=== PATIENT | female | born 1940 | race Caucasian/White ===

== ENCOUNTER 2020-02-24 11:46 | Outpatient (CLI) | payer MEDICARE, SELFPAY ==
[2020-02-24 12:04] LABS: Basophils Absolute Auto 0.04 K/mm3 (0.00-0.10); Basophils Percent Auto 0.8 % (0.0-1.0); Eosinophils Absolute Auto 0.08 K/mm3 (0.02-0.50); Eosinophils Percent Auto 1.7 % (1.0-6.0); Hematocrit 35.5 % (35.0-42.0); Hemoglobin 12.2 g/dL (11.7-13.8); Immature Granulocyte Absolute 0.01 K/mm3 (0.00-0.00); Immature Granulocyte Percent A 0.2 % (0.0-0.0); Lymphocytes Absolute Auto 0.79 K/mm3 (1.10-4.50); Lymphocytes Percent Auto 16.4 % (18.0-42.0); Mean Corpuscular HGB Conc 34.4 g/dL (32.0-36.0); Mean Corpuscular Hemoglobin 31.5 pg (27.0-31.0); Mean Corpuscular Volume 91.7 fL (78.0-102.0); Mean Platelet Volume 9.9 fl (9.2-11.8); Monocytes Absolute Auto 0.41 K/mm3 (0.10-0.90); Monocytes Percent Auto 8.5 % (2.0-11.0); Neutrophils Absolute Auto 3.5 K/mm3 (1.7-7.2); Neutrophils Percent Auto 72.4 % (50.0-70.0); Platelet Count Result 208 K/mm3 (150-420); Red Blood Count 3.87 M/mm3 (4.20-5.40); Red Cell Distribution Width 12.1 % (11.6-14.4); White Blood Count 4.8 K/mm3 (4.8-10.8)
[2020-02-24 12:09] LABS: Add Urine Microscopic? NO; Appearance Urine Clear (Clear); Bilirubin Urine Negative (Negative); Blood Urine Negative (Negative); Color Urine Yellow (Yellow); Glucose Urine UA Negative (Negative); Ketones Urine Negative (Negative); Leukocyte Esterase Ur Negative (Negative); Nitrate Urine Negative (Negative); Protein Urine Negative (Negative); Urobilinogen Urine 0.2 mg/dL (0.2-1.0)
--- NOTE | 2020-02-24 12:10 | ECG_ITS ---
Measurements Intervals [place] Rate: 59 P: 77 [place]: 177 QRS: 84 QRSD: 90 T: 66 QT: 397 QTc: 396 Interpretive Statements SINUS BRADYCARDIA MINIMAL Q WAVES- ANTEROLAT/INF LEADS BORDERLINE ECG Electronically Signed On 02-24-2020 12:37:43 CDT by Dariel Rowley D.O.
[2020-02-24 13:30] LABS: Alanine Aminotransferase 22 U/L (14-59); Albumin Level 3.9 g/dL (3.4-5.0); Alkaline Phosphatase 57 U/L (46-116); Anion Gap 14.2 mmol/L (7-16); Aspartate Amino Transferase 23 U/L (15-37); Bilirubin,Total 0.4 mg/dL (0.00-1.00); Blood Urea Nitrogen 12 mg/dL (7-18); Calcium 8.9 mg/dL (8.5-10.1); Carbon Dioxide 30 mmol/L (21-32); Chloride 103 mmol/L (98-108); Estimated Glomerular Filt Rate > 60; Glucose 87 mg/dL (70-99); Osmolality Calculated 294 mOsm/kg (285-295); Potassium 4.2 mmol/L (3.5-5.1); Sodium 143 mmol/L (136-145); Total Protein 6.7 g/dL (6.4-8.2)
[2020-02-28 09:44] LABS: Vitamin D 25 Hydroxy 81 ng/mL (30-100)
== END 2020-02-24 11:47 | disposition home or self-care (01) ==
PROVIDERS: PCP Family Medicine; Visit Provider Family Medicine
DX: E03.9 Hypothyroidism, unspecified (principal); I10 Essential (primary) hypertension; E55.9 Vitamin D deficiency, unspecified
CPT/HCPCS: 36415; 80053; 81003; 82306; 84443; 85025; 87081; 93005

== ENCOUNTER 2020-04-26 14:52 | Outpatient (RCR) | payer MEDICARE, SELFPAY ==
--- NOTE | 2020-04-26 15:40 | PTOPEVAL ---
Thank you for referring Wanda Gordillo to [facility]. Please review, sign, date and return this plan of care SAUL. I agree with and certify that the following plan of care is medically necessary. Referring Physician Date Admitting Provider: Attending Provider: PHYSICIAN NOT ON STAFF Referring Provider: *PT Outpatient Evaluation Start: 04/26/20 15:01 Freq: Status: Active Protocol: Document 04/26/20 15:02 [facility] (Rec: 04/26/20 15:25 [facility] [id number]) Therapy Assessment Status Assessment Status Assessment Status Evaluation Outpatient Past Medical History Neurological History Hx Seizures Yes: UNKNOWN CAUSE. STILL ON PHENOBARB, NO SZ SINCE AGE 28 Cardiovascular History Hx Hypertension Yes: TAKES MED Respiratory History Hx Respiratory Disorders No Significant History Gastrointestinal History Hx Other Gastrointestinal Disorders Yes: CONSTIPATION Genitourinary History Hx Bladder Surgery Yes: SUSP. BLADDER STIM PLACED EARLY 2018, NOT WORKING Musculoskeletal History Hx Fractures Yes: RT HIP Hx Joint Replacement Yes: BILAT KNEES 2014 Hx Orthopedic Surgery Yes: BILAT SHOULDER MANIPULATION, RT HIP PINNING Hx Osteoporosis Yes Hematological History Hx Hematological Disorders No Significant History Endocrine History Hx Hypothyroidism Yes: TAKES MED Hx Thyroidectomy Yes: LT HEENT History Hx Cataracts Yes: BILAT SURG. Integumentary History Hx Skin Disorders No Significant History Reproductive History Hx Hysterectomy Yes Psychosocial History Hx Psychiatric Disorders No Significant History Pain History Has Past Pain Affected Your Daily Life Yes: RT HIP Anesthesia History Hx Anesthesia Reactions No Significant History Other History Hx Implanted Device Yes: INTERSTIM Evaluation Information Problem Diagnosis right ZACH Onset 03/01/20 Additional Evaluation Detail LEFS=37 Subjective Information Pt. reports she underwent ZACH Query Text:As Reported By Patient/ on 03/01/20. She reports she Family was in the hospital for 2 days and then discharged to a skilled swing bed. She reports that she was discharged 1 week after being on the swing bed. She states that she returned home and had HH for about 1 week. She reports that she is currently
--- NOTE | 2020-05-25 10:21 | PTOPEVAL ---
Thank you for referring Wanda Gordillo to [facility]. Please review, sign, date and return this plan of care SAUL. I agree with and certify that the following plan of care is medically necessary. Referring Physician Date Admitting Provider: Attending Provider: PHYSICIAN NOT ON STAFF Referring Provider: *PT Outpatient Evaluation Start: 04/26/20 15:01 Freq: Status: Active Protocol: Document 05/25/20 09:00 [facility] (Rec: 05/25/20 10:20 [facility] [id number]) Therapy Assessment Status Assessment Status Assessment Status Re-evaluation Outpatient Past Medical History Neurological History Hx Seizures Yes: UNKNOWN CAUSE. STILL ON PHENOBARB, NO SZ SINCE AGE 28 Cardiovascular History Hx Hypertension Yes: TAKES MED Respiratory History Hx Respiratory Disorders No Significant History Gastrointestinal History Hx Other Gastrointestinal Disorders Yes: CONSTIPATION Genitourinary History Hx Bladder Surgery Yes: SUSP. BLADDER STIM PLACED EARLY 2018, NOT WORKING Musculoskeletal History Hx Fractures Yes: RT HIP Hx Joint Replacement Yes: BILAT KNEES 2014 Hx Orthopedic Surgery Yes: BILAT SHOULDER MANIPULATION, RT HIP PINNING Hx Osteoporosis Yes Hematological History Hx Hematological Disorders No Significant History Endocrine History Hx Hypothyroidism Yes: TAKES MED Hx Thyroidectomy Yes: LT HEENT History Hx Cataracts Yes: BILAT SURG. Integumentary History Hx Skin Disorders No Significant History Reproductive History Hx Hysterectomy Yes Psychosocial History Hx Psychiatric Disorders No Significant History Pain History Has Past Pain Affected Your Daily Life Yes: RT HIP Anesthesia History Hx Anesthesia Reactions No Significant History Other History Hx Implanted Device Yes: INTERSTIM Evaluation Information Problem Diagnosis s/p R ZACH Additional Evaluation Detail LEFS = 43% functionally declined Subjective Information patient reports she is getting Query Text:As Reported By Patient/ better, but reports she still Family has pain in the R hip and R knee. she reports she has been increased in soreness/pain since working in her yard last week. she reports she has been too nervous to attempt walking and activities at home without an AD. Pain Assessment Timing of Pain Assessment Timing of Pain Assessment Assessment
--- NOTE | 2020-06-14 07:40 | PCPTNOTE ---
patient cancelled appt for today. ELIANA
== END 2020-06-07 16:59 | disposition home or self-care (01) ==
LOC: CHSPT 14:52
DX: M25.551 Pain in right hip (principal); Z96.641 Presence of right artificial hip joint
CPT/HCPCS: 97014; 97110; 97161; 97530; G0283

== ENCOUNTER 2020-08-02 14:19 | Outpatient (CLI) | payer MEDICARE, SELFPAY ==
[2020-08-02 15:56] LABS: Erythrocyte Sedimentation Rate 14 mm/hr (0-20)
[2020-08-02 16:00] LABS: CRP < 0.2 mg/dL (0.0-0.9)
== END 2020-08-02 14:20 | disposition home or self-care (01) ==
PROVIDERS: PCP Family Medicine
DX: Z96.641 Presence of right artificial hip joint (principal); Z96.651 Presence of right artificial knee joint
CPT/HCPCS: 36415; 85652; 86140

== ENCOUNTER 2020-08-11 09:00 | Outpatient (RCR) | payer MEDICARE, SELFPAY ==
--- NOTE | 2020-08-11 11:04 | PTOPEVAL ---
Thank you for referring Wanda Gordillo to [facility].? The patient is scheduled to be seen for therapy? __3__x/week for 12 visits. Please review, sign, date and return this plan of care SAUL. I agree with and certify that the following plan of care is medically necessary. Referring Physician Date Admitting Provider: Attending Provider: PHYSICIAN NOT ON STAFF Referring Provider: *PT Outpatient Evaluation Start: 08/11/20 09:11 Freq: Status: Active Protocol: Document 08/11/20 09:11 [facility] (Rec: 08/11/20 11:03 [facility] [id number]) Therapy Assessment Status Assessment Status Assessment Status Evaluation Outpatient Past Medical History Neurological History Hx Seizures Yes: UNKNOWN CAUSE. STILL ON PHENOBARB, NO SZ SINCE AGE 28 Cardiovascular History Hx Hypertension Yes: TAKES MED Respiratory History Hx Respiratory Disorders No Significant History Gastrointestinal History Hx Other Gastrointestinal Disorders Yes: CONSTIPATION Genitourinary History Hx Bladder Surgery Yes: SUSP. BLADDER STIM PLACED EARLY 2018, NOT WORKING Musculoskeletal History Hx Fractures Yes: RT HIP Hx Joint Replacement Yes: BILAT KNEES 2014 Hx Orthopedic Surgery Yes: BILAT SHOULDER MANIPULATION, RT HIP PINNING Hx Osteoporosis Yes Hematological History Hx Hematological Disorders No Significant History Endocrine History Hx Hypothyroidism Yes: TAKES MED Hx Thyroidectomy Yes: LT HEENT History Hx Cataracts Yes: BILAT SURG. Integumentary History Hx Skin Disorders No Significant History Reproductive History Hx Hysterectomy Yes Psychosocial History Hx Psychiatric Disorders No Significant History Pain History Has Past Pain Affected Your Daily Life Yes: RT HIP Anesthesia History Hx Anesthesia Reactions No Significant History Other History Hx Implanted Device Yes: INTERSTIM Evaluation Information Problem Diagnosis right hip pain Onset 03/01/20 Subjective Information Pt. reports she underwent Query Text:As Reported By Patient/ right hip replacement in February. Family she states that she has had increasing pain described on the outside of the hip since. She states that she has undergone xray, which shows no complication with her hip replacement. She does have hx of lumbar fusion. She describes pain radiating from
== END 2020-09-01 23:59 | disposition home or self-care (01) ==
LOC: CHSPT 09:00
DX: Z96.641 Presence of right artificial hip joint (principal); Z96.651 Presence of right artificial knee joint
CPT/HCPCS: 97014; 97110; 97140; 97161; G0283

== ENCOUNTER 2020-12-14 08:44 | Outpatient (CLI) | payer MEDICARE, SELFPAY ==
--- NOTE | ~2020-12-14 | XR_ITS ---
EXAMINATION: XR chest 2V DATE: 12/14/2020 09:41 INDICATION: Benign hypertension. Preop. TECHNIQUE: Frontal and lateral views of the chest were obtained. COMPARISON: None. FINDINGS: There is mild scarring at the lung apices. No pleural effusion or pneumothorax. The heart s ize is normal. Calcified mediastinal lymph nodes are consistent with old granulomatous disease. IMPRESSION: 1. Mild scarring at the lung apices. Reviewed, dictated and finalized at location A. ER SIZER OPERATOR
[2020-12-14 09:02] LABS: Add Urine Microscopic? NO; Appearance Urine Clear (Clear); Bilirubin Urine Negative (Negative); Blood Urine Negative (Negative); Color Urine Yellow (Yellow); Glucose Urine UA Negative (Negative); Hemoglobin 12.2 g/dL (11.7-13.8); Ketones Urine Negative (Negative); Leukocyte Esterase Ur Negative (Negative); Mean Corpuscular Hemoglobin 30.6 pg (27.0-31.0); Mean Corpuscular Volume 92.7 fL (78.0-102.0); Mean Platelet Volume 9.7 fl (9.2-11.8); Nitrate Urine Negative (Negative); Platelet Count Result 238 K/mm3 (150-420); Protein Urine Negative (Negative); Red Blood Count 3.99 M/mm3 (4.20-5.40); Red Cell Distribution Width 12.2 % (11.6-14.4); Specific Grav Ur 1.015 (1.010-1.020); Urobilinogen Urine 0.2 mg/dL (0.2-1.0); White Blood Count 3.5 K/mm3 (4.8-10.8)
--- NOTE | 2020-12-14 09:10 | ECG_ITS ---
Measurements Intervals [place] Rate: 56 P: 72 [place]: 174 QRS: 87 QRSD: 97 T: 73 QT: 410 QTc: 398 Interpretive Statements SINUS BRADYCARDIA MINIMAL Q WAVES- ANTEROLAT/INF LEADS BORDERLINE ECG Electronically Signed On 12-14-2020 9:31:48 INVESTMENT ASSOCIATE by Dariel Rowley D.O.
[2020-12-14 09:21] LABS: Band Neutrophils Percent 0 % (0-6); Basophils Absolute Manual 0.03 K/mm3 (0-0.1); Basophils Percent Manual 1 % (0-1); Eosinophils Absolute Manual 0.35 K/mm3 (0.02-0.5); Eosinophils Percent Manual 10 % (1-6); Lymphocytes Absolute Manual 0.87 K/mm3 (1.1-4.5); Lymphocytes Percent Manual 25 % (18-44); Monocytes Absolute Manual 0.17 K/mm3 (0.1-0.90); Monocytes Percent Manual 5 % (3-9); Neutrophils Absolute Manual 2.06 K/mm3 (1.7-7.2); Neutrophils Percent Manual 59 % (46-73); Platelet Estimate Adequate (Adequate); Total Cells Counted 100
[2020-12-14 09:38] LABS: Alanine Aminotransferase 24 U/L (14-59); Albumin Level 3.8 g/dL (3.4-5.0); Alkaline Phosphatase 67 U/L (46-116); Anion Gap 6 mmol/L (8-16); Aspartate Amino Transferase 17 U/L (15-37); Bilirubin,Total 0.4 mg/dL (0.00-1.00); Blood Urea Nitrogen 12 mg/dL (7-18); Carbon Dioxide 29 mmol/L (21-32); Chloride 104 mmol/L (98-108); Estimated Glomerular Filt Rate 56; Glucose 97 mg/dL (70-99); Osmolality Calculated 287 mOsm/kg (285-295); Potassium 4.6 mmol/L (3.5-5.1); Sodium 139 mmol/L (136-145); Total Protein 6.7 g/dL (6.4-8.2)
== END 2020-12-14 08:45 | disposition home or self-care (01) ==
LOC: CHSLAB 08:47
PROVIDERS: PCP Family Medicine; Visit Provider Family Medicine
DX: I10 Essential (primary) hypertension (principal); R00.1 Bradycardia, unspecified
CPT/HCPCS: 36415; 71046; 80053; 81003; 85025; 93005

== ENCOUNTER 2021-01-02 08:30 | Outpatient (CLI) | payer MEDICARE, SELFPAY ==
[2021-01-02 10:07] LABS: SARS-CoV-2 RNA PCR Negative
== END 2021-01-02 08:31 | disposition home or self-care (01) ==
LOC: CHSLAB 08:34
PROVIDERS: PCP Family Medicine; Visit Provider Family Medicine
DX: Z01.818 Encounter for other preprocedural examination (principal); Z20.822 Contact with and (suspected) exposure to COVID-19
CPT/HCPCS: C9803; U0003; U0005

== ENCOUNTER 2021-07-19 11:07 | Outpatient (CLI) | payer MEDICARE, SELFPAY ==
[2021-07-19 11:23] LABS: Basophils Absolute Auto 0.04 K/mm3 (0.00-0.10); Eosinophils Absolute Auto 0.09 K/mm3 (0.02-0.50); Eosinophils Percent Auto 2.3 % (1.0-6.0); Hematocrit 35.7 % (35.0-42.0); Hemoglobin 11.8 g/dL (11.7-13.8); Lymphocytes Absolute Auto 0.69 K/mm3 (1.10-4.50); Lymphocytes Percent Auto 17.3 % (18.0-42.0); Mean Corpuscular HGB Conc 33.1 g/dL (32.0-36.0); Mean Corpuscular Hemoglobin 31.5 pg (27.0-31.0); Mean Corpuscular Volume 95.2 fL (78.0-102.0); Mean Platelet Volume 9.5 fl (9.2-11.8); Monocytes Absolute Auto 0.37 K/mm3 (0.10-0.90); Monocytes Percent Auto 9.3 % (2.0-11.0); Neutrophils Absolute Auto 2.8 K/mm3 (1.7-7.2); Neutrophils Percent Auto 70.1 % (50.0-70.0); Platelet Count Result 228 K/mm3 (150-420); Red Blood Count 3.75 M/mm3 (4.20-5.40); Red Cell Distribution Width 12.7 % (11.6-14.4)
--- NOTE | 2021-07-19 11:30 | ECG_ITS ---
Measurements Intervals [place] Rate: 70 P: 86 [place]: 190 QRS: 89 QRSD: 94 T: 72 QT: 389 QTc: 421 Interpretive Statements SINUS RHYTHM ATRIAL COUPLET MINIMAL Q WAVES- ANTEROLAT/INF LEADS BASELINE ARTIFACT- I, II, III BORDERLINE ECG Electronically Signed On 07-19-2021 11:52:07 CDT by Dariel Rowley D.O.
[2021-07-19 12:02] LABS: Alanine Aminotransferase 26 U/L (14-59); Albumin Level 3.8 g/dL (3.4-5.0); Alkaline Phosphatase 68 U/L (46-116); Anion Gap 7 mmol/L (8-16); Aspartate Amino Transferase 21 U/L (15-37); Bilirubin,Total 0.4 mg/dL (0.00-1.00); Blood Urea Nitrogen 13 mg/dL (7-18); Calcium 8.3 mg/dL (8.5-10.1); Carbon Dioxide 31 mmol/L (21-32); Chloride 102 mmol/L (98-108); Estimated Glomerular Filt Rate > 60; Glucose 88 mg/dL (70-99); Osmolality Calculated 289 mOsm/kg (285-295); Potassium 4.1 mmol/L (3.5-5.1); Sodium 140 mmol/L (136-145); Total Protein 6.7 g/dL (6.4-8.2)
== END 2021-07-19 11:08 | disposition home or self-care (01) ==
LOC: CHSLAB 11:11
PROVIDERS: PCP Family Medicine; Visit Provider Family Medicine
DX: R06.02 Shortness of breath (principal)
CPT/HCPCS: 36415; 80053; 85025; 93005

== ENCOUNTER 2021-08-08 09:17 | Outpatient (CLI) | payer MEDICARE, SELFPAY ==
[2021-08-08 10:23] LABS: SARS-CoV-2 RNA PCR Negative (Negative)
== END 2021-08-08 09:18 | disposition home or self-care (01) ==
LOC: CHSLAB 09:19
PROVIDERS: PCP Family Medicine; Visit Provider Family Medicine
DX: Z01.818 Encounter for other preprocedural examination (principal); Z20.822 Contact with and (suspected) exposure to COVID-19
CPT/HCPCS: C9803; U0003; U0005

== ENCOUNTER 2021-09-20 10:50 | Outpatient (RCR) | payer MEDICARE, SELFPAY ==
--- NOTE | 2021-09-20 12:07 | PTOPEVAL ---
Thank you for referring Wanda Gordillo to [facility].? The patient is scheduled to be seen for therapy? ____x/week for ___ weeks. Please review, sign, date and return this plan of care SAUL. I agree with and certify that the following plan of care is medically necessary. Referring Physician Date Admitting Provider: Attending Provider: MIRIAM ESTRADA Referring Provider: EmmaPT Outpatient Evaluation Start: 09/20/21 11:02 Freq: Status: Active Protocol: Document 09/20/21 11:00 [facility] (Rec: 09/20/21 12:02 [facility] [id number]) Therapy Assessment Status Assessment Status Assessment Status Evaluation Outpatient Past Medical History Neurological History Hx Seizures Yes: UNKNOWN CAUSE. STILL ON PHENOBARB, NO SZ SINCE AGE 28 Cardiovascular History Hx Hypertension Yes: TAKES MED Respiratory History Hx Respiratory Disorders No Significant History Gastrointestinal History Hx Other Gastrointestinal Disorders Yes: CONSTIPATION Genitourinary History Hx Bladder Surgery Yes: SUSP. BLADDER STIM PLACED EARLY 2018, NOT WORKING Musculoskeletal History Hx Fractures Yes: RT HIP Hx Joint Replacement Yes: BILAT KNEES 2014 Hx Orthopedic Surgery Yes: BILAT SHOULDER MANIPULATION, RT HIP PINNING Hx Osteoporosis Yes Hematological History Hx Hematological Disorders No Significant History Endocrine History Hx Hypothyroidism Yes: TAKES MED Hx Thyroidectomy Yes: LT HEENT History Hx Cataracts Yes: BILAT SURG. Integumentary History Hx Skin Disorders No Significant History Reproductive History Hx Other Reproductive Disorders Yes: D&C Psychosocial History Hx Psychiatric Disorders No Significant History Pain History Has Past Pain Affected Your Daily Life Yes: RT HIP Anesthesia History Hx Anesthesia Reactions No Significant History Other History Hx Implanted Device Yes: INTERSTIM Evaluation Information Problem Diagnosis R hip gluteal mm strain Onset 08/11/21 Additional Evaluation Detail LEFS = 68% functionally declined Subjective Information patient reports she had back Query Text:As Reported By Patient/ surgery in december of this year. Family she reports she had surgery in the R hip on 08/11/21. she reports she had some wires in her R hip after the R hip replacement. she reports the wires were rubbing and now she had revision of these wires.
== END 2021-10-06 08:42 | disposition home or self-care (01) ==
LOC: CHSPT 10:50
PROVIDERS: PCP Family Medicine
DX: S76.011D Strain of muscle, fascia and tendon of right hip, subsequent encounter (principal)
CPT/HCPCS: 97014; 97110; 97161; G0283

== ENCOUNTER 2023-12-16 09:57 | Observation (INO) | payer MEDICARE, SELFPAY ==
[2023-12-16] VITALS (25 sets, daily range): BP systolic 119–153; BP diastolic 72–112; PULSE 70–115; RESP 16–20; TEMP 36.4–36.9; O2SAT 81–100; BMI 20.7
--- NOTE | ~2023-12-16 | XR_ITS ---
EXAMINATION: XR chest 2V DATE: 12/16/2023 10:31 INDICATION: Weakness. TECHNIQUE: Frontal and lateral views of the chest were obtained. COMPARISON: Chest 2 views 12/14/2020 FINDINGS: There is mild scarring at the lung apices. No pleural effusion or pneumothorax. Calcified m ediastinal lymph nodes are consistent with old granulomatous disease. The heart size is normal. There is an old healed left rib fracture. There is mild chronic anterior wedging of multiple vertebral bod ies. IMPRESSION: 1. Stable mild scarring at the lung apices. Reviewed, dictated and finalized at location A. ATRIC AIDE
--- NOTE | 2023-12-16 10:02 | ED.WEAKNESS ---
HPI - Weakness General Chief complaint: Weakness Stated complaint: weakness Time Seen by Provider: 12/16/23 09:58 Source: patient Mode of arrival: ambulatory Limitations: no limitations History of Present Illness HPI Narrative: Patient is an 82-year-old female with generalized weakness for the past week. She had COVID last week and has still not felt better. She has been back to the Primary without any changes. She has a hacking cough. MD Complaint: generalized weakness Onset (ago): week(s) (1) Duration: constant Location: generalized Migration: none Severity: moderate Severity scale (1-10): 4 Quality: other ( No pain) Relieving factors: none Exacerbating factors: none Context: recent illness Associated symptoms: other ( cough) Related Data Home Medications Medication Instructions Recorded Confirmed apixaban 5 mg tablet (Eliquis) 5 mg PO DAILY 12/16/23 12/16/23 duloxetine 20 mg capsule,delayed 20 mg PO DAILY 12/16/23 12/16/23 release hydrochlorothiazide 25 mg tablet 25 mg PO DAILY 12/16/23 12/16/23 latanoprost 0.005 % eye drops 1 drp EACH EYE DAILY 12/16/23 12/16/23 levothyroxine 100 mcg tablet 100 mcg PO DAILY 12/16/23 12/16/23 (Synthroid) losartan 100 mg tablet 100 mg PO DAILY 12/16/23 12/16/23 mirabegron 50 mg tablet,extended 50 mg PO DAILY 12/16/23 12/16/23 release 24 hr (Myrbetriq) Allergies Allergy/AdvReac Type Severity Reaction Status Date / Time Sulfa (Sulfonamide Allergy Intermediate LIP Verified 01/27/20 14:20 Antibiotics) SWELLING Review of Systems Review of Systems: All systems reviewed & are unremarkable except as noted in HPI and below Constitutional: Constitutional: Reports no additional constitutional complaints Eyes: Eyes: Reports no additional eye complaints ENT: Reports system reviewed and no additional complaints, except as documented Cardiovascular: Cardiovascular: Reports no additional cardiovascular complaints Respiratory: Respiratory: Reports no additional respiratory complaints Gastrointestinal: Gastrointestinal: Reports no additional gastrointestinal complaints Genitourinary: Genitourinary: Reports no additional female genitourinary complaints Musculoskeletal: Musculoskeletal: Reports no additional musculoskeletal complaints Integumentary/Breasts: Skin/Breast: Reports system reviewed and no additional complaints, except as docu Neurologic: Reports system reviewed and no additional complaints, except as documented Psychiatric: Psychiatric: Reports no additional psychiatric complaints Endocrine: Endocrine: Reports no additional endocrine complaints Hematologic/Lymphatic: Hematologic/Lymphatic: Reports no additional hematologic/lymphatic complaints Allergic/Immunologic: Allergic/Immunologic: Reports no additional allergic/immunologic complaints PMFSH Past Medical History Medical History Hypertension Hypothyroidism Osteoporosis Seizure none since age 28 Surgical History Surgical History History of hysterectomy Social History Social History Gender identity (if verbalized by the patient): Female Exam Const: General: healthy appearing Nutritional Appearance: well nourished Orientation/consciousness: patient oriented x3 HENMT: Head: normal to inspection Ears: external ears normal Face/Nose/Sinus: Normal external nose present Eyes: Conjunctivae: conjunctivae normal Pupils: Equal, round and reactive pupils present EOM: EOMs intact bilaterally Neck: Neck: normal visual inspection Chest: Chest palpation & inspection: normal inspection of the chest Resp: Effort & Inspection: normal respiratory effort and not labored Auscultation: clear to auscultation bilaterally and no crackles Cardio: Rate: regular rate Rhythm: regular rhythm Heart sounds: no murmurs GI: Inspection: n
--- NOTE | 2023-12-16 10:05 | ECG_ITS ---
Measurements Intervals [place] Rate: 110 P: [place]: 0 QRS: 34 QRSD: 89 T: 27 QT: 340 QTc: 462 Interpretive Statements ATRIAL FIBRILLATION WITH RAPID VENTRICULAR RESPONSE MINIMAL Q WAVES- ANTEROLATERAL LEADS BASELINE ARTIFACT- I, II, III, AVR, AVL, AVF, V1-V6 COMPARED TO ECG 07/19/2021 11:36:09 ABNORMAL ECG ATRIAL FIBRILLATION NOW PRESENT Electronically Signed On 12-16-2023 15:33:13 GLUE MOUNTER OPERATOR by Dariel Rowley D.O.
[2023-12-16 10:58] LABS: Hematocrit 35.1 % (35.0-42.0); Hemoglobin 11.5 g/dL (11.7-13.8); Mean Corpuscular HGB Conc 32.8 g/dL (32.0-36.0); Mean Corpuscular Hemoglobin 29.3 pg (27.0-31.0); Mean Corpuscular Volume 89.5 fL (78.0-102.0); Mean Platelet Volume 9.2 fl (9.2-11.8); Platelet Count Result 224 K/mm3 (150-420); Red Blood Count 3.92 M/mm3 (4.20-5.40); Red Cell Distribution Width 12.4 % (11.6-14.4)
[2023-12-16 11:19] LABS: Lactic Acid Reflex 0.9 mmol/L (0.4-2.0)
[2023-12-16 11:23] LABS: Alanine Aminotransferase 19 U/L (14-59); Albumin Level 3.4 g/dL (3.4-5.0); Alkaline Phosphatase 37 U/L (46-116); Anion Gap 7 mmol/L (8-16); Aspartate Amino Transferase 20 U/L (15-37); Bilirubin,Total 0.5 mg/dL (0.00-1.00); Blood Urea Nitrogen 37 mg/dL (7-18); Calcium 9.2 mg/dL (8.5-10.1); Carbon Dioxide 30 mmol/L (21-32); Chloride 98 mmol/L (98-108); Estimated Glomerular Filt Rate 30; Glucose 100 mg/dL (70-99); Osmolality Calculated 288 mOsm/kg (285-295); Potassium 3.5 mmol/L (3.5-5.1); Sodium 135 mmol/L (136-145); Thyroid Stimulating Hormone 0.51 uIU/mL (0.36-3.74)
[2023-12-16 11:39] LABS: SARS-CoV-2 RNA PCR Positive (Negative)
[2023-12-16 11:44] LABS: Band Neutrophils Percent 0 % (0-6); Eosinophils Absolute Manual 0.04 K/mm3 (0.02-0.5); Eosinophils Percent Manual 1 % (1-6); Lymphocytes Absolute Manual 0.52 K/mm3 (1.1-4.5); Lymphocytes Percent Manual 13 % (18-44); Monocytes Absolute Manual 0.28 K/mm3 (0.1-0.90); Monocytes Percent Manual 7 % (3-9); Neutrophils Absolute Manual 3.16 K/mm3 (1.7-7.2); Neutrophils Percent Manual 79 % (46-73); Total Cells Counted 100
[2023-12-16 11:45] LABS: Influenza A QL RT-PCR Negative (Negative); Influenza B QL RT-PCR Negative (Negative); Large Platelets Present; Platelet Estimate Adequate (Adequate); RSV RNA, RT-PCR Negative (Negative); Schistocytes None Seen (NORMAL)
[2023-12-16] MEDS: SODIUM CHLORIDE 0.9% IV 1,000 ML 999 ML IV CONT (11:58)
[2023-12-16 12:07] LABS: Appearance Urine Clear (Clear); Bilirubin Urine Negative (Negative); Blood Urine Negative (Negative); Color Urine Light Yellow (Yellow); Glucose Urine UA Negative (Negative); Ketones Urine Negative (Negative); Leukocyte Esterase Ur Negative LEU/UL (Negative); Nitrate Urine Negative (Negative); Protein Urine Negative (Negative); Specific Grav Ur 1.015 (1.010-1.020); Urobilinogen Urine 0.2 mg/dL (0.2-1.0); pH Urine 6.5 (5.0-8.0)
[2023-12-16 12:11] LABS: Add Urine Microscopic? NO
--- NOTE | 2023-12-16 12:11 | PC.NURSE ---
Patient provided Tea and ham sandwich with ERP approval. patient ambulatory to bathroom and back with cane, no difficulty with ambulation.
[2023-12-16 12:20] LABS: NT Pro B Type Natriuretic Pept 2235 pg/mL (0-450)
--- NOTE | 2023-12-16 13:30 | PC.NURSE ---
On 12/16/23, the student, Kristi Jorge, provided care and completed [facility] documentation on this patient. I have reviewed the student's documentation and agree with the findings.
[2023-12-16] MEDS: METOPROLOL TARTRATE 25 MG TABLET PO (13:31)
--- NOTE | 2023-12-16 15:01 | PC.NURSE ---
1340 PT ARRIVES FROM ER VIA WHEELCHAIR WITH ER STAFF, DENISE AND SON , JEFFERSON. PT IS ALERT AND ORIENTED X4. ALL ASSESSMENT QUESTIONS ANSWERED PER PATIENT. PT ABLE TO TRANSFER TO BED WITH PERSONAL CANE AND MINIMAL ASSISTANCE. PATIENT ORIENTED TO ROOM, PHONE, CALL TORIBIO, BATHROOM, TV. ORIENTATION PATIENT PACKET/FOLDER REVIEWED WITH PT. ALL QUESTIONS ANSWERED. NO NEEDS OR CONCERNS AFTER INITIAL INTERVIEW.
[2023-12-16] MEDS: SODIUM CHLORIDE 0.9% IV 1,000 ML 60 ML IV CONT (16:31)
--- NOTE | 2023-12-16 19:01 | PC.NURSE ---
[id number] password CAT PERSONS THAT YOU CAN GIVE INFORMATION TO : JASVIR PAULINO--SONS, LINDSEY- , FRIEND--SHANTEL MOREAU. GARCÍA LONGORIA--DAUGHTER IN LAW.
[2023-12-16] MEDS: ACETAMINOPHEN 325 MG TABLET 650 MG PO (20:45)
[2023-12-16] MEDS: APIXABAN 2.5 MG TABLET PO (20:45)
[2023-12-17 04:00] VITALS: BP 147/90; PULSE 90; RESP 20; TEMP 36.1; O2SAT 98
[2023-12-17 05:24] LABS: Basophils Absolute Auto 0.01 K/mm3 (0.00-0.10); Basophils Percent Auto 0.4 % (0.0-1.0); Eosinophils Absolute Auto 0.04 K/mm3 (0.02-0.50); Eosinophils Percent Auto 1.7 % (1.0-6.0); Hematocrit 31.1 % (35.0-42.0); Hemoglobin 10.5 g/dL (11.7-13.8); Immature Granulocyte Absolute 0.01 K/mm3 (0.00-0.00); Immature Granulocyte Percent A 0.4 % (0.0-0.0); Lymphocytes Absolute Auto 0.67 K/mm3 (1.10-4.50); Lymphocytes Percent Auto 28.8 % (18.0-42.0); Mean Corpuscular HGB Conc 33.8 g/dL (32.0-36.0); Mean Corpuscular Hemoglobin 30.2 pg (27.0-31.0); Mean Corpuscular Volume 89.4 fL (78.0-102.0); Mean Platelet Volume 9.3 fl (9.2-11.8); Monocytes Absolute Auto 0.27 K/mm3 (0.10-0.90); Monocytes Percent Auto 11.6 % (2.0-11.0); Neutrophils Absolute Auto 1.3 K/mm3 (1.7-7.2); Neutrophils Percent Auto 57.1 % (50.0-70.0); Platelet Count Result 215 K/mm3 (150-420); Red Blood Count 3.48 M/mm3 (4.20-5.40); Red Cell Distribution Width 12.2 % (11.6-14.4); White Blood Count 2.3 K/mm3 (4.8-10.8)
[2023-12-17 05:44] LABS: Alanine Aminotransferase 17 U/L (14-59); Albumin Level 2.9 g/dL (3.4-5.0); Alkaline Phosphatase 34 U/L (46-116); Anion Gap 9 mmol/L (8-16); Aspartate Amino Transferase 20 U/L (15-37); Bilirubin,Total 0.5 mg/dL (0.00-1.00); Blood Urea Nitrogen 28 mg/dL (7-18); Calcium 8.1 mg/dL (8.5-10.1); Carbon Dioxide 28 mmol/L (21-32); Chloride 97 mmol/L (98-108); Estimated CRCL calculation 31 ml/min; Estimated Glomerular Filt Rate 42; Glucose 85 mg/dL (70-99); Magnesium 1.6 mg/dL (1.8-2.4); Osmolality Calculated 282 mOsm/kg (285-295); Potassium 3.5 mmol/L (3.5-5.1); Sodium 134 mmol/L (136-145)
[2023-12-17] MEDS: LEVOTHYROXINE SODIUM 100 MCG TABLET PO (06:25)
--- NOTE | 2023-12-17 07:26 | PM.IMHP ---
H&P: HPI History of Present Illness Date/Time: 12/17/23 07:26 Chief Complaint: Weakness Narrative: This is an 82-year-old female patient with a past history of atrial fibrillation, hypothyroidism, hypertension who came down with COVID about 8 days ago along with her and son. Over this time patient has had decreased oral intake, weakness and occasional shortness of breath/cough. Workup in the emergency department was significant for an RENY and dehydration. Patient given IV fluids. She was noted to have AFib with RVR on telemetry that improved with beta-juan m oral. Losartan and hydrochlorothiazide were held. Patient reports that she is already starting to improve this morning. She is requesting to be discharged home. Review of Systems Review of Systems: All systems reviewed & are unremarkable except as noted in HPI and below PMFSH Past Medical History Medical History Hypertension Hypothyroidism Osteoporosis Seizure none since age 28 Surgical History Surgical History History of hysterectomy Social History Social History Smoking status: Never smoker Second hand tobacco smoke exposure: No Alcohol intake: never Substance use: never Substance use type: does not use Do You Feel Safe in your Home?: Yes Lack of Transportation: No Lack of Food: Never True Current Housing: I Have Housing Concerned About Future Housing: No Difficulty Paying Gas/Electric Bills: No Difficulty Paying for Meds: No Currently Unemployed: No Education: High School Diploma/GED Difficulty w/ Childcare or Family Care: No Gender identity (if verbalized by the patient): Female Spiritual care concerns: No Meds Home Medications and Allergies Home Medications Medication Instructions Recorded Confirmed Type duloxetine 20 mg capsule,delayed 20 mg PO DAILY 12/16/23 12/16/23 History release latanoprost 0.005 % eye drops 1 drp EACH EYE DAILY 12/16/23 12/16/23 History levothyroxine 100 mcg tablet 100 mcg PO DAILY 12/16/23 12/16/23 History (Synthroid) mirabegron 50 mg tablet,extended 50 mg PO DAILY 12/16/23 12/16/23 History release 24 hr (Myrbetriq) apixaban 2.5 mg tablet (Eliquis) 2.5 mg PO Q12HR #180 tabs 12/17/23 Rx metoprolol tartrate 25 mg tablet 25 mg PO Q12HR #20 tabs 12/17/23 Rx Allergies Allergy/AdvReac Type Severity Reaction Status Date / Time Sulfa (Sulfonamide Allergy Intermediate LIP Verified 01/27/20 14:20 Antibiotics) SWELLING Vital Signs Vital Signs - 24 hr 12/16/23 09:58 12/16/23 10:00 12/16/23 10:15 Temperature 36.9 C Pulse Rate 112 H 109 H 114 H Respiratory Rate 16 17 17 Blood Pressure 139/112 H 125/78 119/72 Pulse Oximetry 99 99 99 Oxygen Delivery Room Air Room Air 12/16/23 10:54 12/16/23 11:50 12/16/23 12:00 Temperature Pulse Rate 113 H Respiratory Rate Blood Pressure Pulse Oximetry 100 81 L 99 Oxygen Delivery 12/16/23 12:01 12/16/23 12:15 12/16/23 12:16 Temperature Pulse Rate 108 H 108 H 103 H Respiratory Rate Blood Pressure 143/92 H 152/92 H Pulse Oximetry 94 98 99 Oxygen Delivery 12/16/23 12:34 12/16/23 12:45 12/16/23 12:46 Temperature Pulse Rate 102 H 96 104 H Respiratory Rate Blood Pressure 139/85 Pulse Oximetry 100 99 99 Oxygen Delivery 12/16/23 13:00 12/16/23 13:01 12/16/23 13:31 Temperature Pulse Rate 92 108 H 105 H Respiratory Rate Blood Pressure 133/76 Pulse Oximetry 98 99 Oxygen Delivery 12/16/23 13:35 12/16/23 13:02 12/16/23 13:15 Temperature 36.9 C Pulse Rate 109 H 115 H 94 Respiratory Rate 17 Blood Pressure 133/73 Pulse Oximetry 100 99 99 Oxygen Delivery Room Air 12/16/23 13:30 12/16/23 13:31 12/16/23 13:50 Temperature 36.9 C 36.6 C Pulse Rate 98 100 98 Respira
[2023-12-17] MEDS: MAGNESIUM SULF 2 GM/WATER 50ML 2 GM/50 ML BAG IVPB (07:51)
[2023-12-17] MEDS: MIRABEGRON 25 MG ER TABLET 50 MG PO (07:54)
[2023-12-17] MEDS: APIXABAN 2.5 MG TABLET PO (07:54)
[2023-12-17] MEDS: DULoxetine HCL 20 MG CAPSULE.DR PO (07:54)
[2023-12-17] MEDS: POTASSIUM CHLORIDE 20 MEQ ER TABLET 40 MEQ PO (07:58)
[2023-12-17 08:00] VITALS: BP 165/93; PULSE 91; PULSE 99; RESP 20; TEMP 36.7; O2SAT 98
[2023-12-17 09:02] LABS: Ferritin 159 ng/mL (8-252); Folic Acid 15.3 ng/mL (8.6->20); Iron 73 ug/dL (50-170); Percent Iron Saturation 33 % (12-57); Vitamin B12 596 pg/mL (193-986)
[2023-12-17 09:03] LABS: Thyroid Stimulating Hormone Reflex 0.44 u/IU/mL (0.36-3.74)
[2023-12-17 09:05] VITALS: PULSE 91
[2023-12-17] MEDS: BISACODYL 10 MG SUPPOSITORY RECTAL (09:05)
[2023-12-17] MEDS: METOPROLOL TARTRATE 25 MG TABLET PO (09:05)
[2023-12-17 12:00] VITALS: BP 148/82; PULSE 76; RESP 20; TEMP 36.7; O2SAT 98
--- NOTE | 2023-12-17 12:38 | PM.DS ---
DS: Admitting Diagnosis Discharge Date 12/17/2023 Admitting Diagnosis RENY, dehydration, atrial fibrillation with RVR, COVID, hypertension, hypothyroidism, constipation DS: Discharge Diagnosis Discharge Diagnosis (1) RENY (acute kidney injury): Code(s): N17.9 - Acute kidney failure, unspecified Status: Acute (2) Dehydration: Code(s): E86.0 - Dehydration Status: Acute (3) Atrial fibrillation with rapid ventricular response: Code(s): I48.91 - Unspecified atrial fibrillation Status: Acute (4) COVID: Code(s): U07.1 - COVID-19 Status: Acute (5) Hypertension: Code(s): I10 - Essential (primary) hypertension Status: Acute (6) Hypothyroidism: Code(s): E03.9 - Hypothyroidism, unspecified Status: Acute (7) Constipation: Code(s): K59.00 - Constipation, unspecified Status: Acute (8) Anemia: Code(s): D64.9 - Anemia, unspecified Status: Acute DS: Summary Hospital Course Reason for hospitalization: Generalized weakness, dehydration Hospital Course: This is an 82-year-old female patient who was admitted to the hospital overnight with RENY, dehydration, AFib with RVR. She was recently diagnosed with COVID was not eating or drinking well at and was beginning to feel generally much weaker. Patient found to have significant renal dysfunction compared to last values and our computer system. Patient reports that she is feeling much stronger after IV fluids overnight. Laboratory assessment showed a slightly decreased magnesium and low normal potassium. These were supplemented due to AFib with RVR. Patient is requesting discharge home today. I contacted patient's primary care provider regarding recommendations to change blood pressure medicine from hydrochlorothiazide/losartan that patient usually takes at home and change it to metoprolol 25 mg tartrate b.i.d. at least for the short term. Also discussed decreasing the dose of Eliquis due to patient's age, weight and renal function. Dr. Hardin agreed with these changes and wants patient to contact the office for follow-up this week where he will institute remote monitoring of blood pressure. He requested a 10 day prescription for metoprolol and he would continue this or make adjustments ongoing. Dr. Hardin was also able to update us that patient's renal function has subsided over the last couple of years baseline creatinine seems to be of 1.4 and baseline GFR in the 30s to low 40s. Eliquis 90 day prescription was written as this is what patient prefers. Dr. Hardin in agreement with these plans. Family notified and also in agreement with discharge. Status at Discharge Cognitive/behavioral status at discharge: Awake alert oriented and pleasant Functional status at discharge: uses cane/walker (Uses cane at times for stabilization) Overall status at discharge: patient is progressing back to baseline Time Spent with Patient Time attestation: Total time spent providing and/or coordinating discharge services: Exam Narrative: GENERAL: Well-appearing, well-nourished, and in no acute distress. HEAD: Normocephalic, atraumatic. ENT:? Mucous membranes moist. CHEST: Clear to auscultation.? No respiratory distress. HEART: Regular rate and rhythm. ? Normal peripheral pulses. ABDOMEN: Soft, nontender, nondistended. EXTREMITIES: Normal range of motion. No peripheral edema. SKIN: Warm dry normal color NEURO: Alert and oriented x3. PSYCH: Normal mood and affect DS: Data Data Completed and Pending Completed studies during hospitalization: Chest x-ray Labs on day of discharge: Labs from last 24 hours 12/17/23 12/17/23 05:01 04:58 WBC 2.3 L RBC 3.48 L Hgb 10.5 L Hct 31.1 L MCV 89.4 MCH 30.2 MCHC 33.8 RDW 12.2 Plt Count 215 MPV 9.3 Immature Gran % (Auto) 0.4 H Neut % (Auto) 57.1 Lymph % (Auto) 28.8 Berrien % (Auto) 11.6 H Eos % (Auto) 1.7 Baso % (Auto)
--- NOTE | 2023-12-17 13:49 | PC.NURSE ---
1200 DISCHARGE INSTRUCTIONS GONE OVER WITH PT IV D/C'D PT SHUN WELL CATH INTACT BLEEDING CONTROLLED PT DRESSED AND WAITING FOR RIDE AT 1300 PT TAKEN TO EXIT AND HELPED INTO VEHICLE PT VERBALIZED UNDERSTANDING OF DISCHARGE INSTRUCTIONS
--- NOTE | 2023-12-19 08:37 | PC.NURSE ---
Discharge call back attempted, no answer
--- NOTE | 2023-12-20 09:33 | PC.NURSE ---
Discharge call back completed, understood dc instructions, no questions, saw PMD yesterday
== END 2023-12-17 13:00 | disposition home or self-care (01) ==
LOC: CHSED 12:12 → CHS2ND 13:19
PROVIDERS: Nurse Practitioner; Admitting Provider Internal Medicine; Emergency Provider Emergency Medicine; PCP Family Medicine; Visit Provider Internal Medicine
DX: N17.9 Acute kidney failure, unspecified (principal); U07.1 COVID-19; D64.9 Anemia, unspecified; I48.91 Unspecified atrial fibrillation; E86.0 Dehydration; E03.9 Hypothyroidism, unspecified; K59.00 Constipation, unspecified; I10 Essential (primary) hypertension; M81.0 Age-related osteoporosis without current pathological fracture; Z79.01 Long term (current) use of anticoagulants; Z79.899 Other long term (current) drug therapy
CPT/HCPCS: 36415; 71046; 80053; 81003; 82607; 82728; 82746; 83540; 83550; 83605; 83735; 83880; 84443; 84484; 85025; 87637; 93005; 96360; 96361; 96365; 99285; A9270; G0378; J3475; J7030

== ENCOUNTER 2024-03-27 16:02 | Emergency (ER) | payer MEDICARE, SELFPAY ==
[2024-03-27 16:02] VITALS: BP 137/94; PULSE 99; RESP 17; TEMP 36.9; O2SAT 99
[2024-03-27 16:09] VITALS: BP 137/94; PULSE 99; RESP 18; TEMP 36.9; O2SAT 99
--- NOTE | 2024-03-27 16:23 | ED.GENADULT ---
HPI - General Adult General Stated complaint: weakness Source: patient and family Mode of arrival: wheelchair Limitations: no limitations History of Present Illness HPI narrative: this is an 83-year-old female with chronic AFib rate controlled with no chest pain no shortness of breath presents to the ER with some difficulty sleeping and chronic joint aches and pains. Patient currently is on Eliquis, there is no fever chills no nausea vomiting no abdominal pain no diarrhea constipation no dysuria. Onset (ago): year(s) Related Data Home Medications Medication Instructions Recorded Confirmed duloxetine 20 mg capsule,delayed 20 mg PO DAILY 12/16/23 12/16/23 release latanoprost 0.005 % eye drops 1 drp EACH EYE DAILY 12/16/23 12/16/23 levothyroxine 100 mcg tablet 100 mcg PO DAILY 12/16/23 12/16/23 (Synthroid) mirabegron 50 mg tablet,extended 50 mg PO DAILY 12/16/23 12/16/23 release 24 hr (Myrbetriq) Allergies Allergy/AdvReac Type Severity Reaction Status Date / Time Sulfa (Sulfonamide Allergy Intermediate LIP Verified 01/27/20 14:20 Antibiotics) SWELLING Review of Systems Review of Systems: All systems reviewed & are unremarkable except as noted in HPI and below PMFSH Past Medical History Medical History Hypertension Hypothyroidism Osteoporosis Seizure none since age 28 Surgical History Surgical History History of hysterectomy Social History Social History Smoking status: Never smoker Second hand tobacco smoke exposure: No Alcohol intake: never Substance use: never Substance use type: does not use Do You Feel Safe in your Home?: Yes Lack of Transportation: No Lack of Food: Never True Current Housing: I Have Housing Concerned About Future Housing: No Difficulty Paying Gas/Electric Bills: No Difficulty Paying for Meds: No Currently Unemployed: No Education: High School Diploma/GED Difficulty w/ Childcare or Family Care: No Gender identity (if verbalized by the patient): Female Spiritual care concerns: No Exam Const: General: healthy appearing and no acute distress Nutritional Appearance: well nourished Orientation/consciousness: patient oriented x3 Limitations: no limitations Neck: Neck: normal visual inspection, no lymphadenopathy and no meningeal signs Chest: Chest palpation & inspection: normal inspection of the chest Resp: Effort & Inspection: normal respiratory effort Auscultation: clear to auscultation bilaterally Cardio: Rate: regular rate Rhythm: regular rhythm GI: GI Palp: Yes Soft to palpation Auscultation: normal bowel sounds Skin: General skin exam: normal color Rashes: no rashes Wounds: no wounds Neuro: General: patient oriented x3, moves all extremities, no meningeal signs and no focal motor deficits Extrem: General: normal to inspection Psych: Mental Status: mental status grossly normal Course Course Emergency Course: Patient having difficulty with sleeping and has a chronic osteoarthritis advised to follow with her primary care physician, patient is scheduled for a cardioversion next Sunday with her data processing mechanic otherwise not having any chest pain her heart rate is controlled blood pressure stable O2 sats at 99% on room air. Vital Signs Vital signs: Vital Signs Temperature 36.9 C 03/27/24 16:09 Pulse Rate 99 03/27/24 16:09 Respiratory Rate 18 03/27/24 16:09 Blood Pressure 137/94 H 03/27/24 16:09 Pulse Oximetry 99 03/27/24 16:09 Oxygen Delivery Room Air 03/27/24 16:09 Temperature 36.9 C 03/27/24 16:09 Pulse Rate 99 03/27/24 16:09 Respiratory Rate 18 03/27/24 16:09 Blood Pressure 137/94 H 03/27/24 16:09 Pulse Oximetry 99 03/27/24 16:09 Oxygen Delivery Room Air 03/27/24 16:09 Medical Decision Making
[2024-03-27 16:40] VITALS: BP 140/94; PULSE 75; RESP 17; TEMP 36.9; O2SAT 97
== END 2024-03-27 16:40 | disposition home or self-care (01) ==
LOC: CHSED 16:44
PROVIDERS: Emergency Provider Emergency Medicine; PCP Family Medicine
DX: G47.00 Insomnia, unspecified (principal); M19.90 Unspecified osteoarthritis, unspecified site; I48.91 Unspecified atrial fibrillation; I10 Essential (primary) hypertension; E03.9 Hypothyroidism, unspecified; Z79.01 Long term (current) use of anticoagulants
CPT/HCPCS: 99283

== ENCOUNTER 2024-10-03 11:45 | Emergency (ER) | payer MEDICARE, SELFPAY ==
--- NOTE | ~2024-10-03 | XR_ITS ---
XR abdomen/kub 1V 10/03/2024 13:00 Indication: Abdominal pain Procedure: KUB Comparison: No prior studies for comparison. Findings: There are surgical changes of fusion at the lumbosacral junction. There is a right hip arth roplasty. There is a residual segment of stimulator lead in the pelvis. Moderate gas throughout the c olon with significant retained fecal material in the distal colon. Impression: 1: Moderate fecal loading of the colon. Reviewed, dictated and finalized at location B. [employer] Impression: 1: Moderate fecal loading of the colon.
[2024-10-03 11:47] VITALS: BP 191/68; PULSE 62; RESP 18; TEMP 36.7; O2SAT 98
--- NOTE | 2024-10-03 12:29 | ED_ITS ---
HPI - Female Genitourinary General Chief complaint: Urogenital-Female Stated complaint: unable to urinate Source: patient Mode of arrival: ambulatory Limitations: no limitations History of Present Illness HPI Narrative: 83-year-old female with a history of hypertension, hypothyroidism, constipation, atrial fibrillation on Eliquis, renal insufficiency, history of inability to give adequate her bladder properly presents to the ED with -- bladder pressure. Unable to pass urine. She had a bladder scan which revealed around 80 cc of urine. Patient denies dysuria or hematuria -- constipation for the past 2 days no nausea vomiting abdominal pain or diarrhea. MD elicited complaint: UTI and other ( Constipation) Onset (ago): day(s) ( 1 day) Severity: mild Vaginal discharge: none Urinary symptoms: Frequency and Difficulty Urinating Relieving factors: none Associated symptoms: denies other symptoms Treatment prior to arrival: none Related Data Home Medications ?Medication ?Instructions ?Recorded ?Confirmed ?Last Taken ?Type duloxetine 20 mg capsule,delayed 20 mg PO DAILY 12/16/23 03/27/24 Unknown History release latanoprost 0.005 % eye drops 1 drp EACH EYE DAILY 12/16/23 03/27/24 Unknown History levothyroxine 100 mcg tablet 100 mcg PO DAILY 12/16/23 03/27/24 Unknown History (Synthroid) mirabegron 50 mg tablet,extended 50 mg PO DAILY 12/16/23 03/27/24 Unknown History release 24 hr (Myrbetriq) Allergies Allergy/AdvReac Type Severity Reaction Status Date / Time Sulfa (Sulfonamide Allergy Intermediate LIP Verified 03/27/24 16:34 Antibiotics) SWELLING Review of Systems 2 Review of Systems: All systems reviewed & are unremarkable except as noted in HPI and below Constitutional: Constitutional: Reports as per HPI and Reports no additional constitutional complaints Eyes: Eyes: Reports as per HPI and Reports no additional eye complaints ENT: Reports system reviewed and no additional complaints, except as documented and Reports as per HPI Cardiovascular: Cardiovascular: Reports as per HPI and Reports no additional cardiovascular complaints Respiratory: Respiratory: Reports as per HPI and Reports no additional respiratory complaints Gastrointestinal: Gastrointestinal: Reports as per HPI and Reports no additional gastrointestinal complaints Genitourinary: Genitourinary: Reports no additional female genitourinary complaints and Reports as per HPI Comments: pressure on her bladder any inability to get back with Musculoskeletal: Musculoskeletal: Reports no additional musculoskeletal complaints and Reports as per HPI Integumentary/Breasts: Skin/Breast: Reports system reviewed and no additional complaints, except as docu and Reports as per HPI Neurologic: Reports system reviewed and no additional complaints, except as documented and Reports as per HPI Psychiatric: Psychiatric: Reports no additional psychiatric complaints and Reports as per HPI Endocrine: Endocrine: Reports no additional endocrine complaints and Reports as per HPI Hematologic/Lymphatic: Hematologic/Lymphatic: Reports no additional hematologic/lymphatic complaints and Reports as per HPI Allergic/Immunologic: Allergic/Immunologic: Reports no additional allergic/immunologic complaints and Reports as per HPI [facility] Past Medical History Medical History Seizure none since age 28 Osteoporosis Hypothyroidism Hypertension Surgical History Surgical History History of hysterectomy Social History Social History Smoking status: Never smoker Second hand tobacco smoke exposure: No Alcohol intake: never Substance use: never Substance use type: does not use Do You Feel Safe in your Home?: Yes Lack of Transportation: No Lack of Food: Never True Current Housing: I Have Housing Concerned About Future Housing: No Difficulty Paying Gas/Electric Bills: No Difficulty Paying for Meds: No Currently Unemployed: No Education: High School Diploma/GED Difficulty w/ Childcare or Family Care: No Gender identity (if verbalized by the patient): Female Spiritual care concerns: No Exam 2 Const: General: healthy appearing Orientation/consciousness: patient oriented x3 Limitations: no limitations HENMT: Head: normal to inspection Ears: external ears normal F elvia/Nose/Sinus: Normal external nose present Face and sinus: normal facial exam Mouth: Yes Normal oral and palatal mucosa present Throat: posterior oropharynx normal Eyes: Conjunctivae: conjunctivae normal Pupils: Equal, round and reactive pupils present EOM: EOMs intact bilaterally Direct Ophthalmoscopy: no photophobia Neck: Neck: normal visual inspection, no lymphadenopathy and no meningeal signs Chest: Chest palpation & inspection: normal inspection of the chest Resp: Effort & Inspection: normal respiratory effort Auscultation: clear to auscultation bilaterally Cardio: Rate: regular rate Rhythm: regular rhythm GI: GI Palp: Yes Soft to palpation Auscultation: normal bowel sounds O ther: no tenderness/ rigidity /rebound : General: Yes no CVA tenderness Back/Spine/Pelvis: Back: no CVA tenderness Skin: General skin exam: normal color Rashes: no rashes Neuro: General: patient oriented x3, moves all extremities, no meningeal signs, no focal motor deficits and CN's II-XI intact bilaterally Cranial nerves: Yes Nystagmus not present Speech: normal speech Gait exam (Neuro): Normal gait present Extrem: General: normal to inspection and no clubbing, cyanosis or edema Psych: Appearance: grossly normal Mental Status: mental status grossly normal Affect: normal affect Attitude: cooperative Course Course Emergency Course: abdominal pain constipation bladder problems-- patient had a bladder scan which revealed 80 cc of urine. The patient was not able to empty her bladder. She went on to have placement of a Lofton's catheter. urine is unremarkable. CKD Vital Signs Vital signs: Vital Signs Temperature 36.7 C 10/03/24 11:47 Pulse Rate 62 10/03/24 11:47 Respiratory Rate 18 10/03/24 11:47 Blood Pressure 191/68 H 10/03/24 11:47 Pulse Oximetry 98 10/03/24 11:47 Oxygen Delivery Room Air 10/03/24 11:47 Temperature 36.7 C 10/03/24 11:47 Pulse Rate 62 10/03/24 11:47 Respiratory Rate 18 10/03/24 11:47 Blood Pressure 191/68 H 10/03/24 11:47 Pulse Oximetry 98 10/03/24 11:47 Oxygen Delivery Room Air 10/03/24 11:47 MDM - Female Genitourinary MDM Narrative Medical decision making narrative: CKD constipation Differential Diagnosis Differential diagnosis: Likely urinary tract infection Lab Data 10/03/24 12:59 10/03/24 12:59 Labs: Lab Results 10/03/24 10/03/24 Range/Units 12:10 12:59 WBC 4.9 (4.8-10.8) K/mm3 RBC 3.25 L (4.20-5.40) M/mm3 Hgb 10.2 L (11.7-13.8) g/dL Hct 30.0 L (35.0-42.0) % MCV 92.3 (78.0-102.0) fL MCH 31.4 H (27.0-31.0) pg MCHC 34.0 (32-36) g/dL RDW 12.4 (11.6-14.4) % Plt Count 264 (150-420) K/mm3 MPV 9.2 (9.2-11.8) fl Immature Gran % (Auto) 0.4 H (0.0-0.0) % Neut % (Auto) 84.6 H (50.0-70.0) % Lymph % (Auto) 6.7 L (18.0-42.0) % Mcpherson % (Auto) 7.5 (2.0-11.0) % Eos % (Auto) 0.2 L (1.0-6.0) % Baso % (Auto) 0.6 (0.0-1.0) % Lymph # (Auto) 0.33 L (1.10-4.50) K/mm3 Mcpherson # (Auto) 0.37 (0.10-0.90) K/mm3 Eos # (Auto) 0.01 L (0.02-0.50) K/mm3 Baso # (Auto) 0.03 (0.00-0.10) K/mm3 Abs Immat Gran (auto) 0.02 H (0.00-0.00) K/mm3 Absolute Neuts (auto) 4.16 (1.70-7.20) K/mm3 Absolute Nucleated RBC 0.00 (0.00-0.00) K/mm3 Nucleated RBC % 0.0 (0-0.0) % PT 11.4 (9.50-12.1) Seconds INR 1.0 Sodium 135 L (136-145) mmol/L Potassium 3.9 (3.5-5.1) mmol/L Chloride 99 (98-108) mmol/L Carbon Dioxide 26 (21-32) mmol/L Anion Gap 10 (4-12) mmol/L BUN 18 (7-18) mg/dL Creatinine 1.21 H (0.55-1.02) mg/dL Estim Creat Clear Calc 30 ml/min Estimated GFR 43 L (59 - ) Glucose 88 (70-99) mg/dL Calculated Osmolality 280 L (285-295) mOsm/kg Lactic Acid Pending Calcium 8.5 (8.5-10.1) mg/dL Total Bilirubin 0.6 (0.00-1.00) mg/dL AST 24 (15-37) U/L ALT 28 (14-59) U/L Alkaline Phosphatase 48 (46-116) U/L Total Protein 6.7 (6.4-8.2) g/dL Albumin 3.6 (3.4-5.0) g/dL Lipase 82 H (16-77) U/L Urine Color Light yellow (Yellow) Urine Appearance Clear (Clear) Urine pH 6.5 (5.0-8.0) Ur Specific [place]on 1.010 (1.010-1.020) Urine Protein Negative (Negative) Urine Glucose (UA) Negative (Negative) Urine Ketones Negative (Negative) Ur Blood (Man) Negative (Negative) Urine Nitrate Negative (Negative) Urine Bilirubin Negative (Negative) Urine Urobilinogen 0.2 (0.2-1.0) mg/dL Leukocyte Esterase Rfl Negative (Negative) CRISTINA/UL Discharge Plan Discharge Clinical Impression: CKD (chronic kidney disease) stage 3, GFR 30-59 ml/min Qualifiers: Chronic kidney disease stage 3 subtype: stage 3b (GFR 30-44) Qualified Code(s): N18.32 - Chronic kidney disease, stage 3b Constipation Qualifiers: Constipation type: unspecified constipation type Qualified Code(s): K59.00 - Constipation, unspecified Patient Disposition: Home, Self-Care Condition: Stable Instructions: Antibiotic Form, Constipation (ED), Chronic Kidney Disease Diet (DC) Patient Language: Welsh Prescriptions: No Action latanoprost 0.005 % drops 1 drp EACH EYE DAILY levothyroxine [Synthroid] 100 mcg tablet 100 mcg PO DAILY duloxetine 20 mg capsule,delayed release(DR/EC) 20 mg PO DAILY mirabegron [Myrbetriq] 50 mg tablet extended release 24 hr 50 mg PO DAILY metoprolol tartrate 25 mg Tablet 25 mg PO Q12HR Qty: 20 0RF Eliquis 2.5 mg Tablet 2.5 mg PO Q12HR Qty: 180 0RF temazepam 15 mg capsule 15 mg PO HS PRN (Reason: sleep) Qty: 20 0RF Follow-up/Referrals: Reza,Ct Hopkins MD [Primary Care Provider] - Time of Disposition: 13:35
[2024-10-03 12:38] LABS: Add Urine Microscopic? NO; Appearance Urine Clear (Clear); Bilirubin Urine Negative (Negative); Blood Urine Negative (Negative); Color Urine Light Yellow (Yellow); Glucose Urine UA Negative (Negative); Ketones Urine Negative (Negative); Leukocyte Esterase Ur Negative LEU/UL (Negative); Nitrate Urine Negative (Negative); Protein Urine Negative (Negative); Urobilinogen Urine 0.2 mg/dL (0.2-1.0); pH Urine 6.5 (5.0-8.0)
[2024-10-03 13:03] LABS: Basophils Absolute Auto 0.03 K/mm3 (0.00-0.10); Basophils Percent Auto 0.6 % (0.0-1.0); Eosinophils Absolute Auto 0.01 K/mm3 (0.02-0.50); Eosinophils Percent Auto 0.2 % (1.0-6.0); Hemoglobin 10.2 g/dL (11.7-13.8); Immature Granulocyte Absolute 0.02 K/mm3 (0.00-0.00); Immature Granulocyte Percent A 0.4 % (0.0-0.0); Lymphocytes Absolute Auto 0.33 K/mm3 (1.10-4.50); Lymphocytes Percent Auto 6.7 % (18.0-42.0); Mean Corpuscular Hemoglobin 31.4 pg (27.0-31.0); Mean Corpuscular Volume 92.3 fL (78.0-102.0); Mean Platelet Volume 9.2 fl (9.2-11.8); Monocytes Absolute Auto 0.37 K/mm3 (0.10-0.90); Monocytes Percent Auto 7.5 % (2.0-11.0); Neutrophils Absolute Auto 4.16 K/mm3 (1.70-7.20); Neutrophils Percent Auto 84.6 % (50.0-70.0); Platelet Count Result 264 K/mm3 (150-420); Red Blood Count 3.25 M/mm3 (4.20-5.40); Red Cell Distribution Width 12.4 % (11.6-14.4); White Blood Count 4.9 K/mm3 (4.8-10.8)
[2024-10-03 13:16] LABS: Prothrombin Time 11.4 Seconds (9.50-12.1)
[2024-10-03 13:20] LABS: Alanine Aminotransferase 28 U/L (14-59); Albumin Level 3.6 g/dL (3.4-5.0); Alkaline Phosphatase 48 U/L (46-116); Anion Gap 10 mmol/L (4-12); Aspartate Amino Transferase 24 U/L (15-37); Bilirubin,Total 0.6 mg/dL (0.00-1.00); Blood Urea Nitrogen 18 mg/dL (7-18); Calcium 8.5 mg/dL (8.5-10.1); Carbon Dioxide 26 mmol/L (21-32); Chloride 99 mmol/L (98-108); Estimated CRCL calculation 30 ml/min; Estimated Glomerular Filt Rate 43; Glucose 88 mg/dL (70-99); Lipase 82 U/L (16-77); Osmolality Calculated 280 mOsm/kg (285-295); Potassium 3.9 mmol/L (3.5-5.1); Sodium 135 mmol/L (136-145); Total Protein 6.7 g/dL (6.4-8.2)
[2024-10-03 13:33] LABS: Lactic Acid Reflex 0.8 mmol/L (0.4-2.0)
--- NOTE | 2024-10-03 14:02 | PC.NURSE ---
16fr arango balloon deflated and catheter removed. balloon intact.
[2024-10-03 14:04] VITALS: BP 175/81; PULSE 74; RESP 20; TEMP 36.8; O2SAT 98
== END 2024-10-03 14:04 | disposition home or self-care (01) ==
PROVIDERS: Emergency Provider Internal Medicine Critical Care Medicine; PCP Family Medicine
DX: I12.9 Hypertensive chronic kidney disease with stage 1 through stage 4 chronic kidney disease, or unspecified chronic kidney disease (principal); N18.32 Chronic kidney disease, stage 3b; K59.00 Constipation, unspecified; E03.9 Hypothyroidism, unspecified; I48.91 Unspecified atrial fibrillation
CPT/HCPCS: 36415; 74018; 80053; 81003; 83605; 83690; 85025; 85610; 99283

== ENCOUNTER 2024-11-16 13:41 | Emergency (ER) | payer MEDICARE, SELFPAY ==
--- NOTE | ~2024-11-16 | CT_ITS ---
History: Syncope PROCEDURE: CT cervical spine without intravenous contrast. COMPARISON: None TECHNIQUE: Multiple contiguous axial images of the cervical spine were performed without the administration of i ntravenous contrast. DLP: 122 mGy-cm FINDINGS: Preservation of the normal curvature of the cervical spine is identified. Significant degenerative disease is identified, with osteophyte formation, disc space narrowing, endp late changes and facet arthropathy. No acute fractures are present. Biapical scarring. No soft tissue abnormality is present. The airway is patent. Impression: Significant degenerative disease, without acute fracture. Reviewed, dictated and finalized at location A. SMANSHIP INSTRUCTOR Impression: Significant degenerative disease, without acute fracture.
--- NOTE | ~2024-11-16 | XR_ITS ---
CHEST RADIOGRAPH CLINICAL HISTORY: syncope/weakness . COMPARISON: 12/16/2023 TECHNIQUE: Single portable view of the chest. FINDINGS The cardiomediastinal silhouette is unremarkable. The lungs are clear. Visualized osseous structures and soft tissues are unremarkable. IMPRESSION: No focal infiltrate or effusion. Reviewed, dictated and finalized at location A. OBIOLOGICAL ANALYST
--- NOTE | ~2024-11-16 | CT_ITS ---
History: 61 PROCEDURE: CT head without contrast. COMPARISON: None TECHNIQUE: Axial imaging of the head performed from the skull base to the vertex without IV contrast. Sagittal a nd coronal reformations obtained. DLP: 681 mGy-cm FINDINGS: The ventricles are dilated. The dilatation of the ventricles is proportional to the degree of sulcal prominence, not uncommon in the senescent brain. Decreased attenuation is identified within the periventricular white matter, likely secondary to micr ovascular ischemic disease, in a patient of this age. There is no mass, mass effect or midline shift. There is no abnormal extra-axial fluid collection or intracranial hemorrhage. Visualized paranasal sinuses are clear. The mastoid air cells are well aerated. No acute displaced fractures within the overlying cranium. Impression: No acute intracranial hemorrhage or suspicious mass effect. Reviewed, dictated and finalized at location A. M CONDITIONER OPERATOR Impression: No acute intracranial hemorrhage or suspicious mass effect.
[2024-11-16 13:43] VITALS: BP 138/54; PULSE 57; RESP 20; TEMP 36.7; O2SAT 98
--- NOTE | 2024-11-16 13:44 | ECG_ITS ---
Test Date: 2024-11-16 14:22:03 Measurements Intervals [place] Rate: 56 P: 86 DC: 237 QRS: 78 QRSD: 108 T: 86 QT: 490 QTc: 476 Interpretive Statements SINUS BRADYCARDIA WITH FIRST DEGREE AV BLOCK MINIMAL Q WAVES- ANTEROLAT/INF LEADS BORDERLINE ST-T WAVE ABNORMALITY- HIGH LATERAL LEADS BASELINE ARTIFACT- II, III, AVR, AVL, AVF, V1, V3 BORDERLINE ECG No previous ECG available for comparison Electronically Signed On 11-16-2024 15:29:59 [employer] by Dariel Rowley D.O.
--- OUTSIDE RECORDS SUMMARY | 2024-11-16 13:44 | XMS_ITS | Clinical Summary ---
[facility] Organization [facility] Address [address] 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
--- OUTSIDE RECORDS SUMMARY | 2024-11-16 13:44 | XMS_ITS | Encounter Summary ---
Author Organization [facility] Address [address] 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
--- OUTSIDE RECORDS SUMMARY | 2024-11-16 13:44 | XMS_ITS | Clinical Summary ---
Author Organization [facility] Address [address] [place] [address] Phone Care Team Providers Care Senior Asic Design Engineer Name Role Phone Blas Hardin MD Primary Care Provider [phone] Social History Tobacco Use Types Packs/Day Years Used Date Smoking Tobacco: Never Assessed Comments Unknown Sex and Gender Information Value Date Recorded Sex Assigned at Not on file Legal Sex Female 2:55 PM CDT Gender Identity Not on file Sexual Orientation Not on file Plan of Treatment Health Maintenance Due Date Last Done Comments DEXA Bone Density 1940 Hepatitis C Virus (HCV) Screening 1940 TdaP Immunization 1940 Pneumococcal Immunization (5 0+ years) (1 of 1 - PCV) 12/24/1991 Zoster Immunization (1 of 2) 12/24/1991 Respiratory Syncytial Virus (RSV) Immunization (Adult) (1 - 1-dose 75+ series) 2016 Influenza Immunization (#1) 2024 SARS-COV-2 Immunization ( - 2023-25 season) 2024 Hepatitis B Immunization Aged Out No longer eligible based on patient's age to complete this topic Meningococcal Immunization (ACWY) Aged Out No longer eligible based on patient's age to complete this topic Rotavirus Immunization Aged Out No lo nger eligible based on patient's age to complete this topic Insurance MEDICARE [facility] Care Teams Senior Asic Design Engineer Relationship Specialty Start Date End Date Blas Hardin MD [address] [place] [address] PCP - General Family Medicine 01/24/16
--- OUTSIDE RECORDS SUMMARY | 2024-11-16 13:44 | XMS_ITS | Data Portability ---
Author Organization [facility], [address] [place] [address] Neurology ([place]) Address [address] [id number] Care Team Providers Care Commercial Coordinator Name Role Phone EDGARDO GODFREY Primary Care Provider MIRA REYES Loan Expeditor KAREN NICOLE Loan Expeditor Assessment Encounter Date Assessment Date Assessment LastModified by Organization Details LastModified Time 01/10/2024 01/10/2024 Ms. Gordillo is a pleasant 83-year-old female with a past medical history significant for hypertension, hyperlipidemia, hypothyroidism, history of bladder repair, Botox injections of the bladder, back surgery, knee replacement surgery, hip replacement surgery is here for a follow-up on her RENY with CKD. ? RENY with baseline serum creatinine ranging between 0.8? 0.9 with chronic kidney disease stage III. Patient's most recent serum creatinine is noted to be 1.22 with a GFR 44. Fluid and electrolyte balance are adequate. This was done about 10 to 14 days after patient's release from hospital for COVID-19. Patient will continue to hydrate well and repeat a BMP and do a microalbumin in 1 month. Patient continues to hydrate well and to avoid NSAIDs. Continue to monitor renal function panel at regular intervals. Discussed about KDIGO recommendations to prevent CKD progression -Advised to undertake moderate-intensity physical activity for a cumulative duration of at least 150 minutes per week, or to a level compatible with their cardiovascular and physical tolerance -Patients should consume a balanced, healthy diet that is high in vegetables, , plant-based proteins, unsaturated fats, and lower in processed meats, refined carbohydrates, and sweetened beverages. -Sodium (<2 g/day) and protein intake (0.8 g/kg/day) in accordance with recommendations for the general population. - Suggest NOT to prescribe bisphosphonate treatment in people with GFR o30 ml/min/1.73 m2 (GFR categories G4-G5) without a strong clinical rationale. -Individualize Hba1c target goal of 6.5 to 8 % based on underlying comorbidities -Cessation of tobacco -Avoid Nephrotoxic agents -such as NSAIDS renal dosage of all medications to the appropriate GFR -Reduce albuminuria with use of ANA inhibitor or ARB -initiation of SGLT-2 Inhibitors if appropriate indication. ? CKD/MBD Calcium and phosphorus are within normal range. ? Anemia of chronic disease Patient's hemoglobin is stable with no indication for MARIO. ? Hypertension Patient's blood pressure is under good control. Patient will continue with her current med regimen and continue to follow a low-sodium diet. The patient had the opportunity to ask and have questions answered. The patient voiced an understanding of the diagnosis and of the care plan and intent to comply with it. Not available 01/10/2024 16:44:45 05/01/2024 05/01/2024 Ms. Gordillo is a pleasant 83-year-old female with a past medical history significant for hypertension, hyperlipidemia, hypothyroidism, history of bladder repair, Botox injections of the bladder, back surgery, knee replacement surgery, hip replacement surgery is here for a follow-up on her RENY with CKD. ? RENY with baseline serum creatinine ranging between 0.8? 0.9 with chronic kidney disease stage III. Patient's current serum creatinine is unavailable and she is going to see her primary care tomorrow and get labs done there. Fluid and electrolyte balance are pending. Patient will continue to hydrate well and to avoid NSAIDs. Continue to monitor renal function panel at regular intervals. Discussed about KDIGO recommendations to prevent CKD progression -Advised to undertake moderate-intensity physical activity for a cumulative duration of at least 150 minutes per week, or to a level compatible with their cardiovascular and physical tolerance -Patients should consume a balanced, healthy diet that is high in vegetables, , plant-based proteins, unsaturated fats, and lower in processed meats, refined carbohydrates, and sweetened beverages. -Sodium (<2 g/day) and protein intake (0.8 g/kg/day) in accordance with recommendations for the general population. - Suggest NOT to prescribe bisphosphonate treatment in people with GFR o30 ml/min/1.73 m2 (GFR categories G4-G5) without a strong clinical rationale. -Individualize Hba1c target goal of 6.5 to 8 % based on underlying comorbidities -Cessation of tobacco -Avoid Nephrotoxic agents -such as NSAIDS renal dosage of all medications to the appropriate GFR -Reduce albuminuria with use of ANA inhibitor or ARB -initiation of SGLT-2 Inhibitors if appropriate indication. ? CKD/MBD Calcium and phosphorus are pending. ? Anemia of chronic disease Patient's hemoglobin is pending. ? Hypertension Patient's blood pressure is under good control. Patient will continue with her current med regimen and continue to follow a low-sodium diet. The patient had the opportunity to ask and have questions answered. The patient voiced an understanding of the diagnosis and of the care plan and intent to comply with it. Not available 05/01/2024 16:48:51 06/19/2024 06/19/2024 Ms. Gordillo is a pleasant 83-year-old female with a past medical history significant for hypertension, hyperlipidemia, hypothyroidism, history of bladder repair, Botox injections of the bladder, back surgery, knee replacement surgery, hip replacement surgery is here for a follow-up on her RENY with CKD. -Chronic kidney disease stage III baseline serum creatinine ranging between 1.0 -1.3 Most recent serum creatinine level is stable at 1.1 with a GFR of 48 Fluid and electrolyte balance is stable at this time Continue to monitor renal function panel at regular intervals Patient will continue to hydrate well and to avoid NSAIDs. Continue to monitor renal function panel at regular intervals. Discussed about KDIGO recommendations to prevent CKD progression -Advised to undertake moderate-intensity physical activity for a cumulative duration of at least 150 minutes per week, or to a level compatible with their cardiovascular and physical tolerance -Patients should consume a balanced, healthy diet that is high in vegetables, , plant-based proteins, unsaturated fats, and lower in processed meats, refined carbohydrates, and sweetened beverages. -Sodium (<2 g/day) and protein intake (0.8 g/kg/day) in accordance with recommendations for the general population. - Suggest NOT to prescribe bisphosphonate treatment in people with GFR o30 ml/min/1.73 m2 (GFR categories G4-G5) without a strong clinical rationale. -Individualize Hba1c target goal of 6.5 to 8 % based on underlying comorbidities -Cessation of tobacco -Avoid Nephrotoxic agents -such as NSAIDS renal dosage of all medications to the appropriate GFR -Reduce albuminuria with use of ANA inhibitor or ARB -initiation of SGLT-2 Inhibitors if appropriate indication. ? CKD/MBD Calcium and phosphorus are within normal range ? Anemia of chronic disease Patient's hemoglobin is stable ? Hypertension Patient's blood pressure is under good control. Patient will continue with her current med regimen and continue to follow a low-sodium diet. The patient had the opportunity to ask and have questions answered. The patient voiced an understanding of the diagnosis and of the care plan and intent to comply with it. [email or web address] Not available 06/23/2024 15:09:00 08/21/2024 08/21/2024 Ms. Gordillo is a pleasant 83-year-old female with a past medical history significant for hypertension, hyperlipidemia, hypothyroidism, history of bladder repair, Botox injections of the bladder, back surgery, knee replacement surgery, hip replacement surgery is here for a follow-up on her RENY with CKD. ? RENY with baseline serum creatinine ranging between 0.8? 0.9 with chronic kidney disease stage III. Patient's most recent serum creatinine is noted to be 1.23 with a GFR 44. Fluid and electrolyte balance are adequate. Microalbumin/creat inine ratio was noted to be stable at 8. Patient will continue to hydrate well and to avoid NSAIDs. Continue to monitor renal function panel at regular intervals. Discussed about KDIGO recommendations to prevent CKD progression -Advised to undertake moderate-intensity physical activity for a cumulative duration of at least 150 minutes per week, or to a level compatible with their cardiovascular and physical tolerance -Patients should consume a balanced, healthy diet that is high in vegetables, , plant-based proteins, unsaturated fats, and lower in processed meats, refined carbohydrates, and sweetened beverages. -Sodium (<2 g/day) and protein intake (0.8 g/kg/day) in accordance with recommendations for the general population. - Suggest NOT to prescribe bisphosphonate treatment in people with GFR o30 ml/min/1.73 m2 (GFR categories G4-G5) without a strong clinical rationale. -Individualize Hba1c target goal of 6.5 to 8 % based on underlying comorbidities -Cessation of tobacco -Avoid Nephrotoxic agents -such as NSAIDS renal dosage of all medications to the appropriate GFR -Reduce albuminuria with use of ANA inhibitor or ARB -initiation of SGLT-2 Inhibitors if appropriate indication. ? CKD/MBD Calcium and phosphorus are within normal range. ? Anemia of chronic disease Patient's hemoglobin stable without any indication for MARIO. ? Hypertension Patient's blood pressure is under good control. Patient will continue with her current med regimen and continue to follow a low-sodium diet. The patient had the opportunity to ask and have questions answered. The patient voiced an understanding of the diagnosis and of the care plan and intent to comply with it. Not available 08/21/2024 14:15:50 09/02/2024 09/02/2024 IMPRESSION: 1. Polyarthralgias secondary to osteoarthritis. No evidence of underlying autoimmune disease. 2. Chronic kidney disease. 3. 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 4. History of GERD. PLAN: 1. Suggested to patient that she initiate Pepcid 20 mg daily to help control her reflux symptoms. 2. Discontinue Advil and avoid all oral NSAIDs indefinitely. I warned her that she is very high risk for a catastrophic and fatal GI bleed while taking Eliquis and Advil together. Furthermore, she has underlying chronic kidney disease and this will worsen with the use of oral NSAIDs and she may run the risk of congestive heart failure and dialysis. 3. May use acetaminophen up to 1 g p.o. t.i.d. p.r.n. for analgesic relief. 4. Labs today, including a CBC, CMP, C-reactive protein, arthritis panel and CPK level. 5. Further recommendations to follow once the results of her labs are available. Today I had a discussion with the patient and her son, who accompanies her to the appointment regarding my clinical impressions and overall recommendations. They were given written instructions for the above plan. I answered and addressed all of their questions and concerns in detail. I personally spent a total of 55 minutes on the patient on this date of service including both [id number]-[id number] and gwz-mehj-sz-face time excluding any separately reportable services. [email or web address] Not available 09/03/2024 12:15:35 Plan of Treatment Reminders Order Date Submit Date Provider Last Modified By Organization Details Last Modified Time Details Appointments Establish ed Patient 15.EST 2024 11:00A M Mira [place] Not available Not available Not available Lab microalbu min, urine 2023 024 [id number] [facility] Central Scheduling, [address], [place], [address], 01/24/2024 16:28:47 Referral None recorded. Procedures None recorded. Surgeries None recorded. Imaging None recorded. Medication Orders None recorded. Patient TargetsNo targets recorded. Patient InstructionsNo instructions recorded. Reason for Referral None Reported. Results Created Date Observation Date Name Description Value Unit Range Abnormal Flag Note LastModifiedBy Organization Detail LastModifiedTime 09/02/20 24 09/03/2024 CBC CBC Not Available [facility] [address] [place] [address], [id number], 09/03/2024 10:48:06 09/02/20 24 09/03/2024 CBC WBC 5.5 K/uL 3.8-11 .2 Not Available [facility] [address] [place] [address], [id number], 09/03/2024 10:48:06 09/02/20 24 09/03/2024 CBC RBC 3.11 M/uL 3.92-5 .10 low Not Available [facility] [address] [place] [address], [id number], 09/03/2024 10:48:06 09/02/20 24 09/03/2024 CBC HGB 9.9 g/dL 11.8-1 5.3 low Not Available [facility] [address] [place] [address], [id number], 09/03/2024 10:48:06 09/02/20 24 09/03/2024 CBC HCT 30.4 % 36.5-4 4.8 low Not Available [facility] [address] [place] [address], [id number], 09/03/2024 10:48:06 09/02/20 24 09/03/2024 CBC MCV 97.7 fL 80.0-9 9.0 Not Available [facility] [address] [place] [address], [id number], 09/03/2024 10:48:06 09/02/20 24 09/03/2024 CBC MCH 31.8 pg 25.5-3 3.6 Not Available [facility] [address] [place] [address], [id number], 09/03/2024 10:48:06 09/02/20 24 09/03/2024 CBC MCHC 32.6 g/dL 32.0-3 6.0 Not Available [facility] [address] [place] [address], [id number], 09/03/2024 10:48:06 09/02/20 24 09/03/2024 CBC RDW-SD 45.3 fL 35.1 - 46.3 Not Available [facility] [address] [place] [address], [id number], 09/03/2024 10:48:06 09/02/20 24 09/03/2024 CBC plt 313 K/uL 130-40 0 Not Available [facility] [address] [place] [address], [id number], 09/03/2024 10:48:06 09/02/20 24 09/03/2024 CBC MPV 10.2 fL 9.3-12 .8 Not Available [facility] [address] [place] [address], [id number], 09/03/2024 10:48:06 09/02/20 24 09/03/2024 CMP, serum or plasm a comp. met. panel Not Available [facility] [address] [place] [address], [id number], 09/03/2024 11:05:53 09/02/20 24 09/03/2024 CMP, serum or plasm a sodium 141 mmol/ L 136-14 6 Not Available [facility] [address] [place] [address], [id number], 09/03/2024 11:05:53 09/02/20 24 09/03/2024 CMP, serum or plasm a potassium 4.5 mmol/ L 3.5-5. 1 Not Available [facility] [address] [place] [address], [id number], 09/03/2024 11:05:53 09/02/20 24 09/03/2024 CMP, serum or plasm a chloride 107 mmol/ L 98-110 Not Available [facility] [address] [place] [address], [id number], 09/03/2024 11:05:53 09/02/20 24 09/03/2024 CMP, serum or plasm a CO2 29 mEq/L 20-32 Not Available [facility] [address] [place] [address], [id number], 09/03/2024 11:05:53 09/02/20 24 09/03/2024 CMP, serum or plasm a anion gap 10 mmol/ L 10-22 Not Available [facility] [address] [place] [address], [id number], 09/03/2024 11:05:53 09/02/20 24 09/03/2024 CMP, serum or plasm a glucose 101 mg/dL 70-100 high Not Available [facility] [address] [place] [address], [id number], 09/03/2024 11:05:53 09/02/20 24 09/03/2024 CMP, serum or plasm a calcium 9.6 mg/dL 8.4-10 .4 Not Available [facility] [address] [place] [address], [id number], 09/03/2024 11:05:53 09/02/20 24 09/03/2024 CMP, serum or plasm a total protein 6.8 g/dL 6.4-8. 3 Not Available [facility] [address] [place] [address], [id number], 09/03/2024 11:05:53 09/02/20 24 09/03/2024 CMP, serum or plasm a albumin 4.3 g/dL 3.5-5. 3 Not Available [facility] [address] [place] [address], [id number], 09/03/2024 11:05:53 09/02/20 24 09/03/2024 CMP, serum or plasm a ALP 43 U/L 44 - 127 low Not Available [facility] [address] [place] [address], [id number], 09/03/2024 11:05:53 09/02/20 24 09/03/2024 CMP, serum or plasm a AST (SGOT) 29 U/L 10-40 Not Available [facility] [address] [place] [address], [id number], 09/03/2024 11:05:53 09/02/20 24 09/03/2024 CMP, serum or plasm a total bilirubin 0.4 mg/dL 0.2-1. 0 Not Available [facility] [address] [place] [address], [id number], 09/03/2024 11:05:53 09/02/20 24 09/03/2024 CMP, serum or plasm a ALT (SGPT) 26 U/L 8-35 Not Available [facility] [address] [place] [address], [id number], 09/03/2024 11:05:53 09/02/20 24 09/03/2024 CMP, serum or plasm a BUN 28 mg/dL 7-21 high Not Available [facility] [address] [place] [address], [id number], 09/03/2024 11:05:53 09/02/20 24 09/03/2024 CMP, serum or plasm a creatinine 1.5 mg/dL 0.7-1. 3 high Not Available [facility] [address] [place] [address], [id number], 09/03/2024 11:05:53 09/02/20 24 09/03/2024 CMP, serum or plasm a GFR(non-afri can irish) 35 Not Available [facility] [address] [place] [address], [id number], 09/03/2024 11:05:53 09/02/20 24 09/03/2024 CMP, serum or plasm a GFR() 43 (GRAPHIC COORDINATOR MARIA TERESA KIDNE Y DISEA SE HAS A GFR LESS THAN 60 ML/NV N/1.7 3 MM FOR A PERIO D OF THREE MONTH S OR MORE. ) Not Available [facility] [address] [place] [address], [id number], 09/03/2024 11:05:53 09/02/20 24 09/03/2024 CK (crea ángel kinas e), total , serum CPK- Not Available [facility] [address] [place] [address], [id number], 09/03/2024 11:05:55 09/02/20 24 09/03/2024 CK (crea ángel kinas e), total , serum CPK 59 U/L 30-200 Not Available [facility] [address] [place] [address], [id number], 09/03/2024 11:05:55 09/02/20 24 09/03/2024 C-janet ctive prote in, quant itati ve, serum or plasm a CRP Not Available [facility] [address] [place] [address], [id number], 09/03/2024 11:28:53 09/02/20 24 09/03/2024 C-janet ctive prote in, quant itati ve, serum or plasm a CRP <0.4 mg/dL <0.4-0 .5 Not Available [facility] [address] [place] [address], [id number], 09/03/2024 11:28:53 09/02/20 24 09/03/2024 arthr itis panel uric acid 4.3 mg/dL 2.3-6. 6 Not Available [facility] [address] [place] [address], [id number], 09/04/2024 13:42:33 09/02/20 24 09/03/2024 arthr itis panel sed rate 4 mm/HR 0 - 30 Not Available [facility] [address] [place] [address], [id number], 09/04/2024 13:42:33 09/02/20 24 09/03/2024 arthr itis panel rf 14 IU/mL <3.5-1 4 Not Available [facility] [address] [place] [address], [id number], 09/04/2024 13:42:33 09/02/20 24 09/03/2024 arthr itis panel ccp antibody, IgG <0.54 U/mL <=4.9 Not Available [facility] [address] [place] [address], [id number], 09/04/2024 13:42:33 09/02/20 24 09/04/2024 arthr itis panel arthritis panel Not Available [facility] [address] [place] [address], [id number], 09/04/2024 13:42:33 09/02/20 24 09/04/2024 arthr itis panel MOSES screen NEGATI VE negati ve Perfo rmed by Bio-R ad enzym e immun oassa y Not Available [facility] [address] [place] [address], [id number], 09/04/2024 13:42:33 09/02/20 24 09/03/2024 arthr itis panel arthritis panel Not Available [facility] y [facility] [address] [place] [address], [id number], 09/03/2024 11:28:54 09/02/20 24 09/03/2024 arthr itis panel uric acid 4.3 mg/dL 2.3-6. 6 Not Available [facility] [address] [place] [address], [id number], 09/03/2024 11:28:54 09/02/20 24 09/03/2024 arthr itis panel sed rate 4 mm/HR 0 - 30 Not Available [facility] [address] [place] [address], [id number], 09/03/2024 11:28:54 09/02/20 24 09/03/2024 arthr itis panel MOSES screen PENDIN G Not Available [facility] [address] [place] [address], [id number], 09/03/2024 11:28:54 09/02/20 24 09/03/2024 arthr itis panel rf 14 IU/mL <3.5-1 4 Not Available [facility] [address] [place] [address], [id number], 09/03/2024 11:28:54 09/02/20 24 09/03/2024 arthr itis panel ccp antibody, IgG <0.54 U/mL <=4.9 Not Available [facility] [address] [place] [address], [id number], 09/03/2024 11:28:54 09/02/20 24 09/03/2024 arthr itis panel arthritis panel Not Available [facility] [address] [place] [address], [id number], 09/03/2024 11:23:25 09/02/20 24 09/03/2024 arthr itis panel uric acid 4.3 mg/dL 2.3-6. 6 Not Available [facility] [address] [place] [address], [id number], 09/03/2024 11:23:25 09/02/20 24 09/03/2024 arthr itis panel sed rate 4 mm/HR 0 - 30 Not Available [facility] [address] [place] [address], [id number], 09/03/2024 11:23:25 09/02/20 24 09/03/2024 arthr itis panel MOSES screen PENDIN G Not Available [facility] [address] [place] [address], [id number], 09/03/2024 11:23:25 09/02/20 24 09/03/2024 arthr itis panel rf 14 IU/mL <3.5-1 4 Not Available [facility] [address] [place] [address], [id number], 09/03/2024 11:23:25 09/02/20 24 09/03/2024 arthr itis panel ccp antibody, IgG PENDIN G Not Available [facility] [address] [place] [address], [id number], 09/03/2024 11:23:25 09/02/20 24 09/03/2024 arthr itis panel arthritis panel Not Available [facility] [address] [place] [address], [id number], 09/03/2024 11:05:57 09/02/20 24 09/03/2024 arthr itis panel uric acid 4.3 mg/dL 2.3-6. 6 Not Available [facility] [address] [place] [address], [id number], 09/03/2024 11:05:57 09/02/20 24 09/03/2024 arthr itis panel sed rate PENDIN G Not Available [facility] [address] [place] [address], [id number], 09/03/2024 11:05:57 09/02/20 24 09/03/2024 arthr itis panel MOSES screen PENDIN G Not Available [facility] [address] [place] [address], [id number], 09/03/2024 11:05:57 09/02/20 24 09/03/2024 arthr itis panel rf 14 IU/mL <3.5-1 4 Not Available [facility] [address] [place] [address], [id number], 09/03/2024 11:05:57 09/02/20 24 09/03/2024 arthr itis panel ccp antibody, IgG PENDIN G Not Available [facility] [address] [place] [address], [id number], 09/03/2024 11:05:57 05/30/20 24 03/29/2023 imagi ng/di agnos tic resul t No observ ation record ed. Not Available 05/30/2024 02:13:59 Result Notes None recorded. Problems Name Problem SNOMED Code Status Onset Date Resolution Date Notes Provider Name and Address Organization Details Recorded Time Renal insufficiency 481156615 [facility] Chronic kidney disease stage 3 796522222 [facility] 15:[facility] Multiple joint pain 25098271 Active 2023 Bala Conley MD [address] [place] [address], [phone], [facility] 4 22:02:20 Muscle pain 41195961 Active 2023 Bala Conley MD [address] [place] [address], [phone], [facility] 4 22:02:34 Gastroesophage al reflux disease 173297856 Active 2023 Bala Conley MD [address] [place] [address], [phone], [facility] 4 22:03:10 Chronic kidney disease stage 3A 751531679 Active 2023 Bala Conley MD [address] [place] [address], [id number], [facility] 4 22:03:32 Mechanical low back pain 093043046 Active 2023 Bala Conley MD [address] [place] [address], [phone], [facility] 4 22:03:43 Benign essential hypertension 1751212 Active 2023 Mira Reyes PA-C [address] [place] [address], [phone], [facility] 4 14:51:27 Problem Notes None recorded. Procedures Surgical History None recorded. Imaging Results Imaging Date Name Status LastModified by Organiz ation Details LastModified Time 03/29/2023 imaging/diag nostic result completed Information not available 05/30/2024 02:13:59 Procedure Notes None recorded. Medical Equipment None Reported. Allergies Allergen ID Allergen Name Allergen Category Reaction Reaction Severity Criticality Documentation Date Start Date Code Code System Note Provider Name and Address Organization Details Recorded Time [id number] 29b50 Bactrim medicatio n other Not available Not available 11/14/20232020 88711 9 RxNorm React ion: GI Upset ; Not Available Not Available Not Available Medications Name Sig Start Date Stop Date Status Note LastModified by Organization Details LastModified Time losartan 50 mg tablet active Not Available Not Available Not Available latanopro st 0.005 % eye drops 09/02 completed Not Available Not Available Not Available trazodone 50 mg tablet 01/09 completed Not Available Not Available Not Available amiodaron e 200 mg tablet active Not Available Not Available Not Available metoprolo l succinate ER 50 mg tablet,ex tended release 24 hr 06/19 completed per pt; another provider stopped this Not Available Not Available Not Available hydrocodo ne 5 mg-acetam inophen 325 mg tablet 08/21 completed Not Available Not Available Not Available fluconazo le 200 mg tablet 01/09 completed Not Available Not Available Not Available Synthroid 100 mcg tablet 05/01 completed Not Available Not Available Not Available metoprolo l succinate ER 100 mg tablet,ex tended release 24 hr active Not Available Not Available Not Available hydralazi ne 25 mg tablet TAKE 1 TABLET TWICE A DAY BY ORAL ROUTE. 2023 active Not Available Not Available Not Avai lable tramadol 50 mg tablet 05/01 completed Not Available Not Available Not Available levothyro xine 75 mcg tablet active Not Available Not Available Not Available lorazepam 0.5 mg tablet 09/02 completed Not Available Not Available Not Available temazepam 15 mg capsule 09/02 completed Not Available Not Available Not Available trazodone 100 mg tablet 05/01 completed Not Available Not Available Not Available hydrochlo rothiazid e 25 mg tablet 06/19 completed per pt; another provider stopped this Not Available Not Available Not Available furosemid e 20 mg tablet 06/19 completed per pt; another provider stopped this Not Available Not Available Not Available gabapenti n 100 mg capsule 01/09 completed Not Available Not Available Not Available metoprolo l succinate ER 25 mg tablet,ex tended release 24 hr 01/09 completed Not Available Not Available Not Available zolpidem 10 mg tablet active Not Available Not Available Not Available ipratropi um bromide 42 mcg (0.06 %) nasal spray 09/02 completed Not Available Not Available Not Available losartan 100 mg tablet 01/09 completed Not Available Not Available Not Available mometason e 0.1 % topical cream 01/09 completed Not Available Not Available Not Available Pepto-Bis mol 262 mg/15 mL oral suspensio n as directed active Not Available Not Available No t Available Asprin Ec Low Dose 81 mg tablet,de layed release Take 1 tablet every day by oral route. active Not Available Not Available No t Available cyclospor ine 0.05 % eye drops in a dropperet te 09/02 completed Not Available Not Available Not Available metoprolo l tartrate 25 mg tablet 01/09 completed Not Available Not Available Not Available duloxetin e 20 mg capsule,d elayed release 01/09 completed Not Available Not Available Not Available lactulose 10 gram/15 mL oral solution 06/19 completed per pt; another provider stopped this Not Available Not Available Not Available mirabegro n ER 50 mg tablet,ex tended release 24 hr active Not Available Not Available Not Available Eliquis 5 mg tablet active Not Available Not Available No t Available Eliquis 2.5 mg tablet 1 tab twice daily 09/02 completed Not Available Not Available Not Available Vitals Date Recorded Body weight Provider Name an d Address Organization Details Last Updated DateTime 01/10/2024 90857.75 g Thang Aly [facility] 01/10/2024 16:08:23 Date Recorded Heart rate Provider Name an d Address Organization Details Last Updated DateTime 01/10/2024 138 /min Thang Aly [facility] 01/10/2024 16:08:37 Date Recorded Heart rate Provider Name an d Address Organization Details Last Updated DateTime 05/01/2024 61 /min Thang Aly [facility] 05/01/2024 14:52:29 Date Recorded Body weight Provider Name an d Address Organization Details Last Updated DateTime 06/19/2024 77487.42 [facility] 14:42:27 Date Recorded Heart rate Provider Name an d Address Organization Details Last Updated DateTime 06/19/2024 46 /min [facility] 14:42:43 Date Recorded Body weight Provider Name an d Address Organization Details Last Updated DateTime 08/21/2024 27924.6 g Thang Aly [facility] 08/21/2024 12:27:25 Date Recorded Heart rate Provider Name an d Address Organization Details Last Updated DateTime 08/21/2024 50 /min Thang Aly [facility] 08/21/2024 12:27:36 Date Recorded Body weight Provider Name an d Address Organization Details Last Updated DateTime 09/02/2024 76949.07 estefanía Farrah larry [facility] 09/02/2024 17:10:19 Date Recorded Heart rate Provider Name an d Address Organization Details Last Updated DateTime 09/02/2024 54 /min Farrah Funk [facility] 09/02/2024 17:10:35 Date Recorded Oxygen saturation Oxygen saturation in Arterial blood by Pulse oximetry Provider Name and Address Organization Details Last Updated DateTime 09/02/2024 98 % 98 % [facility] 09/02/2024 17:10:40 Date Recorded Pain severity - 0-10 verbal numeric rating [Score] - Reported Provider Name and Address Organization Details Last Updated DateTime 09/02/2024 [facility] 17:10:55 Date Recorded Systolic blood pressure Diastolic blood pressure Provider Name and Address Organization Details Last Updated DateTime 01/10/2024 128 mm[Hg] 72 mm[Hg] [facility] 01/10/2024 16:08:32 Date Recorded Systolic blood pressure Diastolic blood pressure Provider Name and Address Organization Details Last Updated DateTime 05/01/2024 142 mm[Hg] 82 mm[Hg] [facility] 05/01/2024 14:52:23 Date Recorded Systolic blood pressure Diastolic blood pressure Provider Name and Address Organization Details Last Updated DateTime 06/19/2024 188 mm[Hg] 98 mm[Hg] Edie Luna [facility] 06/19/2024 14:42:37 Date Recorded Systolic blood pressure Diastolic blood pressure Provider Name and Address Organization Details Last Updated DateTime 08/21/2024 160 mm[Hg] 74 mm[Hg] [facility] 08/21/2024 12:27:31 Date Recorded Systolic blood pressure Diastolic blood pressure Provider Name and Address Organization Details Last Updated DateTime 09/02/2024 148 mm[Hg] 68 mm[Hg] [facility] 09/02/2024 17:10:30 Social History None recorded. Functional Status None recorded. Mental Status None recorded. Family History Nothing Reported. Medical History No medical history recorded. Gynecological HistoryNo gynecological history recorded. Obstetrics History GPAL:G 0 P 0 0 0 0 Past Encounters Encounter ID Performer Location Encounter Start Date Encounter Closed Date Diagnosis/Indication Diagnosis SNOMED-CT Code Diagnosis ICD10 Code Diagnosis Note [id number] Karen Nicole MD [facility] ([place]) [address] [place] [address] 01/10/2024 15:22:54 01/10/2024 16:37:50 Renal insufficiency 294274059 N28.9 [id number] Mira Reyes PA-C [facility] ([place]) [address] [place] [address] 05/01/2024 14:26:22 05/01/2024 15:15:46 Chronic kidney disease stage 3 106957639 N18.30 Benign ess ential hypertension 3051866 I10 [id number] Karen Nicole MD [facility] ([place]) [address] [place] [address] 06/19/2024 14:08:10 06/19/2024 15:08:49 Chronic kidney disease stage 3 599461419 N18.30 Benign ess ential hypertension 9684359 I10 [id number] Mira Reyes PA-C [facility] ([place]) [address] [facility] [address] 08/21/2024 11:50:48 08/21/2024 12:57:31 Chronic kidney disease stage 3 794444601 N18.30 Benign ess ential hypertension 9726737 I10 [id number] Bala Conley MD [address] [facility] Rheumat[facility]gy ([place]) [address] [address] 09/02/2024 15:51:47 09/02/2024 18:42:34 Multiple joint pain 79668037 M25.50 Gastroesop hageal reflux disease 312099530 K21.9 Chronic ki dney disease stage 3A 066054936 N18.31 Mechanical low back pain 586274466 M54.59 Health Concerns Section Related Observation LastModified by Organization Detai ls LastModified Time None Recorded Concern Status LastModified by Organization Details LastModified Time None Recorded Advance Directives Directive None Recorded Payers Encounter Date Sequence Insurance Name Policy Number Policy Curiel Covered Member ID Curiel Member ID Guarantor Name 01/10/2024 1 [place] Wanda Gordillo [id number] Wanda Vossgini 01/10/2024 2 [employer] (MEDICARE SUPPLEMENT) Wanda Drummondi [id number] Wanda Vossgini 05/01/2024 1 [place] Jacobsen Borgini [id number] Wanda Vossgini 05/01/2024 2 [employer] (MEDICARE [place]PPLEMENT) Wanda Vossgini [id number] Wanda Vossgini 06/19/2024 1 [place] Jacobsen Borgini [id number] Wanda Vossgini 06/19/2024 2 [employer] [place] (MEDICARE [place]PPLEMENT) Wanda Jacobsen Borgini [id number] Wanda Vossgini 08/21/2024 1 [place] Wanda Drummondi [id number] Wanda Vossgini 08/21/2024 2 [employer] (MEDICARE [place]PPLEMENT) Wanda Vossgini [id number] Wanda Vossgini 09/02/2024 1 [place] Wanda Vossgini [id number] Wanda Vossgini 09/02/2024 2 [employer] (MEDICARE SUPPLEMENT) Wanda Vossgini [id number] Wanda Drummondi Notes Date Note Type Note Provider Name and Address Organization Details Recorded Time 01/10/2024 text/html Ms. Gordillo is a pleasant 83-year-old female with a past medical history significant for hypertension, hyperlipidemia, hypothyroidism, history of bladder repair, Botox injections of the bladder, back surgery, knee replacement surgery, hip replacement surgery is here for a follow-up on her RENY with CKD. Patient is accompanied by son who is in the room with her permission.She denies any chest pain or shortness of breath.She continues to hydrate well and to avoid NSAIDs.She denies any fever, chills, or sweats.Patient does report that she had COVID and was in the hospital from December 15 through December 16. Mira Reyes PA-C [address] [place] [address], [phone], [facility] 01/10/2024 16:46:22 05/01/2024 text/html Ms. Gordillo is a pleasant 83-year-old female with a past medical history significant for hypertension, hyperlipidemia, hypothyroidism, history of bladder repair, Botox injections of the bladder, back surgery, knee replacement surgery, hip replacement surgery is here for a follow-up on her RENY with CKD. Patient is seated comfortably in a wheelchair and is accompanied by her son who is in the room with her permission. Patient does state that she fell not too long ago and cracked her tailbone so she is having a lot of pain in her buttocks and also in her legs. Son states she falls mostly after she takes her sleeping pill and tries to get up. Patient does not think she is drinking enough fluids. She continues to hydrate to the best of her ability. She continues to avoid NSAIDs. She denies any fever, chills, or sweats. She denies any chest pain or shortness of breath. Patient did have cardioversion x 2 in March to correct her atrial fibrillation. Mira Reyes PA-C [address] [place] [address], [phone], [facility] 05/01/2024 16:49:08 06/19/2024 text/html Ms. Gordillo is a pleasant 83-year-old female with a past medical history significant for hypertension, hyperlipidemia, hypothyroidism, history of bladder repair, Botox injections of the bladder, back surgery, knee replacement surgery, hip replacement surgery is here for a follow-up on her RENY with CKD. She denies having any chest pain, shortness breath or palpitation Denies having any dysuria, hematuria or symptoms of UTI Karen Nicole MD [address] [place] [address], [phone], [facility] 06/23/2024 15:10:26 08/21/2024 text/html Ms. Gordillo is a pleasant 83-year-old female with a past medical history significant for hypertension, hyperlipidemia, hypothyroidism, history of bladder repair, Botox injections of the bladder, back surgery, knee replacement surgery, hip replacement surgery is here for a follow-up on her RENY with CKD. Patient is seated comfortably in a wheelchair and is accompanied by her son who is in the room with her permission.Patient does not think she is drinking enough fluids.She continues to hydrate to the best of her ability.She continues to avoid NSAIDs.She denies any fever, chills, or sweats.She denies any chest pain or shortness of breath.Patient's Alzheimer's seems to be worsening. Mira Reyes PA-C [address] [place] [address], [phone], [facility] 08/21/2024 14:16:08 09/02/2024 text/html The patient is a n 83-year-old postmenopausal white female, nonsmoker, nondrinker, with a history of atrial fibrillation on chronic anticoagulation with Eliquis, hyperlipidemia, hypertension, hypothyroidism, GERD, osteoarthritis status post right total hip arthroplasty and bilateral total knee arthroplasties, insomnia, glaucoma and chronic mechanical lower back pain status post back lumbar fusion surgery in the past by Dr. Bojorquez, who is seen today in consultation at the request of Dr. Godfrey for rheumatologic evaluation of polyarthralgias rule out autoimmune disease. The patient describes onset in 2016 of chronic polyarthralgias and lower back pain. She has had chronic pain for a number of years and tries to keep as active as possible on her feet. Over the past year, she has had to depend more on a walker for stability of gait. She has had no falls or fractures. She rates her pain a chronic 9-10/10 on a scale though she has not had to go to a local ER or Urgent Care regarding her musculoskeletal complaints. Instead, she takes Advil on her own [id number] alternating this occasionally with some Tylenol. The patient reports she will take up to 400 to 600 mg of Advil daily. She is noted to have chronic kidney disease and currently does see Nephrology with Dr. Butcher? s office. The patient complains of feeling stiff all day. She denies any headaches, tongue or jaw claudication or visual scatoma. No Raynaud? s symptoms. She does have dry mouth and dry eyes, but has had this for years since the delivery of her children years ago. She does use Biotene for the oral dryness and eyedrops for her eyes. She takes Restasis from her fender finisher and she does brush twice daily. She uses a fluoride rinse. She sees a dentist every 6 months. The patient denies at this time any swelling of the salivary glands, neck swelling, lymph node swelling, night sweats or unexplained weight loss, cough or pleurisy, shortness of breath, chest pain or palpitations. She follows with Dr. Becerra for her cardiology care. She has a history of intermittent GERD symptoms and does take Pepto-Bismol. She has had no melena or hematochezia. No history of peptic ulcer disease or GI bleeding, dysuria or gross hematuria or renal calculi. No history of DVT or PE, cytopenia or seizures. Family history is noncontributory. I have reviewed the patient? s past medical history and [employer] intake form.abel Conley MD [address] [place] [address], [phone], [facility] 09/04/2024 21:36:32 OBGyn Episode No OBEpisode recorded.
--- OUTSIDE RECORDS SUMMARY | 2024-11-16 13:44 | XMS_ITS | Referral Summary ---
Author Organization [facility] Address [address] [place] [address] Care Team Providers Care Medical Receptionist Medical Assistant Name Role Phone Blas Hardin MD Primary Care Provider Allergies No known active allergies Medications cycloSPORINE (RESTASIS) 0.05 % ophthalmic emulsion instill 1 drop by ophthalmic route every 12 hours into affected eye(s) 0 each 0 6 Active PHENobarbital (LUMINAL) 64.8 mg tablet take 1 tablet by oral route every day 0 0 5 Active ascorbic acid, vitamin C, (VITAMIN C) 500 mg capsule, extended release CR capsule take 1 tab by mouth once daily 30 0 7 Active LUMIGAN 0.01 % ophthalmic drops 7 Active denosumab (PROLIA) 60 mg/mL syringe Inject under the skin once Active levothyroxine (SYNTHROID) 100 mcg tablet Take 100 mcg by mouth quality manager before breakfast Active Active Problems Problem Noted Date Diagnosed Date Spondylolisthesis, lumbar region-L4 on L5 grade 2 07/21/2019 DDD (degenerative disc disease), lumbar-L4-5 vac uum disc 07/21/2019 Chronic right-sided low back pain with right-sided sciatica-L4 dist 07/16/2019 Aftercare following right knee joint replacement surgery 05/07/2017 Glenohumeral arthritis 04/03/2017 Hypertension 01/24/2016 Overview (01/19/2017): Hypertension Osteoporosis 01/24/2016 Overview (01/19/2017): Osteoporosis Social History Tobacco Use Types Packs/Day Years Used Date Smoking Tobacco: Never Smokeless Tobacco: Never Alcohol Use Standard Drinks/Week Comments No 0 (1 standard drink = 0.6 oz pur e alcohol) PHQ-2 Answer Date Recorded PHQ-2 Score 2 07/16/2019 Personal Safety Answer Date Recorded Getting School Help Needed Not on file 12/28 Comments No Sex and Gender Information Value Date Recorded Sex Assigned at Not on file Legal Sex Female 1:53 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 Gender Identity Not on file Sexual Orientation Not on file Last Filed Vital Signs Vital Sign Reading Time Taken Comments Blood Pressure 198/89 10/03/2019 11:17 AM FOOD SERVICE ORDER CLERK Pulse 58 10/03/2019 11:17 AM FOOD SERVICE ORDER CLERK Temperature 35.9 ??C (96.7 ??F) 08/11/2019 9:07 AM CD T Respiratory Rate 16 10/03/2019 11:17 AM FOOD SERVICE ORDER CLERK Oxygen Saturation 98% 10/03/2019 11:17 AM FOOD SERVICE ORDER CLERK Inhaled Oxygen Concentration - - Weight 71.7 kg (158 lb) 06/26/2019 10:51 AM CDT Height 172.7 cm (5' 8 ) 06/26/2019 10:51 AM CDT Body Mass Index 24.02 06/26/2019 10:51 AM CDT Plan of Treatment Not on file Goals Goal Patient Goal Type Associated Problems Recent Progress Patient-Stated? Author [facility] No Jeanine Echevarria, RN Note: Patient will establish a comfort-function goal and identify the pain level that will allow the patient to perform desired activities and achieve an acceptable quality of life. Insurance MEDICARE [facility] MEDICARE Care Teams Medical Receptionist Medical Assistant Relationship Specialty Start Date End Date Blas Hardin MD PCP - General 01/12/17
--- OUTSIDE RECORDS SUMMARY | 2024-11-16 13:44 | XMS_ITS | Encounter Summary ---
Author Organization [facility] Address [address] 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
--- OUTSIDE RECORDS SUMMARY | 2024-11-16 13:44 | XMS_ITS | Clinical Summary ---
Author Organization [facility] Address [address] [place] [address] Care Team Providers Care Firearms Instructor Name Role Phone Blas Hardin MD Primary [...] mcg tablet Take 100 mcg by mouth wire rope sales representative before breakfast Active Active Problems Problem Noted Date Diagnosed Date Spondylolisthesis, lumbar region-L4 on L5 grade 2 07/21/2019 DDD (degenerative disc disease), lumbar-L4-5 vac uum disc 07/21/2019 Chronic right-sided low back pain with right-sided sciatica-L4 dist 07/16/2019 Aftercare following right knee joint replacement surgery 05/07/2017 Glenohumeral arthritis 04/03/2017 Hypertension 01/24/2016 Overview (01/19/2017): Hypertension Osteoporosis 01/24/2016 Overview (01/19/2017): Osteoporosis Surgical History Surgery Date Site/Laterality Comments THYROIDECTOMY Thyroidectomy KNEE ARTHROPLASTY Left Knee replacement OTHER SURGICAL HISTORY 2013 Anterior repair poss. with cadaver tissue OTHER SURGICAL HISTORY 1969 Hysterectomy, total and LSO OTHER SURGICAL HISTORY 2016 Vaginal prolapse and right ov. cyst: Colpocleisis and L/S RSO FLUORO GUIDED INJECTION HIP RIGHT 05/21/2019 Right Medical History Medical History Date Comments Osteoarthritis Osteoarthritis; Comments: DNM 08/09/2015 - Hypertension Hypertension Disorder of thyroid Thyroid dise ase Hx Other Medical Seizures x [address] thyroid surgery Hx Other Medical Vaginal prolaps e and right ov. 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 Gender Identity Not on file Sexual Orientation Not on file Obstetrics History Last Filed Vital Signs Vital Sign Reading Time Taken Comments Blood Pressure 198/89 10/03/2019 11:17 AM HOTEL OR MOTEL ROOM SERVICE SUPERVISOR Pulse 58 10/03/2019 11:17 AM HOTEL OR MOTEL ROOM SERVICE SUPERVISOR Temperature 35.9 ??C (96.7 ??F) 08/11/2019 9:07 AM CD T Respiratory Rate 16 10/03/2019 11:17 AM HOTEL OR MOTEL ROOM SERVICE SUPERVISOR Oxygen Saturation 98% 10/03/2019 11:17 AM HOTEL OR MOTEL ROOM SERVICE SUPERVISOR Inhaled Oxygen Concentration - - Weight 71.7 kg (158 lb) 06/26/2019 10:51 AM CDT Height 172.7 cm (5' 8 ) 06/26/2019 10:51 AM CDT Body Mass Index 24.02 06/26/2019 10:51 AM CDT Plan of Treatment Not on file Goals Goal Patient Goal Type Associated Problems Recent Progress Patient-Stated? Author [facility] Jeanine Crespo, RN Note: Patient will establish a comfort-function goal and identify the pain level that will allow the patient to perform desired activities and achieve an acceptable quality of life. Insurance MEDICARE [facility] MEDICARE Care Teams Firearms Instructor Relationship Specialty Start Date End Date Blas Hardin MD PCP - General 01/12/17
--- OUTSIDE RECORDS SUMMARY | 2024-11-16 13:44 | XMS_ITS | Encounter Summary ---
Author Organization [facility] Address [address] 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
--- OUTSIDE RECORDS SUMMARY | 2024-11-16 13:44 | XMS_ITS | Encounter Summary ---
Author Organization [facility] Address Formerly [facility] [place] [address] [place] [address] Care Team Providers Care Fabric Pattern Grader Name Role Phone Blas Hardin MD Primary Care Provider Josie Becerra MD Unavailable Encounter Details Date Type Department Care Team (Late st Contact Info) Description 03/22/2019 Abstract [place] [address] , Generic ConversionMD Social History Tobacco Use Types Packs/Day Years Used Date Smoking Tobacco: Never Assessed Comments Unknown Sex and Gender Information Value Date Recorded Sex Assigned at Female 10/31/2024 1:15 PM HOOK UP Legal Sex Female 5:44 PM HOOK UP Gender Identity Not on file Sexual Orientation Not on file documented as of this encounter Plan of Treatment Upcoming Encounters Date Type Department Care Team (Late st Contact Info) Description 12/10/2024 7:45 AM HOOK UP Appointment [facility] [place] [address] Josie Becerra MD [address] [place] [address] 12/10/2024 8:30 AM HOOK UP Appointment [facility] [place] [address] Josie Becerra MD [address] [place] [address] 12/10/2024 9:00 AM HOOK UP Appointment [facility] [address] [place] [address] Josie Becerra MD [address] [place] [address] [place] [id number] [place] [address] 12/10/2024 9:30 AM HOOK UP [facility]ment [facility] [place] [address] Josie Becerra MD [address] [place] [address] 12/11/2024 9:30 AM HOOK UP Appointment [facility] [place] [address] Blas Hardin MD [address] [place] [phone] 12/11/2024 10:00 AM HOOK UP Appointment [facility] [place] [address] Blas Hardin MD [address] [place] [phone] 10/16/2025 9:00 AM HOOK UP Appointment [facility] [place] [address] Josie Becerra MD [address] [place] [address] 10/23/2025 9:30 AM HOOK UP Office Visit [facility] [place] [phone] Josie Becerra MD [address] [place], [place] [phone] documented as of this encounter Visit Diagnoses Not on filedocumented in this encounter Additional Health Concerns Infection Onset Date Last Indicated Resolved Time COVID-19 Rule Out 02/27/2020 02/27/2020 02/28/2020 4:14 PM CDT COVID-19 Rule Out 03/09/2020 03/09/2020 03/09/2020 4:38 PM CDT COVID-19 Rule Out 02/03/2024 02/03/2024 02/03/2024 2:55 PM CDT documented as of this encounter Care Teams Fabric Pattern Grader Relationship Specialty Start Date End Date Blas Hardin MD [address] [place] [phone] PCP - General FAMILY PRACTICE 05/06/19 Josie Becerra MD [address] [place] [address] Consulting Physician CARDIOVASCULAR DISEASE 01/24/24 documented as of this encounter
--- OUTSIDE RECORDS SUMMARY | 2024-11-16 13:44 | XMS_ITS | Encounter Summary ---
Author Organization [facility] Address [facility] [place] [address] [place] [address] Care Team Providers Care Subpoena Server Name Role Phone Blas Hardin MD Primary Care Provider [phone] Josie Becerra MD Unavailable Encounter Details Date Type Department Care Team (Late Contact Info) Description 09/17/2019 Hospital Orders Only [facility] [address] [place] [address] Blas Hardin MD [address] [place] [phone] Social History Tobacco Use Types Packs/Day Years Used Date Smoking Tobacco: Never Assessed Comments Unknown Sex and Gender Information Value Date Recorded Sex Assigned at Female 10/31/2024 1:15 PM MEDICAL RECORDS TECHNICIAN Legal Sex Female 5:44 PM MEDICAL RECORDS TECHNICIAN Gender Identity Not on file Sexual Orientation Not on file documented as of this encounter Plan of Treatment Upcoming Encounters Date Type Department Care Team (Late st Contact Info) Description 12/10/2024 7:45 AM MEDICAL RECORDS TECHNICIAN Appointment [facility] [place] [address] Josie Becerra MD [address] [place] [address] 12/10/2024 8:30 AM MEDICAL RECORDS TECHNICIAN Appointment [facility] [place] [address] Josie Becerra MD [address] [place] [address] 12/10/2024 9:00 AM MEDICAL RECORDS TECHNICIAN Appointment [facility] [place] [address] Josie Becerra MD [address] [place] [address] [place] [phone] [place] [address] 12/10/2024 9:30 AM MEDICAL RECORDS TECHNICIAN Appointment [facility] [place] [address] Josie Becerra MD [address] [place] [address] 12/11/2024 9:30 AM MEDICAL RECORDS TECHNICIAN Appointment [facility] [place] [address] Blas Hardin MD [address] [place] [phone] 12/11/2024 10:00 AM MEDICAL RECORDS TECHNICIAN Appointment [facility] [place] [address] Blas Hardin MD [address] [place] [phone] 10/16/2025 9:00 AM MEDICAL RECORDS TECHNICIAN Appointment [facility] [place] [address] Josie Becerra MD [address] [place] [address] 10/23/2025 9:30 AM MEDICAL RECORDS TECHNICIAN Office Visit [facility] [address] [place] [phone] Josie Becerra MD [address] [place] [address] documented as of this encounter Visit Diagnoses Not on filedocumented in this encounter Additional Health Concerns Infection Onset Date Last Indicated Resolved Time COVID-19 Rule Out 02/27/2020 02/27/2020 02/28/2020 4:14 PM CDT COVID-19 Rule Out 03/09/2020 03/09/2020 03/09/2020 4:38 PM CDT COVID-19 Rule Out 02/03/2024 02/03/2024 02/03/2024 2:55 PM CDT documented as of this encounter Care Teams Subpoena Server Relationship Specialty Start Date End Date Blas Hardin MD [address] [place] [phone] PCP - General FAMILY PRACTICE 05/06/19 Josie Becerra MD [address] [place] [address] Consulting Physician CARDIOVASCULAR DISEASE 01/24/24 documented as of this encounter
--- OUTSIDE RECORDS SUMMARY | 2024-11-16 13:44 | XMS_ITS | Clinical Summary ---
Author Organization [facility] Address [facility] [place] [address] [place] [address] Care Team Providers Care Mechanical Intern Name Role Phone Blas Hardin MD Primary Care Provider Rolo Roblero MD Unavailable Allergies Active Allergy Reactions Criticality Noted Date Comments Sulfa Antibiotics Swelling 03/26/2020 Lip swelling Medications cycloSPORINE (RESTASIS) 0.05 % ophthalmic emulsionIndica tions:Dry Eye Syndrome Place 1 drop into both eyes every 12 (twelve) hours. Indications: Drying and Inflammation of Cornea and Conjunctiva of Eyes 01/24/20 16 Active denosumab 60 MG/ML injectionIndic ations:Osteopo rosis Inject 1 mL (60 mg total) into the skin. Indications: Osteoporosis Two times a year (due in September 2023) 03/14/20 20 Active Levothyroxine Sodium 75 MCG capsuleIndicat ions:Hypothyro idism Take 1 capsule by mouth daily. Indications: Underactive Thyroid 06/14/20 17 Active latanoprost (XALATAN) 0.005 % ophthalmic solution Place 1 drop into both eyes nightly at bedtime. 08/09/20 22 Active MYRBETRIQ 50 MG 24 hr tablet Take 1 tablet (50 mg total) by mouth daily. 05/25/20 22 Active Ergocalciferol (VITAMIN D2 OR) Take 5,000 Units by mouth Every M/W/F at 5pm. Active aspirin 81 MG chewable tablet Chew 1 tablet (81 mg total) by mouth daily. Active traZODone (DESYREL) 100 MG tablet Take 1 tablet (100 mg total) by mouth nightly as needed for Sleep. Active ELIQUIS 2.5 MG tablet Take 1 tablet (2.5 mg total) by mouth 2 (two) times daily. 12/17/19 24 Active metoprolol succinate ER (TOPROL-XL) 100 MG 24 hr tablet Take 1 tablet (100 mg total) by mouth daily. 30 tablet 01/29/20 24 Active amiodarone (PACERONE) 200 MG tablet Take 1 tablet (200 mg total) by mouth daily. 30 tablet 04/09/20 24 Active HYDROcodone-ac etaminophen (NORCO) 5-325 MG tabletIndicati ons:Acute Pain < 7 Day Supply Take 1 tablet by mouth every 6 (six) hours as needed for Pain. Indications: Acute Pain < 7 Day Supply 20 tablet 04/21/20 24 025 Discontinu ed(Discont inued by another clinician) Active Problems Problem Noted Date Diagnosed Date Hyponatremia 07/30/2023 Lumbar radiculopathy 09/15/2022 Overview (09/15/2022): Added automatically from request for surgery [id number] Blood loss anemia 03/07/2020 Postoperative anemia 03/07/2020 Chronic pain 03/07/2020 Status post hip replacement 03/07/2020 At high risk for complication of immobility 02/13 Hypomagnesemia 03/07/2020 Primary osteoarthritis of right hip 03/01/2020 OA (osteoarthritis) of hip 03/01/2020 Senile osteoporosis 09/17/2019 DDD (degenerative disc disease), lumbar 07/21/20 19 Spondylolisthesis, lumbar region 07/21/2019 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 07/16/2019 Glenohumeral arthritis 04/03/2017 Hypertension 01/24/2016 Overview (09/23/2019): Overview: Hypertension Osteoporosis 01/24/2016 Overview (09/23/2019): Overview: Osteoporosis Encounters Date Type Department Care Team Description 11/07/2024 9:30 AM BEAUTY SALES CONSULTANT Office Visit [facility] [address] [place] [address] [place] [address] Rolo Roblero MD Heart Problem 11/07/2024 9:15 AM BEAUTY SALES CONSULTANT - 11/07/2024 11:59 PM BEAUTY SALES CONSULTANT Hospital Encounter [facility] [address] [place] [address] Rolo Roblero MD Discharge Disposition: Home or Self Care (Routine Discharge) 11/07/2024 Telephone [facility] [address] [place] [address] Rolo Roblero MD Schedule Test 11/07/2024 Travel 11/06/2024 Telephone [facility] [address] [place] [address] Rolo Roblero MD Appointment Reminder 11/06/2024 Orders Only [facility] [address] [place] [address] Blas Hardin MD 11/05/2024 Orders Only [facility] [address] [place] [address] Rolo Roblero MD 10/31/2024 1:19 PM BEAUTY SALES CONSULTANT - 10/31/2024 11:59 PM BEAUTY SALES CONSULTANT Hospital Encounter [facility] [address] [place] [address] Rolo Roblero MD Discharge Disposition: Home or Self Care (Routine Discharge) 10/31/2024 Travel 10/21/2024 Telephone [facility] [address] [place] [address] Rolo Roblero MD Reschedule from Last 3 Months Family History Medical History Relation Comments Cancer Father Heart Attack Father Hypertension Father Hypertension Mother Relation Status Comments Father Mother Social History Tobacco Use Types Packs/Day Years Used Date Smoking Tobacco: Never Smokeless Tobacco: Never Tobacco Cessation:Counseling Given: Not Answered Alcohol Use Standard Drinks/Week Comments No 0 (1 standard drink = 0.6 oz pur e alcohol) Humiliation, Afraid, Rape, and Kick questionnair e Answer Date Recorded Within the last year, have y ou been afraid of your partner or ex-partner? No 07/30/2023 Within the last year, have y ou been humiliated or emotionally abused in other ways by your partner or ex-partner? No Within the last year, have y ou been kicked, hit, slapped, or otherwise physically hurt by your partner or ex-partner? No 07/30/2023 Within the last year, have y ou been raped or forced to have any kind of sexual activity by your partner or ex-partner? No 07/30/2023 AUDIT-C Answer Date Recorded Frequency of Alcohol Consumption Never 09/23/2019 Average Number of Drinks Not on file 019 Frequency of Binge Drinking Not on file 09/14 Overall Financial Resource Strain (CARDIA) Answe r Date Recorded How hard is it for you to pa y for the very basics like food, housing, medical care, and heating? Not hard at all 07/30/2023 Hunger Vital Sign Answer Date Recorded Within the past 12 months, y ou worried that your food would run out before you got the money to buy more. Never true 07/30/20 23 Within the past 12 months, t he food you bought just didn't last and you didn't have money to get more. Never true 07/30/2023 PRAPARE - Transportation Answer Date Re corded In the past 12 months, has l ack of transportation kept you from medical appointments or from getting medications? No 07/15 In the past 12 months, has l ack of transportation kept you from meetings, work, or from getting things needed for daily living? No 07/30/2023 Housing Stability Vital Sign Answer Erwin e Recorded In the last 12 months, was t here a time when you were not able to pay the mortgage or rent on time? No 07/30/2023 In the last 12 months, how many places have you lived? 1 07/30/2023 In the last 12 months, was t here a time when you did not have a steady place to sleep or slept in a nursing home (including now)? No 07/30/2023 Comments No Sex and Gender Information Value Date Recorded Sex Assigned at Female 10/31/2024 1:15 PM BEAUTY SALES CONSULTANT Legal Sex Female 5:44 PM BEAUTY SALES CONSULTANT Gender Identity Not on file Sexual Orientation Not on file Last Filed Vital Signs Vital Sign Reading Time Taken Comments Blood Pressure 138/60 11/07/2024 1:34 PM BEAUTY SALES CONSULTANT Pulse 61 11/07/2024 1:33 PM BEAUTY SALES CONSULTANT Temperature 36.5 ??C (97.7 ??F) 04/21/2024 10:24 AM C DT Respiratory Rate 20 11/07/2024 1:33 PM BEAUTY SALES CONSULTANT Oxygen Saturation 98% 11/07/2024 1:33 PM BEAUTY SALES CONSULTANT Inhaled Oxygen Concentration - - Weight 59 kg (130 lb) 11/07/2024 1:33 PM BEAUTY SALES CONSULTANT Height 170.2 cm (5' 7 ) 11/07/2024 1:33 PM BEAUTY SALES CONSULTANT Body Mass Index 20.36 11/07/2024 1:33 PM BEAUTY SALES CONSULTANT Plan of Treatment Upcoming Encounters Date Type Department Care Team (Late st Contact Info) Description 12/10/2024 7:45 AM BEAUTY SALES CONSULTANT Appointment [facility] [address] [place] [address] Rolo Roblero MD [address] [place] [address] 12/10/2024 8:30 AM BEAUTY SALES CONSULTANT Appointment [facility] [address] [place] [address] Rolo Roblero MD [address] [place] [address] 12/10/2024 9:00 AM BEAUTY SALES CONSULTANT Appointment [facility] [address] [place], [place] [address] [place] [address] Rolo Roblero MD [address] [place] [address] [place] [address] [place] [address] 12/10/2024 9:30 AM BEAUTY SALES CONSULTANT Appointment [facility] [address] [place] [address] Rolo Roblero MD [address] [place] [address] 12/11/2024 9:30 AM BEAUTY SALES CONSULTANT Appointment [facility] [id number] [place] [address] Blas Hardin MD [address] [place] [phone] 12/11/2024 10:00 AM BEAUTY SALES CONSULTANT Appointment [facility] [address] [place], [place] [address] [place] [address] Blas Hardin MD [address] [place] [phone] 10/16/2025 9:00 AM BEAUTY SALES CONSULTANT Appointment [address] [place] [address] Rolo Roblero MD [address] [place] [address] 10/23/2025 9:30 AM BEAUTY SALES CONSULTANT Office Visit [facility] [address] [place] [address] Rolo Roblero MD [address] [place] [address] Health Maintenance Due Date Last Done Comments DTaP, Tdap and Td Vaccines (1 - Tdap) 1960 Annual Medicare Wellness Visit 2006 Dexa Scan (General) 2006 RSV Immunization or 60+ Years (1 - 1-dose 75+ series) 2016 Zoster Vaccines (2 of 2) 08/09/2020 06/14/2020 COVID-19 Vaccine (3 - season) 2024 12/08/2020, 11/17/2020 Influenza Adult (#1) 2024 07/18/2021, 07/15/2021, 07/24/2020, Additional history exists Pneumococcal Vaccine: 65+ Years Completed 09/25/2018, 10/04/2012 Meningococcal B Vaccine Aged Out No l onger eligible based on patient's age to complete this topic Meningococcal Vaccine Aged Out No deirdre marcus eligible based on patient's age to complete this topic RSV Immunizations Under 20 Months Aged Out No longer eligible based on patient's age to complete this topic Medical Devices Implanted Type Area Pattern Changer And Repairer Device Identifier Shelf Expiration Date Model / Serial / Lot Knee Components Knee Components Lens Lens G7 [place] Ti Acetabular Shell 4 Hole, Cementless Implanted:Qty: 1 on 03/01/2020 by Brian Lopez MD at [facility] Right: Hip [employer] 09/16/2029 [id number] / / [id number] Acetabular System Liner Neutral 36 Mm Size F Implanted:Qty: 1 on 03/01/2020 by Brian Lopez MD at [facility] Right: Hip [employer] 05/14/2024 [id number] / / [id number] Screw Eliz Bone 25mm - [id number] Implanted:Qty: 1 on 03/01/2020 by Brian Lopez MD at [facility] Right: Hip [employer] 08/14/2029 [id number] / / [id number] Screw Eliz Bone 30mm - [id number] Implanted:Qty: 1 on 03/01/2020 by Brian Lopez MD at [facility] Right: Hip [employer] 09/16/2029 [id number] / / [id number] Standard Femoral Stem Full Proximal Profile Porous Plasma Uncemented 14 Implanted:Qty: 1 on 03/01/2020 by Brian Lopez MD at [facility] Right: Hip [employer] 01/19/2028 [id number] / / [id number] Component Modular Head 36mm Biomet - [id number] Implanted:Qty: 1 on 03/01/2020 by Brian Lopez MD at [facility] Right: Hip [employer] 09/06/2028 [id number] / / [id number] Explanted Type Area Pattern Changer And Repairer Device Identifier Shelf Expiration Date Model / Serial / Lot Drill Tip - [id number] Explanted:Qty: 1 on 03/01/2020 at [facility] Right: Hip [employer] [id number] / / Procedures Procedure Name Priority Date/Time Associated Diagnosis Comments ECG 12-LEAD Routine 11/07/2024 9:51 AM BEAUTY SALES CONSULTANT Hypomagnesemia USE ECHOCARDIOGRAM Routine 10/31/2024 1: 57 PM BEAUTY SALES CONSULTANT Paroxysmal atrial fibrillation (CMS/HCC HHS/HCC) Other cardiomyopathy (CMS/HCC HHS/HCC) from Last 3 Months Results * ECG 12 lead (HOSPITAL PERFORMED ONLY) (11/07/2024 9:51 AM BEAUTY SALES CONSULTANT) 11/07/2024 9:51 AM BEAUTY SALES CONSULTANT Narrative [facility] - 11/07/2024 6:23 PM BEAUTY SALES CONSULTANT ? [facility] ?[address] [place], [place] ??[address] ? Test Date: ?2024-11-07 Pat Name: ? GIAN GORDILLO ? Department: ?? 3 ? Room: ? Gender: ? Female ? 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 : ?1940 ? Requested By: ROLO ROBLERO Order Number: [id number] ? Reading MD: ?? Rolo Roblero ? Measurements Intervals ?[place] ? Rate: ? 59 ? P: ?78 ME: ? 213 ?QRS: ?85 QRSD: ? 109 ?T: ?80 QT: ? 474 ? QTc: ?471 ? Interpretive Statements SINUS BRADYCARDIA WITH FIRST DEGREE AV BLOCK PROLONGED QT INTERVAL TY SALES CONSULTANT Procedure Note Rolo Roblero MD - 11/07/[address] 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: : 1940 Requested By: ROLO ROBLERO Order Number: [id number] Reading MD: Rolo Roblero Measurements Intervals [place] Rate: 59 P: 78 ME: 213 QRS: 85 QRSD: 109 T: 80 QT: 474 QTc: 471 Interpretive Statements SINUS BRADYCARDIA WITH FIRST DEGREE AV BLOCK PROLONGED QT INTERVAL TY SALES CONSULTANT us Rolo Roblero MD ECG ORDERABLES Final Result [facility] * USE ECHOCARDIOGRAM (10/31/2024 1:57 PM BEAUTY SALES CONSULTANT) Anatomical Region Laterality Modality Cardiac Ultrasound 10/31/2024 1:27 PM BEAUTY SALES CONSULTANT Narrative 11/02/2024 10:07 AM BEAUTY SALES CONSULTANT ?Echocardiography Report Pat.Name: ??Gian Gordillo.ID: ?[id number] ? St.Date: ?? 10/31/2024 ? Refer.MD: ??Outreach, [facility] Exam Time: 1:27:00 PM ?Study Type:OUTREACH ? Height: ?67 in ? Weight: ?130 lb ? BSA: ? 1.68 m2 ?Age: ??1940,83Y ? Sex: ? F ? Sonogrphr: Sf ? Pat. Stat.:Outpatient ? Reason for Study:Paroxysmal atrial fibrillation, Other cardiomyopathy Procedures: Study performed at [place], [place] and interpreted by [facility]. 2D, M-mode, Doppler, Color Flow ++++++++++++++++++++++++++++++++++++ SUMMARY: ++++++++++++++++++++++++++++++++++++ The left ventricular size is normal. Estimated left ventricular ejection fraction is 40-45%. Mild concentric left ventricular hypertrophy. Left ventricular diastolic function is abnormal (grade 2 - pseudonormal pattern). The right ventricle is normal in size and function. Right ventricular systolic pressure is 38 mmHg. Inferior vena cava shows >50% collapse with respiration consistent with normal right atrial pressure. Mild calcification of aortic valve leaflets. Mild mitral regurgitation. Mild tricuspid regurgitation. ++++++++++++++++++++++++++++++++++++ FINDINGS: ++++++++++++++++++++++++++++++++++++ LV: ? The left ventricular size is normal. The left ventricular ?systolic function is mild to moderately depressed. Estimated ?left ventricular ejection fraction is 40-45%. Mild ?concentric left ventricular hypertrophy. The average E/e' is ?<14. Left ventricular diastolic function is abnormal (grade ?2 - pseudonormal pattern). RV: ? The right ventricular size is normal. Right ventricular ?systolic function is normal. Right ventricular systolic ?pressure is 38 mmHg. LA: ? Left atrial size is normal. RA: ? The right atrial size is normal. IAS: ?Atrial septum is thickened consistent with lipomatous ?hypertrophy. TIMOTHY: ? No evidence of pericardial effusion. AO: ? Aorta is normal. PA: ? Estimated right atrial pressure of 3 mmHg. SVn: ?Inferior vena cava is normal. Inferior vena cava shows >50% ?collapse with respiration consistent with normal right ?atrial pressure. AV: ? The aortic valve is trileaflet. No evidence of aortic valve ?stenosis. No evidence of aortic regurgitation. Mild ?calcification of aortic valve leaflets. MV: ? Mild mitral regurgitation. Mild calcification of mitral ?valve leaflets. PV: ? Trace pulmonic regurgitation. TV: ? Structurally normal tricuspid valve. Mild tricuspid ?regurgitation. <Electronic Signature> 11/02/2024 10:07 AM Rolo Roblero M.D. Procedure Note Rolo Roblero MD - 11/02/2024 Echocardiography Report Pat.Name: Gian Gordillo.ID: [id number] .Date: 10/31/2024 Refer.MD: Robert, [facility] Exam Time: 1:27:00 PM Study Type:[facility] Height: 67 in Weight: 130 lb BSA: 1.68 m2 Age: 4 1940,83Y Sex: F Sonogrphr: Sf Pat. Stat.:Outpatient Reason for Study:Paroxysmal atrial fibrillation, Other cardiomyopathy Procedures: Study performed at [place], [place] and interpreted by [facility]. 2D, M-mode, Doppler, Color Flow ++++++++++++++++++++++++++++++++++++ SUMMARY: ++++++++++++++++++++++++++++++++++++ The left ventricular size is normal. Estimated left ventricular ejection fraction is 40-45%. Mild concentric left ventricular hypertrophy. Left ventricular diastolic function is abnormal (grade 2 - pseudonormal pattern). The right ventricle is normal in size and function. Right ventricular systolic pressure is 38 mmHg. Inferior vena cava shows >50% collapse with respiration consistent with normal right atrial pressure. Mild calcification of aortic valve leaflets. Mild mitral regurgitation. Mild tricuspid regurgitation. ++++++++++++++++++++++++++++++++++++ FINDINGS: ++++++++++++++++++++++++++++++++++++ LV: The left ventricular size is normal. The left ventricular systolic function is mild to moderately depressed. Estimated left ventricular ejection fraction is 40-45%. Mild concentric left ventricular hypertrophy. The average E/e' is <14. Left ventricular diastolic function is abnormal (grade 2 - pseudonormal pattern). RV: The right ventricular size is normal. Right ventricular systolic function is normal. Right ventricular systolic pressure is 38 mmHg. LA: Left atrial size is normal. RA: The right atrial size is normal. IAS: Atrial septum is thickened consistent with lipomatous hypertrophy. TIMOTHY: No evidence of pericardial effusion. AO: Aorta is normal. PA: Estimated right atrial pressure of 3 mmHg. SVn: Inferior vena cava is normal. Inferior vena cava shows >50% collapse with respiration consistent with normal right atrial pressure. AV: The aortic valve is trileaflet. No evidence of aortic valve stenosis. No evidence of aortic regurgitation. Mild calcification of aortic valve leaflets. MV: Mild mitral regurgitation. Mild calcification of mitral valve leaflets. PV: Trace pulmonic regurgitation. TV: Structurally normal tricuspid valve. Mild tricuspid regurgitation. <Electronic Signature> 11/02/2024 10:07 AM Rolo Roblero M.D. Rolo Roblero MD ECHO Final Result from Last 3 Months Insurance [facility] MEDICARE Advance Directives * Full Code (Latest Code Status on File) Date Activated Date Inactivated Comments 07/30/2023 1:13 PM 08/01/2023 3:50 PM * Full Code Date Activated Date Inactivated Comments 03/14/2020 3:25 PM 08/11/2022 11:57 AM * Full Code Date Activated Date Inactivated Comments 03/14/2020 12:12 PM 03/14/2020 3:27 PM * Full Code Date Activated Date Inactivated Comments 03/07/2020 11:38 AM 03/12/2020 4:02 PM * Full Code Date Activated Date Inactivated Comments 03/01/2020 5:01 PM 03/03/2020 4:52 PM Care Teams Mechanical Intern Relationship Specialty Start Date End Date Blas Hardin MD [address] [place] [phone] PCP - General FAMILY PRACTICE 05/06/19 Rolo Roblero MD [address] [place] [address] Consulting Physician CARDIOVASCULAR DISEASE 01/24/24
[2024-11-16 13:45] VITALS: PULSE 55
--- NOTE | 2024-11-16 13:47 | ED_ITS ---
HPI - Weakness General Chief complaint: Dizziness Stated complaint: fall, weakness Time Seen by Provider: 11/16/24 13:44 Source: patient Mode of arrival: EMS Limitations: no limitations History of Present Illness HPI Narrative: Patient is a 83-year-old female with recurrent dizziness on and off for many years. Patient has been falling over the past 2 weeks as well. Family was concerned about the mixture of dizziness and falls. She has some mild generalized weakness too. Patient has not been eating much over the past few months. She lives with her son. MD Complaint: generalized weakness Onset (ago): week(s) (2) Duration: intermittent Location: generalized Migration: none Severity: mild Severity scale (1-10): 2 ( recurrent falls and dizziness) Quality: other ( No particular pain at this time) Relieving factors: none Exacerbating factors: none Context: other ( patient has recurrent falls and dizziness with some weakness over the past 2 weeks particularly) Associated symptoms: other ( chronic dementia) Related Data Home Medications ?Medication ?Instructions ?Recorded ?Confirmed ?Last Taken ?Type duloxetine 20 mg capsule,delayed 20 mg PO DAILY 12/16/23 03/27/24 Unknown History release latanoprost 0.005 % eye drops 1 drp EACH EYE DAILY 12/16/23 03/27/24 Unknown History levothyroxine 100 mcg tablet 100 mcg PO DAILY 12/16/23 03/27/24 Unknown History (Synthroid) mirabegron 50 mg tablet,extended 50 mg PO DAILY 12/16/23 03/27/24 Unknown History release 24 hr (Myrbetriq) Allergies Allergy/AdvReac Type Severity Reaction Status Date / Time Sulfa (Sulfonamide Allergy Intermediate LIP Verified 03/27/24 16:34 Antibiotics) SWELLING Review of Systems 2 Review of Systems: All systems reviewed & are unremarkable except as noted in HPI and below Constitutional: Constitutional: Reports no additional constitutional complaints Eyes: Eyes: Reports no additional eye complaints ENT: Reports system reviewed and no additional complaints, except as documented Cardiovascular: Cardiovascular: Reports no additional cardiovascular complaints Respiratory: Respiratory: Reports no additional respiratory complaints Gastrointestinal: Gastrointestinal: Reports no additional gastrointestinal complaints Genitourinary: Genitourinary: Reports no additional female genitourinary complaints Musculoskeletal: Musculoskeletal: Reports no additional musculoskeletal complaints Integumentary/Breasts: Skin/Breast: Reports system reviewed and no additional complaints, except as docu Neurologic: Reports system reviewed and no additional complaints, except as documented Psychiatric: Psychiatric: Reports no additional psychiatric complaints Endocrine: Endocrine: Reports no additional endocrine complaints Hematologic/Lymphatic: Hematologic/Lymphatic: Reports no additional hematologic/lymphatic complaints Allergic/Immunologic: Allergic/Immunologic: Reports no additional allergic/immunologic complaints PMFSH Past Medical History Medical History Seizure none since age 28 Osteoporosis Hypothyroidism Hypertension Surgical History Surgical History History of hysterectomy Social History Social History Smoking status: Never smoker Second hand tobacco smoke exposure: No Alcohol intake: never Substance use: never Substance use type: does not use Do You Feel Safe in your Home?: Yes Lack of Transportation: No Lack of Food: Never True Current Housing: I Have Housing Concerned About Future Housing: No Difficulty Paying Gas/Electric Bills: No Difficulty Paying for Meds: No Currently Unemployed: No Education: High School Diploma/GED Difficulty w/ Childcare or Family Care: No Gender identity (if verbalized by the patient): Female Spiritual care concerns: No Exam 2 Const: General: healthy appearing Nutritional Appearance: well nourished Orientation/consciousness: patient oriented x3 HENMT: Head: normal to inspection Ears: external ears normal F elvia/Nose/Sinus: Normal external nose present Eyes: Conjunctivae: conjunctivae normal Pupils: Equal, round and reactive pupils present EOM: EOMs intact bilaterally Neck: Neck: normal visual inspection Chest: Chest palpation & inspection: normal inspection of the chest Resp: Effort & Inspection: normal respiratory effort and not labored A uscultation: clear to auscultation bilaterally and no crackles Cardio: Rate: regular rate Rhythm: regular rhythm Heart sounds: no murmurs GI: Inspection: non-distended GI Palp: Yes Soft to palpation and No Tenderness to palpation present (GI) Auscultation: normal bowel sounds : General: Yes bladder normal to palpation Back/Spine/Pelvis: Back: no CVA tenderness Skin: General skin exam: normal color Rashes: no rashes Wounds: no wounds Neuro: General: patient oriented x3, moves all extremities, no meningeal signs, no focal motor deficits and CN's II-XI intact bilaterally Cranial nerves: Yes Nystagmus not present Speech: normal speech Gait exam (Neuro): Normal gait present Other: patient uses a walker; she fell earlier today due to the walker moving ahead of her and she fell forward Extrem: General: normal to inspection Psych: Mental Status: mental status grossly normal Affect: normal affect Attitude: cooperative Other: [id number]-tq-[id number] dementia appreciated no depression or anxiety seen Course Vital Signs Vital signs: Vital Signs Temperature 36.7 C 11/16/24 13:43 Pulse Rate 57 L 11/16/24 13:43 Respiratory Rate 20 11/16/24 13:43 Blood Pressure 138/54 L 11/16/24 13:43 Pulse Oximetry 98 11/16/24 13:43 Oxygen Delivery Room Air 11/16/24 13:43 Temperature 36.7 C 11/16/24 13:43 Pulse Rate 56 L 11/16/24 15:09 Respiratory Rate 15 11/16/24 15:09 Blood Pressure 200/68 H 11/16/24 15:09 Pulse Oximetry 99 11/16/24 15:09 Oxygen Delivery Room Air 11/16/24 13:43 MDM - Weakness MDM Narrative Medical decision making narrative: patient is an 83-year-old female with decreased appetite and falls with some weakness and dizziness recurrent lately. We will do a workup at this time. Workup was essentially negative and we will suggest ensure her and multi-vitamin and talk to the primary doctor for further evaluation. Lab Data Attestation: I reviewed the patient's lab results. Lab results narrative: Chronic anemia, chronic renal insufficiency 11/16/24 14:46 11/16/24 14:46 Labs: Lab Results 11/16/24 11/16/24 Range/Units 13:46 14:46 WBC 6.4 (4.8-10.8) K/mm3 RBC 2.97 L (4.20-5.40) M/mm3 Hgb 9.1 L (11.7-13.8) g/dL Hct 28.1 L (35.0-42.0) % MCV 94.6 (78.0-102.0) fL MCH 30.6 (27.0-31.0) pg MCHC 32.4 (32-36) g/dL RDW 12.4 (11.6-14.4) % Plt Count 318 (150-420) K/mm3 MPV 9.6 (9.2-11.8) fl Immature Gran % (Auto) 0.5 H (0.0-0.0) % Neut % (Auto) 88.6 H (50.0-70.0) % Lymph % (Auto) 2.8 L (18.0-42.0) % Cook % (Auto) 7.0 (2.0-11.0) % Eos % (Auto) 0.3 L (1.0-6.0) % Baso % (Auto) 0.8 (0.0-1.0) % Lymph # (Auto) 0.18 L (1.10-4.50) K/mm3 Cook # (Auto) 0.45 (0.10-0.90) K/mm3 Eos # (Auto) 0.02 (0.02-0.50) K/mm3 Baso # (Auto) 0.05 (0.00-0.10) K/mm3 Abs Immat Gran (auto) 0.03 H (0.00-0.00) K/mm3 Absolute Neuts (auto) 5.68 (1.70-7.20) K/mm3 Absolute Nucleated RBC 0.00 (0.00-0.00) K/mm3 Nucleated RBC % 0.0 (0-0.0) % Sodium 133 L (136-145) mmol/L Potassium 4.1 (3.5-5.1) mmol/L Chloride 98 (98-108) mmol/L Carbon Dioxide 27 (21-32) mmol/L Anion Gap 8 (4-12) mmol/L BUN 26 H (7-18) mg/dL Creatinine 1.54 H (0.55-1.02) mg/dL Estim Creat Clear Calc 24 ml/min Estimated GFR 32 L (59 - ) Glucose 109 H (70-99) mg/dL Calculated Osmolality 281 L (285-295) mOsm/kg Lactic Acid 1.3 (0.4-2.0) mmol/L Calcium 8.7 (8.5-10.1) mg/dL Magnesium 2.0 (1.8-2.4) mg/dL Total Bilirubin 0.5 (0.00-1.00) mg/dL AST 30 (15-37) U/L ALT 45 (14-59) U/L Alkaline Phosphatase 47 (46-116) U/L Troponin I 33.2 (0.00-60.4) ng/L NT-Pro-B Natriuret Pep 626 H (0-450) pg/mL Total Protein 6.6 (6.4-8.2) g/dL Albumin 3.6 (3.4-5.0) g/dL Urine Color Yellow (Yellow) Urine Appearance Clear (Clear) Urine pH 6.5 (5.0-8.0) Ur Specific [place] 1.025 H (1.010-1.020) Urine Protein Trace H (Negative) Urine Glucose (UA) Negative (Negative) Urine Ketones Negative (Negative) Ur Blood (Man) Negative (Negative) Urine Nitrate Negative (Negative) Urine Bilirubin Negative (Negative) Urine Urobilinogen 0.2 (0.2-1.0) mg/dL Leukocyte Esterase Rfl Negative (Negative) CRISTINA/UL Calcium Oxalate Crystal Present H (None) /hpf Amorphous Sediment Moderate H (None) Hyaline Casts 10-14 H (None) /lpf Urine Mucus Heavy H /lpf Influenza A (RT-PCR) Negative (Negative) Influenza B (RT-PCR) Negative (Negative) RSV (RT-PCR) Negative (Negative) SARS-CoV-2 RNA (RT-PCR) Negative (Negative) Imaging Data Attestation: I personally reviewed and interpreted this imaging study as follows: Radiologist's impression: CT scan of the head was negative for acute process CT scan of the neck was negative for acute process chest x-ray was negative for acute process ECG Data EKG #1: Attestation: I personally reviewed and interpreted this ECG as follows: ECG completion date: 11/16/24 ECG completion time: 17:04 EKG Interpretation: normal rate, bradycardia, sinus rhythm, no ectopy, non-specific ST changes, normal QRS, prolonged QT and NL axis Discharge Plan Discharge Clinical Impression: Dizziness and giddiness, Anorexia Patient Disposition: Home, Self-Care Condition: Stable Instructions: Anorexia (DC), Dizziness (ED) Additional Instructions: please follow-up with the primary doctor in the next week. Please start a multivitamin daily. Please use Ensure as many times a day at least 3 for good nutrition. Patient Language: Upper Sorbian Prescriptions: No Action latanoprost 0.005 % drops 1 drp EACH EYE DAILY levothyroxine [Synthroid] 100 mcg tablet 100 mcg PO DAILY duloxetine 20 mg capsule,delayed release(DR/EC) 20 mg PO DAILY mirabegron [Myrbetriq] 50 mg tablet extended release 24 hr 50 mg PO DAILY metoprolol tartrate 25 mg Tablet 25 mg PO Q12HR Qty: 20 0RF Eliquis 2.5 mg Tablet 2.5 mg PO Q12HR Qty: 180 0RF temazepam 15 mg capsule 15 mg PO HS PRN (Reason: sleep) Qty: 20 0RF Follow-up/Referrals: Demarcus,Ever Hartmann MD [Primary Care Provider] - Time of Disposition: 15:58
--- OUTSIDE RECORDS SUMMARY | 2024-11-16 14:17 | XMS_ITS | Clinical Summary ---
Author Organization [facility] Address [address] [place] [address] Phone Care Team Providers Care Magnetic Prospecting Supervisor Name Role Phone Blas Hardin MD Primary Care Provider [phone] Social History Tobacco Use Types Packs/Day Years [...] age to complete this topic Insurance MEDICARE [facility] INSURANCE Care Teams Magnetic Prospecting Supervisor Relationship Specialty Start Date End Date Blas Hardin MD [address] [place] [address] PCP - General Family Medicine 01/24/16
--- OUTSIDE RECORDS SUMMARY | 2024-11-16 14:17 | XMS_ITS | Encounter Summary ---
Author Organization [facility] Address [address] Cha: Epic Prelude ADT [place] [address] Care Team Providers Care Material Handler 2Nd Shift Name Role Phone Unavailable Primary Care Provider Unavailabl e Encounter Details Date Type Department Care Team (Late st Contact Info) Description 08/09/1990 Outpatient Historical Jassi Gage Social History Tobacco Use Types Packs/Day Years Used Date Smoking Tobacco: Never Assessed Comments Unknown Sex and Gender Information Value Date Recorded Sex Assigned at Not on file Legal Sex Female 4:13 AM CRIME SCENE TECHNICIAN Gender Identity Not on file Sexual Orientation Not on file documented as of this encounter Plan of Treatment Not on file documented as of this encounter Visit Diagnoses Not on filedocumented in this encounter
--- OUTSIDE RECORDS SUMMARY | 2024-11-16 14:17 | XMS_ITS | Encounter Summary ---
Author Organization [facility] Address [facility] [place] [address] [place] [address] Care Team Providers Care Ocean Export Coordinator Name Role Phone Blas Hardin MD Primary Care Provider Josie Becerra MD Unavailable Encounter Details Date Type Department Care Team (Late Contact Info) Description 09/17/2019 Hospital Orders Only [facility] [address] [place] [address] Blas Hardin MD [address] [place] [phone] Social History Tobacco Use Types Packs/Day Years Used Date Smoking Tobacco: Never Assessed Comments Unknown Sex and Gender Information Value Date Recorded Sex Assigned at Female 10/31/2024 1:15 PM ORAL SURGERY TECHNICIAN Legal Sex Female 5:44 PM ORAL SURGERY TECHNICIAN Gender Identity Not on file Sexual Orientation Not on file documented as of this encounter Plan of Treatment Upcoming Encounters Date Type Department Care Team (Late st Contact Info) Description 12/10/2024 7:45 AM ORAL SURGERY TECHNICIAN Appointment [facility] [place] [address] Josie Becerra MD [address] [place] [address] 12/10/2024 8:30 AM ORAL SURGERY TECHNICIAN Appointment [facility] [place] [address] Josie Becerra MD [address] [place] [phone] 12/10/2024 9:00 AM ORAL SURGERY TECHNICIAN Appointment [facility] [place] [address] Josie Becerra MD [address] [place] [address] [place] [address] [place] [address] 12/10/2024 9:30 AM ORAL SURGERY TECHNICIAN Appointment [facility] [place] [address] Josie Becerra MD [address] [place] [address] 12/11/2024 9:30 AM ORAL SURGERY TECHNICIAN Appointment [facility] [place] [address] Blas Hardin MD [address] [place] [phone] 12/11/2024 10:00 AM ORAL SURGERY TECHNICIAN Appointment [facility] [place] [address] Blas Hardin MD [address] [place] [phone] 10/16/2025 9:00 AM ORAL SURGERY TECHNICIAN Appointment [facility] [place] [address] Josie Becerra MD [address] [place] [address] 10/23/2025 9:30 AM ORAL SURGERY TECHNICIAN Office Visit [facility] [address] [place] [phone] Josie Becerra MD [address] [place] [address] documented as of this encounter Visit Diagnoses Not on filedocumented in this encounter Additional Health Concerns Infection Onset Date Last Indicated Resolved Time COVID-19 Rule Out 02/27/2020 02/27/2020 02/28/2020 4:14 PM CDT COVID-19 Rule Out 03/09/2020 03/09/2020 03/09/2020 4:38 PM CDT COVID-19 Rule Out 02/03/2024 02/03/2024 02/03/2024 2:55 PM CDT documented as of this encounter Care Teams Ocean Export Coordinator Relationship Specialty Start Date End Date Blas Hardin MD [address] [place] [phone] PCP - General FAMILY PRACTICE 05/06/19 Josie Becerra MD [address] [place] [address] Consulting Physician CARDIOVASCULAR DISEASE 01/24/24 documented as of this encounter
--- OUTSIDE RECORDS SUMMARY | 2024-11-16 14:17 | XMS_ITS | Clinical Summary ---
Author Organization [facility] Address [facility] [facility] [place] [address] [place] [address] Care Team Providers Care Suture Gauger Name Role Phone Blas Hardin MD Primary [...] (09/15/2022): Added automatically from request for surgery [id number] Blood loss anemia 03/07/2020 Postoperative anemia 03/07/2020 [...] Department Care Team Description 11/07/2024 9:30 AM CROZER OPERATOR Office Visit [facility] [address] [place] [address] [place] [phone] Rolo Roblero MD Heart Problem 11/07/2024 9:15 AM CROZER OPERATOR - 11/07/2024 11:59 PM CROZER OPERATOR Hospital Encounter [facility] [address] [place] [address] Rolo Roblero MD Discharge Disposition: Home or Self Care (Routine Discharge) 11/07/2024 Telephone [facility] [address] [place] [address] Rolo Roblero MD Schedule Test 11/07/2024 Travel 11/06/2024 Telephone [facility] [address] [place] [phone] Rolo Roblero MD Appointment Reminder 11/06/2024 Orders Only [facility] [address] [place] [address] Blas Hardin MD 11/05/2024 Orders Only [facility] [address] [place] [address] Rolo Roblero MD 10/31/2024 1:19 PM CROZER OPERATOR - 10/31/2024 11:59 PM CROZER OPERATOR Hospital Encounter [facility] [address] [place] [address] Rolo Roblero MD Discharge Disposition: Home or Self Care (Routine Discharge) 10/31/2024 Travel 10/21/2024 Telephone [facility] [address] [place] [address] Rolo Roblero MD Reschedule from Last 3 [...] place to sleep or slept in a snf (including now)? No 07/30/2023 Comments No Sex and Gender Information Value Date Recorded Sex Assigned at Female 10/31/2024 1:15 PM CROZER OPERATOR Legal Sex Female 5:44 PM CROZER OPERATOR Gender Identity Not on file Sexual Orientation Not on file Last Filed Vital Signs Vital Sign Reading Time Taken Comments Blood Pressure 138/60 11/07/2024 1:34 PM CROZER OPERATOR Pulse 61 11/07/2024 1:33 PM CROZER OPERATOR Temperature 36.5 ??C (97.7 ??F) 04/21/2024 10:24 AM C DT Respiratory Rate 20 11/07/2024 1:33 PM CROZER OPERATOR Oxygen Saturation 98% 11/07/2024 1:33 PM CROZER OPERATOR Inhaled Oxygen Concentration - - Weight 59 kg (130 lb) 11/07/2024 1:33 PM CROZER OPERATOR Height 170.2 cm (5' 7 ) 11/07/2024 1:33 PM CROZER OPERATOR Body Mass Index 20.36 11/07/2024 1:33 PM CROZER OPERATOR Plan of Treatment Upcoming Encounters Date Type Department Care Team (Late st Contact Info) Description 12/10/2024 7:45 AM CROZER OPERATOR Appointment [facility] [address] [place] [address] Rolo Roblero MD [address] [place] [address] 12/10/2024 8:30 AM CROZER OPERATOR Appointment [facility] [address] [place] [address] Rolo Roblero MD [address] [place] [address] 12/10/2024 9:00 AM CROZER OPERATOR Appointment [facility] [address] [place], [place] [address] [place] [address] Rolo Roblero MD [address] [place] [address] [place] [address] [place] [address] 12/10/2024 9:30 AM CROZER OPERATOR Appointment [facility] [address] [place] [address] Rolo Roblero MD [address] [place] [address] 12/11/2024 9:30 AM CROZER OPERATOR Appointment [facility] [address] [place] [address] Blas Hardin MD [address] [place] [phone] 12/11/2024 10:00 AM CROZER OPERATOR Appointment [facility] [address] [place], [place] [address] [place] [address] Blas Hardin MD [address] [place] [phone] 10/16/2025 9:00 AM CROZER OPERATOR [address]ointment [address] [place] [address] Rolo Roblero MD [address] [place] [address] 10/23/2025 9:30 AM CROZER OPERATOR Office Visit [facility] [address] [place] [address] Rolo Roblero MD [address] [place] [address] Health Maintenance Due Date Last [...] this topic Medical Devices Implanted Type Area Registered Associate Device Identifier Shelf Expiration Date Model / Serial / Lot Knee Components Knee Components Lens Lens G7 [place] Ti Acetabular Shell 4 Hole, Cementless Implanted:Qty: 1 on 03/01/2020 by Brian Lopez MD at [facility] Right: Hip [employer] 09/16/2029 [id number] / / [id number] Acetabular System Liner Neutral 36 Mm Size F Implanted:Qty: 1 on 03/01/2020 by Brian Lopez MD at [facility] Right: Hip [employer] 05/14/2024 [id number] / / [id number] Screw Eliz Bone 25mm - [id number] Implanted:Qty: 1 on 03/01/2020 by Brian Lopez MD at [facility] Right: Hip [employer] 08/14/2029 [id number] / / [id number] Screw Elzi Bone 30mm - [id number] Implanted:Qty: 1 on 03/01/2020 by Brian Lopez MD at [facility] Right: Hip [employer] 09/16/2029 [id number] / / [id number] Standard Femoral Stem Full Proximal Profile Porous Plasma Uncemented 14 Implanted:Qty: 1 on 03/01/2020 by Brian Lopez MD at [facility] Right: Hip [employer] 01/19/2028 [id number] / / [id number] Component Modular Head 36mm Biomet - [id number] Implanted:Qty: 1 on 03/01/2020 by Brian Lopez MD at [facility] Right: Hip [employer] 09/06/2028 [id number] / / [id number] Explanted Type Area Registered Associate Device Identifier Shelf Expiration Date Model / Serial / Lot Drill Tip - [id number] Explanted:Qty: 1 on 03/01/2020 at [facility] Right: Hip [employer] [id number] / / Procedures Procedure Name Priority Date/Time Associated Diagnosis Comments ECG 12-LEAD Routine 11/07/2024 9:51 AM CROZER OPERATOR Hypomagnesemia USE ECHOCARDIOGRAM Routine 10/31/2024 1: 57 PM CROZER OPERATOR Paroxysmal atrial fibrillation (CMS/HCC HHS/HCC) Other cardiomyopathy (CMS/HCC HHS/HCC) from Last 3 Months Results * ECG 12 lead (HOSPITAL PERFORMED ONLY) (11/07/2024 9:51 AM CROZER OPERATOR) 11/07/2024 9:51 AM CROZER OPERATOR Narrative [facility] - 11/07/2024 6:23 PM CROZER OPERATOR ? [facility] ?[address] [place], [place] ??[address] ? Test Date: ?2024-11-07 Pat Name: ? GIAN GORDILLO ? Department: ?? 3 ? Room: ? Gender: ? Female ? Tooling Inspector: ?? : ?1940 ? Requested By: ROLO ROBLERO Order Number: [id number] ? Reading MD: ?? Rolo Roblero ? Measurements Intervals ?Gaastra ? Rate: ? 59 ? P: ?78 FL: ? 213 ?QRS: ?85 QRSD: ? 109 ?T: ?80 QT: ? 474 ? QTc: ?471 ? Interpretive Statements SINUS BRADYCARDIA WITH FIRST DEGREE AV BLOCK PROLONGED QT INTERVAL ER OPERATOR Procedure Note Rolo Roblero MD - 11/07/[address] [place] [address] Test Date: 2024-11-07 Pat Name: GIAN GORDILLO Department: 3 Room: Gender: Female Tooling Inspector: : 1940 Requested By: ROLO ROBLERO Order Number: [id number] Reading MD: Rolo Roblero Measurements Intervals Gaastra Rate: 59 P: 78 FL: 213 QRS: 85 QRSD: 109 T: 80 QT: 474 QTc: 471 Interpretive Statements SINUS BRADYCARDIA WITH FIRST DEGREE AV BLOCK PROLONGED QT INTERVAL ER OPERATOR us Rolo Roblero MD ECG ORDERABLES Final Result [facility] * USE ECHOCARDIOGRAM (10/31/2024 1:57 PM CROZER OPERATOR) Anatomical Region Laterality Modality Cardiac Ultrasound 10/31/2024 1:27 PM CROZER OPERATOR Narrative 11/02/2024 10:07 AM CROZER OPERATOR ?Echocardiography Report Pat.Name: ??Gian Gordillo.ID: ?[id number] ? St.Date: ?? 10/31/2024 ? Refer.MD: ??Outreach, [facility] Exam Time: 1:27:00 PM ?Study Type:OUTREACH ? Height: ?67 in ? Weight: ?130 lb ? BSA: ? 1.68 m2 ?Age: ??1940,83Y ? Sex: ? F ? Sonogrphr: Sf ? Pat. Stat.:Outpatient ? Reason for Study:Paroxysmal atrial fibrillation, Other cardiomyopathy Procedures: Study performed at [place], [place] and interpreted by [facility]. 2D, M-mode, Doppler, Color Flow [...] - 11/02/2024 Echocardiography Report Pat.Name: Gian Gordillo.ID: [id number] .Date: 10/31/2024 Refer.MD: Robert, [facility] Exam Time: 1:27:00 PM Study Type:[facility] Height: 67 in Weight: 130 lb BSA: 1.68 m2 Age: 4 1940,83Y Sex: F Sonogrphr: Sf Pat. Stat.:Outpatient Reason for Study:Paroxysmal atrial fibrillation, Other cardiomyopathy Procedures: Study performed at [place], [place] and interpreted by [facility]. 2D, M-mode, Doppler, Color Flow [...] Final Result from Last 3 Months Insurance [facility] MEDICARE Advance Directives * Full Code (Latest [...] 5:01 PM 03/03/2020 4:52 PM Care Teams Suture Gauger Relationship Specialty Start Date End Date Blas Hardin MD [address] [place] [phone] PCP - General FAMILY PRACTICE 05/06/19 Rolo Roblero MD [address] [place] [address] Consulting Physician CARDIOVASCULAR DISEASE 01/24/24
--- OUTSIDE RECORDS SUMMARY | 2024-11-16 14:17 | XMS_ITS | Encounter Summary ---
Author Organization [facility] Address [facility] [place] [address] [place] [address] Care Team Providers Care Unloader Operator Name Role Phone Blas Hardin MD Primary Care Provider Josie Becerra MD Unavailable Encounter Details Date Type Department Care Team (Late st Contact Info) Description 03/22/2019 Abstract [place] [address] , Generic ConversionMD Social History Tobacco Use Types Packs/Day Years Used Date Smoking Tobacco: Never Assessed Comments Unknown Sex and Gender Information Value Date Recorded Sex Assigned at Female 10/31/2024 1:15 PM TEST MANAGER Legal Sex Female 5:44 PM TEST MANAGER Gender Identity Not on file Sexual Orientation Not on file documented as of this encounter Plan of Treatment Upcoming Encounters Date Type Department Care Team (Late st Contact Info) Description 12/10/2024 7:45 AM TEST MANAGER Appointment [facility] [place] [address] Josie Becerra MD [address] [place] [address] 12/10/2024 8:30 AM TEST MANAGER Appointment [facility] [place] [address] Josie Becerra MD [address] [place] [address] 12/10/2024 9:00 AM TEST MANAGER Appointment [facility] [address] [place] [address] Josie Becerra MD [address] [place] [address] [place] [address] [place] [address] 12/10/2024 9:30 AM TEST MANAGER Appointment [facility] [place] [address] Josie Becerra MD [address] [place] [address] 12/11/2024 9:30 AM TEST MANAGER Appointment [facility] [place] [address] Blas Hardin MD [address] [place] [phone] 12/11/2024 10:00 AM TEST MANAGER Appointment [facility] [place] [address] Blas Hardin MD [address] [place] [phone] 10/16/2025 9:00 AM TEST MANAGER Appointment [facility] [place] [address] Josie Becerra MD [address] [place] [phone] 10/23/2025 9:30 AM TEST MANAGER Office Visit [facility] [place] [phone] Josie Becerra MD [address] [place], [place] [phone] documented as of this encounter Visit Diagnoses Not on filedocumented in this encounter Additional Health Concerns Infection Onset Date Last Indicated Resolved Time COVID-19 Rule Out 02/27/2020 02/27/2020 02/28/2020 4:14 PM CDT COVID-19 Rule Out 03/09/2020 03/09/2020 03/09/2020 4:38 PM CDT COVID-19 Rule Out 02/03/2024 02/03/2024 02/03/2024 2:55 PM CDT documented as of this encounter Care Teams Unloader Operator Relationship Specialty Start Date End Date Blas Hardin MD [address] [place] [phone] PCP - General FAMILY PRACTICE 05/06/19 Josie Becerra MD [address] [place] [address] Consulting Physician CARDIOVASCULAR DISEASE 01/24/24 documented as of this encounter
--- OUTSIDE RECORDS SUMMARY | 2024-11-16 14:17 | XMS_ITS | Referral Summary ---
Author Organization [facility] Address [address] [place] [address] Care Team Providers Care Strip Tank Tender Name Role Phone Blas Hardin MD Primary [...] mcg tablet Take 100 mcg by mouth dimension quarry supervisor before breakfast Active Active Problems Problem Noted [...] on file Legal Sex Female 1:53 PM FRAME STRIPPER Gender Identity Not on file Sexual Orientation Not on file Last Filed Vital Signs Vital Sign Reading Time Taken Comments Blood Pressure 198/89 10/03/2019 11:17 AM FRAME STRIPPER Pulse 58 10/03/2019 11:17 AM FRAME STRIPPER Temperature 35.9 ??C (96.7 ??F) 08/11/2019 9:07 AM CD T Respiratory Rate 16 10/03/2019 11:17 AM FRAME STRIPPER Oxygen Saturation 98% 10/03/2019 11:17 AM FRAME STRIPPER Inhaled Oxygen Concentration - - Weight 71.7 [...] an acceptable quality of life. Insurance MEDICARE [facility] MEDICARE Care Teams Strip Tank Tender Relationship Specialty Start Date End Date Blas Hardin MD PCP - General 01/12/17
--- OUTSIDE RECORDS SUMMARY | 2024-11-16 14:17 | XMS_ITS | Encounter Summary ---
Author Organization [facility] Address [address] Fernandezn: Epic Prelude ADT [place] [address] Care Team Providers Care Photoengraving Helper Name Role Phone Unavailable Primary Care Provider [...] on file Legal Sex Female 4:13 AM TOPPER PRESS OPERATOR AUTOMATIC Gender Identity Not on file Sexual Orientation Not on file documented as of this encounter Plan of Treatment Not on file documented as of this encounter Visit Diagnoses Not on filedocumented in this encounter
--- OUTSIDE RECORDS SUMMARY | 2024-11-16 14:17 | XMS_ITS | Clinical Summary ---
Author Organization [facility] Address [address] Cha: Epic Prelude ADT [place] [address] Care Team Providers Care Retail Service Specialist Name Role Phone Unavailable Primary Care Provider Unavailabl e Social History Tobacco Use Types Packs/Day Years Used Date Smoking Tobacco: Never Assessed Comments Unknown Sex and Gender Information Value Date Recorded Sex Assigned at Not on file Legal Sex Female 4:13 AM ACTIVITY ASSISTANT Gender Identity Not on file Sexual Orientation [...]
--- OUTSIDE RECORDS SUMMARY | 2024-11-16 14:17 | XMS_ITS | Clinical Summary ---
Author Organization [facility] Address [address] [place] [address] Care Team Providers Care Mattress Inspector Name Role Phone Blas Hardin MD Primary Care Provider [phone] Allergies No known active allergies Medications cycloSPORINE [...] mcg tablet Take 100 mcg by mouth ear flap binder before breakfast Active Active Problems Problem Noted [...] on file Legal Sex Female 1:53 PM CRAFT CENTER DIRECTOR Gender Identity Not on file Sexual Orientation Not on file Obstetrics History Last Filed Vital Signs Vital Sign Reading Time Taken Comments Blood Pressure 198/89 10/03/2019 11:17 AM CRAFT CENTER DIRECTOR Pulse 58 10/03/2019 11:17 AM CRAFT CENTER DIRECTOR Temperature 35.9 ??C (96.7 ??F) 08/11/2019 9:07 AM CD T Respiratory Rate 16 10/03/2019 11:17 AM CRAFT CENTER DIRECTOR Oxygen Saturation 98% 10/03/2019 11:17 AM CRAFT CENTER DIRECTOR Inhaled Oxygen Concentration - - Weight 71.7 [...] acceptable quality of life. Insurance MEDICARE [facility] MEDICARE Care Teams Mattress Inspector Relationship Specialty Start Date End Date Blas Hardin MD PCP - General 01/12/17
--- NOTE | 2024-11-16 14:28 | PC.NURSE ---
Covid culture sent to lab
[2024-11-16 14:56] LABS: Basophils Absolute Auto 0.05 K/mm3 (0.00-0.10); Basophils Percent Auto 0.8 % (0.0-1.0); Eosinophils Absolute Auto 0.02 K/mm3 (0.02-0.50); Eosinophils Percent Auto 0.3 % (1.0-6.0); Hematocrit 28.1 % (35.0-42.0); Hemoglobin 9.1 g/dL (11.7-13.8); Immature Granulocyte Absolute 0.03 K/mm3 (0.00-0.00); Immature Granulocyte Percent A 0.5 % (0.0-0.0); Lymphocytes Absolute Auto 0.18 K/mm3 (1.10-4.50); Lymphocytes Percent Auto 2.8 % (18.0-42.0); Mean Corpuscular HGB Conc 32.4 g/dL (32-36); Mean Corpuscular Hemoglobin 30.6 pg (27.0-31.0); Mean Corpuscular Volume 94.6 fL (78.0-102.0); Mean Platelet Volume 9.6 fl (9.2-11.8); Monocytes Absolute Auto 0.45 K/mm3 (0.10-0.90); Neutrophils Absolute Auto 5.68 K/mm3 (1.70-7.20); Neutrophils Percent Auto 88.6 % (50.0-70.0); Platelet Count Result 318 K/mm3 (150-420); Red Blood Count 2.97 M/mm3 (4.20-5.40); Red Cell Distribution Width 12.4 % (11.6-14.4); White Blood Count 6.4 K/mm3 (4.8-10.8)
[2024-11-16 15:06] LABS: Influenza A QL RT-PCR Negative (Negative); Influenza B QL RT-PCR Negative (Negative); RSV RNA, RT-PCR Negative (Negative); SARS-CoV-2 RNA PCR Negative (Negative)
[2024-11-16 15:08] LABS: Add Urine Microscopic? YES; Appearance Urine Clear (Clear); Bilirubin Urine Negative (Negative); Blood Urine Negative (Negative); Color Urine Yellow (Yellow); Glucose Urine UA Negative (Negative); Ketones Urine Negative (Negative); Leukocyte Esterase Ur Negative LEU/UL (Negative); Nitrate Urine Negative (Negative); Protein Urine Trace (Negative); Specific Grav Ur 1.025 (1.010-1.020); Urobilinogen Urine 0.2 mg/dL (0.2-1.0); pH Urine 6.5 (5.0-8.0)
[2024-11-16 15:09] VITALS: BP 200/68; PULSE 56; RESP 15; O2SAT 99
[2024-11-16 15:13] LABS: Calcium Oxalate Crystals Urine Present /hpf
[2024-11-16 15:14] LABS: Amorphous Sediment Urine Moderate; Mucus Urine Heavy /lpf
[2024-11-16 15:18] LABS: Lactic Acid Reflex 1.3 mmol/L (0.4-2.0)
[2024-11-16 15:23] LABS: Alanine Aminotransferase 45 U/L (14-59); Albumin Level 3.6 g/dL (3.4-5.0); Alkaline Phosphatase 47 U/L (46-116); Anion Gap 8 mmol/L (4-12); Aspartate Amino Transferase 30 U/L (15-37); Bilirubin,Total 0.5 mg/dL (0.00-1.00); Blood Urea Nitrogen 26 mg/dL (7-18); Calcium 8.7 mg/dL (8.5-10.1); Carbon Dioxide 27 mmol/L (21-32); Chloride 98 mmol/L (98-108); Estimated CRCL calculation 24 ml/min; Estimated Glomerular Filt Rate 32; Glucose 109 mg/dL (70-99); NT Pro B Type Natriuretic Pept 626 pg/mL (0-450); Osmolality Calculated 281 mOsm/kg (285-295); Potassium 4.1 mmol/L (3.5-5.1); Sodium 133 mmol/L (136-145); Total Protein 6.6 g/dL (6.4-8.2); Troponin I 33.2 ng/L (0.00-60.4)
[2024-11-16 16:05] VITALS: BP 170/69; PULSE 70; RESP 18; TEMP 36.4; O2SAT 97
--- NOTE | 2024-11-19 15:37 | PC.NURSE ---
blood preliminary noted no growth
== END 2024-11-16 16:05 | disposition home or self-care (01) ==
PROVIDERS: Emergency Provider Emergency Medicine; PCP Internal Medicine Cardiovascular Disease
DX: R42 Dizziness and giddiness (principal); R63.0 Anorexia; I10 Essential (primary) hypertension; E03.9 Hypothyroidism, unspecified; Z20.822 Contact with and (suspected) exposure to COVID-19
CPT/HCPCS: 36415; 70450; 71045; 72125; 80053; 81001; 83605; 83735; 83880; 84484; 85025; 87040; 87637; 93005; 96360; 99284

== ENCOUNTER 2024-12-10 11:52 | Outpatient (CLI) | payer MEDICARE, SELFPAY ==
--- NOTE | ~2024-12-10 | CT_ITS ---
EXAMINATION: CT brain wo con DATE: 12/10/2024 13:03 INDICATION: Dementia. Memory loss. Chills. TECHNIQUE: Computed tomography (CT) of the head was performed without intravenous contrast. The mA wa s adjusted according to patient size. Iterative reconstruction technique was employed. The dose-lengt h product was 605.33 mGy-cm. COMPARISON: Head CT 11/16/2024 FINDINGS: There are scattered areas of low attenuation in the cerebral white matter, which is within normal limits for the patient's age. There is no intracranial hemorrhage, acute infarction, or abnorm al intracranial mass lesion. The ventricles are normal in size. The paranasal sinuses are clear. The mastoid air cells are normal. There are likely changes of ocular lens replacement surgeries. IMPRESSION: 1. Normal aging brain. Reviewed, dictated and finalized at location A. TRICAL APPLIANCE SERVICER IMPRESSION: 1. Normal aging brain.
--- NOTE | ~2024-12-10 | US_ITS ---
EXAMINATION: US carotid duplex BI DATE: 12/10/2024 13:02 DIRECTOR OF BUSINESS CONTINUITY INDICATION: Left carotid bruit TECHNIQUE: Grayscale, color Doppler, and pulsed Doppler images of the cervical carotid arteries were obtained. The degree of vessel stenosis is placed in one of the following categories: normal, <50%, 50-69%, >=7 0% but less than near-occlusion, near-occlusion, or total occlusion. Note that percent stenosis relative to normal distal artery lumen diameter is indirectly measured fro m velocity measurements as described originally by Vipin, et al. Radiology 2003; 229:340-346 and upda son by Rick Gaona et al STROKE 2012;43(3);915-921. COMPARISON: None. FINDINGS: There is moderate atherosclerosis of both carotid arteries. Peak systolic velocity (in cm/s) is detailed below RIGHT: Right common carotid artery (CCA): 68 cm/s. Right internal carotid artery (ICA) PSV: 223 cm/s. Right ICA end-diastolic velocity (EDV): 44 cm/s. Right ICA/CCA PSV ratio is 3.3. Right external carotid artery (ECA): 242cm/s. There is antegrade flow in the right vertebral artery. LEFT: Left common carotid artery (CCA): 65 cm/s. Left internal carotid artery (ICA) PSV: 229 cm/s. Left ICA end-diastolic velocity (EDV): 42 cm/s. Left ICA/CCA PSV ratio is 3.5. Left external carotid artery (ECA): 194cm/s. There is antegrade flow in the left vertebral artery. IMPRESSION: 1. Greater than 70% stenosis in the right internal carotid artery. 2. Greater than 70% stenosis in the left internal carotid artery. Reviewed, dictated and finalized at location A. CTOR OF BUSINESS CONTINUITY
--- OUTSIDE RECORDS SUMMARY | 2024-12-10 13:40 | XMS_ITS | Clinical Summary ---
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 with cadaver tissue OTHER SURGICAL HISTORY 1969 Hysterectomy, total and LSO OTHER SURGICAL HISTORY 2015 Vaginal prolapse and right ov. cyst: Colpocleisis [...] on file Legal Sex Female 1:53 PM EQUAL OPPORTUNITY OFFICER Gender Identity Not on file Sexual Orientation Not on file Obstetrics History Last Filed Vital Signs Vital Sign Reading Time Taken Comments Blood Pressure 198/89 10/03/2019 11:17 AM EQUAL OPPORTUNITY OFFICER Pulse 58 10/03/2019 11:17 AM EQUAL OPPORTUNITY OFFICER Temperature 35.9 C (96.7 F) 08/11/2019 9:07 AM CDT Respiratory Rate 16 10/03/2019 11:17 AM EQUAL OPPORTUNITY OFFICER Oxygen Saturation 98% 10/03/2019 11:17 AM EQUAL OPPORTUNITY OFFICER Inhaled Oxygen Concentration - - Weight 71.7 kg (158 lb) 06/26/2019 10:51 AM CDT Height 172.7 cm (5' 8 ) 06/26/2019 10:51 AM CDT Body Mass Index 24.02 06/26/2019 10:51 AM CDT Plan of Treatment Not on file Goals Goal Patient Goal Type Associated Problems Recent Progress Patient-Stated? Author -Pain Behavioral [facility] Jeanine Crespo, RN Note: Patient will establish a comfort-function goal and identify the pain level that will allow the patient to perform desired activities and achieve an acceptable quality of life. Procedures Procedure Name Priority Date/Time Associated Diagnosis Comments SCAN - LABS 11/16/2024 SCAN - RADIOLOGY/IMAGING 11/16/2024 from Last 3 Months Results * SCAN - RADIOLOGY/IMAGING (11/16/2024) Anatomical Region Laterality Modality Other us Provider Scanning Edited Result - Final * SCAN - LABS (11/16/2024) Tawnya Nolan RN Final Result from Last 3 Months Insurance MEDICARE [facility] MEDICARE Care Teams Edge Cutter Relationship Specialty Start Date End Date Blas Hardin MD PCP - General 01/12/17
--- OUTSIDE RECORDS SUMMARY | 2024-12-10 13:40 | XMS_ITS | Patient Health Record ---
Author Organization [facility] Address [address] [place], [place] [address] Care Team Providers Care Director Park Name Role Phone Blas Hardin Unavailable Unavailable SARAHNicola EYAL Unavailable [phone] KENDALL BESS Unavailable [phone] Allergies No Known Allergies Reason For Referral No Information Medications Medication SIG (Take, Route, Frequency, Duration) Notes Start Date End Date Status Denosumab 60 MG/ML as directed Subcutaneous Active Eliquis 2.5 MG as directed Orally Active Aspirin 81 MG 1 tablet Orally Once a day Active cycloSPORINE 0.05 % 1 drop into affected eye Ophthalmic Twice a day Active Amiodarone HCl 200 MG 1 tablet Orally On ce a day Active traZODone HCl 100 MG 1 tablet at bedtime Orally Once a day Active Vitamin D2 50 MCG (1999) 1 tablet Ora lly Once a day Active Metoprolol Succinate ER 100 MG 1 tablet Orally Once a day Active Myrbetriq 50 MG 1 tablet Orally Once a day Active Latanoprost 0.005 % 1 drop into affected eye in the evening Ophthalmic Once a day Active Levothyroxine Sodium 75 MCG 1 tablet in the morning on an empty stomach Orally Once a day Active Encounters Encounter Location Date Provider Diagnosis [facility] [address] [place], [place] [id number] 06/12/2024 KENDALL BESS Other hammer toe(s) (acquired), right foot M20.41 ; Tinea unguium B35.1 ; Other hammer toe(s) (acquired), left foot M20.42 ; Pain in right toe(s) M79.674 ; Pain in left toe(s) M79.675 and 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, bilateral legs I70.203 Formerly [facility] [address] [place], [place] [id number] 08/14/2024 KENDALL BESS Other hammer toe(s) (acquired), right foot M20.41 ; Tinea unguium B35.1 ; Other hammer toe(s) (acquired), left foot M20.42 ; Pain in right toe(s) M79.674 ; Pain in left toe(s) M79.675 ; 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, bilateral legs I70.203 and Acquired keratosis [keratoderma] palmaris et plantaris L85.1 [facility] [address] [place], [place] [id number] 10/30/2024 EYAL CASTELLON Tinea unguium B35.1 ; Pain in right toe(s) M79.674 ; Pain in left toe(s) M79.675 and 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 The patient was given education about shoe recommendations specific for the condition. The patient was educated about custom orthotics and how appropriate shoes and orthotics can prevent further worsening of the deformity. The patient was educated about how bad shoe habits can worsen the condition. NSAIDS, P.T., injections and other conservative treatments were discussed. Both surgical and non surgical treatments were discussed, but conservative options were emphasized. 06/12/2024 Tinea unguium (ICD-10 - B35.1) Aseptic debridement of elongated thickened nails x 10 using sterile nippers, nails were debrided in length and thickness by 30% utilizing a nail nipper without incident. The patient was educated regarding all treatment options that include topical and oral antifungal treatments. I discussed the options of taking a sample of the nail to confirm diagnosis. Nail clippings were not sent for pathology analysis. The patient was educated why and how the fungal infection evolved in their feet and the patient was given information regarding how to prevent further infection. The patient was told to keep feet dry and change socks. The patient was told to be careful with old shoes and excessive sweating. The patient was educated regarding both OTC and prescription treatments. 08/14/2024 Tinea unguium (ICD-10 - B35.1) Aseptic debridement of elongated thickened nails x 10 using sterile nippers, nails were debrided in length and thickness by 30% utilizing a nail nipper without incident. The patient was educated regarding all treatment options that include topical and oral antifungal treatments. I discussed the options of taking a sample of the nail to confirm diagnosis. Nail clippings were not sent for pathology analysis. The patient was educated why and how the fungal infection evolved in their feet and the patient was given information regarding how to prevent further infection. The patient was told to keep feet dry and change socks. The patient was told to be careful with old shoes and excessive sweating. The patient was educated regarding both OTC and prescription treatments. 08/14/2024 Other hammer toe(s) (acquired), right foot (ICD-10 - M20.41) The patient was educated regarding how to mechanically stabilize their deformity. The patient was given education about shoe recommendations specific for the condition. The patient was educated about custom orthotics and how appropriate shoes and orthotics can prevent further worsening of the deformity. The patient was educated about how bad shoe habits can worsen the condition. NSAIDS, P.T., injections and other conservative treatments were discussed. Both surgical and non surgical treatments were discussed, but conservative options were emphasized. 10/30/2024 Tinea unguium (ICD-10 - B35.1) FUNGAL TOENAILS: Discussed various treatment options for fungal toenails including debridement, topical antifungals, oral antifungals, toenail avulsion, or toenail matrixectomy. 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, 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) 08/14/2024 Pain in left toe(s) (ICD-10 - M79.675) 06/12/2024 Pain in left toe(s) (ICD-10 - M79.675) 08/14/2024 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, 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) Patient educated on risks and aggravating factors of PVD, including conservative treatment options such as a diet and exercise regimen to aid in slowing progression of vascular disease 06/12/2024 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 After removal of overlying extensive hyperkeratosis, healthy tissue was noted and care was taken to assure that no undermining or probing was present. It should be noted that no probing was noted and no infection or drainage was noted. Plan Of Treatment Next Appt Details Provider Name:LISA BELLAMY, 01/29/2025 02:30:00 PM, [address] [place] [address], [phone], Insurance Providers Payer Name Payer Address Payer Phone Subscriber Number Group Number Insured Name Patient Relationship to Insured Coverage Start Date Coverage End Date Medicare Part B [place] [address] [place] [phone] [id number] Wanda Gordillo Self - patient is the insured [facility] [address] [address] [place], [place] [phone] [id number] Wanda Gordillo Self - patient is the insured 5 Medical (General) History Medical History History ICD Code artificial joint Arthritis Bladder infections Back Trouble Heart Disease high blood pressure
--- OUTSIDE RECORDS SUMMARY | 2024-12-10 13:40 | XMS_ITS | Encounter Summary ---
Author Organization [facility] Address [address] Cha: Epic Prelude ADT [place] [address] Care Team Providers Care Electric Cell Tender Name Role Phone Unavailable Primary Care Provider Unavailabl e Encounter Details Date Type Department Care Team (Late st Contact Info) Description 10/12/1989 Outpatient Historical Jassi Gage Social History Tobacco Use Types Packs/Day Years Used Date Smoking Tobacco: Never Assessed Comments Unknown Sex and Gender Information Value Date Recorded Sex Assigned at Not on file Legal Sex Female 4:13 AM TONGUE BINDER Gender Identity Not on file Sexual Orientation Not on file documented as of this encounter Plan of Treatment Not on file documented as of this encounter Visit Diagnoses Not on filedocumented in this encounter
--- OUTSIDE RECORDS SUMMARY | 2024-12-10 13:40 | XMS_ITS | Clinical Summary ---
Author Organization [facility] Address [address] Cha: Epic Prelude ADT LIZETH [place] GARCIA [address] Care Team Providers Care Gear Cutter Name Role Phone Unavailable Primary Care Provider Unavailabl e Social History Tobacco Use Types Packs/Day Years Used Date Smoking Tobacco: Never Assessed Comments Unknown Sex and Gender Information Value Date Recorded Sex Assigned at Not on file Legal Sex Female 4:13 AM COST RECOVERY TECHNICIAN Gender Identity Not on file Sexual [...]
--- OUTSIDE RECORDS SUMMARY | 2024-12-10 13:40 | XMS_ITS ---
Author Organization [facility] Address [address] [place], [place] [id number] Care Team Providers Care Automotive Power Electronics Engineer Name Role Phone Blas Hardin Unavailable Unavailable KENDALL BESS Unavailable [phone] REASON FOR VISIT *General care Medications Medication SIG (Take, Route, Frequency, Duration) Notes Start Date End Date Status Denosumab 60 MG/ML as directed Subcutaneous Active cycloSPORINE 0.05 % 1 drop into affected eye Ophthalmic Twice a day Active Levothyroxine Sodium 75 MCG 1 tablet in the morning on an empty stomach Orally Once a day Active Eliquis 2.5 MG as directed Orally Active Latanoprost 0.005 % 1 drop into affected eye in the evening Ophthalmic Once a day Active Vitamin D2 50 MCG (1999) 1 tablet Ora lly Once a day Active Amiodarone HCl 200 MG 1 tablet Orally On ce a day Active Myrbetriq 50 MG 1 tablet Orally Once a day Active traZODone HCl 100 MG 1 tablet at bedtime Orally Once a day Active Metoprolol Succinate ER 100 MG 1 tablet Orally Once a day Active Aspirin 81 MG 1 tablet Orally Once a day Active Encounters Encounter Location Date Provider Diagnosis [address] [id number] 08/14/2024 KENDALL BESS Other hammer toe(s) (acquired), right foot M20.41 ; Tinea unguium B35.1 ; Other hammer toe(s) (acquired), left foot M20.42 ; Pain in right toe(s) M79.674 ; Pain in left toe(s) M79.675 ; Unspecified atherosclerosis of [place] arteries of extremities, bilateral legs I70.203 and Acquired keratosis [keratoderma] palmaris et plantaris L85.1 Assessments Encounter Date Diagnosis (ICD Code) Assessment Notes Treatment Notes Treatment Clinical Notes Section Notes 08/14/2024 Other hammer toe(s) (acquired), right foot [...] were discussed, but conservative options were emphasized. 08/14/2024 Tinea unguium (ICD-10 - B35.1) Aseptic [...] prescription treatments. 08/14/2024 Other hammer toe(s) (acquired), left foot (ICD-10 - M20.42) 08/14/2024 Pain in right toe(s) (ICD-10 - M79.674) 08/14/2024 Pain in left toe(s) (ICD-10 - M79.675) 08/14/2024 Unspecified atherosclerosis of [place] arteries of extremities, bilateral legs (ICD-10 - [...] or drainage was noted. Plan Of Treatment Treatment Notes Assessment Notes Other hammer toe(s) (acquired), right fo ot The patient was educated regarding how to [...] were discussed, but conservative options were emphasized. Tinea unguium Aseptic debridement of elongated thickened nails x [...] educated regarding both OTC and prescription treatments. Unspecified atherosclerosis of [place] arteries of extremities, bilateral legs Patient educated on risks and aggravating factors of PVD, including conservative treatment options such as a diet and exercise regimen to aid in slowing progression of vascular disease Acquired keratosis [keratode rma] palmaris et plantaris Pre-ulcerative keratoderma debrided sharply down to the level of healthy tissue using a 15 blade. After removal of overlying extensive hyperkeratosis, healthy tissue was noted and care was taken to assure that no undermining or probing was present. It should be noted that no probing was noted and no infection or drainage was noted. Next Appt Details Follow Up: 3 Months, Reason: Provider Name:LISA BELLAMY, 01/29/2025 02:30:00 PM, [address] [place] [address], [phone], Progress Notes * Wanda GORDILLODOB: [birth year] (83 yo F)Acc No.[id number]:08/14/2024 Patient: Wanda GARCIA Provider: Marizol BESS :1940 A ge:83 Y S ex:Female Date:08/14/2024 Address:[address] [place], [place] [phone] Subjective: * Chief Complaints: * 1 . *General care. * HPI: H PI: General care P atient presents to the office for at risk foot care. Patient states that their nails are thickened, elongated and painful. Patient states that it is aggravated by shoe gear. Onset is gradual. Patient denies being diabetic., Patient denies taking prescription blood thinners but does take a daily aspirin., Date last seen by Dr. Hardin was 07/2024., Initials mca. * ROS: G eneral / Constitutional: Patient denies w eakness. R espiratory: Patient denies c hronic cough, shortness of breath, sputum production. C ardiovascular: Patient denies c hest pain, history of NV, irregular heartbeat. M usculoskeletal: Patient complains of f lat feet/ planus, hammertoes. ? P eripheral Vascular: Patient denies b lanching of skin, cold extremities, decreased sensation in extremities. S kin: Patient complains of f ungal nails, nail changes. ? N eurologic: Patient denies d izziness, gait abnormality, headache. * Medical History: * Medications: T aking Vitamin D2 50 MCG (1999) Tablet 1 tablet Orally Once a day , Taking traZODone HCl 100 MG Tablet 1 tablet at bedtime Orally Once a day , Taking Myrbetriq 50 MG Tablet Extended Release 24 Hour 1 tablet Orally Once a day , Taking Metoprolol Succinate ER 100 MG Tablet Extended Release 24 Hour 1 tablet Orally Once a day , Taking Levothyroxine Sodium 75 MCG Tablet 1 tablet in the morning on an empty stomach Orally Once a day , Taking Latanoprost 0.005 % Solution 1 drop into affected eye in the evening Ophthalmic Once a day , Taking Eliquis 2.5 MG Tablet as directed Orally , Taking Denosumab 60 MG/ML Solution Prefilled Syringe as directed Subcutaneous , Taking cycloSPORINE 0.05 % Emulsion 1 drop into affected eye Ophthalmic Twice a day , Taking Aspirin 81 MG Tablet Chewable 1 tablet Orally Once a day , Taking Amiodarone HCl 200 MG Tablet 1 tablet Orally Once a day Objective: * Vitals: * Examination: P hysical Examination: V ascular: Dorsalis Pedis pulse noted at 1/4 right foot and 1/4 left foot and Posterior Tibial pulse noted at 1/4 right foot and 1/4 left foot, Capillary refill times noted to be less than three seconds x ten, Temperature gradient noted to be warm to cool to bilateral foot, pedal hair present to bilateral foot and no varicosities are noted Dermatologic: there are no open lesions, no signs of active clinical infection, no erythema noted, no ecchymoses, nails are elongated thickened and dystrophic with subungual debris x ten, hyperkeratotic tissue plantar fifth metatarsal head bilateral foot Musculoskeletal: there is pain to palpation onto nail plate x ten, no calf pain noted bilaterally, arch height noted at 2/5 non-weight bearing bilaterally, first metatarsophalangeal joint range of motion 30 deg non-weight bearing bilaterally, flexible fifth digit hammer toe deformity noted to bilateral foot reducible with kelikian push up test, pain to palpation sub fifth metatarsal head hyperkeratotic tissue bilateral foot Neurology: protective sensation intact to light touch bilateral digits one through five, vibratory sensation intact to first metatarsophalangeal joint bilaterally. Assessment: * Assessment: 1. T inea unguium - B35.1 (Primary) 2 . O ther hammer toe(s) (acquired), right foot - M20.41 3 . O ther hammer toe(s) (acquired), left foot - M20.42 ? 4 . P ain in right toe(s) - M79.674 5 . P ain in left toe(s) - M79.675 6 . U nspecified atherosclerosis of [place] arteries of extremities, bilateral legs - I70.203 7 . A cquired keratosis [keratoderma] palmaris et plantaris - L85.1 Plan: * Treatment: 2. O ther hammer toe(s) (acquired), right foot Notes: The patient was educated regarding how to [...] were discussed, but conservative options were emphasized. 3. U nspecified atherosclerosis of [place] arteries of extremities, bilateral legs Notes: Patient educated on risks and aggravating factors of PVD, including conservative treatment options such as a diet and exercise regimen to aid in slowing progression of vascular disease ? 4. A cquired keratosis [keratoderma] palmaris et plantaris Notes: Pre-ulcerative keratoderma debrided sharply down to the level of healthy tissue using a 15 blade. After removal of overlying extensive hyperkeratosis, healthy tissue was noted and care was taken to assure that no undermining or probing was present. It should be noted that no probing was noted and no infection or drainage was noted. * Procedure Codes: 1 1056 TRIM SKIN LESIONS, 2 TO 4, Modifiers: Q8 , 57645 DEBRIDE NAIL, 6 OR MORE, Modifiers: 59 , Q8 * Follow Up: 3 Months * Billing Information: * Visit Code: * Procedure Codes: 61650 TRIM SKIN LESIONS, 2 TO 4. Modifiers: Q8 49388 DEBRIDE NAIL, 6 OR MORE. Modifiers: 59, Q8 * ACT CENTER ASSISTANT Sign off status: Completed true * Provider: Marizol BESS Date: Generated for Deandre schneider/Kaylah/Reji on: 0 12/10/2024 01:39 PM CONTACT CENTER ASSISTANT History and Physical Notes * HPI (History of Present Illness) Category Sub-Category Detail Notes Category Not es HPI General care Patient presents to the office for at risk foot care. Patient states that their nails are thickened, elongated and painful. Patient states that it is aggravated by shoe gear. Onset is gradual. Patient denies being diabetic., Patient denies taking prescription blood thinners but does take a daily aspirin., Date last seen by Dr. Hardin was 07/2024., Initials mca Examination Category Sub-Category Detail Notes Category Not es Physical Examination Vascular: Dorsalis Pedis pulse noted at 1/4 right foot and 1/4 left foot and Posterior Tibial pulse noted at 1/4 right foot and 1/4 left foot, Capillary refill times noted to be less than three seconds x ten, Temperature gradient noted to be warm to cool to bilateral foot, pedal hair present to bilateral foot and no varicosities are noted Dermatologic: there are no open lesions, no signs of active clinical infection, no erythema noted, no ecchymoses, nails are elongated thickened and dystrophic with subungual debris x ten, hyperkeratotic tissue plantar fifth metatarsal head bilateral foot Musculoskeletal: there is pain to palpation onto nail plate x ten, no calf pain noted bilaterally, arch height noted at 2/5 non-weight bearing bilaterally, first metatarsophalangeal joint range of motion 30 deg non-weight bearing bilaterally, flexible fifth digit hammer toe deformity noted to bilateral foot reducible with kelikian push up test, pain to palpation sub fifth metatarsal head hyperkeratotic tissue bilateral foot Neurology: protective sensation intact to light touch bilateral digits one through five, vibratory sensation intact to first metatarsophalangeal joint bilaterally
--- OUTSIDE RECORDS SUMMARY | 2024-12-10 13:40 | XMS_ITS | Encounter Summary ---
Author Organization [facility] Address [address] 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
--- OUTSIDE RECORDS SUMMARY | 2024-12-10 13:40 | XMS_ITS | Encounter Summary ---
Author Organization [facility] Address [address] Fernandezn: Epic Prelude ADT [place] [address] Care Team Providers Care Weigher And Mixer Name Role Phone Unavailable Primary Care Provider [...] on file Legal Sex Female 4:13 AM VP CUSTOMER SERVICE Gender Identity Not on file Sexual Orientation Not on file documented as of this encounter Plan of Treatment Not on file documented as of this encounter Visit Diagnoses Not on filedocumented in this encounter
--- OUTSIDE RECORDS SUMMARY | 2024-12-10 13:40 | XMS_ITS ---
Author Organization [facility] Address [address] [place], [place] [phone] Care Team Providers Care Trashman Name Role Phone Hardin Blas Unavailable Unavailable KENDALL BESS Unavailable [phone] REASON FOR VISIT *General care Encounters Encounter Location Date Provider Diagnosis [address] [id number] 10/23/2024 KENDALL BESS Plan Of Treatment Next Appt Details Provider Name:LISA BELLAMY, 01/29/2025 02:30:00 PM, [address] [place] [address], [phone], Progress Notes * Wanda GORDILLODOB: [birth year] (83 yo F)Acc No.[id number]:10/23/2024 Patient: Wanda GARCIA Provider: Marizol BESS :1940 A ge:83 Y S ex:Female Date:10/23/2024 Address[address] [phone] Subjective: * Chief Complaints: * 1 . *General care. * Medical History: Objective: * Vitals: Assessment: Plan: * Treatment: * Billing Information: * Visit Code: * Procedure Codes: * Electronic signature of MANNIE BESS DPM on 12/10/2024 at 01:40 PM TRANSPORTATION DRIVER Sign off status: Pending * Provider: Marizol BESS Date: 0 10/23/2024 Generated for Deandre schneider/Kaylah/Jeramyitting on: 0 12/10/2024 01:40 PM TRANSPORTATION DRIVER
--- OUTSIDE RECORDS SUMMARY | 2024-12-10 13:40 | XMS_ITS | Encounter Summary ---
Author Organization [facility] Address [facility] [place] [address] Care Team Providers Care Skidway Man Name Role Phone Blas Hardin MD Primary Care Provider Josie Becerra MD Unavailable Encounter Details Date Type Department Care Team (Late st Contact Info) Description 09/17/2019 Hospital Orders Only [facility] [address] [place] [address] Blas Hardin MD [address] [place] [phone] Social History Tobacco Use Types Packs/Day Years Used Date Smoking Tobacco: Never Assessed Comments Unknown Sex and Gender Information Value Date Recorded Sex Assigned at Female 10/31/2024 1:15 PM CONSUMER MARKETING SPECIALIST Legal Sex Female 5:44 PM CONSUMER MARKETING SPECIALIST Gender Identity Not on file Sexual Orientation Not on file documented as of this encounter Plan of Treatment Upcoming Encounters Date Type Department Care Team (Late st Contact Info) Description 12/11/2024 9:30 AM CONSUMER MARKETING SPECIALIST Appointment [facility] [address] [place] [address] Blas Hardin MD [address] [place] [phone] 12/11/2024 10:00 AM CONSUMER MARKETING SPECIALIST Appointment [facility] [address] [place] [address] Blas Hardin MD [address] [place] [phone] 10/16/2025 9:00 AM CONSUMER MARKETING SPECIALIST Appointment [address] [place] [address] Josie Becerra MD [address] [place] [address] 10/23/2025 9:30 AM CONSUMER MARKETING SPECIALIST Office Visit [facility] [place] [address] Josie Becerra MD [address] [place] [address] documented as of this encounter Visit Diagnoses Not on filedocumented in this encounter Additional Health Concerns Infection Onset Date Last Indicated Resolved Time COVID-19 Rule Out 02/27/2020 02/27/2020 02/28/2020 4:14 PM CDT COVID-19 Rule Out 03/09/2020 03/09/2020 03/09/2020 4:38 PM CDT COVID-19 Rule Out 02/03/2024 02/03/2024 02/03/2024 2:55 PM CDT documented as of this encounter Care Teams Skidway Man Relationship Specialty Start Date End Date Blas Hardin MD [address] [place] [phone] PCP - General FAMILY PRACTICE 05/06/19 Josie Becerra MD [address] [place] [address] Consulting Physician CARDIOVASCULAR DISEASE 01/24/24 documented as of this encounter
--- OUTSIDE RECORDS SUMMARY | 2024-12-10 13:40 | XMS_ITS | Clinical Summary ---
Author Organization [facility] Address [address] [place] [address] Care Team Providers Care Pacu Rn Name Role Phone Blas Hardin MD Primary Care Provider [phone] Rolo Roblero MD Unavailable Allergies Active Allergy Reactions Criticality Noted Date Comments Sulfa Antibiotics Swelling 03/26/2020 Lip swelling Medications cycloSPORINE (RESTASIS) 0.05 % ophthalmic emulsionIndicat ions:Dry Eye Syndrome Place 1 drop into both eyes every 12 (twelve) hours. Indications: Drying and Inflammation of Cornea and Conjunctiva of Eyes 6 Active denosumab 60 MG/ML injectionIndica tions:Osteoporo sis Inject 1 mL (60 mg total) into the skin. Indications: Osteoporosis Two times a year (due in September 2023) 0 Active Levothyroxine Sodium 75 MCG capsuleIndicati ons:Hypothyroid ism Take 1 capsule by mouth daily. Indications: Underactive Thyroid 7 Active latanoprost (XALATAN) 0.005 % ophthalmic solution Place 1 drop into both eyes nightly at bedtime. 2 Active MYRBETRIQ 50 MG 24 hr tablet Take 1 tablet (50 mg total) by mouth daily. 2 Active Ergocalciferol (VITAMIN D2 OR) Take 5,000 [...] total) by mouth 2 (two) times daily. 4 Active metoprolol succinate ER (TOPROL-XL) 100 MG 24 hr tablet Take 1 tablet (100 mg total) by mouth daily. 30 tablet 11 4 Active amiodarone (PACERONE) 200 MG tablet Take 1 tablet (200 mg total) by mouth daily. 30 tablet 11 4 Active Active Problems Problem Noted Date Diagnosed Date Hyponatremia 07/30/2023 Lumbar radiculopathy 09/15/2022 Overview (09/15/2022): Added automatically from request for surgery [id number] Blood loss anemia 03/07/2020 Postoperative anemia 03/07/2020 [...] Department Care Team Description 11/07/2024 9:30 AM TERMITE EXTERMINATOR HELPER Office Visit [facility] [address] [place] [phone] Rolo Roblero MD Heart Problem 11/07/2024 9:15 AM TERMITE EXTERMINATOR HELPER - 11/07/2024 11:59 PM TERMITE EXTERMINATOR HELPER Hospital Encounter [facility] [address] [place] [address] Rolo Roblero MD Discharge Disposition: Home or Self Care (Routine Discharge) 11/07/2024 Telephone [facility] [address] [place] [address] Rolo Roblero MD Schedule Test 11/07/2024 Travel 11/06/2024 Telephone [facility] [address] [place] [address] Rolo Roblero MD Appointment Reminder 11/06/2024 Orders Only [facility] [address] [place] [address] Blas Hardin MD 11/05/[address] [facility] [address] [place] [address] Rolo Roblero MD 10/31/2024 1:19 PM TERMITE EXTERMINATOR HELPER - 10/31/2024 11:59 PM TERMITE EXTERMINATOR HELPER Hospital Encounter [facility] [address] [place] [address] Rolo Roblero MD Discharge Disposition: Home or Self Care (Routine Discharge) 10/31/2024 Travel 10/21/2024 Telephone [facility] [address] [place] [address] Rolo Roblero MD Reschedule from Last 3 [...] place to sleep or slept in a long term (including now)? No 07/30/2023 Comments No Sex and Gender Information Value Date Recorded Sex Assigned at Female 10/31/2024 1:15 PM TERMITE EXTERMINATOR HELPER Legal Sex Female 5:44 PM TERMITE EXTERMINATOR HELPER Gender Identity Not on file Sexual Orientation Not on file Last Filed Vital Signs Vital Sign Reading Time Taken Comments Blood Pressure 138/60 11/07/2024 1:34 PM TERMITE EXTERMINATOR HELPER Pulse 61 11/07/2024 1:33 PM TERMITE EXTERMINATOR HELPER Temperature 36.5 C (97.7 F) 04/21/2024 10:24 AM CDT Respiratory Rate 20 11/07/2024 1:33 PM TERMITE EXTERMINATOR HELPER Oxygen Saturation 98% 11/07/2024 1:33 PM TERMITE EXTERMINATOR HELPER Inhaled Oxygen Concentration - - Weight 59 kg (130 lb) 11/07/2024 1:33 PM TERMITE EXTERMINATOR HELPER Height 170.2 cm (5' 7 ) 11/07/2024 1:33 PM TERMITE EXTERMINATOR HELPER Body Mass Index 20.36 11/07/2024 1:33 PM TERMITE EXTERMINATOR HELPER Plan of Treatment Upcoming Encounters Date Type Department Care Team (Late st Contact Info) Description 12/11/2024 9:30 AM TERMITE EXTERMINATOR HELPER Appointment [facility] [place] [address] Blas Hardin MD [address] [place] [phone] 12/11/2024 10:00 AM TERMITE EXTERMINATOR HELPER Appointment [facility] Critical [place] [address] Blas Hardin MD [address] [place] [phone] 10/16/2025 9:00 AM TERMITE EXTERMINATOR HELPER Appointment [facility] [address] [place], [place] [address] [place] [address] Rolo Roblero MD [address] [place] [address] 10/23/2025 9:30 AM TERMITE EXTERMINATOR HELPER Office Visit [facility] [address] [place] [address] Rolo Roblero MD [address] [place] [address] Health Maintenance Due Date Last Done Comments [...] this topic Medical Devices Implanted Type Area Fourth Officer Device Identifier Shelf Expiration Date Model / Serial / Lot Knee Components Knee Components Lens Lens G7 Stonewall Ti Acetabular Shell 4 Hole, Cementless Implanted:Qty: 1 on 03/01/2020 by Brian Lopez MD at [facility] Right: Hip [employer] 09/16/2029 [id number] / / [id number] Acetabular System Liner Neutral 36 Mm Size F Implanted:Qty: 1 on 03/01/2020 by Brian Lopez MD at [facility] Right: Hip [employer] 05/14/[id number] / / [id number] Screw Eliz Bone 25mm - [id number] Implanted:Qty: 1 on 03/01/2020 by Brian Lopez MD at [facility] Right: Hip [employer] 08/14/2029 [id number] / / [id number] Screw Eliz Bone 30mm - [id number] Implanted:Qty: 1 on 03/01/2020 by Brian Lopez MD at [facility] Right: Hip [employer] 09/16/2029 [id number] / / [id number] Standard Femoral Stem Full Proximal Profile Porous Plasma Uncemented 14 Implanted:Qty: 1 on 03/01/2020 by Brian Lopez MD at [facility] Right: Hip [employer] 01/19/2028 [id number] / / [id number] Component Modular Head 36mm Biomet - [id number] Implanted:Qty: 1 on 03/01/2020 by Brian Lopez MD at [facility] Right: Hip [employer] 09/06/2028 [id number] / / [id number] Explanted Type Area Fourth Officer Device Identifier Shelf Expiration Date Model / Serial / Lot Drill Tip - [id number] Explanted:Qty: 1 on 03/01/2020 at [facility] Right: Hip [employer] [id number] / / Procedures Procedure Name Priority Date/Time Associated Diagnosis Comments ECG 12-LEAD Routine 11/07/2024 9:51 AM TERMITE EXTERMINATOR HELPER Hypomagnesemia USE ECHOCARDIOGRAM Routine 10/31/2024 1: 57 PM TERMITE EXTERMINATOR HELPER Paroxysmal atrial fibrillation (CMS/HCC HHS/HCC) Other cardiomyopathy (CMS/HCC HHS/HCC) from Last 3 Months Results * ECG 12 lead (HOSPITAL PERFORMED ONLY) (11/07/2024 9:51 AM TERMITE EXTERMINATOR HELPER) 11/07/2024 9:51 AM TERMITE EXTERMINATOR HELPER Narrative [facility] - 11/07/2024 6:23 PM TERMITE EXTERMINATOR HELPER [address] [place] [address] Test Date: 2024-11-07 Pat Name: GIAN GORDILLO Department: 3 Room: Gender: Female Soft Work Wrapper Examiner: : 1940 Requested By: ROLO ROBLERO Order Number: [id number] Reading MD: Rolo Roblero Measurements Intervals [place] Rate: 59 P: 78 MN: 213 QRS: 85 QRSD: 109 T: 80 QT: 474 QTc: 471 Interpretive Statements SINUS BRADYCARDIA WITH FIRST DEGREE AV BLOCK PROLONGED QT INTERVAL ITE EXTERMINATOR HELPER Procedure Note Rolo Roblero MD - 11/07/[address] [place] [address] Test Date: 2024-11-07 Pat Name: GIAN GORDILLO Department: 3 Room: Gender: Female Soft Work Wrapper Examiner: : 1940 Requested By: ROLO ROBLERO Order Number: [id number] Reading : Rolo Roblero Measurements Intervals [place] Rate: 59 P: 78 MN: 213 QRS: 85 QRSD: 109 T: 80 QT: 474 QTc: 471 Interpretive Statements SINUS BRADYCARDIA WITH FIRST DEGREE AV BLOCK PROLONGED QT INTERVAL ITE EXTERMINATOR HELPER us Rolo Roblero MD ECG ORDERABLES Final Result [facility] * USE ECHOCARDIOGRAM (10/31/2024 1:57 PM TERMITE EXTERMINATOR HELPER) Anatomical Region Laterality Modality Cardiac Ultrasound 10/31/2024 1:27 PM TERMITE EXTERMINATOR HELPER Narrative 11/02/2024 10:07 AM TERMITE EXTERMINATOR HELPER Echocardiography Report Pat.Name: Gina Gordillo.ID: [id number] .Date: 10/31/2024 Refer.MD: Robert, [facility] Exam Time: 1:27:00 PM Study Type:OUTREACH Height: 67 in Weight: 130 lb BSA: 1.68 m2 Age: 3 1940,83Y Sex: F Sonogrphr: Sf Pat. Stat.:Outpatient Reason for Study:Paroxysmal atrial fibrillation, Other cardiomyopathy Procedures: Study performed at [place], [place] and interpreted by [facility]. 2D, M-mode, Doppler, Color Flow [...] - 11/02/2024 Echocardiography Report Pat.Name: Gian Gordillo.ID: [id number] .Date: 10/31/2024 Refer.MD: Robert, [facility] Exam Time: 1:27:00 PM Study Type:[facility] Height: 67 in Weight: 130 lb BSA: 1.68 m2 Age: 3 1940,83Y Sex: F Sonogrphr: Sf Pat. Stat.:Outpatient Reason for Study:Paroxysmal atrial fibrillation, Other cardiomyopathy Procedures: Study performed at [place], [place] and interpreted by [facility]. 2D, M-mode, Doppler, Color Flow [...] Signature> 11/02/2024 10:07 AM Rolo Roblero M.D. us Rolo Roblero MD ECHO Final Result from Last 3 Months Insurance [employer] Advance Directives * Full Code (Latest [...] 5:01 PM 03/03/2020 4:52 PM Care Teams Pacu Rn Relationship Specialty Start Date End Date Blas Hardin MD [address] [place] [phone] PCP - General FAMILY PRACTICE 05/06/19 Rolo Roblero MD [address] [place] [address] Consulting Physician CARDIOVASCULAR DISEASE 01/24/24
--- OUTSIDE RECORDS SUMMARY | 2024-12-10 13:40 | XMS_ITS ---
Author Organization [facility] Address [address] [place], [place] [address] Care Team Providers Care Stereo Operator Name Role Phone Blas Hardin Unavailable Unavailable EYAL CASTELLON Unavailable [phone] Allergies No Known Allergies REASON FOR VISIT Patient presents for at-risk foot care . The patient has painful toenails that cause difficulty with ambulation and shoegear. The onset is gradual Medications Medication SIG (Take, Route, Frequency, Duration) Notes Start Date End Date Status Denosumab 60 MG/ML as directed Subcutaneous Active Eliquis 2.5 MG as directed Orally Active cycloSPORINE 0.05 % 1 drop into affected eye Ophthalmic Twice a day Active Latanoprost 0.005 % 1 drop into affected eye in the evening Ophthalmic Once a day Active Levothyroxine Sodium 75 MCG 1 tablet in the morning on an empty stomach Orally Once a day Active Amiodarone HCl 200 [...] Active Encounters Encounter Location Date Provider Diagnosis [facility] [address] [place], [place] [id number] 10/30/2024 EYAL CASTELLON Tinea unguium B35.1 ; Pain in right toe(s) M79.674 ; Pain in left toe(s) M79.675 and Atherosclerosis of [place] arteries of extremities with intermittent claudication, bilateral legs I70.213 Assessments Encounter Date Diagnosis (ICD Code) Assessment Notes Treatment Notes Treatment Clinical Notes Section Notes 10/30/2024 Tinea unguium (ICD-10 - B35.1) FUNGAL [...] Pain in left toe(s) (ICD-10 - M79.675) 10/30/2024 Atherosclerosis of [place] arteries of extremities with intermittent claudication, 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) Plan Of Treatment Treatment Notes Assessment Notes Tinea unguium FUNGAL TOENAILS: Discussed various treatment options for fungal toenails including debridement, topical antifungals, oral antifungals, toenail avulsion, or toenail matrixectomy. NAIL DEBRIDEMENT: Nails 1-5 Bilateral were debrided extensively with nail nippers and emery board, reducing length and girth to pink healthy tissue with any subungual debris and necrotic tissue removed Next Appt Details Follow Up: 10-12 Weeks, Reas on: At Risk Foot care, sooner if problems arise Provider Name:LISA BELLAMY, 01/29/2025 02:30:00 PM, [address] [place] [address], [phone], Progress Notes * Wanda GORDILLODOB: [birth year] (83 yo F)Acc No.[id number]:10/30/2024 Patient: Wanda GARCIA Provider: Britany Castellon DPM :1940 A ge:83 Y S ex:Female Date:10/30/2024 Address:[address] [place], [place] [phone] Subjective: * Chief Complaints: * P atient presents for at-risk foot care . The patient has painful toenails that cause difficulty with ambulation and shoegear. The onset is gradual * HPI: H PI: General care P atient presents to the office for at risk foot care. Patient states that their nails are thickened, elongated and painful. Patient states that it is aggravated by shoe gear. Onset is gradual. Patient denies being diabetic., Patient denies taking prescription blood thinners but does take a daily aspirin., Date last seen by Dr. Hardin was October 2024., Initials LB. sample. * Medical History: * Surgical History: * Hospitalization/Major Diagno stic Procedure: * Medications: T akingVitamin D2 50 MCG (1999) Tablet 1 tablet Orally Once a day traZODone HCl 100 MG Tablet 1 tablet at bedtime Orally Once a day Myrbetriq 50 MG Tablet Extended Release 24 Hour 1 tablet Orally Once a day Metoprolol Succinate ER 100 MG Tablet Extended Release 24 Hour 1 tablet Orally Once a day Levothyroxine Sodium 75 MCG Tablet 1 tablet in the morning on an empty stomach Orally Once a day Latanoprost 0.005 % Solution 1 drop into affected eye in the evening Ophthalmic Once a day Eliquis 2.5 MG Tablet as directed Orally Denosumab 60 MG/ML Solution Prefilled Syringe as directed Subcutaneous cycloSPORINE 0.05 % Emulsion 1 drop into affected eye Ophthalmic Twice a day Aspirin 81 MG Tablet Chewable 1 tablet Orally Once a day Amiodarone HCl 200 MG Tablet 1 tablet Orally Once a day Medication List reviewed and reconciled with the patientTaking Vitamin D2 50 MCG (1999 UT) Tablet 1 tablet Orally Once a day Taking traZODone HCl 100 MG Tablet 1 tablet at bedtime Orally Once a day Taking Myrbetriq 50 MG Tablet Extended Release 24 Hour 1 tablet Orally Once a day Taking Metoprolol Succinate ER 100 MG Tablet Extended Release 24 Hour 1 tablet Orally Once a day Taking Levothyroxine Sodium 75 MCG Tablet 1 tablet in the morning on an empty stomach Orally Once a day Taking Latanoprost 0.005 % Solution 1 drop into affected eye in the evening Ophthalmic Once a day Taking Eliquis 2.5 MG Tablet as directed Orally Taking Denosumab 60 MG/ML Solution Prefilled Syringe as directed Subcutaneous Taking cycloSPORINE 0.05 % Emulsion 1 drop into affected eye Ophthalmic Twice a day Taking Aspirin 81 MG Tablet Chewable 1 tablet Orally Once a day Taking Amiodarone HCl 200 MG Tablet 1 tablet Orally Once a day Medication List reviewed and reconciled with the patient * Allergies: N .K.D.A.no[Allergies Verified] Objective: * Vitals: * Examination: C onstitutional: Constitutional T he patient is awake, alert, well developed, well groomed and well nourished. D ermatologic: Skin findings: S kin is thin, atrophic and lacking pedal hair. Nail pathology: N ails 1, 2, 3, 4, and 5 bilateral are elongated, thick, discolored, and dystrophic with subungual debris. They are painful to palpation. ? V ascular: Dorsalis pedis pulse: 1 /4 b ilateral. Posterior tibial pulse: 0 /4 b ilateral. Capillary refill: g reater than 3 seconds. Edema: N o edema, bilateral. N eurologic: Gross sensation G ross sensation is intact to light touch.? M usculoskeletal: Muscle Strength M uscle strength is 5/5 in regards to dorsiflexion, plantarflexion, inversion, and eversion in bilateral lower extremities. ? Assessment: * Assessment: 1. T inea unguium - B35.1 (Primary) 2 . P ain in right toe(s) - M79.674? 3. P ain in left toe(s) - M79.675 4 . A therosclerosis of [place] arteries of extremities with intermittent claudication, bilateral legs - I70.213 Plan: * Treatment: * Procedure Codes: 1 1721 DEBRIDE NAIL, 6 OR MORE, Modifiers: Q8 * Follow Up: 1 0-12 Weeks (Reason: At Risk Foot care, sooner if problems arise) * Billing Information: * Visit Code: * Procedure Codes: 62021 DEBRIDE NAIL, 6 OR MORE. Modifiers: Q8 * CTOR OF PSYCHOLOGY Sign off status: Completed true * Provider: Britany Castellon DPM Date: 0 10/30/2024 Generated for Deandre schneider/Kaylah/Jeramyitting on: 0 12/10/2024 01:40 PM DIRECTOR OF PSYCHOLOGY History and Physical Notes * HPI (History [...] Date last seen by Dr. Hardin was October 2024., Initials LB sample Examination Category Sub-Category Detail Notes Category Not es Dermatologic Skin findings: Skin is thin, at rophic and lacking pedal hair Nail pathology: Nails 1, 2, 3, 4, an d 5 bilateral are elongated, thick, discolored, and dystrophic with subungual debris. They are painful to palpation Neurologic Gross sensation Gross sensation is intact to light touch Vascular Dorsalis pedis pulse: 1/4 bilateral Edema: No edema, bilateral Capillary refill: greater than 3 secon ds Posterior tibial pulse: 0/4 bilateral Musculoskeletal Muscle Strength Muscle strength is 5/5 in regards to dorsiflexion, plantarflexion, inversion, and eversion in bilateral lower extremities Constitutional Constitutional The patient is a wake, alert, well developed, well groomed and well nourished
--- OUTSIDE RECORDS SUMMARY | 2024-12-10 13:40 | XMS_ITS | Encounter Summary ---
Author Organization [facility] Address [facility] [place] [address] Care Team Providers Care Litigation Examiner Name Role Phone Blas Hardin MD Primary Care Provider Josie Becerra MD Unavailable Encounter Details Date Type Department Care Team (Late st Contact Info) Description 03/22/2019 [place] [id number] , Generic Conversion, Social History Tobacco Use Types Packs/Day Years Used Date Smoking Tobacco: Never Assessed Comments Unknown Sex and Gender Information Value Date Recorded Sex Assigned at Female 10/31/2024 1:15 PM PHARMACOVIGILANCE SCIENTIST Legal Sex Female 5:44 PM PHARMACOVIGILANCE SCIENTIST Gender Identity Not on file Sexual Orientation Not on file documented as of this encounter Plan of Treatment Upcoming Encounters Date Type Department Care Team (Late st Contact Info) Description 12/11/2024 9:30 AM PHARMACOVIGILANCE SCIENTIST [place] [facility] [address] Blas Hardin MD [address] [place] [phone] 12/11/2024 10:00 AM PHARMACOVIGILANCE SCIENTIST [facility] [facility] [place] [place] [place] [address] Blas Hardin MD [address] [place] [phone] 10/16/2025 9:00 AM PHARMACOVIGILANCE SCIENTIST Appointment [facility] [address] [facility] [place] [address] Josie Becerra MD [address] [place] [address] 10/23/2025 9:30 AM PHARMACOVIGILANCE SCIENTIST Office Visit [facility] [address] [place] [phone] Josie Becerra MD [address] [place] [address] documented as of this encounter Visit Diagnoses Not on filedocumented in this encounter Additional Health Concerns Infection Onset Date Last Indicated Resolved Time COVID-19 Rule Out 02/27/2020 02/27/2020 02/28/2020 4:14 PM CDT COVID-19 Rule Out 03/09/2020 03/09/2020 03/09/2020 4:38 PM CDT COVID-19 Rule Out 02/03/2024 02/03/2024 02/03/2024 2:55 PM CDT documented as of this encounter Care Teams Litigation Examiner Relationship Specialty Start Date End Date Blas Hardin MD [address] [place] [phone] PCP - General FAMILY PRACTICE 05/06/19 Josie Becerra MD [address] [place] [address] Consulting Physician CARDIOVASCULAR DISEASE 01/24/24 documented as of this encounter
--- OUTSIDE RECORDS SUMMARY | 2024-12-10 13:40 | XMS_ITS | Data Portability ---
Author Organization [facility], [address] [place] [address] Neurology ([place]) Address [address] [place] [address] Care Team Providers Care Power System Dispatcher Name Role Phone EDGARDO GODFREY Primary Care Provider MIRA REYES Spot Billing Clerk KAREN NICOLE Spot Billing Clerk [phone] Assessment Encounter Date Assessment Date Assessment LastModified by Organization Details LastModified Time 01/10/2024 01/10/2024 Ms. Gordillo is a pleasant 83-year-old female with a past medical history significant for hypertension, hyperlipidemia, hypothyroidism, history of bladder repair, Botox injections of the bladder, back surgery, knee replacement surgery, hip replacement surgery is here for a follow-up on her RENY with CKD. RENY with baseline serum creatinine ranging between 0.8 0.9 with chronic kidney disease stage III. [...] -initiation of SGLT-2 Inhibitors if appropriate indication. CKD/MBD Calcium and phosphorus are within normal range. Anemia of chronic disease Patient's hemoglobin is stable with no indication for MARIO. Hypertension Patient's blood pressure is under good [...] a follow-up on her RENY with CKD. RENY with baseline serum creatinine ranging between 0.8 0.9 with chronic kidney disease stage III. [...] -initiation of SGLT-2 Inhibitors if appropriate indication. CKD/MBD Calcium and phosphorus are pending. Anemia of chronic disease Patient's hemoglobin is pending. Hypertension Patient's blood pressure is under good [...] -initiation of SGLT-2 Inhibitors if appropriate indication. CKD/MBD Calcium and phosphorus are within normal range Anemia of chronic disease Patient's hemoglobin is stable Hypertension Patient's blood pressure is under good control. Patient will continue with her current med regimen and continue to follow a low-sodium diet. The patient had the opportunity to ask and have questions answered. The patient voiced an understanding of the diagnosis and of the care plan and intent to comply with it. [email or web address] Not available 06/23/2024 15:09:00 08/21/2024 08/21/2024 Ms. Gordillo is a pleasant 83-year-old female with a past medical history significant for hypertension, hyperlipidemia, hypothyroidism, history of bladder repair, Botox injections of the bladder, back surgery, knee replacement surgery, hip replacement surgery is here for a follow-up on her RENY with CKD. RENY with baseline serum creatinine ranging between 0.8 0.9 with chronic kidney disease stage III. [...] -initiation of SGLT-2 Inhibitors if appropriate indication. CKD/MBD Calcium and phosphorus are within normal range. Anemia of chronic disease Patient's hemoglobin stable without any indication for MARIO. Hypertension Patient's blood pressure is under good [...] on this date of service including both hqbt-lh-ygqu and lhc-scau-vk-face time excluding any separately reportable services. [email or web address] Not available 09/03/2024 12:15:35 Plan of Treatment Reminders Order Date Submit Date Provider Last Modified By Organization Details Last Modified Time Details Appointments Establish ed Patient 15.EST 2024 11:00A M Mirasa Reyes Not available Not available Not available Lab microalbu min, urine 2023 024 [facility] Central Scheduling, [address], [place], [address], 01/24/2024 16:28:47 Referral None recorded. Procedures None recorded. Surgeries None recorded. Imaging None recorded. Medication Orders None recorded. Patient TargetsNo targets recorded. Patient InstructionsNo instructions recorded. Reason for Referral None Reported. Results Created Date Observation Date Name Description Value Unit Range Abnormal Flag Note LastModifiedBy Organization Detail LastModifiedTime 09/02/20 24 09/03/2024 CBC CBC Not Available [facility] [address] [place] [address], [id number], 09/03/2024 10:48:06 09/02/20 24 09/03/2024 CBC WBC 5.5 K/uL 3.8-11 .2 Not Available [facility] [address] [place] [address], [id number], 09/03/2024 10:48:06 09/02/20 24 09/03/2024 CBC RBC 3.11 M/uL 3.92-5 .10 low Not Available [facility] [address] [place] [address], [id number], 09/03/2024 10:48:06 09/02/20 24 09/03/2024 CBC HGB 9.9 g/dL 11.8-1 5.3 low Not Available [facility] [address] [place] [address], [id number], 09/03/2024 10:48:06 09/02/20 24 09/03/2024 CBC HCT 30.4 % 36.5-4 4.8 low Not Available [facility] [address] [place] [address], [id number], 09/03/2024 10:48:06 09/02/20 24 09/03/2024 CBC MCV 97.7 fL 80.0-9 9.0 Not Available [facility] [address] [place] [address], [id number], 09/03/2024 10:48:06 09/02/20 24 09/03/2024 CBC MCH 31.8 pg 25.5-3 3.6 Not Available [facility] [address] [place] [address], [id number], 09/03/2024 10:48:06 09/02/20 24 09/03/2024 CBC MCHC 32.6 g/dL 32.0-3 6.0 Not Available [facility] [address] [place] [address], [id number], 09/03/2024 10:48:06 09/02/20 24 09/03/2024 CBC RDW-SD 45.3 fL 35.1 - 46.3 Not Available [facility] [address] [place] [address], [id number], 09/03/2024 10:48:06 09/02/20 24 09/03/2024 CBC plt 313 K/uL 130-40 0 Not Available [facility] [address] [place] [address], [id number], 09/03/2024 10:48:06 09/02/20 24 09/03/2024 CBC MPV 10.2 fL 9.3-12 .8 Not Available [facility] [address] [place] [address], [id number], 09/03/2024 10:48:06 09/02/20 24 09/03/2024 CMP, serum or plasm a comp. met. panel Not Available [facility] [address] [place] [address], [id number], 09/03/2024 11:05:53 09/02/20 24 09/03/2024 CMP, serum or plasm a sodium 141 mmol/ L 136-14 6 Not Available [facility] [address] [place] [address], [id number], 09/03/2024 11:05:53 09/02/20 24 09/03/2024 CMP, serum or plasm a potassium 4.5 mmol/ L 3.5-5. 1 Not Available [facility] [address] [place] [address], [id number], 09/03/2024 11:05:53 09/02/20 24 09/03/2024 CMP, serum or plasm a chloride 107 mmol/ L 98-110 Not Available [facility] [address] [place] [address], [id number], 09/03/2024 11:05:53 09/02/20 24 09/03/2024 CMP, serum or plasm a CO2 29 mEq/L 20-32 Not Available [facility] [address] [place] [address], [id number], 09/03/2024 11:05:53 09/02/2009/03/2024 CMP, serum or plasm a anion gap 10 mmol/ L 10-22 Not Available [facility] [address] [place] [address], [id number], 09/03/2024 11:05:53 09/02/20 24 09/03/2024 CMP, serum or plasm a glucose 101 mg/dL 70-100 high Not Available [facility] [address] [place] [address], [id number], 09/03/2024 11:05:53 09/02/20 24 09/03/2024 CMP, serum or plasm a calcium 9.6 mg/dL 8.4-10 .4 Not Available [facility] [address] [place] [address], [id number], 09/03/2024 11:05:53 09/02/20 24 09/03/2024 CMP, serum or plasm a total protein 6.8 g/dL 6.4-8. 3 Not Available [facility] [address] [place] [address], [id number], 09/03/2024 11:05:53 09/02/20 24 09/03/2024 CMP, serum or plasm a albumin 4.3 g/dL 3.5-5. 3 Not Available [facility] [address] [place] [address], [id number], 09/03/2024 11:05:53 09/02/20 24 09/03/2024 CMP, serum or plasm a ALP 43 U/L 44 - 127 low Not Available [facility] [address] [place] [address], [id number], 09/03/2024 11:05:53 09/02/20 24 09/03/2024 CMP, serum or plasm a AST (SGOT) 29 U/L 10-40 Not Available [facility] [address] [place] [address], [id number], 09/03/2024 11:05:53 09/02/20 24 09/03/2024 CMP, serum or plasm a total bilirubin 0.4 mg/dL 0.2-1. 0 Not Available [facility] [address] [place] [address], [id number], 09/03/2024 11:05:53 09/02/20 24 09/03/2024 CMP, serum or plasm a ALT (SGPT) 26 U/L 8-35 Not Available [facility] [address] [place] [address], [id number], 09/03/2024 11:05:53 09/02/20 24 09/03/2024 CMP, serum or plasm a BUN 28 mg/dL 7-21 high Not Available [facility] [address] [place] [address], [id number], 09/03/2024 11:05:53 09/02/20 24 09/03/2024 CMP, serum or plasm a creatinine 1.5 mg/dL 0.7-1. 3 high Not Available [facility] [address] [place] [address], [id number], 09/03/2024 11:05:53 09/02/20 24 09/03/2024 CMP, serum or plasm a GFR(non-afri can kosovan) 35 Not Available [facility] [address] [place] [address], [id number], 09/03/2024 11:05:53 09/02/20 24 09/03/2024 CMP, serum or plasm a GFR() 43 (PROGRAM FACILITATOR MARIA TERESA KIDPATRICIA Y DISEA SE HAS A GFR LESS THAN 60 ML/WI N/1.7 3 MM FOR A PERIO D OF THREE MONTH S OR MORE. ) Not Available [facility] [address] [place] [address], [id number], 09/03/2024 11:05:53 09/02/20 24 09/03/2024 CK (crea ángel kinas e), total , serum CPK- Not Available [facility] [address] [place] [address], [id number], 09/03/2024 11:05:55 09/02/20 24 09/03/2024 CK (crea ángel kinas e), total , serum CPK 59 U/L 30-200 Not Available [facility] [address] [place] [address], [id number], 09/03/2024 11:05:55 09/02/20 24 09/03/2024 C-janet ctive prote in, quant itati ve, serum or plasm a CRP Not Available [facility] [address] [place] [address], [id number], 09/03/2024 11:28:53 09/02/20 24 09/03/2024 C-janet ctive prote in, quant itati ve, serum or plasm a CRP <0.4 mg/dL <0.4-0 .5 Not Available [facility] [address] [place] [address], [id number], 09/03/2024 11:28:53 09/02/20 24 09/03/2024 arthr itis panel uric acid 4.3 mg/dL 2.3-6. 6 Not Available [facility] [address] [place] [address], [id number], 09/04/2024 13:42:33 09/02/20 24 09/03/2024 arthr itis panel sed rate 4 mm/HR 0 - 30 Not Available [facility] [address] [place] [address], [id number], 09/04/2024 13:42:33 09/02/20 24 09/03/2024 arthr itis panel rf 14 IU/mL <3.5-1 4 Not Available [facility] [address] [place] [address], [id number], 09/04/2024 13:42:33 09/02/20 24 09/03/2024 arthr itis panel ccp antibody, IgG <0.54 U/mL <=4.9 Not Available [facility] [address] [place] [address], [id number], 09/04/2024 13:42:33 09/02/20 24 09/04/2024 arthr itis panel arthritis panel Not Available [facility] [address] [place] [address], [id number], 09/04/2024 13:42:33 09/02/20 24 09/04/2024 arthr itis panel MOSES screen NEGATI VE negati ve Perfo rmed by Bio-R ad enzym e immun oassa y Not Available [facility] [address] [place] [address], [id number], 09/04/2024 13:42:33 09/02/20 24 09/03/2024 arthr itis panel arthritis panel Not Available [facility] [address] [place] [address], [id number], 09/03/2024 11:28:54 09/02/20 24 09/03/2024 arthr itis panel uric acid 4.3 mg/dL 2.3-6. 6 Not Available [facility] [address] [place] [address], [id number], 09/03/2024 11:28:54 09/02/20 24 09/03/2024 arthr itis panel sed rate 4 mm/HR 0 - 30 Not Available [facility] [address] [place] [address], 46892, 09/03/2024 11:28:54 09/02/20 24 09/03/2024 arthr itis panel MOSES screen PENDIN G Not Available [facility] [address] [place] [address], [id number], 09/03/2024 11:28:54 09/02/2009/03/2024 arthr itis panel rf 14 IU/mL <3.5-1 4 Not Available [facility] [address] [place] [address], [id number], 09/03/2024 11:28:54 09/02/2009/03/2024 arthr itis panel ccp antibody, IgG <0.54 U/mL <=4.9 Not Available [facility] [address] [place] [address], [id number], 09/03/2024 11:28:54 09/02/20 24 09/03/2024 arthr itis panel arthritis panel Not Available [facility] [address] [place] [address], [id number], 09/03/2024 11:23:25 09/02/20 24 09/03/2024 arthr itis panel uric acid 4.3 mg/dL 2.3-6. 6 Not Available [facility] [address] [place] [address], 59523, 09/03/2024 11:23:25 09/02/20 24 09/03/2024 arthr itis panel sed rate 4 mm/HR 0 - 30 Not Available [facility] [address] [place] [address], [id number], 09/03/2024 11:23:25 09/02/20 24 09/03/2024 arthr itis panel MOSES screen PENDIN G Not Available [facility] [address] [place] [address], [id number], 09/03/2024 11:23:25 09/02/20 24 09/03/2024 arthr itis panel rf 14 IU/mL <3.5-1 4 Not Available [facility] [address] [place] [address], 13733, 09/03/2024 11:23:25 09/02/20 24 09/03/2024 arthr itis panel ccp antibody, IgG PENDIN G Not Available [facility] [address] [place] [address], 11667, 09/03/2024 11:23:25 09/02/20 24 09/03/2024 arthr itis panel arthritis panel Not Available [facility] [address] [place] [address], 40171, 09/03/2024 11:05:57 09/02/20 24 09/03/2024 arthr itis panel uric acid 4.3 mg/dL 2.3-6. 6 Not Available [facility] [address] [place] [address], 00249, 09/03/2024 11:05:57 09/02/20 24 09/03/2024 arthr itis panel sed rate PENDIN G Not Available [facility] [address] [place] [address], 76634, 09/03/2024 11:05:57 09/02/20 24 09/03/2024 arthr itis panel MOSES screen PENDIN G Not Available [facility] [address] [place] [address], 10147, 09/03/2024 11:05:57 09/02/20 24 09/03/2024 arthr itis panel rf 14 IU/mL <3.5-1 4 Not Available [facility] [address] [place] [address], 08070, 09/03/2024 11:05:57 09/02/20 24 09/03/2024 arthr itis panel ccp antibody, IgG PENDIN G Not Available [facility] [address] [place] [address], 45719, 09/03/2024 11:05:57 05/30/20 24 03/29/2023 imagi ng/di agnos tic resul t No observ ation record ed. Not Available 05/30/2024 02:13:59 Result Notes None recorded. Problems Name Problem SNOMED Code Status Onset Date Resolution Date Notes Provider Name and Address Organization Details Recorded Time Renal insufficiency 336347315 [facility] Chronic kidney disease stage 3 575043236 [facility] 15:32:41 Multiple joint pain 96502889 Active 2023 Bala Conley MD [address] [place] [address], [phone] 3, [facility] 4 22:02:20 Muscle pain 17227944 Active 2023 Bala Conley MD [address] [place] [address], 38964-598 3, [facility] 4 22:02:34 Gastroesophage al reflux disease 677361847 Active 2023 Bala Conley MD [address] [place] [address], 22084-240 3, [facility] 4 22:03:10 Chronic kidney disease stage 3A 745034113 Active 2023 Bala Conley MD [address] [place] [address], 82800-318 3, [facility] 4 22:03:32 Mechanical low back pain 628780596 Active 2023 Bala Conley MD [address] [place] [address], 17075-007 3, [facility] 4 22:03:43 Benign essential hypertension 3697664 Active 2023 Mira Reyes PA-C [address] [place] [address], 18234-677 3, [facility] 4 14:51:27 Problem Notes None recorded. Procedures [...] Name and Address Organization Details Recorded Time 9644910 Bactrim medicatio n other Not available Not available 11/14/20232020 62553 9 RxNorm React ion: GI Upset ; [...] Not Available Vitals Date Recorded Body weight Heart rate Systolic blood pressure Diastolic blood pressure Provider Name and Address Organization Details Last Updated DateTime 01/10/2024 42899.75 g 138 /min 128 mm[Hg] 72 mm[Hg] [facility] 01/10/2024 16:08:32 Date Recorded Heart rate Systolic blood pressure Diastolic blood pressure Provider Name and Address Organization Details Last Updated DateTime 05/01/2024 61 /min 142 mm[Hg] 82 mm[Hg] [facility] 05/01/2024 14:52:23 Date Recorded Body weight Heart rate Systolic blood pressure Diastolic blood pressure Provider Name and Address Organization Details Last Updated DateTime 06/19/2024 21802.42 g 46 /min 188 mm[Hg] 98 mm[Hg] [facility] 06/19/2024 14:42:37 Date Recorded Body weight Heart rate Systolic blood pressure Diastolic blood pressure Provider Name and Address Organization Details Last Updated DateTime 08/21/2024 25907.6 g 50 /min 160 mm[Hg] 74 mm[Hg] [facility] 08/21/2024 12:27:31 Date Recorded Body weight Heart rate Oxygen saturation Oxygen saturation in Arterial blood by Pulse oximetry Pain severity - 0-10 verbal numeric rating [Score] - Reported Systolic blood pressure Diastolic blood pressure Provider Name and Address Organization Details Last Updated DateTime 4 36370.0 7 g 54 /min 98 % 98 % 9 148 mm[Hg] 68 mm[Hg] Farrah Funk [facility] 4 17:10:30 Social History None recorded. Functional Status None recorded. Mental Status None recorded. Family History Nothing Reported. Medical History No medical history recorded. Gynecological HistoryNo gynecological history recorded. Obstetrics History GPAL:G 0 P 0 0 0 0 Past Encounters Encounter ID Performer Location Encounter Start Date Encounter Closed Date Diagnosis/Indication Diagnosis SNOMED-CT Code Diagnosis ICD10 Code Diagnosis Note [id number] Karen Nicole MD [facility] [place] [address] [place] [address] 01/10/2024 15:22:54 01/10/2024 16:37:50 Renal insufficiency 229181000 N28.9 [id number] Mira Reyes PA-C [facility] [place]) [address] [place] [address] 05/01/2024 14:26:22 05/01/2024 15:15:46 Chronic kidney disease stage 3 877050079 N18.30 Benign ess ential hypertension 5522692 I10 [id number] Karen Nicole MD [facility] ([place]) [address] [place] [address] 06/19/2024 14:08:10 06/19/2024 15:08:49 Chronic kidney disease stage 3 415667508 N18.30 Benign ess ential hypertension 7549456 I10 [id number] Mira Reyes PA-C [facility] ([place]) [address] [facility] [place] [address] 08/21/2024 11:50:48 08/21/2024 12:57:31 Chronic kidney disease stage 3 808420351 N18.30 Benign ess ential hypertension 0635126 I10 [id number] Bala Conley MD [address] [place] [address] [facility] [place]gy ([place]) [address] [place] [address],[address] [place] [phone] 09/02/2024 15:51:47 09/02/2024 18:42:34 Multiple joint pain 26548594 M25.50 Gastroesop hageal reflux disease 308919071 K21.9 Chronic ki dney disease stage 3A 158143178 N18.31 Mechanical low back pain 050056790 M54.59 Health Concerns Section Related Observation LastModified by Organization Detai ls LastModified Time None Recorded Concern Status LastModified by Organization Details LastModified Time None Recorded Advance Directives Directive None Recorded Payers Encounter Date Sequence Insurance Name Policy Number Policy Curiel Covered Member ID Curiel Member ID Guarantor Name 01/10/2024 1 [place] Wanda Gordillo [id number] Wanda Gordillo 01/10/2024 2 [employer] (MEDICARE SUPPLEMENT) Wanda Vossgini [id number] Wanda Vossgini 05/01/2024 1 [place] Wanda Drummondi [id number] Wanda Vossgini 05/01/2024 2 [employer] (MEDICARE SUPPLEMENT) Wanda Jacobsen Borgini [id number] Wanda Vossgini 06/19/2024 1 [place]anda Jacobsen Borgini [id number] Wanda Vossgini 06/19/2024 2 [employer] (MEDICARE SUPPLEMENT) Wanda S Borgini [id number] Wanda Vossgini 08/21/2024 1 [place] Wanda Vossgini [id number] Wanda Vossgini 08/21/2024 2 [employer] (MEDICARE SUPPLEMENT) Wanda Jacobsen Borgini [id number] Wanda Vossgini 09/02/2024 1 [place] Wanda Vossgini [id number] [place] Vossgini 09/02/2024 2 [employer] (MEDICARE SUPPLEMENT) Wanda Vossgini [id number] Wanda Drummondi Notes Date Note Type Note [...] December 16. Mira Reyes PA-C [address] [place] [address], [phone], [facility] 01/10/2024 16:46:22 05/01/2024 text/html Ms. Gordillo is [...] atrial fibrillation. Mira Reyes PA-C [address] [place] [address], [phone], [facility] 05/01/2024 16:49:08 06/19/2024 text/html Ms. Gordillo is [...] of UTI Karen Nicole MD [address] [place] [address], [phone], [facility] 06/23/2024 15:10:26 08/21/2024 text/html Ms. Gordillo is [...] be worsening. Mira Reyes PA-C [address] [place] [address], [phone], [facility] 08/21/2024 14:16:08 09/02/2024 text/html The patient is [...] Instead, she takes Advil on her own plgz-rqi-ujsiaky alternating this occasionally with some Tylenol. The patient reports she will take up to 400 to 600 mg of Advil daily. She is noted to have chronic kidney disease and currently does see Nephrology with Dr. Butcher s office. The patient complains of feeling stiff all day. She denies any headaches, tongue or jaw claudication or visual scatoma. No Raynaud s symptoms. She does have dry mouth and dry eyes, but has had this for years since the delivery of her children years ago. She does use Biotene for the oral dryness and eyedrops for her eyes. 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 She [...] history is noncontributory. I have reviewed the patient s past medical history and [employer] intake form.abel Conley MD [address] [place] [address], [phone], [facility] 09/04/2024 21:36:32 OBGyn Episode No OBEpisode recorded.
--- OUTSIDE RECORDS SUMMARY | 2024-12-10 13:40 | XMS_ITS | Referral Summary ---
Author Organization [facility] Address [address] [place] [address] Care Team Providers Care Truck Caterer Name Role Phone Blas Hardin MD Primary Care Provider Encounters Date Type Department Care Team Description 11/16/2024 Orders Only [facility] Scanning, Provider from Last 3 Months Allergies No known active allergies Medications cycloSPORINE [...] mcg tablet Take 100 mcg by mouth nanny/household manager before breakfast Active Active Problems Problem [...] on file Legal Sex Female 1:53 PM TITLE CLOSER Gender Identity Not on file Sexual Orientation Not on file Last Filed Vital Signs Vital Sign Reading Time Taken Comments Blood Pressure 198/89 10/03/2019 11:17 AM TITLE CLOSER Pulse 58 10/03/2019 11:17 AM TITLE CLOSER Temperature 35.9 C (96.7 F) 08/11/2019 9:07 AM CDT Respiratory Rate 16 10/03/2019 11:17 AM TITLE CLOSER Oxygen Saturation 98% 10/03/2019 11:17 AM TITLE CLOSER Inhaled Oxygen Concentration - - Weight 71.7 kg (158 lb) 06/26/2019 10:51 AM CDT Height 172.7 cm (5' 8 ) 06/26/2019 10:51 AM CDT Body Mass Index 24.02 06/26/2019 10:51 AM CDT Plan of Treatment Not on file Goals Goal Patient Goal Type Associated Problems Recent Progress Patient-Stated? Author [facility] Jeanine Crespo, GILBERT Note: Patient will establish a comfort-function goal [...] - Final * SCAN - LABS (11/16/2024) us Tawnya Nolan RN Final Result from Last 3 Months Insurance [facility] MEDICARE Care Teams Truck Caterer Relationship Specialty Start Date End Date Blas Hardin MD PCP - General 01/12/17
== END 2024-12-10 11:53 | disposition home or self-care (01) ==
PROVIDERS: PCP Internal Medicine; Visit Provider Internal Medicine
DX: F03.90 Unspecified dementia, unspecified severity, without behavioral disturbance, psychotic disturbance, mood disturbance, and anxiety (principal); I65.23 Occlusion and stenosis of bilateral carotid arteries
CPT/HCPCS: 70450; 93880

== ENCOUNTER 2024-12-15 10:07 | Outpatient (CLI) | payer MEDICARE, SELFPAY ==
[2024-12-15 10:41] LABS: Estimated Glomerular Filt Rate 47
== END 2024-12-15 10:08 | disposition home or self-care (01) ==
LOC: CHSIMG 10:09
PROVIDERS: PCP Internal Medicine; Visit Provider Internal Medicine
DX: R63.4 Abnormal weight loss (principal); R74.01 Elevation of levels of liver transaminase levels; R41.3 Other amnesia
CPT/HCPCS: 71260; 74177; Q9967

== ENCOUNTER 2024-12-31 13:19 | Outpatient (CLI) | payer MEDICARE, SELFPAY ==
--- NOTE | ~2024-12-31 | CT_ITS ---
CT ANGIOGRAM NECK AND HEAD History: Carotid stenosis. Technique: Axial noncontrast imaging of the brain was performed. Serial spiral axial images through t he head and neck were then obtained during arterial phase IV injection of 100 cc of Omnipaque 350. 3- D postprocessing and MIP images were then reconstructed on the remote workstation. Dose reduction angelita hnique was used on this scan by utilizing automated exposure control and iterative reconstruction angelita hnique. The dose-length product (DLP) was 1503.87 mGy-cm. CTA neck findings: Bilateral vertebral arteries are patent. Bilateral common carotid, internal carot id, and external carotid arteries are patent. There are extensive calcified plaques at the distal rig ht common carotid artery and right carotid bifurcation and proximal right internal carotid artery. Th ere is 80% stenosis at the proximal right internal carotid artery. There is 95% stenosis the proximal right external carotid artery. There also extensive calcified plaques of the distal left common bell tid artery and left carotid bifurcation/proximal left internal carotid artery. There is high-grade, 9 5% stenosis at the proximal left internal carotid artery. There is focal 70-80% stenosis of the proxi mal left external carotid artery. No large vessel occlusion or aneurysm. The proximal right internal carotid artery demonstrates 80% stenosis relative to the normal distal artery lumen diameter. The pro ximal left internal carotid artery demonstrates 95% stenosis relative to the normal distal artery lum en diameter. CTA head findings: Distal vertebral arteries, basilar artery, and posterior cerebral arteries are pat ent. Distal internal carotid arteries, middle cerebral arteries, and anterior cerebral arteries are p atent. No stenosis or large vessel occlusion. No aneurysm. Axial noncontrast imaging of the brain demonstrates no acute infarct, intracranial hemorrhage or mass lesion. There are minimal chronic microvascular ischemic changes in the periventricular white matter . Ventricles and subarachnoid spaces are unremarkable. Paranasal sinuses and mastoid air cells are cl ear. Calvarium intact. Impression: High-grade stenoses of the bilateral proximal internal carotid arteries, 80% on the right, and 95% on the left. Reviewed, dictated and finalized at location M. Impression: High-grade stenoses of the bilateral proximal internal carotid arteries, 80% on the right, and 95% on the left.
[2024-12-31 13:47] LABS: Estimated Glomerular Filt Rate 43
--- OUTSIDE RECORDS SUMMARY | 2024-12-31 14:54 | XMS_ITS ---
Author Organization [facility] Address [address] [place], [place] [id number] Care Team Providers Care Steam Room Attendant Name Role Phone Blas Hardin Unavailable Unavailable EYAL CASTELLON Unavailable [phone] Allergies No Known Allergies REASON FOR VISIT [...] Active Encounters Encounter Location Date Provider Diagnosis [facility] [address] [place], [place] [id number] 10/30/2024 EYAL CASTELLON Tinea unguium B35.1 ; Pain in right toe(s) M79.674 ; Pain in left toe(s) M79.675 and Atherosclerosis of [place] arteries of extremities with intermittent claudication, bilateral [...] toe(s) (ICD-10 - M79.675) 10/30/2024 Atherosclerosis of [place] arteries of extremities with intermittent claudication, bilateral [...] arise Provider Name:LISA BELLAMY, 01/29/2025 02:30:00 PM, [address] [place] [address], [id number], Progress Notes * Wanda GORDILLODOB: [birth year] (83 yo F)Acc No.[id number]:10/30/2024 Patient: Wanda GARCIA Provider: Britany Castellon DPM :1940 A ge:83 Y S ex:Female Date:10/30/2024 Address:[address] [place], [place] [id number] Subjective: * Chief Complaints: * P atient [...] - M79.675 4 . 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 Modifiers: Q8 * NSION SERVICE SUPERVISOR Sign off status: Completed true * Provider: Britany Castellon DPM Date: 0 10/30/2024 Generated for Deandre schneider/Kaylah/Jeramyitting on: 0 12/31/2024 02:54 PM CDT History and Physical Notes * HPI (History [...]
--- OUTSIDE RECORDS SUMMARY | 2024-12-31 14:54 | XMS_ITS | Clinical Summary ---
Author Organization [facility] Address [address] [place] [address] Phone Care Team Providers Care Assistant Corporate Secretary Name Role Phone Blas Hardin MD Primary Care Provider [phone] Social History Tobacco Use Types Packs/Day Years [...] [facility] Care Teams Assistant Corporate Secretary Relationship Specialty Start Date End Date Blas Hardin MD [address] [place] [address] PCP - General Family Medicine 01/24/16
--- OUTSIDE RECORDS SUMMARY | 2024-12-31 14:54 | XMS_ITS | Referral Summary ---
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 Active Active Problems Problem Noted [...] on file Legal Sex Female 1:53 PM GERIATRICIAN Gender Identity Not on file Sexual Orientation Not on file Last Filed Vital Signs Vital Sign Reading Time Taken Comments Blood Pressure 198/89 10/03/2019 11:17 AM GERIATRICIAN Pulse 58 10/03/2019 11:17 AM GERIATRICIAN Temperature 35.9 C (96.7 F) 08/11/2019 9:07 AM CDT Respiratory Rate 16 10/03/2019 11:17 AM GERIATRICIAN Oxygen Saturation 98% 10/03/2019 11:17 AM GERIATRICIAN Inhaled Oxygen Concentration - - Weight 71.7 [...] [facility] Care Teams Senior Engineering Tech Relationship Specialty Start Date End Date Blas Hardin MD PCP - General 01/12/17
--- OUTSIDE RECORDS SUMMARY | 2024-12-31 14:54 | XMS_ITS | Encounter Summary ---
Author Organization [facility] Address [facility] [place] [address] Care Team Providers Care Electronics Mechanic Name Role Phone Blas Hardin MD Primary Care Provider Josie Becerra MD Unavailable Encounter Details Date Type Department Care Team (Late st Contact Info) Description 03/22/2019 Abstract [facility] CONVERSION [address] [place] [address] , Generic Conversion, Social History Tobacco Use Types Packs/Day Years Used Date Smoking Tobacco: Never Assessed Comments Unknown Sex and Gender Information Value Date Recorded Sex Assigned at Female 10/31/2024 1:15 PM MAINTENANCE PLANNING CLERK Legal Sex Female 5:44 PM MAINTENANCE PLANNING CLERK Gender Identity Not on file Sexual Orientation Not on file documented as of this encounter Plan of Treatment Upcoming Encounters Date Type Department Care Team (Late st Contact Info) Description 10/16/2025 9:00 AM MAINTENANCE PLANNING CLERK Appointment [facility] [address] [place] [address] Josie Becerra MD [address] [place] [phone] 10/23/2025 9:30 AM MAINTENANCE PLANNING CLERK Office Visit [facility] [address] [place] [id number] Josie Becerra MD [address] [place] [phone] documented as of this encounter Visit Diagnoses Not on filedocumented in this encounter Additional Health Concerns Infection Onset Date Last Indicated Resolved Time COVID-19 Rule Out 02/27/2020 02/27/2020 02/28/2020 4:14 PM CDT COVID-19 Rule Out 03/09/2020 03/09/2020 03/09/2020 4:38 PM CDT COVID-19 Rule Out 02/03/2024 02/03/2024 02/03/2024 2:55 PM CDT documented as of this encounter Care Teams Electronics Mechanic Relationship Specialty Start Date End Date Blas Hardin MD [address] [place] [address] PCP - General FAMILY PRACTICE 05/06/19 Josie Becerra MD [address] [place] [address] Consulting Physician CARDIOVASCULAR DISEASE 01/24/24 documented as of this encounter
--- OUTSIDE RECORDS SUMMARY | 2024-12-31 14:54 | XMS_ITS | Data Portability ---
Author Organization [facility] [employer], [address] [place] [address] Neurology ([place]) Address [address] [place] [address] Care Team Providers Care Health Benefits Specialist Name Role Phone EDGARDO GODFREY Primary Care Provider MIRA REYES Wet Plant Operator KAREN NICOLE Wet Plant Operator Assessment Encounter Date Assessment Date Assessment LastModified by Organization Details LastModified Time 05/01/2024 05/01/2024 Ms. Gordillo is a pleasant 83-year-old female with a past medical history significant for hypertension, hyperlipidemia, hypothyroidism, history of bladder repair, Botox injections of the bladder, back surgery, knee replacement surgery, hip replacement surgery is here for a follow-up on her RENY with CKD. A KI with baseline serum creatinine ranging between 0.8 0 .9 with chronic kidney disease stage III. Patient's [...] a follow-up on her RENY with CKD. A KI with baseline serum creatinine ranging between 0.8 0 .9 with chronic kidney disease stage III. Patient's [...] on this date of service including both ojpo-di-ofbk and gso-abqt-it-face time excluding any separately reportable services. abel [email or web address] Not available 09/03/2024 12:15:35 12/18/2024 12/18/2024 Ms. Gordillo is a pleasant 83-year-old female with a past medical history significant for hypertension, hyperlipidemia, hypothyroidism, history of bladder repair, Botox injections of the bladder, back surgery, knee replacement surgery, hip replacement surgery is here for a follow-up on her RENY with CKD. A KI with baseline serum creatinine ranging between 0.8 0 .9 with chronic kidney disease stage III. Patient's most recent serum creatinine is noted to be 1.13 with a GFR 49. Fluid and electrolyte balance are adequate. Microalbumin/creat inine ratio was not done Patient will continue to hydrate well and [...] intent to comply with it. Not available 12/18/2024 13:59:53 Plan of Treatment Reminders Order Date Submit Date Provider Last Modified By Organization Details Last Modified Time Details Appointments Establish ed Patient 15.EST 2024 11:15A M Mira Reyes Not available Not available Not available Lab None recorded. Referral None recorded. Procedures None recorded. Surgeries None recorded. Imaging None recorded. Medication Orders None recorded. Patient TargetsNo targets recorded. Patient InstructionsNo instructions recorded. Reason for Referral None Reported. Results Created Date Observation Date Name Description Value Unit Range Abnormal Flag Note LastModifiedBy Organization Detail LastModifiedTime 09/02/20 24 09/03/2024 CBC CBC Not Available [facility] [address] [place] [address], [id number], 09/03/2024 10:48:06 09/02/20 24 09/03/2024 CBC WBC 5.5 K/uL 3.8-11 .2 Not Available [facility] [address] [place] [address], [id number], 09/03/2024 10:48:06 09/02/20 24 09/03/2024 CBC RBC 3.11 M/uL 3.92-5 .10 low Not Available [facility] [address] [place] [address], [id number], 09/03/2024 10:48:06 09/02/20 24 09/03/2024 CBC HGB 9.9 g/dL 11.8-1 5.3 low Not Available [facility] [address] [place] [address], [id number], 09/03/2024 10:48:06 09/02/20 24 09/03/2024 CBC HCT 30.4 % 36.5-4 4.8 low Not Available [facility] [address] [place] [address], [id number], 09/03/2024 10:48:06 09/02/20 24 09/03/2024 CBC MCV 97.7 fL 80.0-9 9.0 Not Available [facility] [address] [place] [address], [id number], 09/03/2024 10:48:06 09/02/20 24 09/03/2024 CBC MCH 31.8 pg 25.5-3 3.6 Not Available [facility] [address] [place] [address], [id number], 09/03/2024 10:48:06 09/02/20 24 09/03/2024 CBC MCHC 32.6 g/dL 32.0-3 6.0 Not Available [facility] [address] [place] [address], [id number], 09/03/2024 10:48:06 09/02/20 24 09/03/2024 CBC RDW-SD 45.3 fL 35.1 - 46.3 Not Available [facility] - [facility] [address] [place] [address], [id number], 09/03/2024 10:48:06 09/02/20 24 09/03/2024 CBC plt 313 K/uL 130-40 0 Not Available [facility] [address] [place] [address], [id number], 09/03/2024 10:48:06 09/02/20 24 09/03/2024 CBC MPV 10.2 fL 9.3-12 .8 Not Available [facility] - [facility] [address] [place] [address], [id number], 09/03/2024 10:48:06 09/02/20 24 09/03/2024 CMP, serum or plasm a comp. met. panel Not Available Pr Onl [facility] - [facility] [address] [place] [address], [id number], 09/03/2024 11:05:53 09/02/20 24 09/03/2024 CMP, serum or plasm a sodium 141 mmol/ L 136-14 6 Not Available [facility] Only - [facility] [address] [place] [address], [id number], 09/03/2024 11:05:53 09/02/20 24 09/03/2024 CMP, serum or plasm a potassium 4.5 mmol/ L 3.5-5. 1 Not Available [facility] - [facility] [address] [place] [address], [id number], 09/03/2024 11:05:53 09/02/20 24 09/03/2024 CMP, serum or plasm a chloride 107 mmol/ L 98-110 Not Available [facility] Only - [facility] [address] [place] [address], [id number], 09/03/2024 11:05:53 09/02/20 24 09/03/2024 CMP, serum or plasm a CO2 29 mEq/L 20-32 Not Available [facility] Only - [facility] [address] [place] [address], [id number], 09/03/2024 11:05:53 09/02/20 24 09/03/2024 CMP, serum or plasm a anion gap 10 mmol/ L 10-22 Not Available [facility] Only - [facility] [address] [place] [address], [id number], 09/03/2024 11:05:53 09/02/20 24 09/03/2024 CMP, serum or plasm a glucose 101 mg/dL 70-100 high Not Available Pr Only - [facility] [address] [place] [address], [id number], 09/03/2024 11:05:53 09/02/20 24 09/03/2024 CMP, serum or plasm a calcium 9.6 mg/dL 8.4-10 .4 Not Available [facility] Only - [facility] [address] [place] [address], [id number], 09/03/2024 11:05:53 09/02/20 24 09/03/2024 CMP, serum or plasm a total protein 6.8 g/dL 6.4-8. 3 Not Available Pr Only - [facility] [address] [place] [address], [id number], 09/03/2024 11:05:53 09/02/20 24 09/03/2024 CMP, serum or plasm a albumin 4.3 g/dL 3.5-5. 3 Not Available Pr Only - [facility] [address] [place] [address], [id number], 09/03/2024 11:05:53 09/02/20 24 09/03/2024 CMP, serum or plasm a ALP 43 U/L 44 - 127 low Not Available [facility] Only - [facility] [address] [place] [address], [id number], 09/03/2024 11:05:53 09/02/20 24 09/03/2024 CMP, serum or plasm a AST (SGOT) 29 U/L 10-40 Not Available Pr Only - [facility] [address] [place] [address], [id number], 09/03/2024 11:05:53 09/02/20 24 09/03/2024 CMP, serum or plasm a total bilirubin 0.4 mg/dL 0.2-1. 0 Not Available Pr Only - [facility] [address] [place] [address], [id number], 09/03/2024 11:05:53 09/02/20 24 09/03/2024 CMP, serum or plasm a ALT (SGPT) 26 U/L 8-35 Not Available Pr Only - [facility] [address] [place] [address], [id number], 09/03/2024 11:05:53 09/02/20 24 09/03/2024 CMP, serum or plasm a BUN 28 mg/dL 7-21 high Not Available Pr Only - [facility] [address] [place] [address], [id number], 09/03/2024 11:05:53 09/02/20 24 09/03/2024 CMP, serum or plasm a creatinine 1.5 mg/dL 0.7-1. 3 high Not Available Pr Only - [facility] [address] [place] [address], [id number], 09/03/2024 11:05:53 09/02/20 24 09/03/2024 CMP, serum or plasm a GFR(non-afri can kuwaiti) 35 Not Available Pr Onl y - [facility] [address] [place] [address], [id number], 09/03/2024 11:05:53 09/02/20 24 09/03/2024 CMP, serum or plasm a GFR() 43 (TOOL POLISHER MARIA TERESA KIDNE Y DISEA SE HAS A GFR LESS THAN 60 ML/CO N/1.7 3 MM FOR A PERIO D OF THREE MONTH S OR MORE. ) Not Available Pr Only - [facility] [address] [place] [address], [id number], 09/03/2024 11:05:53 09/02/20 24 09/03/2024 CK (crea ángel kinas e), total , serum CPK- Not Available Replaced By [facility] - [facility] [address] [place] [address], [id number], 09/03/2024 11:05:55 09/02/20 24 09/03/2024 CK (crea ángel kinas e), total , serum CPK 59 U/L 30-200 Not Available Replaced By [facility] - [facility] [address] [place] [address], [id number], 09/03/2024 11:05:55 09/02/20 24 09/03/2024 C-janet ctive prote in, quant itati ve, serum or plasm a CRP Not Available Replaced By [facility] - [facility] [address] [place] [address], [id number], 09/03/2024 11:28:53 09/02/20 24 09/03/2024 C-janet ctive prote in, quant itati ve, serum or plasm a CRP <0.4 mg/dL <0.4-0 .5 Not Available Replaced By [facility] - [facility] [address] [place] [address], [id number], 09/03/2024 11:28:53 09/02/20 24 09/03/2024 arthr itis panel uric acid 4.3 mg/dL 2.3-6. 6 Not Available Pr Only - [facility] [address] [place] [address], [id number], 09/04/2024 13:42:33 09/02/20 24 09/03/2024 arthr itis panel sed rate 4 mm/HR 0 - 30 Not Available Pr Only - [facility] [address] [place] [address], [id number], 09/04/2024 13:42:33 09/02/20 24 09/03/2024 arthr itis panel rf 14 IU/mL <3.5-1 4 Not Available Pr Only - [facility] [address] [place] [address], [id number], 09/04/2024 13:42:33 09/02/20 24 09/03/2024 arthr itis panel ccp antibody, IgG <0.54 U/mL <=4.9 Not Available [facility] [address] [place] [address], [id number], 09/04/2024 13:42:33 09/02/20 24 09/04/2024 arthr itis panel arthritis panel Not Available [facility] [address] [place] [address], [id number], 09/04/2024 13:42:33 09/02/20 24 09/04/2024 arthr itis panel MOSES screen NEGATI VE negati ve Perfo rmed by Bio-R ad enzym e immun oassa y Not Available Pr Only - Pr [facility] [address] [place] [address], [id number], 09/04/2024 13:42:33 09/02/20 24 09/03/2024 arthr itis panel arthritis panel Not Available [facility] [address] [place] [address], [id number], 09/03/2024 11:28:54 09/02/20 24 09/03/2024 arthr itis panel uric acid 4.3 mg/dL 2.3-6. 6 Not Available Pr Only - [facility] [address] [place] [address], [id number], 09/03/2024 11:28:54 09/02/20 24 09/03/2024 arthr itis panel sed rate 4 mm/HR 0 - 30 Not Available Pr Only - Pr [facility] [address] [place] [address], 46721, 09/03/2024 11:28:54 09/02/20 24 09/03/2024 arthr itis panel MOSES screen PENDIN G Not Available Pr Only - S c Laboratory [address] [place] [address], [id number], 09/03/2024 11:28:54 09/02/20 24 09/03/2024 arthr itis panel rf 14 IU/mL <3.5-1 4 Not Available [facility] - [facility] [address] [place] [address], [id number], 09/03/2024 11:28:54 09/02/20 24 09/03/2024 arthr itis panel ccp antibody, IgG <0.54 U/mL <=4.9 Not Available [facility] [address] [place] [address], 31251, 09/03/2024 11:28:54 09/02/20 24 09/03/2024 arthr itis panel arthritis panel Not Available Pr [facility] [address] [place] [address], 10841, 09/03/2024 11:23:25 09/02/20 24 09/03/2024 arthr itis panel uric acid 4.3 mg/dL 2.3-6. 6 Not Available [facility] Only - [facility] [address] [place] [address], 98129, 09/03/2024 11:23:25 09/02/20 24 09/03/2024 arthr itis panel sed rate 4 mm/HR 0 - 30 Not Available [facility] Only - [facility] [address] [place] [address], 38876, 09/03/2024 11:23:25 09/02/20 24 09/03/2024 arthr itis panel MOSES screen PENDIN G Not Available Pr Only - [facility] [address] [place] [address], [id number], 09/03/2024 11:23:25 11/19/09/03/2024 arthr itis panel rf 14 IU/mL <3.5-1 4 Not Available Pr Only - [facility] [address] [place] [address], 23444, 09/03/2024 11:23:25 09/02/20 24 09/03/2024 arthr itis panel ccp antibody, IgG PENDIN G Not Available Pr Only - S c Laboratory [address] [place] [address], 40030, 09/03/2024 11:23:25 09/02/20 24 09/03/2024 arthr itis panel arthritis panel Not Available Pr Onl [facility] - [facility] [address] [place] [address], [id number], 09/03/2024 11:05:57 09/02/20 24 09/03/2024 arthr itis panel uric acid 4.3 mg/dL 2.3-6. 6 Not Available Pr Only - Pr [facility] [address] [place] [address], 34630, 09/03/2024 11:05:57 09/02/20 24 09/03/2024 arthr itis panel sed rate PENDIN G Not Available Pr Only - [facility] [address] [place] [address], 05655, 09/03/2024 11:05:57 09/02/20 24 09/03/2024 arthr itis panel MOSES screen PENDIN G Not Available Pr Only - [facility] c [facility] [address] [place] [address], 44311, 09/03/2024 11:05:57 09/02/20 24 09/03/2024 arthr itis panel rf 14 IU/mL <3.5-1 4 Not Available Pr Only - Pr [facility] [address] [place] [address], 69465, 09/03/2024 11:05:57 09/02/20 24 09/03/2024 arthr itis panel ccp antibody, IgG PENDIN G Not Available Pr Only - [facility] [address] [address], 06167, 09/03/2024 11:05:57 05/30/20 24 03/29/2023 imagi ng/di agnos tic resul t No observ ation record ed. Not Available 05/30/2024 02:13:59 Result Notes None recorded. Problems Name Problem SNOMED Code Status Onset Date Resolution Date Notes Provider Name and Address Organization Details Recorded Time Renal insufficiency 776466537 [facility] 17:13[facility]34 Chronic kidney disease stage 3 842892485 [facility] 15:32:41 Multiple joint pain 45039723 Active 2023 Bala Conley MD [address] [place] [address], [phone], [facility] 4 22:02:20 Muscle pain 14716106 Active 2023 Bala Conley MD [address] [place] [address], 80440-443 3, [facility] 4 22:02:34 Gastroesophage al reflux disease 606298329 Active 2023 Bala Conley MD [address] [place] [address], 04631-471 3, [facility] 4 22:03:10 Chronic kidney disease stage 3A 180107807 Active 2023 Bala Conley MD [address] [place] [address], 98328-326 3, [facility] 4 22:03:32 Mechanical low back pain 099953745 Active 2023 Bala Conley MD [address] [place] [address], 15224-453 3, [facility] 4 22:03:43 Benign essential hypertension 0102210 Active 2023 Mira Reyes PA-C [address] [place] [address], 99029-018 3, [facility] 14:51:27 Problem Notes None recorded. Procedures Surgical [...] Name and Address Organization Details Recorded Time 8514337 Bactrim medicatio n other Not available Not available 11/14/20232020 16573 9 RxNorm React ion: GI Upset ; [...] Not Available Not Available Vitals Date Recorded Heart rate Systolic blood pressure Diastolic blood pressure Provider Name and Address Organization Details Last Updated DateTime 05/01/2024 61 /min 142 mm[Hg] 82 mm[Hg] Tahng Aly [facility] 05/01/2024 14:52:23 Date Recorded Body weight Heart rate Systolic blood pressure Diastolic blood pressure Provider Name and Address Organization Details Last Updated DateTime 06/19/2024 32832.42 g 46 /min 188 mm[Hg] 98 mm[Hg] Edie Luna [facility] 06/19/2024 14:42:37 Date Recorded Body weight Heart rate Systolic blood pressure Diastolic blood pressure Provider Name and Address Organization Details Last Updated DateTime 08/21/2024 87886.6 g 50 /min 160 mm[Hg] 74 mm[Hg] [facility] 08/21/2024 12:27:31 Date Recorded Body weight Heart rate Oxygen saturation Oxygen saturation in Arterial blood by Pulse oximetry Pain severity - 0-10 verbal numeric rating [Score] - Reported Systolic blood pressure Diastolic blood pressure Provider Name and Address Organization Details Last Updated DateTime 06793.0 7 g 54 /min 98 % 98 % 9 148 mm[Hg] 68 mm[Hg] Farrah Funk [facility] 17:10:30 Date Recorded Heart rate Systolic blood pressure Diastolic blood pressure Provider Name and Address Organization Details Last Updated DateTime 12/18/2024 54 /min 118 mm[Hg] 60 mm[Hg] [facility] 12/18/2024 12:14:20 Social History None recorded. Functional Status None recorded. Mental Status None recorded. Family History Nothing Reported. Medical History No medical history recorded. Gynecological HistoryNo gynecological history recorded. Obstetrics History GPAL:G 0 P 0 0 0 0 Past Encounters Encounter ID Performer Location Encounter Start Date Encounter Closed Date Diagnosis/Indication Diagnosis SNOMED-CT Code Diagnosis ICD10 Code Diagnosis Note [id number] Karen Nicole MD [facility] ([place]) [address] [employer] [facility] [place] [address] 01/10/2024 15:22:54 01/10/2024 16:37:50 Renal insufficiency 444478713 N28.9 [id number] Reyes PA-C [facility] ([place]) [address] [employer] [facility] [place] [address] 05/01/2024 14:26:22 05/01/2024 15:15:46 Chronic kidney disease stage 3 641671235 N18.30 Benign ess ential hypertension 5025172 I10 [id number] Karen Nicole MD [facility] ([place]) [address] [place] [address] 06/19/2024 14:08:10 06/19/2024 15:08:49 Chronic kidney disease stage 3 047959994 N18.30 Benign ess ential hypertension 0467309 I10 [id number] Mira Reyes PA-C [facility] ([place]) [address] [facility] [place] [address] 08/21/2024 11:50:48 08/21/2024 12:57:31 Chronic kidney disease stage 3 873690492 N18.30 Benign ess ential hypertension 2351151 I10 [id number] Bala Conley MD [address] [place] [address] Rheumatol ogy ([place]) [address] [place] [address] 09/02/2024 15:51:47 09/02/2024 18:42:34 Multiple joint pain 83910406 M25.50 Gastroesop hageal reflux disease 571610152 K21.9 Chronic ki dney disease stage 3A 691401773 N18.31 Mechanical low back pain 811333113 M54.[id number] PA-C [facility] ([place]) [address] [place] [address] 12/18/2024 11:35:56 12/18/2024 12:31:59 Chronic kidney disease stage 3 232849266 N18.30 Benign ess ential hypertension 9736821 I10 Health Concerns Section Related Observation LastModified by Organization Detai ls LastModified Time None Recorded Concern Status LastModified by Organization Details LastModified Time None Recorded Advance Directives Directive None Recorded Payers Encounter Date Sequence Insurance Name Policy Number Policy Curiel Covered Member ID Curiel Member ID Guarantor Name 05/01/2024 1 [place] Wanda Gordillo [id number] Wanda Gordillo 05/01/2024 2 [employer] (MEDICARE SUPPLEMENT) Wanda Drummondi [id number] Wanda Drummondi 06/19/2024 1 [place] Wanda Drummondi [id number] Wanda Drummondi 06/19/2024 2 [employer] (MEDICARE SUPPLEMENT) Wanda Drummondi [id number] Wanda Drummondi 08/21/2024 1 [place] Wanda Drummondi [id number] Wanda Drummondi 08/21/2024 2 [employer] (MEDICARE SUPPLEMENT) Wanda Drumomndi [id number] Wanda Drummondi 09/02/2024 1 [place] Wanda Drummondi [id number] Wanda Drummondi 09/02/2024 2 [employer] (MEDICARE SUPPLEMENT) Wanda Drummondi [id number] Wanda Drummondi 12/18/2024 1 [place] Wanda Drummondi [id number] Wanda Drummondi 12/18/2024 2 [employer] (MEDICARE SUPPLEMENT) Wanda Drummondi [id number] Wanda Gordillo Notes Date Note Type Note Provider Name and Address Organization Details Recorded Time 05/01/2024 text/html Ms. Gordillo is a pleasant [...] atrial fibrillation. Mira Reyes PA-C [address] [place] [address], [phone], [facility] 05/01/2024 16:49:08 06/19/2024 text/html Ms. Gordillo is [...] of UTI Karen Nicole MD [address] [place] [address], [phone], [facility] 06/23/2024 15:10:26 08/21/2024 text/html Ms. Gordillo is [...] be worsening. Mira Reyes PA-C [address] [place] [address], [phone], [facility] 08/21/2024 14:16:08 09/02/2024 text/html The patient is [...] autoimmune disease. The patient describes onset in 2017 of chronic polyarthralgias and lower back pain. [...] Instead, she takes Advil on her own ohqi-xas-obawmyw alternating this occasionally with some Tylenol. The [...] her eyes. 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 She [...] the patient s past medical history and [employer] intake form.abel Conley MD [address] [place] [address], [phone], [facility] 09/04/2024 21:36:32 12/18/2024 text/html Ms. Gordillo is a pleasant 83-year-old [...] is in the room with her permission.Patient continues to hydrate well and to avoid NSAIDs. She denies any fever, chills, or sweats. She denies any chest pain or shortness of breath.Patient's Alzheimer's seems to be worsening. Mira Reyes PA-C [address] [place] [address], [phone], [facility] 12/18/2024 14:00:58 OBGyn Episode No OBEpisode recorded.
--- OUTSIDE RECORDS SUMMARY | 2024-12-31 14:54 | XMS_ITS ---
Author Organization [facility] Address [address] [place], [place] [id number] Care Team Providers Care Rn Observation Name Role Phone Blas Hardin Unavailable Unavailable KENDALL BESS Unavailable [phone] REASON FOR VISIT *General care Medications Medication [...] Active Encounters Encounter Location Date Provider Diagnosis [address] [id number] 08/14/2024 KENDALL BESS Other hammer toe(s) (acquired), right foot M20.41 ; Tinea unguium B35.1 ; Other hammer toe(s) (acquired), left foot M20.42 ; Pain in right toe(s) M79.674 ; Pain in left toe(s) M79.675 ; Unspecified atherosclerosis of [place] arteries of extremities, bilateral legs I70.203 and [...] (ICD-10 - M79.675) 08/14/2024 Unspecified atherosclerosis of [place] arteries of extremities, bilateral legs (ICD-10 - [...] OTC and prescription treatments. Unspecified atherosclerosis of [place] arteries of extremities, bilateral legs Patient educated [...] Reason: Provider Name:LISA BELLAMY, 01/29/2025 02:30:00 PM, [address] [place] [address], [phone], Progress Notes * Wanda GORDILLODOB: [birth year] (83 yo F)Acc No.[id number]:08/14/2024 Patient: Wanda GARCIA Provider: Marizol BESS :1940 A ge:83 Y S ex:Female Date:08/14/2024 Address:[address] [place], [place] [id number] Subjective: * Chief Complaints: * 1 . [...] Patient denies c hest pain, history of AR, irregular heartbeat. M usculoskeletal: Patient complains of [...] M79.675 6 . U nspecified atherosclerosis of [place] arteries of extremities, bilateral legs - I70.203 [...] were emphasized. 3. U nspecified atherosclerosis of [place] arteries of extremities, bilateral legs Notes: Patient [...] LESIONS, 2 TO 4, Modifiers: Q8 , 56269 DEBRIDE NAIL, 6 OR MORE, Modifiers: 59 , Q8 * Follow Up: 3 Months * Billing Information: * Visit Code: * Procedure Codes: 25967 TRIM SKIN LESIONS, 2 TO 4. Modifiers: Q8 96799 DEBRIDE NAIL, 6 OR MORE. Modifiers: 59, Q8 * ON BROKER Sign off status: Completed true * Provider: Marizol BESS Date: Generated for Deandre schneider/Kaylah/Reji on: 0 12/31/2024 02:53 PM CDT History and Physical Notes * [...]
--- OUTSIDE RECORDS SUMMARY | 2024-12-31 14:54 | XMS_ITS | Patient Health Record ---
Author Organization [facility] Address [address] [place], [place] [address] Care Team Providers Care Test Tech Name Role Phone Blas Hardin Unavailable Unavailable SARAHNicola EYAL Unavailable [phone] KENDALL BESS Unavailable [phone] Allergies No Known Allergies Reason For Referral [...] Active Encounters Encounter Location Date Provider Diagnosis [facility] [address], [place] [id number] 06/12/2024 KENDALL BESS Other hammer toe(s) (acquired), right foot M20.41 ; Tinea unguium B35.1 ; Other hammer toe(s) (acquired), left foot M20.42 ; Pain in right toe(s) M79.674 ; Pain in left toe(s) M79.675 and 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, bilateral legs I70.203 [facility] [address] [place], [place] [id number] 08/14/2024 KENDALL BESS Other hammer toe(s) (acquired), right foot M20.41 ; Tinea unguium B35.1 ; Other hammer toe(s) (acquired), left foot M20.42 ; Pain in right toe(s) M79.674 ; Pain in left toe(s) M79.675 ; 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, bilateral legs I70.203 and Acquired keratosis [keratoderma] palmaris et plantaris L85.1 [facility] [address], [place] [id number] 10/30/2024 EYAL CASTELLON Tinea unguium B35.1 ; Pain in right toe(s) M79.674 ; Pain in left toe(s) M79.675 and 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, bilateral [...] toe(s) (ICD-10 - M79.674) 10/30/2024 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, 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) 08/14/2024 Pain in left toe(s) (ICD-10 - M79.675) 06/12/2024 Pain in left toe(s) (ICD-10 - M79.675) 08/14/2024 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, 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) Patient educated on risks and aggravating factors of PVD, including conservative treatment options such as a diet and exercise regimen to aid in slowing progression of vascular disease 06/12/2024 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, bilateral legs (ICD-10 - [...] Details Provider Name:LISA BELLAMY, 01/29/2025 02:30:00 PM, [address] [place] [address], [phone], Insurance Providers Payer Name Payer Address Payer Phone Subscriber Number Group Number Insured Name Patient Relationship to Insured Coverage Start Date Coverage End Date Medicare Part B [place] [address] [place] [address] [id number] Wanda Gordillo Self - patient is the insured [facility] [address] [address] [place], [place] [address] [id number] Wanda Gordillo Self - patient is the insured 5 Medical (General) History Medical History History ICD Code artificial joint Arthritis Bladder infections Back Trouble Heart Disease high blood pressure
--- OUTSIDE RECORDS SUMMARY | 2024-12-31 14:54 | XMS_ITS | Clinical Summary ---
Author Organization [facility] Address [address] [place] [address] Care Team Providers Care Plate Drying Machine Tender Name Role Phone Blas Hardin MD [...] mcg tablet Take 100 mcg by mouth grazing aide before breakfast Active Active Problems Problem Noted [...] on file Legal Sex Female 1:53 PM TREE MARKER Gender Identity Not on file Sexual Orientation Not on file Obstetrics History Last Filed Vital Signs Vital Sign Reading Time Taken Comments Blood Pressure 198/89 10/03/2019 11:17 AM TREE MARKER Pulse 58 10/03/2019 11:17 AM TREE MARKER Temperature 35.9 C (96.7 F) 08/11/2019 9:07 AM CDT Respiratory Rate 16 10/03/2019 11:17 AM TREE MARKER Oxygen Saturation 98% 10/03/2019 11:17 AM TREE MARKER Inhaled Oxygen Concentration - - Weight 71.7 [...] Result from Last 3 Months Insurance MEDICARE [facility] MEDICARE Care Teams Plate Drying Machine Tender Relationship Specialty Start Date End Date Blas Hardin MD PCP - General 01/12/17
--- OUTSIDE RECORDS SUMMARY | 2024-12-31 14:54 | XMS_ITS | Encounter Summary ---
Author Organization [facility] Address [address] [place] [address] Care Team Providers Care Flow Floor Attendant Name Role Phone Blas Hardin MD Primary Care Provider Josie Becerra MD Unavailable Encounter Details Date Type Department Care Team (Late st Contact Info) Description 09/17/2019 Hospital Orders Only [facility] [address] [place] [address] Blas Hardin MD [address] [place] [phone] Social History Tobacco Use Types Packs/Day Years Used Date Smoking Tobacco: Never Assessed Comments Unknown Sex and Gender Information Value Date Recorded Sex Assigned at Female 10/31/2024 1:15 PM INDIGO VAT TENDER CLOTH Legal Sex Female 5:44 PM INDIGO VAT TENDER CLOTH Gender Identity Not on file Sexual Orientation Not on file documented as of this encounter Plan of Treatment Upcoming Encounters Date Type Department Care Team (Late st Contact Info) Description 10/16/2025 9:00 AM INDIGO VAT TENDER CLOTH Appointment [facility] [address] [place] [address] Josie Becerra MD [address] [place] [address] 10/23/2025 9:30 AM INDIGO VAT TENDER CLOTH Office Visit [facility] [address] [place] [phone] Josie Becerra MD [address] [place] [address] documented as of this encounter Visit Diagnoses Not on filedocumented in this encounter Additional Health Concerns Infection Onset Date Last Indicated Resolved Time COVID-19 Rule Out 02/27/2020 02/27/2020 02/28/2020 4:14 PM CDT COVID-19 Rule Out 03/09/2020 03/09/2020 03/09/2020 4:38 PM CDT COVID-19 Rule Out 02/03/2024 02/03/2024 02/03/2024 2:55 PM CDT documented as of this encounter Care Teams Flow Floor Attendant Relationship Specialty Start Date End Date Blas Hardin MD [address] [place] [phone] PCP - General FAMILY PRACTICE 05/06/19 Josie Becerra MD [address] [place] [address] Consulting Physician CARDIOVASCULAR DISEASE 01/24/24 documented as of this encounter
--- OUTSIDE RECORDS SUMMARY | 2024-12-31 14:54 | XMS_ITS | Clinical Summary ---
Author Organization [facility] Address [address] [place] [address] Care Team Providers Care Sorting Grapple Operator Name Role Phone Blas Hardin MD Primary Care Provider [phone] Rolo Roblero MD Unavailable Allergies Active Allergy [...] (09/15/2022): Added automatically from request for surgery [id number] Blood loss anemia 03/07/2020 Postoperative anemia 03/07/2020 [...] Encounters Date Type Department Care Team Description 12/11/2024 9:11 AM PANEL COVERER - 12/11/2024 11:59 PM [facility] Hospital Encounter [facility] [place] [address] Blas Hardin MD Injection Discharge Disposition: Home or Self Care (Routine Discharge) 12/11/2024 9:10 AM [facility] Hospital Encounter [facility] [address] [place] [address] Blas Hardin MD Discharge Disposition: Home or Self Care (Routine Discharge) 12/11/2024 Travel 11/07/2024 9:30 AM PANEL COVERER Office Visit [facility] [place] [address] Rolo Roblero MD Heart Problem 11/07/2024 9:15 AM PANEL COVERER - 11/07/2024 11:59 PM PANEL COVERER Hospital Encounter [facility] [address] [place] [address] [place] [address] Rolo Roblero MD Discharge Disposition: Home or Self Care (Routine Discharge) 11/07/2024 Telephone [facility] [address] [place] [address] Rolo Roblero MD Schedule Test 11/07/2024 Travel 11/06/2024 [facility]phone [facility] [address] [place] [address] Rolo Roblero MD Appointment Reminder 11/06/2024 Orders Only [facility] [address] [place] [address] [place] [address] Blas Hardin MD 11/05/2024 Orders Only [facility] [address] [place] [address] Rolo Roblero MD 10/31/2024 1:19 PM PANEL COVERER - 10/31/2024 11:59 PM PANEL COVERER Hospital Encounter [facility] [address] [address] Rolo Roblero MD Discharge Disposition: Home or Self Care (Routine Discharge) 10/31/2024 Travel 10/21/2024 Telephone [facility] [address] [place] [address] Rolo Roblero MD Reschedule from Last 3 [...] place to sleep or slept in a retirement (including now)? No 07/30/2023 Comments No Sex and Gender Information Value Date Recorded Sex Assigned at Female 10/31/2024 1:15 PM PANEL COVERER Legal Sex Female 5:44 PM PANEL COVERER Gender Identity Not on file Sexual Orientation Not on file Last Filed Vital Signs Vital Sign Reading Time Taken Comments Blood Pressure 138/44 12/11/2024 10:16 AM PANEL COVERER Pulse 57 12/11/2024 10:16 AM PANEL COVERER Temperature 36.3 C (97.4 F) 12/11/2024 10:16 AM PANEL COVERER Respiratory Rate 18 12/11/2024 10:1 6 AM PANEL COVERER Oxygen Saturation 100% 12/11/2024 10: 16 AM PANEL COVERER Inhaled Oxygen Concentration - - Weight 58.9 kg (129 lb 13.6 oz) 025 10:16 AM PANEL COVERER Height 170.2 cm (5' 7 ) 11/07/2024 1:33 PM PANEL COVERER Body Mass Index 20.34 11/07/2024 1:33 PM PANEL COVERER Plan of Treatment Upcoming Encounters Date Type Department Care Team (Late st Contact Info) Description 10/16/2025 9:00 AM PANEL COVERER Appointment [facility] [address] [place] [address] [place] [address] Rolo Roblero MD [address] [place] [address] 10/23/2025 9:30 AM PANEL COVERER Office Visit [facility] [place] [address] Rolo Roblero MD [address] [place] [address] Health Maintenance Due Date Last Done Comments [...] this topic Medical Devices Implanted Type Area Stretcher And Drier Device Identifier Shelf Expiration Date Model / Serial / Lot Knee Components Knee Components Lens Lens G7 [employer] Ti Acetabular Shell 4 Hole, Cementless Implanted:Qty: 1 on 03/01/2020 by Brian Lopez MD at [facility] Right: Hip [employer] 09/16/2029 [id number] / / [id number] Acetabular System Liner Neutral 36 Mm Size F Implanted:Qty: 1 on 03/01/2020 by Brian Lopez MD at [facility] Right: Hip [employer] 05/14/2024 [id number] / / [id number] Screw Eliz Bone 25mm - [id number] Implanted:Qty: 1 on 03/01/2020 by Brian Lopez MD at [facility] Right: Hip [employer] 08/14/2029 [id number] / / [id number] Screw Eliz Bone 30mm - [id number] Implanted:Qty: 1 on 03/01/2020 by Brian Lopez MD at [facility] Right: Hip [employer] 09/16/2029 [id number] / / [id number] Standard Femoral Stem Full Proximal Profile Porous Plasma Uncemented 14 Implanted:Qty: 1 on 03/01/2020 by Brian Lopez MD at [facility] Right: Hip [employer] 01/19/2028 [id number] / / [id number] Component Modular Head 36mm Biomet - [id number] Implanted:Qty: 1 on 03/01/2020 by Brian Lopez MD at [facility] Right: Hip [employer] 09/06/2028 [id number] / / [id number] Explanted Type Area Stretcher And Drier Device Identifier Shelf Expiration Date Model / Serial / Lot Drill Tip - [id number] Explanted:Qty: 1 on 03/01/2020 at [facility] Right: Hip [employer] [id number] / / Procedures Procedure Name Priority Date/Time Associated Diagnosis Comments COMPREHENSIVE METABOLIC PANEL Routine 12/11/2024 9:37 AM PANEL COVERER Age-related osteoporosis without current pathological fracture ECG 12-LEAD Routine 11/07/2024 9:51 AM PANEL COVERER Hypomagnesemia USE ECHOCARDIOGRAM Routine 10/31/2024 1: 57 PM PANEL COVERER Paroxysmal atrial fibrillation (CMS/HCC HHS/HCC) Other cardiomyopathy (CMS/HCC HHS/HCC) from Last 3 Months Results * (ABNORMAL) COMPREHENSIVE METABOLIC PANEL (12/11/2024 9:37 AM PANEL COVERER) SODIUM S/P/B 135(L) 136 - 145 MMOL/L 12/11/2024 10:01 AM [facility] POTASSIUM S/P/B 4.3 3.5 - 5.1 MMOL/L 12/11/2024 10:01 AM [facility] CHLORIDE S/P/B 99 98 - 107 MMOL/L 12/11/2024 10:01 AM [facility] CO2 30.3 21.0 - 32.0 MMOL/L 12/11/2024 10:01 AM [facility] GLUCOSE 79 70 - 99 MG/DL 12/11/2024 10:01 AM [facility] Comment: FASTING GLUCOSE 100 TO 125 MG/DL IS CONSISTENT WITH IMPAIRED FASTING GLUCOSE. FASTING GLUCOSE >125 MG/DL IS CONSISTENT WITH DIABETES. RANDOM GLUCOSE >200 MG/DL WITH HYPERGLYCEMIC SYMPTOMS IS CONSISTENT WITH DIABETES. PER ADA GUIDELINES BUN 24 6 - 24 MG/DL 12/11/2024 10:01 AM [facility] CREATININE S/P/B 1.15(H) 0.55 - 1.02 MG/DL 12/11/2024 10:01 AM [facility] CALCIUM S/P/B 8.8 8.4 - 10.5 MG/DL 12/11/2024 10:01 AM [facility] BILIRUBIN TOTAL S/P/B 0.3 0.2 - 1.0 MG/DL 12/11/2024 10:01 AM [facility] Comment: THIS ASSAY IS NOT RECOMMENDED FOR PATIENTS UNDERGOING TREATMENT WITH ELTROMBOPAG DUE TO THE POTENTIAL FOR FALSELY ELEVATED RESULTS. ALKALINE PHOSPHATASE S/P/B 78 55 - 142 U/L 12/11/2024 10:01 AM [facility] AST 44(H) 15 - 37 U/L 12/11/2024 10:01 AM [facility] ALT 57 14 - 59 U/L 12/11/2024 10:01 AM [facility] TOTAL PROTEIN S/P/B 6.4 6.4 - 8.2 G/DL 12/11/2024 10:01 AM [facility] ALBUMIN S/P/B 3.3(L) 3.4 - 5.0 G/DL 12/11/2024 10:01 AM [facility] ANION GAP 5.7 5.0 - 15.0 MMOL/L 12/11/2024 10:01 AM [facility] OSMOLALITY (CALC) 283 MOSM/KG 025 10:01 AM [facility] Comment:REFERENCE RANGE NOT ESTABLISHED GFR ESTIMATE 48(L) >89 ML/MIN/1. 73 M2 12/11/2024 10:01 AM [facility] GFR NOTES GFR REFERENCE S: 12/11/2024 10:01 AM [facility] Comment: THE ESTIMATED GFR IS CALCULATED USING THE 2020 CKD-EPI EQUATION. THE FOLLOWING CATEGORIES FOR GRADING RENAL FUNCTION ARE RECOMMENDED BY THE INTERNATIONAL SOCIETY OF NEPHROLOGY (KDIGO 2012 CLINICAL PRACTICE GUIDELINE). G1,NORMAL OR HIGH: >89 ml/min/1.73 m2 G2,MILDLY DECREASED: 60-89 ml/min/1.73 m2 G3A,MILDLY TO MODERATELY DECREASED: 45-59 ml/min/1.73 m2 G3B,MODERATELY TO SEVERELY DECREASED: 30-44 ml/min/1.73 m2 G4,SEVERELY DECREASED: 15-29 ml/min/1.73 m2 G5,KIDNEY FAILURE: <15 ml/min/1.73 m2 12/11/2024 9:37 AM PANEL COVERER us Blas Hardin MD LABORATORY Final Resul t Performing Organization Address [facility] Co de Phone Number [facility] [address] [place] [phone], * ECG 12 lead (HOSPITAL PERFORMED ONLY) (11/07/2024 9:51 AM PANEL COVERER) 11/07/2024 9:51 AM PANEL COVERER Narrative [facility] - 11/07/2024 6:23 PM PANEL COVERER [address] [place] [address] Test Date: 2024-11-07 Pat Name: [facility] Department: 3 Room: Gender: Female Paintless Dent Repair Technician: : 1940 Requested By: ROLO ROBLERO Order Number: [id number] Reading MD: Rolo Roblero Measurements Intervals [place] Rate: 59 P: 78 VT: 213 QRS: 85 QRSD: 109 T: 80 QT: 474 QTc: 471 Interpretive Statements SINUS BRADYCARDIA WITH FIRST DEGREE AV BLOCK PROLONGED QT INTERVAL L COVERER Procedure Note Rolo Roblero MD - 11/07/[address] [place] [address] Test Date: 2024-11-07 Pat Name: GIAN GORDILLO Department: 3 Room: Gender: Female Paintless Dent Repair Technician: : 1940 Requested By: ROLO ROBLERO Order Number: [id number] Reading FRANK Roblero Measurements Intervals [place] Rate: 59 P: 78 VT: 213 QRS: 85 QRSD: 109 T: 80 QT: 474 QTc: 471 Interpretive Statements SINUS BRADYCARDIA WITH FIRST DEGREE AV BLOCK PROLONGED QT INTERVAL L COVERER us Rolo Roblero MD ECG ORDERABLES Final Result Performing Organization Address City/[facility] Co de Phone Number [facility] * USE ECHOCARDIOGRAM (10/31/2024 1:57 PM PANEL COVERER) Anatomical Region Laterality Modality Cardiac Ultrasound 10/31/2024 1:27 PM PANEL COVERER Narrative 11/02/2024 10:07 AM PANEL COVERER Echocardiography Report Pat.Name: Gian Gordillo.ID: [id number] .Date: 10/31/2024 Refer.MD: Robert, [facility] Exam Time: 1:27:00 PM Study Type:OUTREACH Height: 67 in Weight: 130 lb BSA: 1.68 m2 Age: 3 1940,83Y Sex: F Sonogrphr: Preet Pat. Stat.:Outpatient Reason for Study:Paroxysmal atrial fibrillation, Other cardiomyopathy Procedures: Study performed at [place], [place] and interpreted by [facility]. 2D, M-mode, Doppler, Color Flow [...] - 11/02/2024 Echocardiography Report Pat.Name: Gian Gordillo.ID: [id number] .Date: 10/31/2024 Refer.MD: Robert, [facility] Exam Time: 1:27:00 PM Study Type:[facility] Height: 67 in Weight: 130 lb BSA: 1.68 m2 Age: 3 1940,83Y Sex: F Sonogrphr: Pat. Stat.:Outpatient Reason for Study:Paroxysmal atrial fibrillation, Other cardiomyopathy Procedures: Study performed at [place], [place] and interpreted by [facility]. 2D, M-mode, Doppler, Color Flow [...] Final Result from Last 3 Months Insurance [place] MEDICARE Advance Directives * Full Code (Latest [...] 5:01 PM 03/03/2020 4:52 PM Care Teams Sorting Grapple Operator Relationship Specialty Start Date End Date Blas Hardin MD [address] [place] [phone] PCP - General FAMILY PRACTICE 05/06/19 Rolo Roblero MD [address] [place] [address] Consulting Physician CARDIOVASCULAR DISEASE 01/24/24
--- OUTSIDE RECORDS SUMMARY | 2024-12-31 14:54 | XMS_ITS ---
Author Organization [facility] Address [address] [place], [place] [id number] Care Team Providers Care Watch Inspector Name Role Phone Hardin Blas Unavailable Unavailable KENDALL BESS Unavailable [phone] REASON FOR VISIT *General care Encounters Encounter Location Date Provider Diagnosis [address] [phone] 10/23/2024 KENDALL BESS Plan Of Treatment Next Appt Details Provider Name:LISA BELLAMY, 01/29/2025 02:30:00 PM, [address] [place] [address], [phone], Progress Notes * Wanda GORDILLODOB: [birth year] (84 yo F)Acc No.[id number]:10/23/2024 Patient: Wanda GARCIA Provider: Marizol BESS :1940 A ge:83 Y S ex:Female Date:10/23/2024 Address:[address] [phone] Subjective: * Chief Complaints: * 1 . *General care. * Medical History: Objective: * Vitals: Assessment: Plan: * Treatment: * Billing Information: * Visit Code: * Procedure Codes: * Electronic signature of MANNIE BESS DPM on 12/31/2024 at 02:54 PM CDT Sign off status: Pending * Provider: Marizol BESS Date: 0 10/23/2024 Generated for Deandre brantleyKaylah/Reji on: 0 12/31/2024 02:54 PM CDT
--- OUTSIDE RECORDS SUMMARY | 2024-12-31 14:55 | XMS_ITS | Encounter Summary ---
Author Organization [facility] Address [address] [address] Cha: Epic Prelude ADT [place] [address] Care Team Providers Care Desulphurizer Operator Name Role Phone Unavailable Primary Care Provider Unavailabl e Encounter Details Date Type Department Care Team (Late st Contact Info) Description 10/12/1989 Outpatient Historical Jassi Gage Social History Tobacco Use Types Packs/Day Years Used Date Smoking Tobacco: Never Assessed Comments Unknown Sex and Gender Information Value Date Recorded Sex Assigned at Not on file Legal Sex Female 4:13 AM CARE AID Gender Identity Not on file Sexual Orientation Not on file documented as of this encounter Plan of Treatment Not on file documented as of this encounter Visit Diagnoses Not on filedocumented in this encounter
--- OUTSIDE RECORDS SUMMARY | 2024-12-31 14:55 | XMS_ITS | Encounter Summary ---
Author Organization [facility] Address [address] [facility] [address] Fernandezn: Epic Prelude ADT [place] [address] Care Team Providers Care Assessment Services Manager Name Role Phone Unavailable Primary Care Provider [...] on file Legal Sex Female 4:13 AM SALESPERSON USED CARS Gender Identity Not on file Sexual Orientation Not on file documented as of this encounter Plan of Treatment Not on file documented as of this encounter Visit Diagnoses Not on filedocumented in this encounter
--- OUTSIDE RECORDS SUMMARY | 2024-12-31 14:55 | XMS_ITS | Clinical Summary ---
Author Organization [facility] Address [address] Cha: Epic Prelude ADT [place] [address] Care Team Providers Care Landscape Supervisor Name Role Phone Unavailable Primary Care Provider Unavailabl e Social History Tobacco Use Types Packs/Day Years Used Date Smoking Tobacco: Never Assessed Comments Unknown Sex and Gender Information Value Date Recorded Sex Assigned at Not on file Legal Sex Female 4:13 AM RACK LOADER Gender Identity Not on file Sexual Orientation Not on file Plan of Treatment Health Maintenance Due Date Last Done Comments DTAP/TDAP/TD VACCINES (1 - Tdap) 1960 PNEUMOCOCCAL VACCINE 50+ YEARS (1 of 1 - PCV) 12/23/18 92 ZOSTER VACCINE (1 of 2) 12/24/1991 OSTEOPOROSIS SCREENING 2006 RSV VACCINE (60+ or ) (1 - 1-dose 75+ series) 2016 INFLUENZA VACCINE (#1) 2024
--- OUTSIDE RECORDS SUMMARY | 2024-12-31 14:55 | XMS_ITS | Encounter Summary ---
Author Organization [facility] Address [address] Cha: Epic Prelude ADT [place] [address] Care Team Providers Care Coal Shooter Name Role Phone Unavailable Primary Care Provider Unavailabl e Encounter Details Date Type Department Care Team (Late st Contact Info) Description 08/09/1990 Outpatient Historical Jassi Gage Social History Tobacco Use Types Packs/Day Years Used Date Smoking Tobacco: Never Assessed Comments Unknown Sex and Gender Information Value Date Recorded Sex Assigned at Not on file Legal Sex Female 4:13 AM DIE TRIMMER Gender Identity Not on file Sexual Orientation Not on file documented as of this encounter Plan of Treatment Not on file documented as of this encounter Visit Diagnoses Not on filedocumented in this encounter
== END 2024-12-31 13:20 | disposition home or self-care (01) ==
PROVIDERS: PCP Internal Medicine
DX: I65.23 Occlusion and stenosis of bilateral carotid arteries (principal)
CPT/HCPCS: 70496; 70498; Q9967

== ENCOUNTER 2025-01-02 16:15 | Emergency (ER) | payer MEDICARE, SELFPAY ==
--- NOTE | ~2025-01-02 | XR_ITS ---
XR hip BI 2V w AP pelvis Ordering provider: Ramon Samaniego MD History: . fall, b/l hip pain . Comparison: None. FINDINGS: BONES: No acute fracture or dislocation. HIP JOINT SPACES: Right hip total arthroplasty. Severe left hip osteoarthritic changes. SACROILIAC JOINT SPACES/LUMBAR SPINE: The sacroiliac joint spaces shows bilateral sacroiliacs. Mild d egenerative changes of the visualized lower lumbar spine. Postoperative changes in the lower cervical spine. PUBIC SYMPHYSIS: Pubic symphysitis. SOFT TISSUES: Normal. IMPRESSION: No acute osseous abnormality of the bilateral hips and pelvis. Right hip arthroplasty. Reviewed, dictated and finalized at location A. IMPRESSION: No acute osseous abnormality of the bilateral hips and pelvis. Right hip arthro plasty.
--- NOTE | ~2025-01-02 | XR_ITS ---
XR knee LT 3V 01/02/2025 17:13 Indication: Left knee pain after fall Procedure: 3 views left knee Comparison: No prior studies for comparison. Findings: There is a left total knee arthroplasty. Prosthesis well seated. There is extensive atheros clerosis. No foreign bodies. Osteopenia. No fracture or traumatic malalignment. Impression: 1: No acute fracture. Reviewed, dictated and finalized at location B. Impression: 1: No acute fracture.
--- NOTE | ~2025-01-02 | CT_ITS ---
History: Fall PROCEDURE: CT head without contrast. COMPARISON: 12/10/2024 TECHNIQUE: Axial imaging of the head performed from the skull base to the vertex without IV contrast. Sagittal a nd coronal reformations obtained. DLP: 681 mGy-cm FINDINGS: The ventricles are enlarged. The dilatation of the ventricles is proportional to the degree of sulcal prominence, not uncommon in the senescent brain. Decreased attenuation is identified within the periventricular white matter, likely secondary to micr ovascular ischemic disease, in a patient of this age. There is no mass, mass effect or midline shift. There is no abnormal extra-axial fluid collection or intracranial hemorrhage. Visualized paranasal sinuses are clear. The mastoid air cells are well aerated. No acute displaced fractures within the overlying cranium. Impression: No acute intracranial hemorrhage or suspicious mass effect. Reviewed, dictated and finalized at location A. Impression: No acute intracranial hemorrhage or suspicious mass effect.
--- NOTE | ~2025-01-02 | CT_ITS ---
History: Fall PROCEDURE: CT cervical spine without intravenous contrast. COMPARISON: 11/16/2024 TECHNIQUE: Multiple contiguous axial images of the cervical spine were performed without the administration of i ntravenous contrast. DLP: 96 mGy-cm FINDINGS: Significant degenerative disease is identified with osteophyte formation, disc space narrowing, endpl ate changes and vacuum phenomena. Significant kyphosis is also noted. No acute fractures are present. Biapical scarring. Densely calcified atherosclerotic disease. The airway is patent. Impression: Significant degenerative disease, without acute fracture. Reviewed, dictated and finalized at location A. Impression: Significant degenerative disease, without acute fracture.
--- NOTE | ~2025-01-02 | XR_ITS ---
XR knee RT 3V 01/02/2025 17:13 Indication: Right knee pain Procedure: 3 views right knee Comparison: No prior studies for comparison. Findings: There is a right knee arthroplasty. Old healed proximal fibular fracture. Osteopenia. Prost hesis well seated. No significant joint effusion. There is extensive atherosclerosis. No acute fractu re or traumatic malalignment. Impression: 1: No acute fracture. Reviewed, dictated and finalized at location B. Impression: 1: No acute fracture.
[2025-01-02 16:15] VITALS: BP 142/53; PULSE 50; RESP 18; TEMP 36.4; O2SAT 100
--- OUTSIDE RECORDS SUMMARY | 2025-01-02 16:17 | XMS_ITS | Data Portability ---
Author Organization [facility], [address] [place] [address] [place] Address [address] [place] [address] Care Team Providers Care Facilities Maintenance Assistant Name Role Phone EDGARDO GODFREY Primary Care Provider MIRA REYES Md Senior Research Scientist KAREN NICOLE Md Senior Research Scientist [phone] Assessment Encounter Date Assessment Date Assessment LastModified [...] on this date of service including both pyjm-yi-xdlk and hac-olwr-dd-face time excluding any separately reportable services. abel [...] Not Available [facility] [address] [place] [address], [id number], 09/03/2024 10:48:06 09/02/20 24 09/03/2024 CBC WBC 5.5 K/uL 3.8-11 .2 Not Available [facility] [address] [place] [address], [id number], 09/03/2024 10:48:06 09/02/20 24 09/03/2024 CBC RBC 3.11 M/uL 3.92-5 .10 low Not Available [facility] [address] [place] [address], 71535, 09/03/2024 10:48:06 09/02/20 24 09/03/2024 CBC HGB 9.9 g/dL 11.8-1 5.3 low Not Available [facility] [address] [place] [address], [id number], 09/03/2024 10:48:06 09/02/20 24 09/03/2024 CBC HCT 30.4 % 36.5-4 4.8 low Not Available [facility] [address] [place] [address], 12044, 09/03/2024 10:48:06 09/02/20 24 09/03/2024 CBC MCV 97.7 fL 80.0-9 9.0 Not Available [facility] [address] [place] [address], [id number], 09/03/2024 10:48:06 09/02/20 24 09/03/2024 CBC MCH 31.8 pg 25.5-3 3.6 Not Available [facility] [address] [place] [address], 15868, 09/03/2024 10:48:06 09/02/20 24 09/03/2024 CBC MCHC 32.6 g/dL 32.0-3 6.0 Not Available [facility] [address] [place] [address], 84624, 09/03/2024 10:48:06 09/02/20 24 09/03/2024 CBC RDW-SD 45.3 fL 35.1 - 46.3 Not Available [facility] [address] [place] [address], [id number], 09/03/2024 10:48:06 09/02/20 24 09/03/2024 CBC plt 313 K/uL 130-40 0 Not Available [facility] [address] [place] [address], 63548, 09/03/2024 10:48:06 09/02/20 24 09/03/2024 CBC MPV 10.2 fL 9.3-12 .8 Not Available [facility] [address] [place] [address], [id number], 09/03/2024 10:48:06 09/02/20 24 09/03/2024 CMP, serum or plasm a comp. met. panel Not Available [facility] [address] [place] [address], [id number], 09/03/2024 11:05:53 09/02/20 24 09/03/2024 CMP, serum or plasm a sodium 141 mmol/ L 136-14 6 Not Available [facility] [address] [place] [address], [id number], 09/03/2024 11:05:53 09/02/20 24 09/03/2024 CMP, serum or plasm a potassium 4.5 mmol/ L 3.5-5. 1 Not Available [facility] [address] [place] [address], 21641, 09/03/2024 11:05:53 09/02/20 24 09/03/2024 CMP, serum or plasm a chloride 107 mmol/ L 98-110 Not Available [facility] [address] [place] [address], 89819, 09/03/2024 11:05:53 09/02/20 24 09/03/2024 CMP, serum or plasm a CO2 29 mEq/L 20-32 Not Available [facility] [address] [place] [address], [id number], 09/03/2024 11:05:53 09/02/20 24 09/03/2024 CMP, serum or plasm a anion gap 10 mmol/ L 10-22 Not Available [facility] [address] [place] [address], 98846, 09/03/2024 11:05:53 09/02/20 24 09/03/2024 CMP, serum or plasm a glucose 101 mg/dL 70-100 high Not Available [facility] [address] [place] [address], 07950, 09/03/2024 11:05:53 09/02/20 24 09/03/2024 CMP, serum or plasm a calcium 9.6 mg/dL 8.4-10 .4 Not Available [facility] [address] [place] [address], 34038, 09/03/2024 11:05:53 09/02/20 24 09/03/2024 CMP, serum or plasm a total protein 6.8 g/dL 6.4-8. 3 Not Available [facility] [address] [place] [address], 95899, 09/03/2024 11:05:53 09/02/20 24 09/03/2024 CMP, serum or plasm a albumin 4.3 g/dL 3.5-5. 3 Not Available [facility] [address] [place] [address], 10628, 09/03/2024 11:05:53 09/02/20 24 09/03/2024 CMP, serum or plasm a ALP 43 U/L 44 - 127 low Not Available [facility] [address] [place] [address], 47062, 09/03/2024 11:05:53 09/02/20 24 09/03/2024 CMP, serum or plasm a AST (SGOT) 29 U/L 10-40 Not Available [facility] [address] [place] [address], 40147, 09/03/2024 11:05:53 09/02/20 24 09/03/2024 CMP, serum or plasm a total bilirubin 0.4 mg/dL 0.2-1. 0 Not Available [facility] [address] [place] [address], 73478, 09/03/2024 11:05:53 09/02/20 24 09/03/2024 CMP, serum or plasm a ALT (SGPT) 26 U/L 8-35 Not Available [facility] [address] [place] [address], 75055, 09/03/2024 11:05:53 09/02/20 24 09/03/2024 CMP, serum or plasm a BUN 28 mg/dL 7-21 high Not Available [facility] [address] [place] [address], 01922, 09/03/2024 11:05:53 09/02/20 24 09/03/2024 CMP, serum or plasm a creatinine 1.5 mg/dL 0.7-1. 3 high Not Available [facility] [address] [place] [address], 28753, 09/03/2024 11:05:53 09/02/20 24 09/03/2024 CMP, serum or plasm a GFR(non-afri can thai) 35 Not Available [facility] [address] [place] [address], 87877, 09/03/2024 11:05:53 09/02/20 24 09/03/2024 CMP, serum or plasm a GFR() 43 (AUTOS DISASSEMBLER MARIA TERESA KIDNE Y DISEA SE HAS A GFR LESS THAN 60 ML/TX N/1.7 3 MM FOR A PERIO D OF THREE MONTH S OR MORE. ) Not Available [facility] [address] [place] [address], 10242, 09/03/2024 11:05:53 09/02/20 24 09/03/2024 CK (crea ángel kinas e), total , serum CPK- Not Available [facility] [address] [place] [address], 66092, 09/03/2024 11:05:55 09/02/20 24 09/03/2024 CK (crea ángel kinas e), total , serum CPK 59 U/L 30-200 Not Available [facility] [address] [place] [address], 30717, 09/03/2024 11:05:55 09/02/20 24 09/03/2024 C-janet ctive prote in, quant itati ve, serum or plasm a CRP Not Available [facility] [address] [place] [address], 51726, 09/03/2024 11:28:53 09/02/20 24 09/03/2024 C-janet ctive prote in, quant itati ve, serum or plasm a CRP <0.4 mg/dL <0.4-0 .5 Not Available [facility] [address] [place] [address], 48193, 09/03/2024 11:28:53 09/02/20 24 09/03/2024 arthr itis panel uric acid 4.3 mg/dL 2.3-6. 6 Not Available [facility] [address] [place] [address], 85815, 09/04/2024 13:42:33 09/02/20 24 09/03/2024 arthr itis panel sed rate 4 mm/HR 0 - 30 Not Available [facility] [address] [place] [address], 32111, 09/04/2024 13:42:33 09/02/20 24 09/03/2024 arthr itis panel rf 14 IU/mL <3.5-1 4 Not Available [facility] [address] [place] [address], 64726, 09/04/2024 13:42:33 09/02/20 24 09/03/2024 arthr itis panel ccp antibody, IgG <0.54 U/mL <=4.9 Not Available [facility] [address] [place] [address], 10745, 09/04/2024 13:42:33 09/02/20 24 09/04/2024 arthr itis panel arthritis panel Not Available [facility] [address] [place] [address], 56282, 09/04/2024 13:42:33 09/02/20 24 09/04/2024 arthr itis panel MOSES screen NEGATI VE negati ve Perfo rmed by Bio-R ad enzym e immun oassa y Not Available [facility] [address] [place] [address], 10640, 09/04/2024 13:42:33 09/02/20 24 09/03/2024 arthr itis panel arthritis panel Not Available [facility] [address] [place] [address], 72736, 09/03/2024 11:28:54 09/02/20 24 09/03/2024 arthr itis panel uric acid 4.3 mg/dL 2.3-6. 6 Not Available [facility] [address] [place] [address], 17519, 09/03/2024 11:28:54 09/02/20 24 09/03/2024 arthr itis panel sed rate 4 mm/HR 0 - 30 Not Available [facility] [address] [place] [address], 65965, 09/03/2024 11:28:54 09/02/20 24 09/03/2024 arthr itis panel MOSES screen PENDIN G Not Available [facility] [address] [place] [address], 61147, 09/03/2024 11:28:54 09/02/20 24 09/03/2024 arthr itis panel rf 14 IU/mL <3.5-1 4 Not Available [facility] [address] [place] [address], 86068, 09/03/2024 11:28:54 09/02/20 24 09/03/2024 arthr itis panel ccp antibody, IgG <0.54 U/mL <=4.9 Not Available [facility] [address] [place] [address], 14378, 09/03/2024 11:28:54 09/02/20 24 09/03/2024 arthr itis panel arthritis panel Not Available [facility] [address] [place] [address], 00322, 09/03/2024 11:23:25 09/02/20 24 09/03/2024 arthr itis panel uric acid 4.3 mg/dL 2.3-6. 6 Not Available [facility] [address] [place] [address], 24497, 09/03/2024 11:23:25 09/02/20 24 09/03/2024 arthr itis panel sed rate 4 mm/HR 0 - 30 Not Available [facility] [address] [place] [address], 15131, 09/03/2024 11:23:25 09/02/20 24 09/03/2024 arthr itis panel MOSES screen PENDIN G Not Available [facility] [address] [place] [address], 74850, 09/03/2024 11:23:25 11/19/09/03/2024 arthr itis panel rf 14 IU/mL <3.5-1 4 Not Available [facility] [address] [place] [address], 87039, 09/03/2024 11:23:25 09/02/20 24 09/03/2024 arthr itis panel ccp antibody, IgG PENDIN G Not Available [facility] [address] [place] [address], 43051, 09/03/2024 11:23:25 09/02/20 24 09/03/2024 arthr itis panel arthritis panel Not Available [facility] [address] [place] [address], 41650, 09/03/2024 11:05:57 09/02/20 24 09/03/2024 arthr itis panel uric acid 4.3 mg/dL 2.3-6. 6 Not Available [facility] [address] [place] [address], 40064, 09/03/2024 11:05:57 09/02/20 24 09/03/2024 arthr itis panel sed rate PENDIN G Not Available [facility] [address] [place] [address], 29724, 09/03/2024 11:05:57 09/02/20 24 09/03/2024 arthr itis panel MOSES screen PENDIN G Not Available [facility] [address] [place] [address], 93149, 09/03/2024 11:05:57 09/02/20 24 09/03/2024 arthr itis panel rf 14 IU/mL <3.5-1 4 Not Available [facility] [address] [place] [address], 52211, 09/03/2024 11:05:57 09/02/20 24 09/03/2024 arthr itis panel ccp antibody, IgG PENDIN G Not Available [facility] [address] [place] [address], 47242, 09/03/2024 11:05:57 05/30/20 24 03/29/2023 imagi ng/di agnos tic resul t No observ ation record ed. Not Available 05/30/2024 02:13:59 Result Notes None recorded. Problems Name Problem SNOMED Code Status Onset Date Resolution Date Notes Provider Name and Address Organization Details Recorded Time Renal insufficiency [facility]483491 [facility]34 Chronic kidney disease stage 3 078903640 [facility] 15:32:41 Multiple joint pain 87988205 Active 2023 Bala Conley MD [address] [place] [address], 23523[address]174 3, [facility] 4 22:02:20 Muscle pain 67395793 Active 2023 Bala Conley MD [address] [place] [address], 86844-666 3, [facility] 4 22:02:34 Gastroesophage al reflux disease 855913173 Active 2023 Bala Conley MD [address] [place] [address], 68622-453 3, [facility] 4 22:03:10 Chronic kidney disease stage 3A 398912966 Active 2023 Bala Conley MD [address] [place] [address], 95904-934 3, [facility] 4 22:03:32 Mechanical low back pain 431199973 Active 2023 Bala Conley MD [address] [place] [address], 06311-464 3, [facility] 4 22:03:43 Benign essential hypertension 1270418 Active 2023 Mira Reyes PA-C [address] [place] [address], 10626-100 3, [facility] 14:51:27 Problem Notes None recorded. Procedures Surgical [...] Name and Address Organization Details Recorded Time 1504257 Bactrim medicatio n other Not available Not available 11/14/20232020 09110 9 RxNorm React ion: GI Upset ; [...] 05/01/2024 61 /min 142 mm[Hg] 82 mm[Hg] Thang Aly [facility] 05/01/2024 14:52:23 Date Recorded Body weight Heart rate Systolic blood pressure Diastolic blood pressure Provider Name and Address Organization Details Last Updated DateTime 06/19/2024 56405.42 g 46 /min 188 mm[Hg] 98 mm[Hg] Edie Luna [facility] 06/19/2024 14:42:37 Date Recorded Body weight Heart rate Systolic blood pressure Diastolic blood pressure Provider Name and Address Organization Details Last Updated DateTime 08/21/2024 04991.6 g 50 /min 160 mm[Hg] 74 mm[Hg] [facility] 08/21/2024 12:27:31 Date Recorded Body weight Heart rate Oxygen saturation Oxygen saturation in Arterial blood by Pulse oximetry Pain severity - 0-10 verbal numeric rating [Score] - Reported Systolic blood pressure Diastolic blood pressure Provider Name and Address Organization Details Last Updated DateTime 29666.0 7 g 54 /min 98 % 98 % 9 148 mm[Hg] 68 mm[Hg] Farrah Funk [facility] 17:10:30 Date Recorded Heart rate Systolic blood pressure Diastolic blood pressure Provider Name and Address Organization Details Last Updated DateTime 12/18/2024 54 /min 118 mm[Hg] 60 mm[Hg] [facility] 12/18/2024 12:14:20 Social History None recorded. Functional Status None recorded. Mental Status None recorded. Family History Nothing Reported. Medical History No medical history recorded. Gynecological HistoryNo gynecological history recorded. Obstetrics History GPAL:G 0 P 0 0 0 0 Past Encounters Encounter ID Performer Location Encounter Start Date Encounter Closed Date Diagnosis/Indication Diagnosis SNOMED-CT Code Diagnosis ICD10 Code Diagnosis Note [id number] Karen Nicole MD [facility] [place] [address] [facility] [place] [address] 01/10/2024 15:22:54 01/10/2024 16:37:50 Renal insufficiency 931750729 N28.9 [id number] Mira Reyes PA-C [facility] [place] [address] [facility] [place] [address] 05/01/2024 14:26:22 05/01/2024 15:15:46 Chronic kidney disease stage 3 028450416 N18.30 Benign ess ential hypertension 4818206 I10 [id number] Karen Nicole MD [facility] ([place]) [address] [place] [address] 06/19/2024 14:08:10 06/19/2024 15:08:49 Chronic kidney disease stage 3 928785736 N18.30 Benign ess ential hypertension 8548436 I10 [id number] Mira Reyes PA-C [facility] [place]) [address] [facility] [place] [address] 08/21/2024 11:50:48 08/21/2024 12:57:31 Chronic kidney disease stage 3 619125894 N18.30 Benign ess ential hypertension 2242303 I10 [id number] Bala Conley MD [address] [place] [address] [place]gy ([place]) [address] [place] [address] 09/02/2024 15:51:47 09/02/2024 18:42:34 Multiple joint pain 89844811 M25.50 Gastroesop hageal reflux disease 304270771 K21.9 Chronic ki dney disease stage 3A 294051477 N18.31 Mechanical low back pain 145249339 M54.59 [id number] Mira Reyes PA-C [facility] [place] [address] [place] [place] [address] 12/18/2024 11:35:56 12/18/2024 12:31:59 Chronic kidney disease stage 3 289824871 N18.30 Benign ess ential hypertension 6670757 I10 Health Concerns Section Related Observation LastModified by Organization Detai ls LastModified Time None Recorded Concern Status LastModified by Organization Details LastModified Time None Recorded Advance Directives Directive None Recorded Payers Encounter Date Sequence Insurance Name Policy Number Policy Curiel Covered Member ID Curiel Member ID Guarantor Name 05/01/2024 1 [place] Wanda Gordillo [id number] Wanda Gordillo 05/01/2024 2 [place] Wanda Drummondi [id number] Wanda Drummondi 06/19/2024 1 [place]anda Drummondi [id number] Wanda Drummondi 06/19/2024 2 [place] Wanda Drummondi [id number] Wanda Drummondi 08/21/2024 1 [place] Wanda Drummondi [id number] Wanda Drummondi 08/21/2024 2 [place] Wanda Drummondi [id number] Wanda Drummondi 09/02/2024 1 [place] Wanda Drummondi [id number] Wanda Drummondi 09/02/2024 2 [place] Wanda Drummondi [id number] Wanda Drummondi 12/18/2024 1 [place] Wanda Drummondi [id number] Wanda Drummondi 12/18/2024 2 [place]) Wanda Drummondi [id number] Wanda Gordillo Notes Date Note Type Note [...] atrial fibrillation. Mira Reyes PA-C [address] [place] [address], [phone], [facility] 05/01/2024 16:49:08 06/19/2024 text/html Ms. Gordillo [...] of UTI Karen Nicole MD [address] [place] [address], [phone], [facility] 06/23/2024 15:10:26 08/21/2024 text/html Ms. Gordillo [...] be worsening. Mira Reyes PA-C [address] [place] [address], [phone], [facility] 08/21/2024 14:16:08 09/02/2024 text/html The patient [...] Instead, she takes Advil on her own tbif-rop-cxfujad alternating this occasionally with some Tylenol. The [...] her eyes. 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 She [...] patient s past medical history and [employer] intake form.abel Conley MD [address] [place] [address], [phone], [facility] 09/04/2024 21:36:32 12/18/2024 text/html Ms. Gordillo is [...] be worsening. Mira Reyes PA-C [address] [place] [address], [phone], [facility] 12/18/2024 14:00:58 OBGyn Episode No OBEpisode recorded.
--- OUTSIDE RECORDS SUMMARY | 2025-01-02 16:17 | XMS_ITS | Clinical Summary ---
Author Organization [facility] Address [address] [place] [address] Care Team Providers Care Rubber Grinder Name Role Phone Blas Hardin MD Primary Care Provider [phone] Rolo Roblero MD Unavailable Allergies Active Allergy [...] (09/15/2022): Added automatically from request for surgery [id number] Blood loss anemia 03/07/2020 Postoperative anemia 03/07/2020 [...] Department Care Team Description 12/11/2024 9:11 AM CARTON MAKING MACHINE OPERATOR - 12/11/2024 11:59 PM [facility] Hospital Encounter [facility] Critical access hospital[address] [place] [address] Blas Hardin MD Injection Discharge Disposition: Home or Self Care (Routine Discharge) 12/11/2024 9:10 AM [facility] Hospital Encounter [facility] [address] [place] [address] Blas Hardin MD Discharge Disposition: Home or Self Care (Routine Discharge) 12/11/2024 Travel 11/07/2024 9:30 AM CARTON MAKING MACHINE OPERATOR Office Visit [facility] [place] [address] Rolo Roblero MD Heart Problem 11/07/2024 9:15 AM CARTON MAKING MACHINE OPERATOR - 11/07/2024 11:59 PM CARTON MAKING MACHINE OPERATOR Hospital Encounter [facility] [address] [place] [address] [place] [address] Rolo Roblero MD Discharge Disposition: Home or Self Care (Routine Discharge) 11/07/2024 Telephone [facility] [address] [place] [address] Rolo Roblero MD Schedule Test 11/07/2024 Travel 11/06/2024 Telephone [facility] [address] [place] [address] Rolo Roblero MD Appointment Reminder 11/06/2024 Orders Only [facility] [address] [place] [address] [place] [address] Blas Hardin MD 11/05/2024 Orders Only [facility] [address] [place] [address] Rolo Roblero MD 10/31/2024 1:19 PM CARTON MAKING MACHINE OPERATOR - 10/31/2024 11:59 PM CARTON MAKING MACHINE OPERATOR Hospital Encounter [facility] [address] [address] Rolo Roblero MD Discharge Disposition: Home or Self Care (Routine Discharge) 10/31/2024 Travel 10/21/2024 Telephone [facility] [address] [place] [address] Rolo Roblero MD Reschedule from Last 3 [...] place to sleep or slept in a skilled nursing (including now)? No 07/30/2023 Comments No Sex and Gender Information Value Date Recorded Sex Assigned at Female 10/31/2024 1:15 PM CARTON MAKING MACHINE OPERATOR Legal Sex Female 5:44 PM CARTON MAKING MACHINE OPERATOR Gender Identity Not on file Sexual Orientation Not on file Last Filed Vital Signs Vital Sign Reading Time Taken Comments Blood Pressure 138/44 12/11/2024 10:16 AM CARTON MAKING MACHINE OPERATOR Pulse 57 12/11/2024 10:16 AM CARTON MAKING MACHINE OPERATOR Temperature 36.3 C (97.4 F) 12/11/2024 10:16 AM CARTON MAKING MACHINE OPERATOR Respiratory Rate 18 12/11/2024 10:1 6 AM CARTON MAKING MACHINE OPERATOR Oxygen Saturation 100% 12/11/2024 10: 16 AM CARTON MAKING MACHINE OPERATOR Inhaled Oxygen Concentration - - Weight 58.9 kg (129 lb 13.6 oz) 025 10:16 AM CARTON MAKING MACHINE OPERATOR Height 170.2 cm (5' 7 ) 11/07/2024 1:33 PM CARTON MAKING MACHINE OPERATOR Body Mass Index 20.34 11/07/2024 1:33 PM CARTON MAKING MACHINE OPERATOR Plan of Treatment Upcoming Encounters Date Type Department Care Team (Late st Contact Info) Description 10/16/2025 9:00 AM CARTON MAKING MACHINE OPERATOR Appointment [facility] [address] [place] [address] [place] [address] Rolo Roblero MD [address] [place] [address] 10/23/2025 9:30 AM CARTON MAKING MACHINE OPERATOR Office Visit [facility] [place] [address] Rolo Roblero MD [address] [place] [address] Health Maintenance Due Date Last Done Comments [...] this topic Medical Devices Implanted Type Area Agriscience Instructor Device Identifier Shelf Expiration Date Model / Serial / Lot Knee Components Knee Components Lens Lens G7 Rover Ti Acetabular Shell 4 Hole, Cementless Implanted:Qty: 1 on 03/01/2020 by Brian Lopez MD at [facility] Right: Hip [employer] 09/16/2029 [id number] / / [id number] Acetabular System Liner Neutral 36 Mm Size F Implanted:Qty: 1 on 03/01/2020 by Brian Lopez MD at [facility] Right: Hip [employer] 05/14/2024 [id number] / / [id number] Screw Eliz Bone 25mm - [id number] Implanted:Qty: 1 on 03/01/2020 by Brian Lopez MD at [facility] Right: Hip [employer] 08/14/2029 [id number] / / [id number] Screw Eliz Bone 30mm - [id number] Implanted:Qty: 1 on 03/01/2020 by Brian Lopez MD at [facility] Right: Hip [employer] 09/16/2029 [id number] / / [id number] Standard Femoral Stem Full Proximal Profile Porous Plasma Uncemented 14 Implanted:Qty: 1 on 03/01/2020 by Brian Lopez MD at [facility] Right: Hip [employer] 01/19/2028 [id number] / / [id number] Component Modular Head 36mm Biomet - [id number] Implanted:Qty: 1 on 03/01/2020 by Brian Lopez MD at [facility] Right: Hip [employer] 09/06/2028 [id number] / / [id number] Explanted Type Area Agriscience Instructor Device Identifier Shelf Expiration Date Model / Serial / Lot Drill Tip - [id number] Explanted:Qty: 1 on 03/01/2020 at [facility] Right: Hip [employer] [id number] / / Procedures Procedure Name Priority Date/Time Associated Diagnosis Comments COMPREHENSIVE METABOLIC PANEL Routine 12/11/2024 9:37 AM CARTON MAKING MACHINE OPERATOR Age-related osteoporosis without current pathological fracture ECG 12-LEAD Routine 11/07/2024 9:51 AM CARTON MAKING MACHINE OPERATOR Hypomagnesemia USE ECHOCARDIOGRAM Routine 10/31/2024 1: 57 PM CARTON MAKING MACHINE OPERATOR Paroxysmal atrial fibrillation (CMS/HCC HHS/HCC) Other cardiomyopathy (CMS/HCC HHS/HCC) from Last 3 Months Results * (ABNORMAL) COMPREHENSIVE METABOLIC PANEL (12/11/2024 9:37 AM CARTON MAKING MACHINE OPERATOR) SODIUM S/P/B 135(L) 136 - 145 MMOL/L 12/11/2024 10:01 AM [facility] POTASSIUM S/P/B 4.3 3.5 - 5.1 MMOL/L 12/11/2024 10:01 AM [facility] CHLORIDE S/P/B 99 98 - 107 MMOL/L 12/11/2024 10:01 AM [facility] CO2 30.3 21.0 - 32.0 MMOL/L 12/11/2024 10:01 AM [facility] GLUCOSE 79 70 - 99 MG/DL 12/11/2024 10:01 AM [facility] Comment: FASTING GLUCOSE 100 TO 125 MG/DL IS CONSISTENT WITH IMPAIRED FASTING GLUCOSE. FASTING GLUCOSE >125 MG/DL IS CONSISTENT WITH DIABETES. RANDOM GLUCOSE >200 MG/DL WITH HYPERGLYCEMIC SYMPTOMS IS CONSISTENT WITH DIABETES. PER ADA GUIDELINES BUN 24 6 - 24 MG/DL 12/11/2024 10:01 AM [facility] CREATININE S/P/B 1.15(H) 0.55 - 1.02 MG/DL 12/11/2024 10:01 AM [facility] CALCIUM S/P/B 8.8 8.4 - 10.5 MG/DL 12/11/2024 10:01 AM [facility] BILIRUBIN TOTAL S/P/B 0.3 0.2 - 1.0 MG/DL 12/11/2024 10:01 AM [facility] Comment: THIS ASSAY IS NOT RECOMMENDED FOR PATIENTS UNDERGOING TREATMENT WITH ELTROMBOPAG DUE TO THE POTENTIAL FOR FALSELY ELEVATED RESULTS. ALKALINE PHOSPHATASE S/P/B 78 55 - 142 U/L 12/11/2024 10:01 AM [facility] AST 44(H) 15 - 37 U/L 12/11/2024 10:01 AM [facility] ALT 57 14 - 59 U/L 12/11/2024 10:01 AM [facility] TOTAL PROTEIN S/P/B 6.4 6.4 - 8.2 G/DL 12/11/2024 10:01 AM [facility] ALBUMIN S/P/B 3.3(L) 3.4 - 5.0 G/DL 12/11/2024 10:01 AM [facility] ANION GAP 5.7 5.0 - 15.0 MMOL/L 12/11/2024 10:01 AM [facility] OSMOLALITY (CALC) 283 MOSM/KG 025 10:01 AM [facility] Comment:REFERENCE RANGE NOT ESTABLISHED GFR ESTIMATE 48(L) >89 ML/MIN/1. 73 M2 12/11/2024 10:01 AM [facility] GFR NOTES GFR REFERENCE S: 12/11/2024 10:01 AM [facility] Comment: THE ESTIMATED GFR IS [...] FAILURE: <15 ml/min/1.73 m2 12/11/2024 9:37 AM CARTON MAKING MACHINE OPERATOR us Blas Hardin MD LABORATORY Final Resul t Performing Organization Address [facility] Co de Phone Number [facility] [address] [place] [phone], * ECG 12 lead (HOSPITAL PERFORMED ONLY) (11/07/2024 9:51 AM CARTON MAKING MACHINE OPERATOR) 11/07/2024 9:51 AM CARTON MAKING MACHINE OPERATOR Narrative [facility] - 11/07/2024 6:23 PM CARTON MAKING MACHINE OPERATOR [address] [place] [address] Test Date: 2024-11-07 Pat Name: [facility] Department: 3 Room: Gender: Female Carpenter'S Helper: : 1940 Requested By: ROLO ROBLERO Order Number: [id number] Reading MD: Rolo Roblero Measurements Intervals Garrett Rate: 59 P: 78 ID: [id number] QRS: 85 QRSD: 109 T: 80 QT: 474 QTc: 471 Interpretive Statements SINUS BRADYCARDIA WITH FIRST DEGREE AV BLOCK PROLONGED QT INTERVAL ON MAKING MACHINE OPERATOR Procedure Note Rolo Roblero MD - 11/07/[address] [place] [address] Test Date: 2024-11-07 Pat Name: GIAN GORDILLO Department: 3 Room: Gender: Female Carpenter'S Helper: : 1940 Requested By: ROLO ROBLERO Order Number: [id number] Reading FRANK Roblero Measurements Intervals Garrett Rate: 59 P: 78 ID: [id number] QRS: 85 QRSD: 109 T: 80 QT: 474 QTc: 471 Interpretive Statements SINUS BRADYCARDIA WITH FIRST DEGREE AV BLOCK PROLONGED QT INTERVAL ON MAKING MACHINE OPERATOR us Rolo Roblero MD ECG ORDERABLES Final Result Performing Organization Address [facility] Co de Phone Number [facility] * USE ECHOCARDIOGRAM (10/31/2024 1:57 PM CARTON MAKING MACHINE OPERATOR) Anatomical Region Laterality Modality Cardiac Ultrasound 10/31/2024 1:27 PM CARTON MAKING MACHINE OPERATOR Narrative 11/02/2024 10:07 AM CARTON MAKING MACHINE OPERATOR Echocardiography Report Pat.Name: Gian Gordillo.ID: [id number] .Date: 10/31/2024 Refer.MD: Robert, [facility] Exam Time: 1:27:00 PM Study Type:OUTREACH Height: 67 in Weight: 130 lb BSA: 1.68 m2 Age: 3 1940,83Y Sex: F Sonogrphr: Preet Pat. Stat.:Outpatient Reason for Study:Paroxysmal atrial fibrillation, Other cardiomyopathy Procedures: Study performed at [place], [place] and interpreted by [facility]. 2D, M-mode, Doppler, Color Flow [...] - 11/02/2024 Echocardiography Report Pat.Name: Gian Gordillo.ID: [id number] .Date: 10/31/2024 Refer.MD: Robert, [facility] Exam Time: 1:27:00 PM Study Type:[facility] Height: 67 in Weight: 130 lb BSA: 1.68 m2 Age: 3 1940,83Y Sex: F Sonogrphr: Pat. Stat.:Outpatient Reason for Study:Paroxysmal atrial fibrillation, Other cardiomyopathy Procedures: Study performed at [place], [place] and interpreted by [facility]. 2D, M-mode, Doppler, Color Flow [...] Result from Last 3 Months Insurance [employer] Advance Directives * Full Code (Latest [...] 5:01 PM 03/03/2020 4:52 PM Care Teams Rubber Grinder Relationship Specialty Start Date End Date Blas Hardin MD [address] [place] [phone] PCP - General FAMILY PRACTICE 05/06/19 Rolo Roblero MD [address] [place] [address] Consulting Physician CARDIOVASCULAR DISEASE 01/24/24
--- OUTSIDE RECORDS SUMMARY | 2025-01-02 16:17 | XMS_ITS | Encounter Summary ---
Author Organization [facility] Address [address] Fernandezn: Epic Prelude ADT [place] AGUILAR [address] Care Team Providers Care Bearing Maker Name Role Phone Unavailable Primary Care Provider [...] on file Legal Sex Female 4:13 AM GOVERNMENT AFFAIRS DIRECTOR Gender Identity Not on file Sexual Orientation Not on file documented as of this encounter Plan of Treatment Not on file documented as of this encounter Visit Diagnoses Not on filedocumented in this encounter
--- OUTSIDE RECORDS SUMMARY | 2025-01-02 16:17 | XMS_ITS | Clinical Summary ---
Author Organization [facility] Address [address] [place] [address] Phone Care Team Providers Care Elevator Supervisor Name Role Phone Blas Hardin MD Primary Care Provider [phone] Social History Tobacco Use Types Packs/Day Years [...] age to complete this topic Insurance MEDICARE [facility] Care Teams Elevator Supervisor Relationship Specialty Start Date End Date Blas Hardin MD [address] [place] [address] PCP - General Family Medicine 01/24/16
--- OUTSIDE RECORDS SUMMARY | 2025-01-02 16:17 | XMS_ITS | Clinical Summary ---
Author Organization [facility] Address [address] Cha: Epic Prelude ADT LIZETH VELAZCOADILSON [address] Care Team Providers Care Box Maker Name Role Phone Unavailable Primary Care Provider Unavailabl e Social History Tobacco Use Types Packs/Day Years Used Date Smoking Tobacco: Never Assessed Comments Unknown Sex and Gender Information Value Date Recorded Sex Assigned at Not on file Legal Sex Female 4:[address]PORTER Gender Identity Not on file Sexual Orientation [...]
--- OUTSIDE RECORDS SUMMARY | 2025-01-02 16:17 | XMS_ITS | Clinical Summary ---
Author Organization [facility] Address [address] [place] [address] Care Team Providers Care Service Desk Director Name Role Phone Blas Hardin MD Primary [...] mcg tablet Take 100 mcg by mouth library science professor before breakfast Active Active Problems Problem Noted [...] on file Legal Sex Female 1:53 PM BASEBALL CLUB MANAGER Gender Identity Not on file Sexual Orientation Not on file Obstetrics History Last Filed Vital Signs Vital Sign Reading Time Taken Comments Blood Pressure 198/89 10/03/2019 11:17 AM BASEBALL CLUB MANAGER Pulse 58 10/03/2019 11:17 AM BASEBALL CLUB MANAGER Temperature 35.9 C (96.7 F) 08/11/2019 9:07 AM CDT Respiratory Rate 16 10/03/2019 11:17 AM BASEBALL CLUB MANAGER Oxygen Saturation 98% 10/03/2019 11:17 AM BASEBALL CLUB MANAGER Inhaled Oxygen Concentration - - Weight 71.7 [...] Result from Last 3 Months Insurance MEDICARE [facility] MED[facility] Care Teams Service Desk Director Relationship Specialty Start Date End Date Blas Hardin MD PCP - General 01/12/17
--- OUTSIDE RECORDS SUMMARY | 2025-01-02 16:17 | XMS_ITS | Encounter Summary ---
Author Organization [facility] Address [address] Cha: Epic Prelude ADT [place] AGU[place] [address] Care Team Providers Care Automated Teller Manager Name Role Phone Unavailable Primary Care Provider Unavailabl e Encounter Details Date Type Department Care Team (Late st Contact Info) Description 10/12/1989 Outpatient Historical Jassi Gage Social History Tobacco Use Types Packs/Day Years Used Date Smoking Tobacco: Never Assessed Comments Unknown Sex and Gender Information Value Date Recorded Sex Assigned at Not on file Legal Sex Female 4:13 AM SCHOOL ADMISSIONS REPRESENTATIVE Gender Identity Not on file Sexual Orientation Not on file documented as of this encounter Plan of Treatment Not on file documented as of this encounter Visit Diagnoses Not on filedocumented in this encounter
--- OUTSIDE RECORDS SUMMARY | 2025-01-02 16:17 | XMS_ITS | Referral Summary ---
Author Organization [facility] Address [address] [place] [address] Care Team Providers Care Quarryman Name Role Phone Blas Hardin MD Primary [...] mcg tablet Take 100 mcg by mouth media relations manager before breakfast Active Active Problems Problem [...] on file Legal Sex Female 1:53 PM FLANGING MACHINE OPERATOR Gender Identity Not on file Sexual Orientation Not on file Last Filed Vital Signs Vital Sign Reading Time Taken Comments Blood Pressure 198/89 10/03/2019 11:17 AM FLANGING MACHINE OPERATOR Pulse 58 10/03/2019 11:17 AM FLANGING MACHINE OPERATOR Temperature 35.9 C (96.7 F) 08/11/2019 9:07 AM CDT Respiratory Rate 16 10/03/2019 11:17 AM FLANGING MACHINE OPERATOR Oxygen Saturation 98% 10/03/2019 11:17 AM FLANGING MACHINE OPERATOR Inhaled Oxygen Concentration - - Weight 71.7 [...] Final Result from Last 3 Months Insurance [facility] MEDICARE Care Teams Quarryman Relationship Specialty Start Date End Date Blas Hardin MD PCP - General 01/12/17
--- OUTSIDE RECORDS SUMMARY | 2025-01-02 16:17 | XMS_ITS | Encounter Summary ---
Author Organization [facility] Address [facility] [place] [address] Care Team Providers Care Chief Talent Officer Name Role Phone Blas Hardin MD Primary Care Provider Josie Becerra MD Unavailable Encounter Details Date Type Department Care Team (Late st Contact Info) Description 03/22/2019 Abstract [facility] [address] [place] [address] , Generic Conversion, Social History Tobacco Use Types Packs/Day Years Used Date Smoking Tobacco: Never Assessed Comments Unknown Sex and Gender Information Value Date Recorded Sex Assigned at Female 10/31/2024 1:15 PM DRUG SAFETY ASSISTANT Legal Sex Female 5:44 PM DRUG SAFETY ASSISTANT Gender Identity Not on file Sexual Orientation Not on file documented as of this encounter Plan of Treatment Upcoming Encounters Date Type Department Care Team (Late st Contact Info) Description 10/16/2025 9:00 AM DRUG SAFETY ASSISTANT [address]ointment [facility] [address] [place] [address] Josie Becerra MD [address] [place] [phone] 10/23/2025 9:30 AM DRUG SAFETY ASSISTANT Office Visit [facility] [address] [place] [phone] Josie Becerra MD [address] [place] [phone] documented as of this encounter Visit Diagnoses Not on filedocumented in this encounter Additional Health Concerns Infection Onset Date Last Indicated Resolved Time COVID-19 Rule Out 02/27/2020 02/27/2020 02/28/2020 4:14 PM CDT COVID-19 Rule Out 03/09/2020 03/09/2020 03/09/2020 4:38 PM CDT COVID-19 Rule Out 02/03/2024 02/03/2024 02/03/2024 2:55 PM CDT documented as of this encounter Care Teams Chief Talent Officer Relationship Specialty Start Date End Date Blas Hardin MD [address] [place] [address] PCP - General FAMILY PRACTICE 05/06/19 Josie Becerra MD [address] [place] [address] Consulting Physician CARDIOVASCULAR DISEASE 01/24/24 documented as of this encounter
--- OUTSIDE RECORDS SUMMARY | 2025-01-02 16:17 | XMS_ITS | Encounter Summary ---
Author Organization [facility] Address [address] [place] [address] Care Team Providers Care Pizza Cook Name Role Phone Blas Hardin MD Primary Care Provider Josie Becerra MD Unavailable Encounter Details Date Type Department Care Team (Late st Contact Info) Description 09/17/2019 Hospital Orders Only [facility] [address] [place] [address] Blas Hardin MD [address] [place] [phone] Social History Tobacco Use Types Packs/Day Years Used Date Smoking Tobacco: Never Assessed Comments Unknown Sex and Gender Information Value Date Recorded Sex Assigned at Female 10/31/2024 1:15 PM MICROBIOLOGY SUPERVISOR Legal Sex Female 5:44 PM MICROBIOLOGY SUPERVISOR Gender Identity Not on file Sexual Orientation Not on file documented as of this encounter Plan of Treatment Upcoming Encounters Date Type Department Care Team (Late st Contact Info) Description 10/16/2025 9:00 AM MICROBIOLOGY SUPERVISOR Appointment [facility] [address] [place] [address] Josie Becerra MD [address] [place] [phone] 10/23/2025 9:30 AM MICROBIOLOGY SUPERVISOR Office Visit [facility] [address] [place] [phone] Josie Becerra MD [address] [place] [phone] documented as of this encounter Visit Diagnoses Not on filedocumented in this encounter Additional Health Concerns Infection Onset Date Last Indicated Resolved Time COVID-19 Rule Out 02/27/2020 02/27/2020 02/28/2020 4:14 PM CDT COVID-19 Rule Out 03/09/2020 03/09/2020 03/09/2020 4:38 PM CDT COVID-19 Rule Out 02/03/2024 02/03/2024 02/03/2024 2:55 PM CDT documented as of this encounter Care Teams Pizza Cook Relationship Specialty Start Date End Date Blas Hardin MD [address] [place] [phone] PCP - General FAMILY PRACTICE 05/06/19 Josie Becerra MD [address] [place] [address] Consulting Physician CARDIOVASCULAR DISEASE 01/24/24 documented as of this encounter
--- OUTSIDE RECORDS SUMMARY | 2025-01-02 16:17 | XMS_ITS | Encounter Summary ---
Author Organization [facility] Address [address] Cha: Epic Prelude ADT [place] AGUILAR [address] Care Team Providers Care Lpn Care Manager Name Role Phone Unavailable Primary Care Provider Unavailabl e Encounter Details Date Type Department Care Team (Late st Contact Info) Description 08/09/1990 Outpatient Historical Jassi Gage Social History Tobacco Use Types Packs/Day Years Used Date Smoking Tobacco: Never Assessed Comments Unknown Sex and Gender Information Value Date Recorded Sex Assigned at Not on file Legal Sex Female 4:13 AM ASSISTANT PRODUCT MANAGER Gender Identity Not on file Sexual Orientation Not on file documented as of this encounter Plan of Treatment Not on file documented as of this encounter Visit Diagnoses Not on filedocumented in this encounter
--- NOTE | 2025-01-02 16:20 | ED.FALL ---
HPI - Fall General Chief Complaint: Fall Stated Complaint: fall Time Seen by Provider: 01/02/25 16:15 Source: patient, family and EMS Mode of arrival: EMS Limitations: dementia History of Present Illness HPI Narrative: patient is an 84-year-old female with recurrent falls and here for a fall getting off the toilet and reaching for the bar to assist with standing. She was asymptomatic before the event. No loss of consciousness. Probable head injury. She is on Eliquis. complaint: fall Onset (ago): hour(s) ( One) Fall from: other ( sitting to standing) Fall witnessed: no Place fall occurred: home Loss of consciousness: none Prolonged down time: no Symptoms prior to fall: none Context: tripped/slipped Location of injury: head, neck and pelvis Location of injury - extremities: Bilateral: knee Severity: mild Severity scale (1-10): 3 Quality: sharp Associated symptoms (after fall): denies Related Data Home Medications ?Medication ?Instructions ?Recorded ?Confirmed ?Last Taken ?Type duloxetine 20 mg capsule,delayed 20 mg PO DAILY 12/16/23 03/27/24 Unknown History release latanoprost 0.005 % eye drops 1 drp EACH EYE DAILY 12/16/23 03/27/24 Unknown History levothyroxine 100 mcg tablet 100 mcg PO DAILY 12/16/23 03/27/24 Unknown History (Synthroid) mirabegron 50 mg tablet,extended 50 mg PO DAILY 12/16/23 03/27/24 Unknown History release 24 hr (Myrbetriq) Allergies Allergy/AdvReac Type Severity Reaction Status Date / Time Sulfa (Sulfonamide Allergy Intermediate LIP Verified 03/27/24 16:34 Antibiotics) SWELLING Review of Systems Review of Systems: All systems reviewed & are unremarkable except as noted in HPI and below Constitutional: Constitutional: Reports no additional constitutional complaints Eyes: Eyes: Reports no additional eye complaints ENT: Reports system reviewed and no additional complaints, except as documented Cardiovascular: Cardiovascular: Reports no additional cardiovascular complaints Respiratory: Respiratory: Reports no additional respiratory complaints Gastrointestinal: Gastrointestinal: Reports no additional gastrointestinal complaints Genitourinary: Genitourinary: Reports no additional female genitourinary complaints Musculoskeletal: Musculoskeletal: Reports no additional musculoskeletal complaints Integumentary/Breasts: Skin/Breast: Reports system reviewed and no additional complaints, except as docu Neurologic: Reports system reviewed and no additional complaints, except as documented Psychiatric: Psychiatric: Reports no additional psychiatric complaints Endocrine: Endocrine: Reports no additional endocrine complaints Hematologic/Lymphatic: Hematologic/Lymphatic: Reports no additional hematologic/lymphatic complaints Allergic/Immunologic: Allergic/Immunologic: Reports no additional allergic/immunologic complaints PMFSH Past Medical History Medical History Seizure none since age 28 Osteoporosis Hypothyroidism Hypertension Surgical History Surgical History History of hysterectomy Social History Social History Smoking status: Never smoker Second hand tobacco smoke exposure: No Alcohol intake: never Substance use: never Substance use type: does not use Do You Feel Safe in your Home?: Yes Lack of Transportation: No Lack of Food: Never True Current Housing: I Have Housing Concerned About Future Housing: No Difficulty Paying Gas/Electric Bills: No Difficulty Paying for Meds: No Currently Unemployed: No Education: High School Diploma/GED Difficulty w/ Childcare or Family Care: No Gender identity (if verbalized by the patient): Female Spiritual care concerns: No Exam Const: General: healthy appearing Nutritional Appearance: well nourished Orientation/consciousness: patient oriented x3 Other: patient has baseline moderate dementia HENMT: Head: normal to inspection Ears: external ears normal Face/Nose/Sinus: Normal external nose present Eyes: Conjunctivae: conjunctivae normal Pupils: Equal, round and reactive pupils present EOM: EOMs intact bilaterally Neck: Neck: normal visual inspection Chest: Chest palpation & inspection: normal inspection of the chest Resp: Effort & Inspection: normal respiratory effort and not labored Auscultation: clear to auscultation bilaterally and no crackles Cardio: Rate: regular rate Rhythm: regular rhythm Heart sounds: no murmurs GI: Inspection: non-distended GI Palp: Yes Soft to palpation and No Tenderness to palpation present (GI) Auscultation: normal bowel sounds : General: Yes bladder normal to palpation Back/Spine/Pelvis: Back: no CVA tenderness Skin: General skin exam: normal color Rashes: no rashes Wounds: no wounds Neuro: General: patient oriented x3, moves all extremities, no meningeal signs, no focal motor deficits and CN's II-XI intact bilaterally Cranial nerves: Yes Nystagmus not present Speech: normal speech Extrem: General: normal to inspection Psych: Mental Status: mental status grossly normal Affect: normal affect Attitude: cooperative MDM - Fall MDM Narrative Medical decision making narrative: patient is an 84-year-old female with a fall mechanical at home and multiple injuries. No open skin. We will do CT scan and x-rays at this time. We discussed eating more food per family wishes. We discussed antidepressants. We discussed aging process. we discussed blood pressure adjustments with the primary doctor. We discussed decreasing the Eliquis with the primary doctor. Imaging Data Attestation: I personally reviewed and interpreted this imaging study as follows: Radiologist's impression: CT scan of the head and neck were negative for acute process x-ray of the bilateral hips and pelvis were negative for acute process x-ray of bilateral knees was negative for acute process Discharge Plan Discharge Clinical Impression: Fall, Multiple contusions Patient Disposition: Home, Self-Care Condition: Stable Instructions: Fall Prevention for Older Adults (ED), Contusion in Adults (ED) Patient Language: Algerian Prescriptions: No Action latanoprost 0.005 % drops 1 drp EACH EYE DAILY levothyroxine [Synthroid] 100 mcg tablet 100 mcg PO DAILY duloxetine 20 mg capsule,delayed release(DR/EC) 20 mg PO DAILY mirabegron [Myrbetriq] 50 mg tablet extended release 24 hr 50 mg PO DAILY metoprolol tartrate 25 mg Tablet 25 mg PO Q12HR Qty: 20 0RF Eliquis 2.5 mg Tablet 2.5 mg PO Q12HR Qty: 180 0RF temazepam 15 mg capsule 15 mg PO HS PRN (Reason: sleep) Qty: 20 0RF Follow-up/Referrals: Pradip Tracy MD [Primary Care Provider] - Time of Disposition: 18:27
--- OUTSIDE RECORDS SUMMARY | 2025-01-02 16:42 | XMS_ITS | Clinical Summary ---
Author Organization [facility] Address [address] [place] [address] Care Team Providers Care Sap Basis Consultant Name Role Phone Blas Hardin MD Primary Care Provider [phone] Rolo Roblero MD Unavailable Allergies Active Allergy [...] (09/15/2022): Added automatically from request for surgery [id number] Blood loss anemia 03/07/2020 Postoperative anemia 03/07/2020 [...] Department Care Team Description 12/11/2024 9:11 AM INBOUND CUSTOMER SERVICE AGENT - 12/11/2024 11:59 PM [facility] Hospital Encounter [facility] [place] [address] Blas Hardin MD Injection Discharge Disposition: Home or Self Care (Routine Discharge) 12/11/2024 9:10 AM [facility] Hospital Encounter [facility] [address] [place] [address] Blas Hardin MD Discharge Disposition: Home or Self Care (Routine Discharge) 12/11/2024 Travel 11/07/2024 9:30 AM INBOUND CUSTOMER SERVICE AGENT Office Visit [facility] [place] [address] Rolo Roblero MD Heart Problem 11/07/2024 9:15 AM INBOUND CUSTOMER SERVICE AGENT - 11/07/2024 11:59 PM INBOUND CUSTOMER SERVICE AGENT Hospital Encounter [facility] [address] [place] [address] [place] [address] Rolo Roblero MD Discharge Disposition: Home or Self Care (Routine Discharge) 11/07/2024 Telephone [facility] [address] [place] [address] Rolo Roblero MD Schedule Test 11/07/2024 Travel 11/06/2024 Telephone [facility] [address] [place] [address] Rolo Roblero MD Appointment Reminder 11/06/2024 Orders Only [facility] [address] [place] [address] [place] [address] Blas Hardin MD 11/05/2024 Orders Only [facility] [address] [place] [address] Rolo Roblero MD 10/31/2024 1:19 PM INBOUND CUSTOMER SERVICE AGENT - 10/31/2024 11:59 PM INBOUND CUSTOMER SERVICE AGENT Hospital Encounter [facility] [address] [place] [address] Rolo Roblero MD Discharge Disposition: Home or Self Care (Routine Discharge) 10/31/2024 Travel 10/21/2024 Telephone [facility] [address] [place] [address] Rolo Roblero MD Reschedule from Last 3 [...] place to sleep or slept in a assisted (including now)? No 07/30/2023 Comments No Sex and Gender Information Value Date Recorded Sex Assigned at Female 10/31/2024 1:15 PM INBOUND CUSTOMER SERVICE AGENT Legal Sex Female 5:44 PM INBOUND CUSTOMER SERVICE AGENT Gender Identity Not on file Sexual Orientation Not on file Last Filed Vital Signs Vital Sign Reading Time Taken Comments Blood Pressure 138/44 12/11/2024 10:16 AM INBOUND CUSTOMER SERVICE AGENT Pulse 57 12/11/2024 10:16 AM INBOUND CUSTOMER SERVICE AGENT Temperature 36.3 C (97.4 F) 12/11/2024 10:16 AM INBOUND CUSTOMER SERVICE AGENT Respiratory Rate 18 12/11/2024 10:1 6 AM INBOUND CUSTOMER SERVICE AGENT Oxygen Saturation 100% 12/11/2024 10: 16 AM INBOUND CUSTOMER SERVICE AGENT Inhaled Oxygen Concentration - - Weight 58.9 kg (129 lb 13.6 oz) 025 10:16 AM INBOUND CUSTOMER SERVICE AGENT Height 170.2 cm (5' 7 ) 11/07/2024 1:33 PM INBOUND CUSTOMER SERVICE AGENT Body Mass Index 20.34 11/07/2024 1:33 PM INBOUND CUSTOMER SERVICE AGENT Plan of Treatment Upcoming Encounters Date Type Department Care Team (Late st Contact Info) Description 10/16/2025 9:00 AM INBOUND CUSTOMER SERVICE AGENT Appointment [facility] [address] [place] [address] [place] [address] Rolo Roblero MD [address] [place] [address] 10/23/2025 9:30 AM INBOUND CUSTOMER SERVICE AGENT Office Visit [facility] [place] [address] Rolo Roblero MD [address] [place] [address] Health Maintenance Due Date Last Done Comments [...] this topic Medical Devices Implanted Type Area Blower Installer Device Identifier Shelf Expiration Date Model / Serial / Lot Knee Components Knee Components Lens Lens G7 [place] Ti Acetabular Shell 4 Hole, Cementless Implanted:Qty: 1 on 03/01/2020 by Brian Lopez MD at [facility] Right: Hip [employer] 09/16/2029 [id number] / / [id number] Acetabular System Liner Neutral 36 Mm Size F Implanted:Qty: 1 on 03/01/2020 by Brian Lopez MD at [facility] Right: Hip [employer] 05/14/2024 [id number] / / [id number] Screw Eliz Bone 25mm - [id number] Implanted:Qty: 1 on 03/01/2020 by Brian Lopez MD at [facility] Right: Hip [employer] 08/14/2029 [id number] / / [id number] Screw Eliz Bone 30mm - [id number] Implanted:Qty: 1 on 03/01/2020 by Brian Lopez MD at [facility] Right: Hip [employer] 09/16/2029 [id number] / / [id number] Standard Femoral Stem Full Proximal Profile Porous Plasma Uncemented 14 Implanted:Qty: 1 on 03/01/2020 by Brian Lopez MD at [facility] Right: Hip [employer] 01/19/2028 [id number] / / [id number] Component Modular Head 36mm Biomet - [id number] Implanted:Qty: 1 on 03/01/2020 by Brian Lopez MD at [facility] Right: Hip [employer] 09/06/2028 [id number] / / [id number] Explanted Type Area Blower Installer Device Identifier Shelf Expiration Date Model / Serial / Lot Drill Tip - [id number] Explanted:Qty: 1 on 03/01/2020 at [facility] Right: Hip [employer] [id number] / / Procedures Procedure Name Priority Date/Time Associated Diagnosis Comments COMPREHENSIVE METABOLIC PANEL Routine 12/11/2024 9:37 AM INBOUND CUSTOMER SERVICE AGENT Age-related osteoporosis without current pathological fracture ECG 12-LEAD Routine 11/07/2024 9:51 AM INBOUND CUSTOMER SERVICE AGENT Hypomagnesemia USE ECHOCARDIOGRAM Routine 10/31/2024 1: 57 PM INBOUND CUSTOMER SERVICE AGENT Paroxysmal atrial fibrillation (CMS/HCC HHS/HCC) Other cardiomyopathy (CMS/HCC HHS/HCC) from Last 3 Months Results * (ABNORMAL) COMPREHENSIVE METABOLIC PANEL (12/11/2024 9:37 AM INBOUND CUSTOMER SERVICE AGENT) SODIUM S/P/B 135(L) 136 - 145 MMOL/L 12/11/2024 10:[address] [facility] POTASSIUM S/P/B 4.3 3.5 - 5.1 MMOL/L 12/11/2024 10:[address] [facility] CHLORIDE S/P/B 99 98 - 107 MMOL/L 12/11/2024 10:[address] [facility] CO2 30.3 21.0 - 32.0 MMOL/L 12/11/2024 10:[address] [facility] GLUCOSE 79 70 - 99 MG/DL 12/11/2024 10:[address] [facility] Comment: FASTING GLUCOSE 100 TO 125 MG/DL IS CONSISTENT WITH IMPAIRED FASTING GLUCOSE. FASTING GLUCOSE >125 MG/DL IS CONSISTENT WITH DIABETES. RANDOM GLUCOSE >200 MG/DL WITH HYPERGLYCEMIC SYMPTOMS IS CONSISTENT WITH DIABETES. PER ADA GUIDELINES BUN 24 6 - 24 MG/DL 12/11/2024 10:[address] [facility] CREATININE S/P/B 1.15(H) 0.55 - 1.02 MG/DL 12/11/2024 10:[address] [facility] CALCIUM S/P/B 8.8 8.4 - 10.5 MG/DL 12/11/2024 10:[address] [facility] BILIRUBIN TOTAL S/P/B 0.3 0.2 - 1.0 MG/DL 12/11/2024 10:[address] [facility] Comment: THIS ASSAY IS NOT RECOMMENDED FOR PATIENTS UNDERGOING TREATMENT WITH ELTROMBOPAG DUE TO THE POTENTIAL FOR FALSELY ELEVATED RESULTS. ALKALINE PHOSPHATASE S/P/B 78 55 - 142 U/L 12/11/2024 10:[address] [facility] AST 44(H) 15 - 37 U/L 12/11/2024 10:[address] [facility] ALT 57 14 - 59 U/L 12/11/2024 10:[address] [facility] TOTAL PROTEIN S/P/B 6.4 6.4 - 8.2 G/DL 12/11/2024 10:[address] [facility] ALBUMIN S/P/B 3.3(L) 3.4 - 5.0 G/DL 12/11/2024 10:[address] [facility] ANION GAP 5.7 5.0 - 15.0 MMOL/L 12/11/2024 10:[address] [facility] OSMOLALITY (CALC) 283 MOSM/KG 025 10:[address] [facility] Comment:REFERENCE RANGE NOT ESTABLISHED GFR ESTIMATE 48(L) >89 ML/MIN/1. 73 M2 12/11/2024 10:[address] [facility] GFR NOTES GFR REFERENCE S: 12/11/2024 10:[address] [facility] Comment: THE ESTIMATED GFR IS CALCULATED [...] FAILURE: <15 ml/min/1.73 m2 12/11/2024 9:37 AM INBOUND CUSTOMER SERVICE AGENT us Blas Hardin MD LABORATORY Final Resul t Performing Organization Address [facility] Co de Phone Number [facility] [address] [place] [id number], * ECG 12 lead (HOSPITAL PERFORMED ONLY) (11/07/2024 9:51 AM INBOUND CUSTOMER SERVICE AGENT) 11/07/2024 9:51 AM INBOUND CUSTOMER SERVICE AGENT Narrative [facility] - 11/07/2024 6:23 PM INBOUND CUSTOMER SERVICE AGENT [address] [place] [address] Test Date: 2024-11-07 Pat Name: [facility] Department: 3 Room: Gender: Female Emergency Room Tech: : 1940 Requested By: ROLO ROBLERO Order Number: [id number] Reading MD: Rolo Roblero Measurements Intervals [place] Rate: 59 P: 78 MT: 213 QRS: 85 QRSD: 109 T: 80 QT: 474 QTc: 471 Interpretive Statements SINUS BRADYCARDIA WITH FIRST DEGREE AV BLOCK PROLONGED QT INTERVAL UND CUSTOMER SERVICE AGENT Procedure Note Rolo Roblero MD - 11/07/[address] [place] [address] Test Date: 2024-11-07 Pat Name: GIAN GORDILLO Department: 3 Room: Gender: Female Emergency Room Tech: : 1940 Requested By: ROLO ROBLERO Order Number: [id number] Reading FRANK Roblero Measurements Intervals [place] Rate: 59 P: 78 MT: 213 QRS: 85 QRSD: 109 T: 80 QT: 474 QTc: 471 Interpretive Statements SINUS BRADYCARDIA WITH FIRST DEGREE AV BLOCK PROLONGED QT INTERVAL UND CUSTOMER SERVICE AGENT us Rolo Roblero MD ECG ORDERABLES Final Result Performing Organization Address [facility] Co de Phone Number [facility] * USE ECHOCARDIOGRAM (10/31/2024 1:57 PM INBOUND CUSTOMER SERVICE AGENT) Anatomical Region Laterality Modality Cardiac Ultrasound 10/31/2024 1:27 PM INBOUND CUSTOMER SERVICE AGENT Narrative 11/02/2024 10:07 AM INBOUND CUSTOMER SERVICE AGENT Echocardiography Report Pat.Name: Gian Gordillo.ID: [id number] .Date: 10/31/2024 Refer.MD: Robert, [facility] Exam Time: 1:27:00 PM Study Type:OUTREACH Height: 67 in Weight: 130 lb BSA: 1.68 m2 Age: 3 1940,83Y Sex: F Sonogrphr: Preet Pat. Stat.:Outpatient Reason for Study:Paroxysmal atrial fibrillation, Other cardiomyopathy Procedures: Study performed at [place], [place] and interpreted by [facility]. 2D, M-mode, Doppler, Color Flow [...] - 11/02/2024 Echocardiography Report Pat.Name: Gian Gordillo.ID: [id number] .Date: 10/31/2024 Refer.MD: Robert, [facility] Exam Time: 1:27:00 PM Study Type:[facility] Height: 67 in Weight: 130 lb BSA: 1.68 m2 Age: 3 1940,83Y Sex: F Sonogrphr: Pat. Stat.:Outpatient Reason for Study:Paroxysmal atrial fibrillation, Other cardiomyopathy Procedures: Study performed at [place], [place] and interpreted by [facility]. 2D, M-mode, Doppler, Color Flow [...] Result from Last 3 Months Insurance [employer] Advance Directives * Full Code (Latest [...] 5:01 PM 03/03/2020 4:52 PM Care Teams Sap Basis Consultant Relationship Specialty Start Date End Date Blas Hardin MD [address] [place] [phone] PCP - General FAMILY PRACTICE 05/06/19 Rolo Roblero MD [address] [place] [address] Consulting Physician CARDIOVASCULAR DISEASE 01/24/24
--- OUTSIDE RECORDS SUMMARY | 2025-01-02 16:42 | XMS_ITS | Referral Summary ---
Author Organization [facility] Address [address] [place] [address] Care Team Providers Care Greaser Helper Name Role Phone Blas Hardin MD Primary [...] mcg tablet Take 100 mcg by mouth onsite case manager before breakfast Active Active Problems Problem [...] on file Legal Sex Female 1:53 PM PULPER Gender Identity Not on file Sexual Orientation Not on file Last Filed Vital Signs Vital Sign Reading Time Taken Comments Blood Pressure 198/89 10/03/2019 11:17 AM PULPER Pulse 58 10/03/2019 11:17 AM PULPER Temperature 35.9 C (96.7 F) 08/11/2019 9:07 AM CDT Respiratory Rate 16 10/03/2019 11:17 AM PULPER Oxygen Saturation 98% 10/03/2019 11:17 AM PULPER Inhaled Oxygen Concentration - - Weight 71.7 [...] Final Result from Last 3 Months Insurance [facility] MEDICARE Care Teams Greaser Helper Relationship Specialty Start Date End Date Blas Hardin MD PCP - General 01/12/17
--- OUTSIDE RECORDS SUMMARY | 2025-01-02 16:42 | XMS_ITS | Encounter Summary ---
Author Organization [facility] Address [facility] [place] [address] Care Team Providers Care Brand Attendant Name Role Phone Blas Hardin MD Primary Care Provider [phone] Josie Becerra MD Unavailable Encounter Details Date Type Department Care Team (Late st Contact Info) Description 03/22/2019 Abstract [facility] CONVERSION [address] [place] [address] , Generic Conversion, Social History Tobacco Use Types Packs/Day Years Used Date Smoking Tobacco: Never Assessed Comments Unknown Sex and Gender Information Value Date Recorded Sex Assigned at Female 10/31/2024 1:15 PM TOBACCO STRIPPER HAND Legal Sex Female 5:44 PM TOBACCO STRIPPER HAND Gender Identity Not on file Sexual Orientation Not on file documented as of this encounter Plan of Treatment Upcoming Encounters Date Type Department Care Team (Late st Contact Info) Description 10/16/2025 9:00 AM TOBACCO STRIPPER HAND Appointment [facility] [address] [place] [address] Josie Becerra MD [address] [place] [phone] 10/23/2025 9:30 AM TOBACCO STRIPPER HAND Office Visit [facility] [address] [place] [id number] Josie Becerra MD [address] [place] [address] [phone] documented as of this encounter Visit Diagnoses Not on filedocumented in this encounter Additional Health Concerns Infection Onset Date Last Indicated Resolved Time COVID-19 Rule Out 02/27/2020 02/27/2020 02/28/2020 4:14 PM CDT COVID-19 Rule Out 03/09/2020 03/09/2020 03/09/2020 4:38 PM CDT COVID-19 Rule Out 02/03/2024 02/03/2024 02/03/2024 2:55 PM CDT documented as of this encounter Care Teams Brand Attendant Relationship Specialty Start Date End Date Blas Hardin MD [address] [place] [address] PCP - General FAMILY PRACTICE 05/06/19 Josie Becerra MD [address] [place] [address] Consulting Physician CARDIOVASCULAR DISEASE 01/24/24 documented as of this encounter
--- OUTSIDE RECORDS SUMMARY | 2025-01-02 16:42 | XMS_ITS | Clinical Summary ---
Author Organization [facility] Address [address] [place] [address] Phone Care Team Providers Care Groutman Name Role Phone Blas Hardin MD Primary Care Provider [phone] Social History Tobacco Use Types Packs/Day Years [...] to complete this topic Insurance MEDICARE [facility] INSURANCE Care Teams Groutman Relationship Specialty Start Date End Date Blas Hardin MD [address] [place] [address] PCP - General Family Medicine 01/24/16
--- OUTSIDE RECORDS SUMMARY | 2025-01-02 16:42 | XMS_ITS | Clinical Summary ---
Author Organization [facility] Address [address] [place] [address] Care Team Providers Care Machine Shop Repair Technician Name Role Phone Blas Hardin MD Primary [...] mcg tablet Take 100 mcg by mouth staff radiation therapist before breakfast Active Active Problems Problem Noted [...] on file Legal Sex Female 1:53 PM ASSET RECOVERY SPECIALIST Gender Identity Not on file Sexual Orientation Not on file Obstetrics History Last Filed Vital Signs Vital Sign Reading Time Taken Comments Blood Pressure 198/89 10/03/2019 11:17 AM ASSET RECOVERY SPECIALIST Pulse 58 10/03/2019 11:17 AM ASSET RECOVERY SPECIALIST Temperature 35.9 C (96.7 F) 08/11/2019 9:07 AM CDT Respiratory Rate 16 10/03/2019 11:17 AM ASSET RECOVERY SPECIALIST Oxygen Saturation 98% 10/03/2019 11:17 AM ASSET RECOVERY SPECIALIST Inhaled Oxygen Concentration - - Weight 71.7 [...] Result from Last 3 Months Insurance MEDICARE [facility] MEDICARE Care Teams Machine Shop Repair Technician Relationship Specialty Start Date End Date Blas Hardin MD PCP - General 01/12/17
--- OUTSIDE RECORDS SUMMARY | 2025-01-02 16:42 | XMS_ITS ---
Author Organization [facility] Address [address] [place], [place] [address] Care Team Providers Care Country Director Name Role Phone Blas Hardin Unavailable Unavailable KENDALL BESS Unavailable [phone] REASON FOR VISIT *General care Medications Medication [...] Active Encounters Encounter Location Date Provider Diagnosis [address] [id number] 08/14/2024 KENDALL BESS Other hammer toe(s) (acquired), right foot M20.41 ; Tinea unguium B35.1 ; Other hammer toe(s) (acquired), left foot M20.42 ; Pain in right toe(s) M79.674 ; Pain in left toe(s) M79.675 ; 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 [...] Patient denies c hest pain, history of [place], irregular heartbeat. M usculoskeletal: Patient complains of [...] M79.675 6 . U nspecified atherosclerosis of navajo arteries of extremities, bilateral legs - I70.203 [...] were emphasized. 3. U nspecified atherosclerosis of navajo arteries of extremities, bilateral legs Notes: Patient [...] LESIONS, 2 TO 4, Modifiers: Q8 , 65568 DEBRIDE NAIL, 6 OR MORE, Modifiers: 59 , Q8 * Follow Up: 3 Months * Billing Information: * Visit Code: * Procedure Codes: 43657 TRIM SKIN LESIONS, 2 TO 4. Modifiers: Q8 86452 DEBRIDE NAIL, 6 OR MORE. Modifiers: 59, Q8 * ET COORDINATOR Sign off status: Completed true * Provider: Marizol BESS Date: Generated for Deandre schneider/Kaylah/Reji on: 0 01/02/2025 04:42 PM CDT History and Physical Notes * [...]
--- OUTSIDE RECORDS SUMMARY | 2025-01-02 16:42 | XMS_ITS | Patient Health Record ---
Author Organization [facility] Address [address] [place], [place] [address] Care Team Providers Care Assistant Site Manager Name Role Phone Blas Hardin Unavailable Unavailable SARAHNicola EYAL Unavailable [phone] KENDALL BESS Unavailable [phone] Allergies No Known Allergies Reason For Referral [...] Active Encounters Encounter Location Date Provider Diagnosis [facility] [address] [place], [place] [id number] 06/12/2024 KENDALL BESS Other hammer toe(s) (acquired), right foot M20.41 ; Tinea unguium B35.1 ; Other hammer toe(s) (acquired), left foot M20.42 ; Pain in right toe(s) M79.674 ; Pain in left toe(s) M79.675 and 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, bilateral legs I70.203 [facility] [address] [place], [place] [id number] 08/14/2024 KENDALL BESS Other hammer toe(s) (acquired), right foot M20.41 ; Tinea unguium B35.1 ; Other hammer toe(s) (acquired), left foot M20.42 ; Pain in right toe(s) M79.674 ; Pain in left toe(s) M79.675 ; 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, bilateral legs I70.203 and Acquired keratosis [keratoderma] palmaris et plantaris L85.1 [facility] [address] [place], [place] [id number] 10/30/2024 EYAL CASTELLON Tinea unguium B35.1 ; Pain in right toe(s) M79.674 ; Pain in left toe(s) M79.675 and 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, bilateral [...] toe(s) (ICD-10 - M79.674) 10/30/2024 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, 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) 08/14/2024 Pain in left toe(s) (ICD-10 - M79.675) 06/12/2024 Pain in left toe(s) (ICD-10 - M79.675) 08/14/2024 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, 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) Patient educated on risks and aggravating factors of PVD, including conservative treatment options such as a diet and exercise regimen to aid in slowing progression of vascular disease 06/12/2024 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, bilateral legs (ICD-10 - [...] Details Provider Name:LISA BELLAMY, 01/29/2025 02:30:00 PM, [address] [place] [address], [id number], Insurance Providers Payer Name Payer Address Payer Phone Subscriber Number Group Number Insured Name Patient Relationship to Insured Coverage Start Date Coverage End Date Medicare Part B [place] [address] [place] [address] [id number] Wanda Gordillo Self - patient is the insured [facility] [address] [address] [place], [place] [address] [phone] [id number] Wanda Gordillo Self - patient is the insured 5 Medical (General) History Medical History History ICD Code artificial joint Arthritis Bladder infections Back Trouble Heart Disease high blood pressure
--- OUTSIDE RECORDS SUMMARY | 2025-01-02 16:43 | XMS_ITS ---
Author Organization [facility] Address [address] [place], [place] [id number] Care Team Providers Care Parking Enforcement Officer Name Role Phone Blas Hardin Unavailable Unavailable EYAL CASTELLON Unavailable [phone] Allergies No Known Allergies REASON FOR VISIT [...] [facility] [address] [place], [place] [id number] 10/30/2024 EYAL CASTELLON Tinea unguium B35.1 ; Pain in right toe(s) M79.674 ; Pain in left toe(s) M79.675 and Atherosclerosis of napaski[place] arteries of extremities with intermittent claudication, bilateral [...] toe(s) (ICD-10 - M79.675) 10/30/2024 Atherosclerosis of [place]aski[place] arteries of extremities with intermittent claudication, bilateral [...] arise Provider Name:LISA BELLAMY, 01/29/2025 02:30:00 PM, [address] [place] [address], [phone], Progress Notes * Wanda GORDILLODOB: [birth year] (83 yo F)Acc No.[id number]:10/30/2024 Patient: Wanda GARCIA Provider: Britany Castellon DPM :1940 A ge:83 Y S ex:Female Date:10/30/2024 Address:[address] [place], [place] [id number] Subjective: * Chief Complaints: * P atient [...] - M79.675 4 . A therosclerosis of napask[place] arteries of extremities with intermittent claudication, bilateral legs - I70.213 Plan: * Treatment: * Procedure Codes: 1 1721 DEBRIDE NAIL, 6 OR MORE, Modifiers: Q8 * Follow Up: 1 0-12 Weeks (Reason: At Risk Foot care, sooner if problems arise) * Billing Information: * Visit Code: * Procedure Codes: 51326 DEBRIDE NAIL, 6 OR MORE. Modifiers: Q8 * TAL PHOTO PRINTER Sign off status: Completed true * Provider: Britany Castellon DPM Date: 0 10/30/2024 Generated for Deandre schneider/Kaylah/Jeramyitting on: 0 01/02/2025 04:42 PM CDT History [...]
--- OUTSIDE RECORDS SUMMARY | 2025-01-02 16:43 | XMS_ITS | Encounter Summary ---
Author Organization [facility] Address [address] 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
--- OUTSIDE RECORDS SUMMARY | 2025-01-02 16:43 | XMS_ITS | Encounter Summary ---
Author Organization [facility] Address [address] [place] [address] Care Team Providers Care Trouble Shooter Name Role Phone Blas Hardin MD Primary Care Provider Josie Becerra MD Unavailable Encounter Details Date Type Department Care Team (Late st Contact Info) Description 09/17/2019 Hospital Orders Only [facility] [address] [place] [address] Blas Hardin MD [address] [place] [phone] Social History Tobacco Use Types Packs/Day Years Used Date Smoking Tobacco: Never Assessed Comments Unknown Sex and Gender Information Value Date Recorded Sex Assigned at Female 10/31/2024 1:15 PM PUBLIC RELATIONS DIRECTOR Legal Sex Female 5:44 PM PUBLIC RELATIONS DIRECTOR Gender Identity Not on file Sexual Orientation Not on file documented as of this encounter Plan of Treatment Upcoming Encounters Date Type Department Care Team (Late st Contact Info) Description 10/16/2025 9:00 AM PUBLIC RELATIONS DIRECTOR Appointment [facility] [address] [place] [address] Josie Becerra MD [address] [place] [phone] 10/23/2025 9:30 AM PUBLIC RELATIONS DIRECTOR Office Visit [facility] [address] [place] [phone] Josie Becerra MD [address] [place] [phone] documented as of this encounter Visit Diagnoses Not on filedocumented in this encounter Additional Health Concerns Infection Onset Date Last Indicated Resolved Time COVID-19 Rule Out 02/27/2020 02/27/2020 02/28/2020 4:14 PM CDT COVID-19 Rule Out 03/09/2020 03/09/2020 03/09/2020 4:38 PM CDT COVID-19 Rule Out 02/03/2024 02/03/2024 02/03/2024 2:55 PM CDT documented as of this encounter Care Teams Trouble Shooter Relationship Specialty Start Date End Date Blas Hardin MD [address] [place] [phone] PCP - General FAMILY PRACTICE 05/06/19 Josie Becerra MD [address] [place] [address] Consulting Physician CARDIOVASCULAR DISEASE 01/24/24 documented as of this encounter
--- OUTSIDE RECORDS SUMMARY | 2025-01-02 16:43 | XMS_ITS | Encounter Summary ---
Author Organization [employer] Address [address] Cha: Epic Prelude ADT [place] [address] Care Team Providers Care Strategic Partnership Representative Name Role Phone Unavailable Primary Care Provider Unavailabl e Encounter Details Date Type Department Care Team (Late st Contact Info) Description 10/12/1989 Outpatient Historical Jassi Gage Social History Tobacco Use Types Packs/Day Years Used Date Smoking Tobacco: Never Assessed Comments Unknown Sex and Gender Information Value Date Recorded Sex Assigned at Not on file Legal Sex Female 4:13 AM BANQUET SET UP PERSON Gender Identity Not on file Sexual Orientation Not on file documented as of this encounter Plan of Treatment Not on file documented as of this encounter Visit Diagnoses Not on filedocumented in this encounter
--- OUTSIDE RECORDS SUMMARY | 2025-01-02 16:43 | XMS_ITS | Encounter Summary ---
Author Organization [facility] Address [address] Fernandezn: Epic Prelude ADT [place] [address] Care Team Providers Care Disciplinary Hearing Officer Name Role Phone Unavailable Primary Care [...] on file Legal Sex Female 4:13 AM CHANDELIER MAKER Gender Identity Not on file Sexual Orientation Not on file documented as of this encounter Plan of Treatment Not on file documented as of this encounter Visit Diagnoses Not on filedocumented in this encounter
--- OUTSIDE RECORDS SUMMARY | 2025-01-02 16:43 | XMS_ITS ---
Author Organization [facility] Address [address] [place], [place] [phone] Care Team Providers Care Station Cleaning Porter Name Role Phone Hardin Blas Unavailable Unavailable KENDALL BESS Unavailable [phone] REASON FOR VISIT *General care Encounters Encounter Location Date Provider Diagnosis [address] [id number] 10/23/2024 KENDALL BESS Plan Of Treatment Next Appt Details Provider Name:LISA BELLAMY, 01/29/2025 02:30:00 PM, [address] [place] [address], [phone], Progress Notes * Wanda GORDILLODOB: [birth year] (84 yo F)Acc No.[id number]:10/23/2024 Patient: Wanda GARCIA Provider: Marizol BESS :1940 A ge:83 Y S ex:Female Date:10/23/2024 Address[address] [facility] [phone] Subjective: * Chief Complaints: * 1 . *General care. * Medical History: Objective: * Vitals: Assessment: Plan: * Treatment: * Billing Information: * Visit Code: * Procedure Codes: * Electronic signature of MANNIE BESS DPM on 01/02/2025 at 04:42 PM CDT Sign off status: Pending * Provider: Marizol BESS Date: 0 10/23/2024 Generated for Deandre brantleyKaylah/Reji on: 0 01/02/2025 04:42 PM CDT
--- OUTSIDE RECORDS SUMMARY | 2025-01-02 16:43 | XMS_ITS | Clinical Summary ---
Author Organization [facility] Address [address] Cha: Epic Prelude ADT [place] [address] Care Team Providers Care Blanching Machine Operator Name Role Phone Unavailable Primary Care Provider Unavailabl e Social History Tobacco Use Types Packs/Day Years Used Date Smoking Tobacco: Never Assessed Comments Unknown Sex and Gender Information Value Date Recorded Sex Assigned at Not on file Legal Sex Female 4:13 AM LAYOUT INSPECTOR Gender Identity Not on file Sexual Orientation [...]
[2025-01-02 17:40] VITALS: BP 142/53; PULSE 50; RESP 18; O2SAT 99
[2025-01-02 18:10] VITALS: BP 187/58; PULSE 51; RESP 18; TEMP 36.5; O2SAT 99
== END 2025-01-02 18:34 | disposition home or self-care (01) ==
PROVIDERS: Emergency Provider Emergency Medicine; PCP Internal Medicine
DX: T14.8XXA Other injury of unspecified body region, initial encounter (principal); E03.9 Hypothyroidism, unspecified; I10 Essential (primary) hypertension; W18.11XA Fall from or off toilet without subsequent striking against object, initial encounter
CPT/HCPCS: 70450; 72125; 73521; 73562; 99284

== ENCOUNTER 2025-01-20 10:45 | Emergency (ER) | payer MEDICARE, SELFPAY ==
[2025-01-20] VITALS (62 sets, daily range): BP systolic 118–187; BP diastolic 55–76; PULSE 51–76; RESP 11–23; TEMP 36.4–36.8; O2SAT 97–100
--- NOTE | ~2025-01-20 | XR_ITS ---
AP view of the pelvis and AP and lateral views of the bilateral hip Clinical history: Pain Findings: No acute fracture or dislocation is seen. Right hip arthroplasty in place. There is mild de generative change of the left hip joint. There is osteitis pubis. Spinal fixation hardware noted at t he lower lumbar spine. Soft tissues are unremarkable. Impression: No acute fracture or dislocation. Degenerative changes, as above. Right hip arthroplasty. Reviewed, dictated and finalized at location M. Impression: No acute fracture or dislocation. Degenerative changes, as above. Right hip arthroplasty.
--- NOTE | ~2025-01-20 | CT_ITS ---
EXAMINATION: CT abdomen pelvis wo con DATE: 01/20/2025 13:19 INDICATION: Anemia. Pain post fall. TECHNIQUE: Computed tomography (CT) of the abdomen and pelvis was performed without intravenous contr ast. Automated exposure control and iterative reconstruction technique were employed. The dose-length product was 483.92 mGy-cm. COMPARISON: 12/15/2024 FINDINGS: Small posterior layering right pleural effusion with adjacent dependent passive atelectasis in the de pendent right lower lobe. Mild cardiomegaly. Atherosclerotic coronary artery calcium location. No per icardial effusion. Diffuse increased density of the liver. Small calcified gallstones the dependent f undus of the otherwise normal-appearing gallbladder. Spleen, pancreas and bilateral adrenal glands ar e normal. Kidneys and ureters are normal with no urolithiasis, hydroureteronephrosis or perinephric/u reteral stranding. There are few sigmoid diverticula without adjacent inflammatory stranding to sugge st diverticulitis. Large amount of colonic stool with proximal predominance suggestive of constipatio n. The appendix is not visualized. No pericecal inflammatory change to suggest acute appendicitis. Sm all bowel is normal with no obstruction. Bladder is normal. The uterus is not identified and has like ly been surgically resected. No free intraperitoneal gas or fluid. No pathologically enlarged abdomin al or pelvic lymphadenopathy. Moderate lumbar and lower thoracic spondylosis. 8 mm anterolisthesis L4 on L5. L4 laminectomy with combined instrumented L4-L5 anterior and posterior spinal fusion with int erbody bone graft cage and bilateral vertical jose and pedicle screw fixation. Old healed fracture aron wing transversely across the sacrum at the level of S3 and S4. Old healed intertrochanteric fracture the proximal right femur with right total hip arthroplasty no focal suture anchors at the greater tro chanter. IMPRESSION: 1. Persistent large amount of colonic stool with proximal predominance consistent with constipation. 2. Small right pleural effusion. 3. Diffuse increased density of the liver. The seen with either chronic amiodarone use or hemachromat osis. 4. Cholelithiasis. Reviewed, dictated and finalized at location B. IMPRESSION: 1. Persistent large amount of colonic stool with proximal predominance consiste nt with constipation. 2. Small right pleural effusion. 3. Diffuse increased density of the liver. The seen with either chronic amiodar one use or hemachromatosis. 4. Cholelithiasis.
--- NOTE | ~2025-01-20 | CT_ITS ---
CT cervical spine wo con Ordering provider: Ramon Samaniego MD History: . frequent falls and weakness, possible seizure activity . Comparison: January 02, 2021 Technique: CT of the cervical spine was performed without contrast. Sagittal and coronal reformatted images were also obtained and reviewed. Automated exposure control and iterative reconstruction angelita hnique were employed. The dose-length product was 908.00 mGy-cm. FINDINGS: VERTEBRAE: Minimal anterolisthesis at the level of C4-C5. Otherwise, No subluxation or acute fracture . The occipital condyles are intact. DISC SPACES: Narrowing of the disc C5-C6 and C6-C7. Multilevel facet joint disease. Multilevel uncove rtebral joint osteoarthritic changes. Narrowing of the left foramina at the level of C3-C4. Bilateral narrowing at the level of C4-C5, C5-C6 and C6-C7. PARASPINOUS SOFT TISSUES: Bilateral carotid atherosclerotic changes. IMPRESSION: No acute osseous abnormality cervical spine. Multilevel degenerative disc disease. Reviewed, dictated and finalized at location A.
--- NOTE | ~2025-01-20 | CT_ITS ---
Non-contrast Head CT History: Frequent falls, weakness COMPARISON: 01/02/2025 Technique: Axial non-contrast imaging of the brain was performed. Dose reduction technique was used on this scan by utilizing automated exposure control and iterative reconstruction technique. The dose -length product (DLP) was 908.00 mGy-cm. Findings: There is no evidence of intracranial hemorrhage, mass lesion, or acute infarct. Brain par enchyma appears normal. The ventricles and subarachnoid spaces are normal in size. The calvarium ap pears normal. The visualized paranasal sinuses and mastoid air cells are clear. Impression: No significant abnormality seen. Reviewed, dictated and finalized at location . Impression: No significant abnormality seen.
--- NOTE | 2025-01-20 11:12 | ED.FALL ---
HPI - Fall General Chief Complaint: Weakness Stated Complaint: falls, weakness Time Seen by Provider: 01/20/25 10:50 Source: patient, family and EMS Mode of arrival: EMS Limitations: dementia History of Present Illness HPI Narrative: patient is an 84-year-old female who is getting more frail over time as we have seen her in the ER for recurrent falls. Patient has been falling even more and today has some concerns for head injury and bilateral hip pain. Patient takes Eliquis daily. She has AFib. patient having generalized weakness. No particular focal deficits. MD complaint: fall Onset (ago): month(s) Fall from: standing Fall witnessed: yes, by family Place fall occurred: home Loss of consciousness: seconds ( Patient has been having episodes of shaking and eyes rolling backwards and unresponsive with falls) Length of LOC: second(s) Prolonged down time: no Symptoms prior to fall: other ( Weakness) Context: tripped/slipped Location of injury: head and pelvis Severity: mild Severity scale (1-10): 3 Quality: sharp Associated symptoms (after fall): weakness and unable to walk Related Data Home Medications ?Medication ?Instructions ?Recorded ?Confirmed ?Last Taken ?Type duloxetine 20 mg capsule,delayed 20 mg PO DAILY 12/16/23 03/27/24 Unknown History release latanoprost 0.005 % eye drops 1 drp EACH EYE DAILY 12/16/23 03/27/24 Unknown History levothyroxine 100 mcg tablet 100 mcg PO DAILY 12/16/23 03/27/24 Unknown History (Synthroid) mirabegron 50 mg tablet,extended 50 mg PO DAILY 12/16/23 03/27/24 Unknown History release 24 hr (Myrbetriq) Allergies Allergy/AdvReac Type Severity Reaction Status Date / Time Sulfa (Sulfonamide Allergy Intermediate LIP Verified 01/20/25 11:12 Antibiotics) SWELLING Review of Systems Review of Systems: All systems reviewed & are unremarkable except as noted in HPI and below Constitutional: Constitutional: Reports no additional constitutional complaints Eyes: Eyes: Reports no additional eye complaints ENT: Reports system reviewed and no additional complaints, except as documented Cardiovascular: Cardiovascular: Reports no additional cardiovascular complaints Respiratory: Respiratory: Reports no additional respiratory complaints Gastrointestinal: Gastrointestinal: Reports no additional gastrointestinal complaints Genitourinary: Genitourinary: Reports no additional female genitourinary complaints Musculoskeletal: Musculoskeletal: Reports no additional musculoskeletal complaints Integumentary/Breasts: Skin/Breast: Reports system reviewed and no additional complaints, except as docu Neurologic: Reports system reviewed and no additional complaints, except as documented Psychiatric: Psychiatric: Reports no additional psychiatric complaints Endocrine: Endocrine: Reports no additional endocrine complaints Hematologic/Lymphatic: Hematologic/Lymphatic: Reports no additional hematologic/lymphatic complaints Allergic/Immunologic: Allergic/Immunologic: Reports no additional allergic/immunologic complaints PMFSH Past Medical History Medical History Seizure none since age 28 Osteoporosis Hypothyroidism Hypertension Surgical History Surgical History History of hysterectomy Social History Social History Smoking status: Never smoker Second hand tobacco smoke exposure: No Alcohol intake: never Substance use: never Substance use type: does not use Do You Feel Safe in your Home?: Yes Lack of Transportation: No Lack of Food: Never True Current Housing: I Have Housing Concerned About Future Housing: No Difficulty Paying Gas/Electric Bills: No Difficulty Paying for Meds: No Currently Unemployed: No Education: High School Diploma/GED Difficulty w/ Childcare or Family Care: No Gender identity (if verbalized by the patient): Female Spiritual care concerns: No Exam Const: General: healthy appearing and no acute distress Nutritional Appearance: well nourished Orientation/consciousness: patient oriented x3 Limitations: other limitations ( mild to Moderate dementia) HENMT: Head: normal to inspection Ears: external ears normal Face/Nose/Sinus: Normal external nose present Face and sinus: normal facial exam Mouth: Yes Normal oral and palatal mucosa present Teeth and gingiva: dentition normal Throat: posterior oropharynx normal Eyes: Conjunctivae: conjunctivae normal Pupils: Equal, round and reactive pupils present EOM: EOMs intact bilaterally Neck: Neck: normal visual inspection Chest: Chest palpation & inspection: normal inspection of the chest Resp: Effort & Inspection: normal respiratory effort and not labored Auscultation: clear to auscultation bilaterally and no crackles Cardio: Rate: regular rate Rhythm: regular rhythm Heart sounds: no murmurs GI: Inspection: non-distended GI Palp: Yes Soft to palpation, No Tenderness to palpation present (GI) and No Guarding due to palpation present (GI) Auscultation: normal bowel sounds Rectal Exam: normal sphincter tone Other: stool felt in the rectum and not impacted; pending stool occult blood : General: Yes bladder normal to palpation Back/Spine/Pelvis: Back: no CVA tenderness Skin: General skin exam: normal color Rashes: no rashes Wounds: no wounds Neuro: General: patient oriented x3, moves all extremities, no meningeal signs, no focal motor deficits and CN's II-XI intact bilaterally Cranial nerves: Yes Nystagmus not present Speech: normal speech Gait exam (Neuro): gait abnormal Other: patient has abnormal gait secondary to generalized weakness and some hip pains; fast exam negative, NIH score 0, GCS is 15 Extrem: General: normal to inspection Other: tender bilateral hips and pelvis to palpation Psych: Mental Status: mental status grossly abnormal ( patient has deficit with mental status) Affect: normal affect Attitude: cooperative Course Vital Signs Vital signs: Vital Signs Temperature 36.4 C 01/20/25 10:45 Pulse Rate 56 L 01/20/25 10:45 Respiratory Rate 14 01/20/25 10:45 Blood Pressure 144/57 H 01/20/25 10:45 Pulse Oximetry 98 01/20/25 10:45 Oxygen Delivery Room Air 01/20/25 10:45 Temperature 36.4 C 01/20/25 10:45 Pulse Rate 56 L 01/20/25 10:45 Respiratory Rate 14 01/20/25 10:45 Blood Pressure 144/57 H 01/20/25 10:45 Pulse Oximetry 98 01/20/25 11:02 Oxygen Delivery Room Air 01/20/25 10:45 MDM - Fall MDM Narrative Medical decision making narrative: patient is an 84-year-old female with recurrent falls getting worse at this time. She is having near syncope/syncope episodes versus vascular insufficiency due to carotid artery stenosis unrepairable. Patient will have a workup and further be admitted for evaluation with PT and director of social services. Lab Data Attestation: I reviewed the patient's lab results. 01/20/25 11:47 01/20/25 11:47 Labs: Lab Results 01/20/25 01/20/25 01/20/25 Range/Units 11:47 12:03 12:50 WBC 6.6 (4.8-10.8) K/mm3 RBC 1.94 L (4.20-5.40) M/mm3 Hgb 5.6 L* (11.7-13.8) g/dL Hct 17.7 L* (35.0-42.0) % MCV 91.2 (78.0-102.0) fL MCH 28.9 (27.0-31.0) pg MCHC 31.6 L (32-36) g/dL RDW 14.4 (11.6-14.4) % Plt Count 370 (150-420) K/mm3 MPV 9.4 (9.2-11.8) fl Immature Gran % (Auto) 0.5 H (0.0-0.0) % Neut % (Auto) 83.2 H (50.0-70.0) % Lymph % (Auto) 3.7 L (18.0-42.0) % [place] % (Auto) 8.5 (2.0-11.0) % Eos % (Auto) 3.5 (1.0-6.0) % Baso % (Auto) 0.6 (0.0-1.0) % Lymph # (Auto) 0.24 L (1.10-4.50) K/mm3 [place] # (Auto) 0.56 (0.10-0.90) K/mm3 Eos # (Auto) 0.23 (0.02-0.50) K/mm3 Baso # (Auto) 0.04 (0.00-0.10) K/mm3 Abs Immat Gran (auto) 0.03 H (0.00-0.00) K/mm3 Absolute Neuts (auto) 5.45 (1.70-7.20) K/mm3 Absolute Nucleated RBC 0.00 (0.00-0.00) K/mm3 Nucleated RBC % 0.0 (0-0.0) % Sodium 129 L (136-145) mmol/L Potassium 5.0 (3.5-5.1) mmol/L Chloride 94 L (98-108) mmol/L Carbon Dioxide 29 (21-32) mmol/L Anion Gap 6 (4-12) mmol/L BUN 22 H (7-18) mg/dL Creatinine 1.04 H (0.55-1.02) mg/dL Estim Creat Clear Calc 34 ml/min Estimated GFR 51 L (59 - ) Glucose 111 H (70-99) mg/dL Calculated Osmolality 272 L (285-295) mOsm/kg Lactic Acid 1.1 (0.4-2.0) mmol/L Calcium 8.1 L (8.5-10.1) mg/dL Magnesium 2.4 (1.8-2.4) mg/dL Total Bilirubin 0.4 (0.00-1.00) mg/dL AST 61 H (15-37) U/L ALT 80 H (14-59) U/L Alkaline Phosphatase 97 (46-116) U/L Troponin I 30.2 (0.00-60.4) ng/L NT-Pro-B Natriuret Pep 755 H (0-450) pg/mL Total Protein 6.7 (6.4-8.2) g/dL Albumin 3.1 L (3.4-5.0) g/dL Stool Occult Blood Negative (Negative) Blood Type A Positive Antibody Screen Negative Imaging Data Attestation: I personally reviewed and interpreted this imaging study as follows: Radiologist's impression: CT scan of the head was negative for acute process CT scan of the neck was negative for acute process x-ray bilateral hips and pelvis is negative for acute process CT scan of the abdomen and pelvis shows IMPRESSION: 1. Persistent large amount of colonic stool with proximal predominance consistent with constipation. 2. Small right pleural effusion. 3. Diffuse increased density of the liver. The seen with either chronic amiodarone use or hemachromatosis. 4. Cholelithiasis. ECG Data EKG #1: Attestation: I personally reviewed and interpreted this ECG as follows: ECG completion date: 01/20/25 ECG completion time: 12:10 Interpretation: Patient had a small run of torsades on telemetry EKG Interpretation: bradycardia, sinus rhythm, no ectopy, non-specific ST changes, normal QRS, prolonged QT and NL axis Discharge Plan Discharge Clinical Impression: Weakness, Falls, Acute hyponatremia, Syncope and collapse Anemia Qualifiers: Anemia type: unspecified type Qualified Code(s): D64.9 - Anemia, unspecified Patient Disposition: [facility] Condition: Guarded Prognosis Patient Language: Namibian Prescriptions: No Action latanoprost 0.005 % drops 1 drp EACH EYE DAILY levothyroxine [Synthroid] 100 mcg tablet 100 mcg PO DAILY duloxetine 20 mg capsule,delayed release(DR/EC) 20 mg PO DAILY mirabegron [Myrbetriq] 50 mg tablet extended release 24 hr 50 mg PO DAILY metoprolol tartrate 25 mg Tablet 25 mg PO Q12HR Qty: 20 0RF Eliquis 2.5 mg Tablet 2.5 mg PO Q12HR Qty: 180 0RF temazepam 15 mg capsule 15 mg PO HS PRN (Reason: sleep) Qty: 20 0RF Follow-up/Referrals: Pradip Tracy MD [Primary Care Provider] - Time of Disposition: 13:48
--- NOTE | 2025-01-20 11:29 | ECG_ITS ---
Test Date: 2025-01-20 11:48:53 Measurements Intervals [place] Rate: 52 P: 104 VA: 224 QRS: 85 QRSD: 104 T: 90 QT: 499 QTc: 468 Interpretive Statements SINUS BRADYCARDIA WITH FIRST DEGREE AV BLOCK CONSIDER INFERIOR INFARCT, AGE INDETERMINATE BASELINE WANDER- I, II, V2-V6 BORDERLINE ECG Compared to ECG 11/16/2024 14:22:03 NO SIGNIFICANT CHANGE Electronically Signed On 01-20-2025 12:04:06 CDT by Dariel Rowley D.O.
--- NOTE | 2025-01-20 11:42 | PC.NURSE ---
patient back in room from Ct.
[2025-01-20 11:55] LABS: Basophils Absolute Auto 0.04 K/mm3 (0.00-0.10); Basophils Percent Auto 0.6 % (0.0-1.0); Eosinophils Absolute Auto 0.23 K/mm3 (0.02-0.50); Eosinophils Percent Auto 3.5 % (1.0-6.0); Immature Granulocyte Absolute 0.03 K/mm3 (0.00-0.00); Immature Granulocyte Percent A 0.5 % (0.0-0.0); Lymphocytes Absolute Auto 0.24 K/mm3 (1.10-4.50); Lymphocytes Percent Auto 3.7 % (18.0-42.0); Mean Corpuscular HGB Conc 31.6 g/dL (32-36); Mean Corpuscular Hemoglobin 28.9 pg (27.0-31.0); Mean Corpuscular Volume 91.2 fL (78.0-102.0); Mean Platelet Volume 9.4 fl (9.2-11.8); Monocytes Absolute Auto 0.56 K/mm3 (0.10-0.90); Monocytes Percent Auto 8.5 % (2.0-11.0); Neutrophils Absolute Auto 5.45 K/mm3 (1.70-7.20); Neutrophils Percent Auto 83.2 % (50.0-70.0); Platelet Count Result 370 K/mm3 (150-420); Red Blood Count 1.94 M/mm3 (4.20-5.40); Red Cell Distribution Width 14.4 % (11.6-14.4); White Blood Count 6.6 K/mm3 (4.8-10.8)
[2025-01-20 11:57] LABS: Hematocrit 17.7 % (35.0-42.0); Hemoglobin 5.6 g/dL (11.7-13.8)
--- OUTSIDE RECORDS SUMMARY | 2025-01-20 12:12 | XMS_ITS | Clinical Summary ---
Author Organization [facility] Address [address] [place] [address] Care Team Providers Care Chief Architect Name Role Phone Blas Hardin MD Primary Care Provider [phone] Rolo Roblero MD Unavailable Allergies Active Allergy [...] (09/15/2022): Added automatically from request for surgery [id number] Blood loss anemia 03/07/2020 Postoperative anemia 03/07/2020 [...] Department Care Team Description 12/11/2024 9:11 AM [facility] - 12/11/2024 11:59 PM [facility] Hospital Encounter [facility] [place] [address] Blas Hardin MD Injection Discharge Disposition: Home or Self Care (Routine Discharge) 12/11/2024 9:10 AM [facility] Hospital Encounter [facility] [address] [place] [address] Blas Hardin MD Discharge Disposition: Home or Self Care (Routine Discharge) 12/11/2024 Travel 11/07/2024 9:30 AM [facility] Office Visit [facility] [place] [address] Rolo Roblero MD Heart Problem 11/07/2024 9:15 AM [facility] - 11/07/2024 11:59 PM [facility] Hospital Encounter [facility] [address] [place] [address] [place] [address] Rolo Roblero MD Discharge Disposition: Home or Self Care (Routine Discharge) 11/07/2024 Telephone [facility] [address] [place] [address] Rolo Roblero MD Schedule Test 11/07/2024 Travel 11/06/2024 Telephone [facility] [address] [place] [address] Rolo Roblero MD Appointment Reminder 11/06/2024 Orders Only [facility] [address] [place] [address] [place] [address] Blas Hardin MD 11/05/2024 Orders Only [facility] [address] [place] [address] Rolo Roblero MD 10/31/2024 1:19 PM [facility] - 10/31/2024 11:59 PM [facility] Hospital Encounter [facility] [address] [place] [address] Rolo Roblero MD Discharge Disposition: Home or Self Care (Routine Discharge) 10/31/2024 Travel from Last 3 Months Family History Medical [...] place to sleep or slept in a prison (including now)? No 07/30/2023 Comments No Sex and Gender Information Value Date Recorded Sex Assigned at Female 10/31/2024 1:15 PM [facility] Legal Sex Female 5:44 PM [facility] Gender Identity Not on file Sexual Orientation Not on file Last Filed Vital Signs Vital Sign Reading Time Taken Comments Blood Pressure 138/44 12/11/2024 10:16 AM [facility] Pulse 57 12/11/2024 10:16 AM [facility] Temperature 36.3 C (97.4 F) 12/11/2024 10:16 AM [facility] Respiratory Rate 18 12/11/2024 10:1 6 AM [facility] Oxygen Saturation 100% 12/11/2024 10: 16 AM [facility] Inhaled Oxygen Concentration - - Weight 58.9 kg (129 lb 13.6 oz) 025 10:16 AM [facility] Height 170.2 cm (5' 7 ) 11/07/2024 1:33 PM [facility] Body Mass Index 20.34 11/07/2024 1:33 PM [facility] Plan of Treatment Upcoming Encounters Date Type Department Care Team (Late st Contact Info) Description 10/16/2025 9:00 AM [facility] Appointment [facility] [address] [place] [address] Rolo Roblero MD [address] [place], [place] [id number] 10/21/2025 9:15 AM [facility] Office Visit [facility] [address] [place] [address] Rolo Roblero MD [address] [place], [place] [id number] Health Maintenance Due Date Last Done Comments DTaP, Tdap and Td Vaccines ( 1 - Tdap) 1959 Annual Medicare Wellness Visit 2006 Dexa Scan (General) 2006 RSV Immunization or 60+ Years (1 - 1-dose 75+ series) 2016 Zoster Vaccines (2 of 2) 08/09/2020 06/14/2020 COVID-19 Vaccine (3 - 2023-2 5 season) 2024 12/08/2020, 11/17/2020 Pneumococcal Vaccine: 65+ Years Completed 09/25/2018, 10/04/2012 Meningococcal B Vaccine Aged Out No l onger eligible based on patient's age to complete this topic Meningococcal Vaccine Aged Out No deirdre marcus eligible based on patient's age to complete this topic RSV Immunizations Under 20 Months Aged Out No longer eligible b ased on patient's age to complete this topic Medical Devices Implanted Type Area Burglar Alarm Operator Device Identifier Shelf Expiration Date Model / Serial / Lot Knee Components Knee Components Lens Lens G7 Charlotte Ti Acetabular Shell 4 Hole, Cementless Implanted:Qty: 1 on 03/01/2020 by Brian Lopez MD at [facility] Right: Hip [employer] 09/16/2029 [id number] / / [id number] Acetabular System Liner Neutral 36 Mm Size F Implanted:Qty: 1 on 03/01/2020 by Brian Lopez MD at [facility] Right: Hip [employer] 05/14/2024 [id number] / / [id number] Screw Eliz Bone 25mm - [id number] Implanted:Qty: 1 on 03/01/2020 by Brian Lopez MD at [facility] Right: Hip [employer] 08/14/2029 [id number] / / [id number] Screw Eliz Bone 30mm - [id number] Implanted:Qty: 1 on 03/01/2020 by Brian Lopez MD at [facility] Right: Hip [employer] 09/16/2029 [id number] / / [id number] Standard Femoral Stem Full Proximal Profile Porous Plasma Uncemented 14 Implanted:Qty: 1 on 03/01/2020 by Brian Lopez MD at [facility] Right: Hip [employer] 01/19/2028 [id number] / / [id number] Component Modular Head 36mm Biomet - [id number] Implanted:Qty: 1 on 03/01/2020 by Brian Lopez MD at [facility] Right: Hip [employer] 09/06/2028 [id number] / / [id number] Explanted Type Area Burglar Alarm Operator Device Identifier Shelf Expiration Date Model / Serial / Lot Drill Tip - [id number] Explanted:Qty: 1 on 03/01/2020 at [facility] Right: Hip [employer] [id number] / / Procedures Procedure Name Priority Date/Time Associated Diagnosis Comments COMPREHENSIVE METABOLIC PANEL Routine 12/11/2024 9:37 AM [facility] Age-related osteoporosis without current pathological fracture ECG 12-LEAD Routine 11/07/2024 9:51 AM [facility] Hypomagnesemia USE ECHOCARDIOGRAM Routine 10/31/2024 1: 57 PM [facility] Paroxysmal atrial fibrillation (CMS/HCC HHS/HCC) Other cardiomyopathy (CMS/HCC HHS/HCC) from Last 3 Months Results * (ABNORMAL) COMPREHENSIVE METABOLIC PANEL (12/11/2024 9:37 AM [facility]) SODIUM S/P/B 135(L) 136 - 145 MMOL/L 12/11/2024 10:01 AM [facility] POTASSIUM S/P/B 4.3 3.5 - 5.1 MMOL/L 12/11/2024 10:01 AM [facility] CHLORIDE S/P/B 99 98 - 107 MMOL/L 12/11/2024 10:01 AM [facility] CO2 30.3 21.0 - 32.0 MMOL/L 12/11/2024 10:01 AM [facility] GLUCOSE 79 70 - 99 MG/DL 12/11/2024 10:01 AM [facility] Comment: FASTING GLUCOSE 100 TO 125 MG/DL IS CONSISTENT WITH IMPAIRED FASTING GLUCOSE. FASTING GLUCOSE >125 MG/DL IS CONSISTENT WITH DIABETES. RANDOM GLUCOSE >200 MG/DL WITH HYPERGLYCEMIC SYMPTOMS IS CONSISTENT WITH DIABETES. PER ADA GUIDELINES BUN 24 6 - 24 MG/DL 12/11/2024 10:01 AM [facility] CREATININE S/P/B 1.15(H) 0.55 - 1.02 MG/DL 12/11/2024 10:01 AM [facility] CALCIUM S/P/B 8.8 8.4 - 10.5 MG/DL 12/11/2024 10:01 AM [facility] BILIRUBIN TOTAL S/P/B 0.3 0.2 - 1.0 MG/DL 12/11/2024 10:01 AM [facility] Comment: THIS ASSAY IS NOT RECOMMENDED FOR PATIENTS UNDERGOING TREATMENT WITH ELTROMBOPAG DUE TO THE POTENTIAL FOR FALSELY ELEVATED RESULTS. ALKALINE PHOSPHATASE S/P/B 78 55 - 142 U/L 12/11/2024 10:01 AM [facility] AST 44(H) 15 - 37 U/L 12/11/2024 10:01 AM [facility] ALT 57 14 - 59 U/L 12/11/2024 10:01 AM [facility] TOTAL PROTEIN S/P/B 6.4 6.4 - 8.2 G/DL 12/11/2024 10:01 AM [facility] ALBUMIN S/P/B 3.3(L) 3.4 - 5.0 G/DL 12/11/2024 10:01 AM [facility] ANION GAP 5.7 5.0 - 15.0 MMOL/L 12/11/2024 10:01 AM [facility] OSMOLALITY (CALC) 283 MOSM/KG 025 10:01 AM [facility] Comment:REFERENCE RANGE NOT ESTABLISHED GFR ESTIMATE 48(L) >89 ML/MIN/1. 73 M2 12/11/2024 10:01 AM [facility] GFR NOTES GFR REFERENCE S: 12/11/2024 10:01 AM [facility] Comment: THE ESTIMATED GFR IS [...] FAILURE: <15 ml/min/1.73 m2 12/11/2024 9:37 AM [facility] us Blas Hardin MD LABORATORY Final Resul t [facility] [address] [place] [id number], * ECG 12 lead (HOSPITAL PERFORMED ONLY) (11/07/2024 9:51 AM [facility]) 11/07/2024 9:51 AM [facility] Narrative [facility] - 11/07/2024 6:23 PM [facility] [address] [place] [address] Test Date: 2024-11-07 Pat Name: GIAN BROOKS Department: 3 Room: Gender: Female Boiler Out: : 1940 Requested By: ROLO ROBLERO Order Number: [id number] Reading MD: Rolo Roblero Measurements Intervals [place] Rate: 59 P: 78 MA: 213 QRS: 85 QRSD: 109 T: 80 QT: 474 QTc: 471 Interpretive Statements SINUS BRADYCARDIA WITH FIRST DEGREE AV BLOCK PROLONGED QT INTERVAL [facility] Procedure Note Rolo Roblero MD - 11/07/[address] [place] [address] Test Date: 2024-11-07 Pat Name: GIAN GORDILLO Department: 3 Room: Gender: Female Boiler Out: : 1940 Requested By: ROLO ROBLERO Order Number: [id number] Reading : Rolo Roblero Measurements Intervals [place] Rate: 59 P: 78 MA: 213 QRS: 85 QRSD: 109 T: 80 QT: 474 QTc: 471 Interpretive Statements SINUS BRADYCARDIA WITH FIRST DEGREE AV BLOCK PROLONGED QT INTERVAL [facility] us Rolo Roblero MD ECG ORDERABLES Final Result [facility] * USE ECHOCARDIOGRAM (10/31/2024 1:57 PM [facility]) Anatomical Region Laterality Modality Cardiac Ultrasound 10/31/2024 1:27 PM [facility] Narrative 11/02/2024 10:07 AM [facility] Echocardiography Report Pat.Name: Gian Gordillo.ID: [id number] .Date: 10/31/2024 Refer.MD: Adam, [facility] Exam Time: 1:27:00 PM Study Type:ADAM Height: 67 in Weight: 130 lb BSA: 1.68 m2 Age: 3 1940,83Y Sex: F Sonogrphr: Sf Pat. Stat.:Outpatient Reason for Study:Paroxysmal atrial fibrillation, Other cardiomyopathy Procedures: Study performed at [place], [place] and interpreted by [facility]. 2D, M-mode, Doppler, Color Flow [...] - 11/02/2024 Echocardiography Report Pat.Name: Gian Gordillo.ID: [id number] .Date: 10/31/2024 Refer.MD: Adam, [facility] Exam Time: 1:27:00 PM Study Type:[facility] Height: 67 in Weight: 130 lb BSA: 1.68 m2 Age: 3 1940,83Y Sex: F Sonogrphr: Pat. Stat.:Outpatient Reason for Study:Paroxysmal atrial fibrillation, Other cardiomyopathy Procedures: Study performed at [facility], [place], [place] and interpreted by [facility]. 2D, M-mode, Doppler, Color Flow [...] Final Result from Last 3 Months Insurance [facility] MEDICARE Advance Directives * Full Code [...] 5:01 PM 03/03/2020 4:52 PM Care Teams Chief Architect Relationship Specialty Start Date End Date Blas Hardin MD [address] [place] [phone] PCP - General FAMILY PRACTICE 05/06/19 Rolo Roblero MD [address] [place] [address] Consulting Physician CARDIOVASCULAR DISEASE 01/24/24
--- OUTSIDE RECORDS SUMMARY | 2025-01-20 12:13 | XMS_ITS | Encounter Summary ---
Author Organization [facility] Address [facility] [place] [address] Care Team Providers Care Career Development Director Name Role Phone Blas Hardin MD Primary Care Provider Josie Becerra MD Unavailable Encounter Details Date Type Department Care Team (Late st Contact Info) Description 09/17/2019 Hospital Orders Only [facility] [address] [place] [address] Blas Hardin MD [address] [place] [phone] Social History Tobacco Use Types Packs/Day Years Used Date Smoking Tobacco: Never Assessed Comments Unknown Sex and Gender Information Value Date Recorded Sex Assigned at Female 10/31/2024 1:15 PM PRE ASSEMBLY WIRER Legal Sex Female 5:44 PM PRE ASSEMBLY WIRER Gender Identity Not on file Sexual Orientation Not on file documented as of this encounter Plan of Treatment Upcoming Encounters Date Type Department Care Team (Late st Contact Info) Description 10/16/2025 9:00 AM PRE ASSEMBLY WIRER Appointment [facility] [address] [place] [address] Josie Becerra MD [address] [place] [phone] 10/21/2025 9:15 AM PRE ASSEMBLY WIRER Office Visit [facility] [address] [place] [phone] Josie Becerra MD [address] [place] [phone] documented as of this encounter Visit Diagnoses Not on filedocumented in this encounter Additional Health Concerns Infection Onset Date Last Indicated Resolved Time COVID-19 Rule Out 02/27/2020 02/27/2020 02/28/2020 4:14 PM CDT COVID-19 Rule Out 03/09/2020 03/09/2020 03/09/2020 4:38 PM CDT COVID-19 Rule Out 02/03/2024 02/03/2024 02/03/2024 2:55 PM CDT documented as of this encounter Care Teams Career Development Director Relationship Specialty Start Date End Date Blas Hardin MD [address] [place] [phone] PCP - General FAMILY PRACTICE 05/06/19 Josie Becerra MD [address] [place] [address] Consulting Physician CARDIOVASCULAR DISEASE 01/24/24 documented as of this encounter
--- OUTSIDE RECORDS SUMMARY | 2025-01-20 12:13 | XMS_ITS | Patient Health Record ---
Author Organization [facility] Address [address] [place], [place] [id number] Care Team Providers Care Painter And Paperhanger Apprentice Name Role Phone Blas Hardin Unavailable Unavailable SARAHNicola EYAL Unavailable [phone] KENDALL BESS Unavailable [phone] Allergies No Known Allergies Reason For Referral [...] Active Encounters Encounter Location Date Provider Diagnosis [facility] [address] [place], [place] [id number] 06/12/2024 KENDALL BESS Other hammer toe(s) (acquired), right foot M20.41 ; Tinea unguium B35.1 ; Other hammer toe(s) (acquired), left foot M20.42 ; Pain in right toe(s) M79.674 ; Pain in left toe(s) M79.675 and Unspecified atherosclerosis of [place] arteries of extremities, bilateral legs I70.203 [facility] [address] [place], [place] [id number] 08/14/2024 KENDALL BESS Other hammer toe(s) (acquired), right foot M20.41 ; Tinea unguium B35.1 ; Other hammer toe(s) (acquired), left foot M20.42 ; Pain in right toe(s) M79.674 ; Pain in left toe(s) M79.675 ; Unspecified atherosclerosis of [place] arteries of extremities, bilateral legs I70.203 and Acquired keratosis [keratoderma] palmaris et plantaris L85.1 [facility] [address], [place] [id number] 10/30/2024 EYAL CASTELLON Tinea unguium B35.1 ; Pain in right toe(s) M79.674 ; Pain in left toe(s) M79.675 and 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, bilateral [...] toe(s) (ICD-10 - M79.674) 10/30/2024 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, 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) 08/14/2024 Pain in left toe(s) (ICD-10 - M79.675) 06/12/2024 Pain in left toe(s) (ICD-10 - M79.675) 08/14/2024 Unspecified atherosclerosis of [place]ena arteries of extremities, 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) Patient educated on risks and aggravating factors of PVD, including conservative treatment options such as a diet and exercise regimen to aid in slowing progression of vascular disease 06/12/2024 Unspecified atherosclerosis of jena arteries of extremities, bilateral legs (ICD-10 - [...] Details Provider Name:LISA BELLAMY, 01/29/2025 02:30:00 PM, [address] [place] [address], [id number], Insurance Providers Payer Name Payer Address Payer Phone Subscriber Number Group Number Insured Name Patient Relationship to Insured Coverage Start Date Coverage End Date Medicare Part B [place] [address] [place] [address] [id number] Wanda Gordillo Self - patient is the insured [facility] [address] [address] [place], [place] [phone] [id number] Wanda Gordillo Self - patient is the insured 5 Medical (General) History Medical History History ICD Code artificial joint Arthritis Bladder infections Back Trouble Heart Disease high blood pressure
--- OUTSIDE RECORDS SUMMARY | 2025-01-20 12:13 | XMS_ITS ---
Author Organization [facility] Address [address] [place], [place] [id number] Care Team Providers Care Mirror Department Supervisor Name Role Phone Blas Hardin Unavailable Unavailable EYAL CASTELLON Unavailable [phone] Allergies No Known Allergies REASON FOR VISIT [...] Active Encounters Encounter Location Date Provider Diagnosis [facility] [address] [place], [place] [id number] 10/30/2024 EYAL CASTELLON Tinea unguium B35.1 ; Pain in right toe(s) M79.674 ; Pain in left toe(s) M79.675 and Atherosclerosis of [place] arteries of extremities with intermittent claudication, bilateral [...] toe(s) (ICD-10 - M79.675) 10/30/2024 Atherosclerosis of [place] arteries of extremities with intermittent claudication, bilateral [...] arise Provider Name:LISA BELLAMY, 01/29/2025 02:30:00 PM, [address] [place] [address], [id number], Progress Notes * Wanda GORDILLODOB: [birth year] (83 yo F)Acc No.[id number]:10/30/2024 Patient: Wanda GARCIA Provider: Britany Castellon DPM :1940 A ge:83 Y S ex:Female Date:10/30/2024 Address:[address] [place], [place] [id number] Subjective: * Chief Complaints: * P atient [...] - M79.675 4 . A therosclerosis of [place] arteries of extremities with intermittent claudication, bilateral legs - I70.213 Plan: * Treatment: * Procedure Codes: 1 1721 DEBRIDE NAIL, 6 OR MORE, Modifiers: Q8 * Follow Up: 1 0-12 Weeks (Reason: At Risk Foot care, sooner if problems arise) * Billing Information: * Visit Code: * Procedure Codes: 20487 DEBRIDE NAIL, 6 OR MORE. Modifiers: Q8 * CTOR OF FOOD AND BEVERAGE SERVICES Sign off status: Completed true * Provider: Britany Castellon DPM Date: 0 10/30/2024 Generated for Deandre schneider/Kaylah/Jeramyitting on: 0 01/20/2025 12:13 PM CDT History and Physical Notes * [...]
--- OUTSIDE RECORDS SUMMARY | 2025-01-20 12:13 | XMS_ITS | Clinical Summary ---
Author Organization [facility] Address [address] [place] [address] Phone Care Team Providers Care Multiskill Operator Name Role Phone Blas Hardin MD Primary Care Provider [phone] Social History Tobacco Use Types Packs/Day Years [...] [facility] INS[facility] Care Teams Multiskill Operator Relationship Specialty Start Date End Date Blas Hardin MD [address] [place] [address] PCP - General Family Medicine 01/24/16
--- OUTSIDE RECORDS SUMMARY | 2025-01-20 12:13 | XMS_ITS ---
Author Organization [facility] Address [address] [place], [place] [phone] Care Team Providers Care Bobbin Fixer Name Role Phone Blas Hardin Unavailable Unavailable KENDALL BESS Unavailable [phone] REASON FOR VISIT *General care Medications Medication [...] Active Encounters Encounter Location Date Provider Diagnosis [address] [id number] 08/14/2024 KENDALL BESS Other hammer toe(s) (acquired), right foot M20.41 ; Tinea unguium B35.1 ; Other hammer toe(s) (acquired), left foot M20.42 ; Pain in right toe(s) M79.674 ; Pain in left toe(s) M79.675 ; Unspecified atherosclerosis of [place] arteries of extremities, bilateral legs I70.203 and [...] (ICD-10 - M79.675) 08/14/2024 Unspecified atherosclerosis of [place] arteries of extremities, bilateral legs (ICD-10 - [...] OTC and prescription treatments. 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 [...] Patient denies c hest pain, history of MO, irregular heartbeat. M usculoskeletal: Patient complains of [...] M79.675 6 . U nspecified atherosclerosis of [place] arteries of extremities, bilateral legs - I70.203 [...] were emphasized. 3. U nspecified atherosclerosis of [place] arteries of extremities, bilateral legs Notes: Patient [...] LESIONS, 2 TO 4, Modifiers: Q8 , 01532 DEBRIDE NAIL, 6 OR MORE, Modifiers: 59 , Q8 * Follow Up: 3 Months * Billing Information: * Visit Code: * Procedure Codes: 64449 TRIM SKIN LESIONS, 2 TO 4. Modifiers: Q8 81197 DEBRIDE NAIL, 6 OR MORE. Modifiers: 59, Q8 * RACTS [place] Sign off status: Completed true * Provider: Marizol BESS Date: Generated for Deandre schneider/Kaylah/Reji on: 0 01/20/2025 12:12 PM CDT History and Physical Notes * [...]
--- OUTSIDE RECORDS SUMMARY | 2025-01-20 12:13 | XMS_ITS | Encounter Summary ---
Author Organization [facility] Address [facility] [place] [address] Care Team Providers Care Supervisor Sewer Maintenance Name Role Phone Blas Hardin MD Primary Care Provider Josie Becerra MD Unavailable Encounter Details Date Type Department Care Team (Late st Contact Info) Description 03/22/2019 Abstract [facility] [address] [place] [address] , Generic Conversion, Social History Tobacco Use Types Packs/Day Years Used Date Smoking Tobacco: Never Assessed Comments Unknown Sex and Gender Information Value Date Recorded Sex Assigned at Female 10/31/2024 1:15 PM HEADING PINNER Legal Sex Female 5:44 PM HEADING PINNER Gender Identity Not on file Sexual Orientation Not on file documented as of this encounter Plan of Treatment Upcoming Encounters Date Type Department Care Team (Late st Contact Info) Description 10/16/2025 9:[address] [facility] [address] [place] [address] Josie Becerra MD [address] [place] [phone] 10/21/2025 9:15 AM HEADING PINNER Office Visit [facility] [address] [place] [phone] Josie Becerra MD [address] [place] [phone] documented as of this encounter Visit Diagnoses Not on filedocumented in this encounter Additional Health Concerns Infection Onset Date Last Indicated Resolved Time COVID-19 Rule Out 02/27/2020 02/27/2020 02/28/2020 4:14 PM CDT COVID-19 Rule Out 03/09/2020 03/09/2020 03/09/2020 4:38 PM CDT COVID-19 Rule Out 02/03/2024 02/03/2024 02/03/2024 2:55 PM CDT documented as of this encounter Care Teams Supervisor Sewer Maintenance Relationship Specialty Start Date End Date Blas Hradin MD [address] [place] [address] PCP - General FAMILY PRACTICE 05/06/19 Josie Becerra MD [address] [place] [address] Consulting Physician CARDIOVASCULAR DISEASE 01/24/24 documented as of this encounter
--- OUTSIDE RECORDS SUMMARY | 2025-01-20 12:13 | XMS_ITS ---
Author Organization [facility] Address [address] [place], [place] [phone] Care Team Providers Care Cornice Upholsterer Name Role Phone Hardin Blas Unavailable Unavailable KENDALL BESS Unavailable [phone] REASON FOR VISIT *General care Encounters Encounter Location Date Provider Diagnosis [address] [id number] 10/23/2024 KENDALL BESS Plan Of Treatment Next Appt Details Provider Name:LISA BELLAMY, 01/29/2025 02:30:00 PM, [address] [place] [address], [id number], Progress Notes * Wanda GORDILLODOB: [birth year] (84 yo F)Acc No.[id number]:10/23/2024 Patient: Wanda GARCIA Provider: Marizol BESS :1940 A ge:83 Y S ex:Female Date:10/23/2024 Address[address] [facility] [id number] Subjective: * Chief Complaints: * 1 . *General care. * Medical History: Objective: * Vitals: Assessment: Plan: * Treatment: * Billing Information: * Visit Code: * Procedure Codes: * Electronic signature of MANNIE BESS DPM on 01/20/2025 at 12:13 PM CDT Sign off status: Pending * Provider: Marizol BESS Date: 0 10/23/2024 Generated for Deandre brantleyKaylah/Reji on: 0 01/20/2025 12:13 PM CDT
--- OUTSIDE RECORDS SUMMARY | 2025-01-20 12:13 | XMS_ITS | Data Portability ---
Author Organization [facility] MARIA TERESA LL, [address] [place] [address] Neurology (MD) Address [address] [place] [address] Care Team Providers Care Reading Specialist Name Role Phone EDGARDO GODFREY Primary Care Provider [phone] MIRA REYES Disaster Or Damage Control Specialist KAREN NICOLE Disaster Or Damage Control Specialist Assessment Encounter Date Assessment Date Assessment LastModified [...] on this date of service including both ttyb-ug-tqcd and jka-kdhm-ho-face time excluding any separately reportable services. abel [...] Not Available [facility] - [facility] [address] [place] [address], [id number], 09/03/2024 10:48:06 09/02/20 24 09/03/2024 CBC WBC 5.5 K/uL 3.8-11 .2 Not Available [facility] [address] [place] [address], 53101, 09/03/2024 10:48:06 09/02/20 24 09/03/2024 CBC RBC 3.11 M/uL 3.92-5 .10 low Not Available [facility] Only - [facility] [address] [place] [address], [id number], 09/03/2024 10:48:06 09/02/20 24 09/03/2024 CBC HGB 9.9 g/dL 11.8-1 5.3 low Not Available [facility] Only - [facility] [address] [place] [address], 88586, 09/03/2024 10:48:06 09/02/20 24 09/03/2024 CBC HCT 30.4 % 36.5-4 4.8 low Not Available Sc Only - [facility] [address] [place] [address], [id number], 09/03/2024 10:48:06 09/02/20 24 09/03/2024 CBC MCV 97.7 fL 80.0-9 9.0 Not Available Sc Only - [facility] [address] [place] [address], 30447, 09/03/2024 10:48:06 09/02/20 24 09/03/2024 CBC MCH 31.8 pg 25.5-3 3.6 Not Available Sc Only - [facility] [address] [place] [address], [id number], 09/03/2024 10:48:06 09/02/20 24 09/03/2024 CBC MCHC 32.6 g/dL 32.0-3 6.0 Not Available Sc Only - [facility] [address] [place] [address], [id number], 09/03/2024 10:48:06 09/02/20 24 09/03/2024 CBC RDW-SD 45.3 fL 35.1 - 46.3 Not Available Mn Only - [facility] [address] [place] [address], 12484, 09/03/2024 10:48:06 09/02/20 24 09/03/2024 CBC plt 313 K/uL 130-40 0 Not Available [facility] - [facility] [address] [place] [address], 39045, 09/03/2024 10:48:06 09/02/20 24 09/03/2024 CBC MPV 10.2 fL 9.3-12 .8 Not Available Mn Only - [facility] [address] [place] [address], [id number], 09/03/2024 10:48:06 09/02/20 24 09/03/2024 CMP, serum or plasm a comp. met. panel Not Available [facility] [address] [place] [address], 80156, 09/03/2024 11:05:53 09/02/20 24 09/03/2024 CMP, serum or plasm a sodium 141 mmol/ L 136-14 6 Not Available [facility] - [facility] [address] [place] [address], 76150, 09/03/2024 11:05:53 09/02/20 24 09/03/2024 CMP, serum or plasm a potassium 4.5 mmol/ L 3.5-5. 1 Not Available [facility] - [facility] [address] [place] [address], 81400, 09/03/2024 11:05:53 09/02/20 24 09/03/2024 CMP, serum or plasm a chloride 107 mmol/ L 98-110 Not Available Mn [facility] - [facility] [address] [place] [address], 63828, 09/03/2024 11:05:53 09/02/20 24 09/03/2024 CMP, serum or plasm a CO2 29 mEq/L 20-32 Not Available [facility] - [facility] [address] [place] [address], 92709, 09/03/2024 11:05:53 09/02/20 24 09/03/2024 CMP, serum or plasm a anion gap 10 mmol/ L 10-22 Not Available [facility] - [facility] [address] [place] [address], 28988, 09/03/2024 11:05:53 09/02/20 24 09/03/2024 CMP, serum or plasm a glucose 101 mg/dL 70-100 high Not Available [facility] - [facility] [address] [place] [address], 80226, 09/03/2024 11:05:53 09/02/20 24 09/03/2024 CMP, serum or plasm a calcium 9.6 mg/dL 8.4-10 .4 Not Available [facility] - [facility] [address] [place] [address], 09065, 09/03/2024 11:05:53 09/02/20 24 09/03/2024 CMP, serum or plasm a total protein 6.8 g/dL 6.4-8. 3 Not Available [facility] - [facility] [address] [place] [address], 10833, 09/03/2024 11:05:53 09/02/20 24 09/03/2024 CMP, serum or plasm a albumin 4.3 g/dL 3.5-5. 3 Not Available [facility] - [facility] [address] [place] [address], 73136, 09/03/2024 11:05:53 09/02/20 24 09/03/2024 CMP, serum or plasm a ALP 43 U/L 44 - 127 low Not Available [facility] - [facility] [address] [place] [address], 06261, 09/03/2024 11:05:53 09/02/20 24 09/03/2024 CMP, serum or plasm a AST (SGOT) 29 U/L 10-40 Not Available [facility] - [facility] [address] [place] [address], 40391, 09/03/2024 11:05:53 09/02/20 24 09/03/2024 CMP, serum or plasm a total bilirubin 0.4 mg/dL 0.2-1. 0 Not Available [facility] - [facility] [address] [place] [address], 96519, 09/03/2024 11:05:53 09/02/20 24 09/03/2024 CMP, serum or plasm a ALT (SGPT) 26 U/L 8-35 Not Available [facility] - [facility] [address] [place] [address], 23407, 09/03/2024 11:05:53 09/02/20 24 09/03/2024 CMP, serum or plasm a BUN 28 mg/dL 7-21 high Not Available [facility] - [facility] [address] [place] [address], 93011, 09/03/2024 11:05:53 09/02/20 24 09/03/2024 CMP, serum or plasm a creatinine 1.5 mg/dL 0.7-1. 3 high Not Available [facility] - [facility] [address] [place] [address], 62803, 09/03/2024 11:05:53 09/02/20 24 09/03/2024 CMP, serum or plasm a GFR(non-afri can jordanian) 35 Not Available [facility] [address] [place] [address], 28193, 09/03/2024 11:05:53 09/02/20 24 09/03/2024 CMP, serum or plasm a GFR() 43 (MACHINIST JOB SETTER MARIA TERESA KIDNE Y DISEA SE HAS A GFR LESS THAN 60 ML/KS N/1.7 3 MM FOR A PERIO D OF THREE MONTH S OR MORE. ) Not Available [facility] - [facility] [address] [place] [address], 32744, 09/03/2024 11:05:53 09/02/20 24 09/03/2024 CK (crea ángel kinas e), total , serum CPK- Not Available [facility] [address] [place] [address], 17506, 09/03/2024 11:05:55 09/02/20 24 09/03/2024 CK (crea ángel kinas e), total , serum CPK 59 U/L 30-200 Not Available [facility] [address] [place] [address], 14412, 09/03/2024 11:05:55 09/02/20 24 09/03/2024 C-janet ctive prote in, quant itati ve, serum or plasm a CRP Not Available [facility] [address] [place] [address], 14547, 09/03/2024 11:28:53 09/02/20 24 09/03/2024 C-janet ctive prote in, quant itati ve, serum or plasm a CRP <0.4 mg/dL <0.4-0 .5 Not Available [facility] [address] [place] [address], 59536, 09/03/2024 11:28:53 09/02/20 24 09/03/2024 arthr itis panel uric acid 4.3 mg/dL 2.3-6. 6 Not Available [facility] - [facility] [address] [place] [address], 80547, 09/04/2024 13:42:33 09/02/20 24 09/03/2024 arthr itis panel sed rate 4 mm/HR 0 - 30 Not Available [facility] - [facility] [address] [place] [address], 41300, 09/04/2024 13:42:33 09/02/20 24 09/03/2024 arthr itis panel rf 14 IU/mL <3.5-1 4 Not Available [facility] [address] [place] [address], 93496, 09/04/2024 13:42:33 09/02/20 24 09/03/2024 arthr itis panel ccp antibody, IgG <0.54 U/mL <=4.9 Not Available [facility] [address] [place] [address], 01623, 09/04/2024 13:42:33 09/02/20 24 09/04/2024 arthr itis panel arthritis panel Not Available [facility] [address] [place] [address], 81304, 09/04/2024 13:42:33 09/02/20 24 09/04/2024 arthr itis panel MOSES screen NEGATI VE negati ve Perfo rmed by Bio-R ad enzym e immun oassa y Not Available [facility] - [facility] [address] [place] [address], 29412, 09/04/2024 13:42:33 09/02/20 24 09/03/2024 arthr itis panel arthritis panel Not Available [facility] [address] [place] [address], 36847, 09/03/2024 11:28:54 09/02/20 24 09/03/2024 arthr itis panel uric acid 4.3 mg/dL 2.3-6. 6 Not Available [facility] - [facility] [address] [place] [address], 09856, 09/03/2024 11:28:54 09/02/20 24 09/03/2024 arthr itis panel sed rate 4 mm/HR 0 - 30 Not Available [facility] - [facility] [address] [place] [address], 65623, 09/03/2024 11:28:54 09/02/20 24 09/03/2024 arthr itis panel MOSES screen PENDIN G Not Available Mn Only - S c Laboratory [address] [place] [address], 21607, 09/03/2024 11:28:54 09/02/20 24 09/03/2024 arthr itis panel rf 14 IU/mL <3.5-1 4 Not Available [facility] - [facility] [address] [place] [address], 43626, 09/03/2024 11:28:54 09/02/20 24 09/03/2024 arthr itis panel ccp antibody, IgG <0.54 U/mL <=4.9 Not Available [facility] [address] [place] [address], 45039, 09/03/2024 11:28:54 09/02/20 24 09/03/2024 arthr itis panel arthritis panel Not Available [facility] [address] [place] [address], 92819, 09/03/2024 11:23:25 09/02/20 24 09/03/2024 arthr itis panel uric acid 4.3 mg/dL 2.3-6. 6 Not Available [facility] - [facility] [address] [place] [address], 91392, 09/03/2024 11:23:25 09/02/20 24 09/03/2024 arthr itis panel sed rate 4 mm/HR 0 - 30 Not Available [facility] - [facility] [address] [place] [address], 02385, 09/03/2024 11:23:25 09/02/20 24 09/03/2024 arthr itis panel MOSES screen PENDIN G Not Available [facility] Only - [facility] [address] [place] [address], 52626, 09/03/2024 11:23:25 11/19/09/03/2024 arthr itis panel rf 14 IU/mL <3.5-1 4 Not Available [facility] - [facility] [address] [place] [address], 29165, 09/03/2024 11:23:25 09/02/20 24 09/03/2024 arthr itis panel ccp antibody, IgG PENDIN G Not Available [facility] Only - [facility] [address] [place] [address], 87474, 09/03/2024 11:23:25 09/02/20 24 09/03/2024 arthr itis panel arthritis panel Not Available [facility] [address] [place] [address], 56228, 09/03/2024 11:05:57 09/02/20 24 09/03/2024 arthr itis panel uric acid 4.3 mg/dL 2.3-6. 6 Not Available [facility] - [facility] [address] [place] [address], 45940, 09/03/2024 11:05:57 09/02/20 24 09/03/2024 arthr itis panel sed rate PENDIN G Not Available [facility] - [facility] [address] [place] [address], 01705, 09/03/2024 11:05:57 09/02/20 24 09/03/2024 arthr itis panel MOSES screen PENDIN G Not Available [facility] Only - [facility] [address] [place] [address], 47950, 09/03/2024 11:05:57 09/02/20 24 09/03/2024 arthr itis panel rf 14 IU/mL <3.5-1 4 Not Available [facility] - [facility] [address] [place] [address], 58217, 09/03/2024 11:05:57 09/02/20 24 09/03/2024 arthr itis panel ccp antibody, IgG PENDIN G Not Available [facility] - [facility] [address] [place] [address], 89076, 09/03/2024 11:05:57 05/30/20 24 03/29/2023 imagi ng/di agnos tic resul t No observ ation record ed. Not Available 05/30/2024 02:13:59 Result Notes None recorded. Problems Name Problem SNOMED Code Status Onset Date Resolution Date Notes Provider Name and Address Organization Details Recorded Time Renal insufficiency 711869000 Active 2023 [facility] 17:13:34 Chronic kidney disease stage 3 911013011 Active 2023 [facility] 4 15:32:41 Multiple joint pain 42602436 Active 2023 Bala Conley MD [address] [place] [address], [phone] 3, [facility] 4 22:02:20 Muscle pain 10851245 Active 2023 Bala Conley MD [address] [place] [address], 55634-711 3, [facility] 4 22:02:34 Gastroesophage al reflux disease 196610262 Active 2023 Bala Conley MD [address] [place] [address], 11590-261 3, [facility] 4 22:03:10 Chronic kidney disease stage 3A 153172760 Active 2023 Bala Conley MD [address] [place] [address], 97837-957 3, [facility] 4 22:03:32 Mechanical low back pain 136386103 Active 2023 Bala Conley MD [address] [place] [address], 77570-221 3, [facility] 4 22:03:43 Benign essential hypertension 0253624 Active 2023 Mira Reyes PA-C [address] [place] [address], 22225-984 3, [facility] 14:51:27 Problem Notes None recorded. Procedures Surgical [...] Name and Address Organization Details Recorded Time 2257703 Bactrim medicatio n other Not available Not available 11/14/20232020 16345 9 RxNorm React ion: GI Upset ; [...] /min 142 mm[Hg] 82 mm[Hg] Thang Aly [facility] 05/01/2024 14:52:23 Date Recorded Body weight Heart rate Systolic blood pressure Diastolic blood pressure Provider Name and Address Organization Details Last Updated DateTime 06/19/2024 09846.42 g 46 /min 188 mm[Hg] 98 mm[Hg] Edie Luna [facility] 06/19/2024 14:42:37 Date Recorded Body weight Heart rate Systolic blood pressure Diastolic blood pressure Provider Name and Address Organization Details Last Updated DateTime 08/21/2024 23880.6 g 50 /min 160 mm[Hg] 74 mm[Hg] [facility] 08/21/2024 12:27:31 Date Recorded Body weight Heart rate Oxygen saturation Oxygen saturation in Arterial blood by Pulse oximetry Pain severity - 0-10 verbal numeric rating [Score] - Reported Systolic blood pressure Diastolic blood pressure Provider Name and Address Organization Details Last Updated DateTime 27093.0 7 g 54 /min 98 % 98 % 9 148 mm[Hg] 68 mm[Hg] Farrah Funk [facility] 17:10:30 Date Recorded Heart rate Systolic blood pressure Diastolic blood pressure Provider Name and Address Organization Details Last Updated DateTime 12/18/2024 54 /min 118 mm[Hg] 60 mm[Hg] [facility] 12/18/2024 12:14:20 Social History None recorded. Functional Status None recorded. Mental Status None recorded. Family History Nothing Reported. Medical History No medical history recorded. Gynecological HistoryNo gynecological history recorded. Obstetrics History GPAL:G 0 P 0 0 0 0 Past Encounters Encounter ID Performer Location Encounter Start Date Encounter Closed Date Diagnosis/Indication Diagnosis SNOMED-CT Code Diagnosis ICD10 Code Diagnosis Note [id number] Karen Nicole MD [facility] Nephrolog y (MD) [address] [facility] [place] [address] 01/10/2024 15:22:54 01/10/2024 16:37:50 Renal insufficiency 754260593 N28.9 [id number] Mira Reyes PA-C [facility] Nephrolog y (MD) [address] [facility] [place] [address] 05/01/2024 14:26:22 05/01/2024 15:15:46 Chronic kidney disease stage 3 688070090 N18.30 Benign ess ential hypertension 8983801 I10 [id number] Karen Nicole MD [facility] Nephrolog y (MD) [address] [employer] [facility] [place] [address] 06/19/2024 14:08:10 06/19/2024 15:08:49 Chronic kidney disease stage 3 098102953 N18.30 Benign ess ential hypertension 5979899 I10 [id number] Mira Reyes PA-C [facility] Nephrolog y (MD) [address] [facility] [place] [address] 08/21/2024 11:50:48 08/21/2024 12:57:31 Chronic kidney disease stage 3 389527549 N18.30 Benign ess ential hypertension 4103422 I10 [id number] Bala Conley MD [address] [place] [address] Rheumatol ogy (MD) [address] [place] [phone] 09/02/2024 15:51:47 09/02/2024 18:42:34 Multiple joint pain 51743392 M25.50 Gastroesop hageal reflux disease 235814643 K21.9 Chronic ki dney disease stage 3A 568167124 N18.31 Mechanical low back pain 588545333 M54.59 [id number] Mira Reyes PA-C [facility] Nephrolog y (MD) [address] [facility] [place] [address] 12/18/2024 11:35:56 12/18/2024 12:31:59 Chronic kidney disease stage 3 721823855 N18.30 Benign ess ential hypertension 7352061 I10 Health Concerns Section Related Observation LastModified by Organization Detai ls LastModified Time None Recorded Concern Status LastModified by Organization Details LastModified Time None Recorded Advance Directives Directive None Recorded Payers Encounter Date Sequence Insurance Name Policy Number Policy Curiel Covered Member ID Curiel Member ID Guarantor Name 05/01/2024 1 [place] Wanda Gordillo [id number] Wanda Gordillo 05/01/2024 2 [place]MED[place] Wanda Drummondi [id number] Wanda Drummondi 06/19/2024 1 [place] Wanda Drummondi [id number] Wanda Drummondi 06/19/2024 2 [place] Wanda Drummondi [id number] Wanda Drummondi 08/21/2024 1 [place] Wanda Drummondi [id number] Wanda Drummondi 08/21/2024 2 [place] Wanda Drummondi [id number] Wanda Drummondi 09/02/2024 1 [place] Wanda Drummondi [id number] Wanda Drummondi 09/02/2024 2 [place]) Wanda Drummondi [id number] Wanda Drummondi 12/18/2024 1 [place] Wanda Drummondi [id number] Wanda Drummondi 12/18/2024 2 [place] ([place]) Wanda Drummondi [id number] Wanda Gordillo Notes Date Note Type Note [...] atrial fibrillation. Mira Reyes PA-C [address] [place] [address], [phone], [facility] 05/01/2024 16:49:08 06/19/2024 text/html Ms. Gordillo is [...] of UTI Karen Nicole MD [address] [place] [address], [phone], [facility] 06/23/2024 15:10:26 08/21/2024 text/html Ms. Gordillo is [...] be worsening. Mira Reyes PA-C [address] [place] [address], [phone], [facility] 08/21/2024 14:16:08 09/02/2024 text/html The patient is [...] Instead, she takes Advil on her own yqxn-jem-jeamjrm alternating this occasionally with some Tylenol. The [...] her eyes. 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 She [...] the patient s past medical history and [employer] intake form.abel Conley MD [address] [place] [address], [address], [facility] 09/04/2024 21:36:32 12/18/2024 text/html Ms. Gordillo is [...] be worsening. Mira Reyes PA-C [address] [place] [address], [phone], [facility] 12/18/2024 14:00:58 OBGyn Episode No OBEpisode recorded.
--- OUTSIDE RECORDS SUMMARY | 2025-01-20 12:14 | XMS_ITS | Encounter Summary ---
Author Organization [facility] Address [address] 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
--- OUTSIDE RECORDS SUMMARY | 2025-01-20 12:14 | XMS_ITS | Encounter Summary ---
Author Organization [facility] Address [address] 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
--- OUTSIDE RECORDS SUMMARY | 2025-01-20 12:14 | XMS_ITS | Encounter Summary ---
Author Organization [facility] Address [address] Fernandezn: Epic Prelude ADT ADILSON AGUILAR [address] Care Team Providers Care Sewer Builder Name Role Phone Unavailable Primary Care Provider [...] on file Legal Sex Female 4:13 AM REGULATORY SPECIALIST Gender Identity Not on file Sexual Orientation Not on file documented as of this encounter Plan of Treatment Not on file documented as of this encounter Visit Diagnoses Not on filedocumented in this encounter
--- OUTSIDE RECORDS SUMMARY | 2025-01-20 12:14 | XMS_ITS | Clinical Summary ---
Author Organization [facility] Address [address] 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
[2025-01-20 12:15] LABS: Lactic Acid Reflex 1.1 mmol/L (0.4-2.0)
[2025-01-20 12:16] LABS: Alanine Aminotransferase 80 U/L (14-59); Albumin Level 3.1 g/dL (3.4-5.0); Alkaline Phosphatase 97 U/L (46-116); Anion Gap 6 mmol/L (4-12); Aspartate Amino Transferase 61 U/L (15-37); Bilirubin,Total 0.4 mg/dL (0.00-1.00); Blood Urea Nitrogen 22 mg/dL (7-18); Calcium 8.1 mg/dL (8.5-10.1); Carbon Dioxide 29 mmol/L (21-32); Chloride 94 mmol/L (98-108); Estimated CRCL calculation 34 ml/min; Estimated Glomerular Filt Rate 51; Glucose 111 mg/dL (70-99); NT Pro B Type Natriuretic Pept 755 pg/mL (0-450); Osmolality Calculated 272 mOsm/kg (285-295); Sodium 129 mmol/L (136-145); Total Protein 6.7 g/dL (6.4-8.2)
[2025-01-20 12:21] LABS: Magnesium 2.4 mg/dL (1.8-2.4); Troponin I 30.2 ng/L (0.00-60.4)
--- OUTSIDE RECORDS SUMMARY | 2025-01-20 12:37 | XMS_ITS | Clinical Summary ---
Author Organization [facility] Address [address] [place] [address] Phone Care Team Providers Care Pipefitter Welder Name Role Phone Blas Hardin MD Primary Care Provider [phone] Social History Tobacco Use Types Packs/Day Years [...] age to complete this topic Insurance MEDICARE [facility] INSURANCE Care Teams Pipefitter Welder Relationship Specialty Start Date End Date Blas Hardin MD [address] [place] [address] PCP - General Family Medicine 01/24/16
--- OUTSIDE RECORDS SUMMARY | 2025-01-20 12:37 | XMS_ITS | Encounter Summary ---
Author Organization [facility] Address [facility] [place] [address] Care Team Providers Care Back Office Medical Assistant Name Role Phone Blas Hardin MD Primary Care Provider Josie Becerra MD Unavailable Encounter Details Date Type Department Care Team (Late st Contact Info) Description 03/22/2019 Abstract [facility]FL CONVERSION [address] [place] [address] , Generic Conversion, Social History Tobacco Use Types Packs/Day Years Used Date Smoking Tobacco: Never Assessed Comments Unknown Sex and Gender Information Value Date Recorded Sex Assigned at Female 10/31/2024 1:15 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 [address] [place] [address] Josie Becerra MD [address] [place] [address] [phone] 10/21/2025 9:15 AM STUD DAIRY CATTLE FARMER Office Visit [facility] [address] [place] [phone] Josie Becerra MD [address] [place] [address] [phone] documented as of this encounter Visit Diagnoses Not on filedocumented in this encounter Additional Health Concerns Infection Onset Date Last Indicated Resolved Time COVID-19 Rule Out 02/27/2020 02/27/2020 02/28/2020 4:14 PM CDT COVID-19 Rule Out 03/09/2020 03/09/2020 03/09/2020 4:38 PM CDT COVID-19 Rule Out 02/03/2024 02/03/2024 02/03/2024 2:55 PM CDT documented as of this encounter Care Teams Back Office Medical Assistant Relationship Specialty Start Date End Date Blas Hardin MD [address] [place] [address] PCP - General FAMILY PRACTICE 05/06/19 Josie Becerra MD [address] [place] [address] Consulting Physician CARDIOVASCULAR DISEASE 01/24/24 documented as of this encounter
--- OUTSIDE RECORDS SUMMARY | 2025-01-20 12:37 | XMS_ITS | Clinical Summary ---
Author Organization [facility] Address [address] [place] [address] Care Team Providers Care Electric Power Line Examiner Name Role Phone Blas Hardin MD [...] mcg tablet Take 100 mcg by mouth financial legal assistant before breakfast Active Active Problems Problem Noted [...] on file Legal Sex Female 1:53 PM SAFETY ADVISOR Gender Identity Not on file Sexual Orientation Not on file Obstetrics History Last Filed Vital Signs Vital Sign Reading Time Taken Comments Blood Pressure 198/89 10/03/2019 11:17 AM SAFETY ADVISOR Pulse 58 10/03/2019 11:17 AM SAFETY ADVISOR Temperature 35.9 C (96.7 F) 08/11/2019 9:07 AM CDT Respiratory Rate 16 10/03/2019 11:17 AM SAFETY ADVISOR Oxygen Saturation 98% 10/03/2019 11:17 AM SAFETY ADVISOR Inhaled Oxygen Concentration - - Weight 71.7 [...] Result from Last 3 Months Insurance MEDICARE [facility] MEDICARE Care Teams Electric Power Line Examiner Relationship Specialty Start Date End Date Blas Hardin MD PCP - General 01/12/17
--- OUTSIDE RECORDS SUMMARY | 2025-01-20 12:37 | XMS_ITS | Encounter Summary ---
Author Organization [facility] Address [facility] [place] [address] Care Team Providers Care Upstream Biomanufacturing Technician Name Role Phone Blas Hardin MD Primary Care Provider Josie Becerra MD Unavailable Encounter Details Date Type Department Care Team (Late st Contact Info) Description 09/17/2019 Hospital Orders Only [facility] [address] [place] [address] Blas Hardin MD [address] [place] [phone] Social History Tobacco Use Types Packs/Day Years Used Date Smoking Tobacco: Never Assessed Comments Unknown Sex and Gender Information Value Date Recorded Sex Assigned at Female 10/31/2024 1:15 PM STATISTICAL DEVELOPER Legal Sex Female 5:44 PM STATISTICAL DEVELOPER Gender Identity Not on file Sexual Orientation Not on file documented as of this encounter Plan of Treatment Upcoming Encounters Date Type Department Care Team (Late st Contact Info) Description 10/16/2025 9:00 AM STATISTICAL DEVELOPER Appointment [facility] [address] [place] [address] Josie Becerra MD [address] [place] [phone] 10/21/2025 9:15 AM STATISTICAL DEVELOPER Office Visit [facility] [address] [place] [phone] Josie Becerra MD [address] [place] [phone] documented as of this encounter Visit Diagnoses Not on filedocumented in this encounter Additional Health Concerns Infection Onset Date Last Indicated Resolved Time COVID-19 Rule Out 02/27/2020 02/27/2020 02/28/2020 4:14 PM CDT COVID-19 Rule Out 03/09/2020 03/09/2020 03/09/2020 4:38 PM CDT COVID-19 Rule Out 02/03/2024 02/03/2024 02/03/2024 2:55 PM CDT documented as of this encounter Care Teams Upstream Biomanufacturing Technician Relationship Specialty Start Date End Date Blas Hardin MD [address] [place] [phone] PCP - General FAMILY PRACTICE 05/06/19 Josie Becerra MD [address] [place] [address] Consulting Physician CARDIOVASCULAR DISEASE 01/24/24 documented as of this encounter
--- OUTSIDE RECORDS SUMMARY | 2025-01-20 12:37 | XMS_ITS | Referral Summary ---
Author Organization [facility] Address [address] [place] [address] Care Team Providers Care Shake Splitter Name Role Phone Blas Hardin MD Primary [...] mcg tablet Take 100 mcg by mouth speech therapist early intervention before breakfast Active Active Problems Problem Noted [...] on file Legal Sex Female 1:53 PM TEST PULLER Gender Identity Not on file Sexual Orientation Not on file Last Filed Vital Signs Vital Sign Reading Time Taken Comments Blood Pressure 198/89 10/03/2019 11:17 AM TEST PULLER Pulse 58 10/03/2019 11:17 AM TEST PULLER Temperature 35.9 C (96.7 F) 08/11/2019 9:07 AM CDT Respiratory Rate 16 10/03/2019 11:17 AM TEST PULLER Oxygen Saturation 98% 10/03/2019 11:17 AM TEST PULLER Inhaled Oxygen Concentration - - Weight 71.7 [...] Final Result from Last 3 Months Insurance [facility] MEDICARE Care Teams Shake Splitter Relationship Specialty Start Date End Date Blas Hardin MD PCP - General 01/12/17
--- OUTSIDE RECORDS SUMMARY | 2025-01-20 12:37 | XMS_ITS | Clinical Summary ---
Author Organization [facility] Address [address] [place] [address] Care Team Providers Care Meter Tester Primary Name Role Phone Blas Hardin MD Primary Care Provider [phone] Rolo Roblero MD Unavailable Allergies Active Allergy [...] (09/15/2022): Added automatically from request for surgery [id number] Blood loss anemia 03/07/2020 Postoperative anemia 03/07/2020 [...] Department Care Team Description 12/11/2024 9:11 AM INTERMODAL OWNER OPERATOR TRUCK DRIVER - 12/11/2024 11:59 PM [facility] Hospital Encounter [facility] [place] [address] Blas Hardin MD Injection Discharge Disposition: Home or Self Care (Routine Discharge) 12/11/2024 9:10 AM [facility] Hospital Encounter [facility] [address] [place] [address] Blas Hardin MD Discharge Disposition: Home or Self Care (Routine Discharge) 12/11/2024 Travel 11/07/2024 9:30 AM INTERMODAL OWNER OPERATOR TRUCK DRIVER Office Visit [facility] [place] [address] Rolo Roblero MD Heart Problem 11/07/2024 9:15 AM INTERMODAL OWNER OPERATOR TRUCK DRIVER - 11/07/2024 11:59 PM INTERMODAL OWNER OPERATOR TRUCK DRIVER Hospital Encounter [facility] [address] [place] [address] [place] [address] Rolo Roblero MD Discharge Disposition: Home or Self Care (Routine Discharge) 11/07/2024 Telephone [facility] [address] [place] [address] Rolo Roblero MD Schedule Test 11/07/2024 Travel 11/06/2024 Telephone [facility] [address] [place] [address] Rolo oRblero MD Appointment Reminder 11/06/2024 Orders Only [facility] [address] [place] [address] [place] [address] Blas Hardin MD 11/05/2024 Orders Only [facility] [address] [place] [address] Rolo Roblero MD 10/31/2024 1:19 PM INTERMODAL OWNER OPERATOR TRUCK DRIVER - 10/31/2024 11:59 PM INTERMODAL OWNER OPERATOR TRUCK DRIVER Hospital Encounter [facility] [address] [place] [address] Rolo Roblero MD Discharge Disposition: Home or [...] place to sleep or slept in a group home (including now)? No 07/30/2023 Comments No Sex and Gender Information Value Date Recorded Sex Assigned at Female 10/31/2024 1:15 PM INTERMODAL OWNER OPERATOR TRUCK DRIVER Legal Sex Female 5:44 PM INTERMODAL OWNER OPERATOR TRUCK DRIVER Gender Identity Not on file Sexual Orientation Not on file Last Filed Vital Signs Vital Sign Reading Time Taken Comments Blood Pressure 138/44 12/11/2024 10:16 AM INTERMODAL OWNER OPERATOR TRUCK DRIVER Pulse 57 12/11/2024 10:16 AM INTERMODAL OWNER OPERATOR TRUCK DRIVER Temperature 36.3 C (97.4 F) 12/11/2024 10:16 AM INTERMODAL OWNER OPERATOR TRUCK DRIVER Respiratory Rate 18 12/11/2024 10:1 6 AM INTERMODAL OWNER OPERATOR TRUCK DRIVER Oxygen Saturation 100% 12/11/2024 10: 16 AM INTERMODAL OWNER OPERATOR TRUCK DRIVER Inhaled Oxygen Concentration - - Weight 58.9 kg (129 lb 13.6 oz) 025 10:16 AM INTERMODAL OWNER OPERATOR TRUCK DRIVER Height 170.2 cm (5' 7 ) 11/07/2024 1:33 PM INTERMODAL OWNER OPERATOR TRUCK DRIVER Body Mass Index 20.34 11/07/2024 1:33 PM INTERMODAL OWNER OPERATOR TRUCK DRIVER Plan of Treatment Upcoming Encounters Date Type Department Care Team (Late st Contact Info) Description 10/16/2025 9:00 AM INTERMODAL OWNER OPERATOR TRUCK DRIVER Appointment [facility] [address] [place] [address] Rolo Roblero MD [address] [place], [place] [phone] 10/21/2025 9:15 AM INTERMODAL OWNER OPERATOR TRUCK DRIVER Office Visit [facility] [address] [place] [address] Rolo Roblero MD [address] [place], [place] [phone] Health Maintenance Due Date Last Done Comments [...] this topic Medical Devices Implanted Type Area Wildlife Policy Professional Device Identifier Shelf Expiration Date Model / Serial / Lot Knee Components Knee Components Lens Lens G7 Hutchinson Ti Acetabular Shell 4 Hole, Cementless Implanted:Qty: 1 on 03/01/2020 by Brian Lopez MD at [facility] Right: Hip [employer] 09/16/2029 [id number] / / [id number] Acetabular System Liner Neutral 36 Mm Size F Implanted:Qty: 1 on 03/01/2020 by Brian Lopez MD at [facility] Right: Hip [employer] 05/14/2024 [id number] / / [id number] Screw Eliz Bone 25mm - [id number] Implanted:Qty: 1 on 03/01/2020 by Brian Lopez MD at [facility] Right: Hip [employer] 08/14/2029 [id number] / / [id number] Screw Eliz Bone 30mm - [id number] Implanted:Qty: 1 on 03/01/2020 by Brian Lopez MD at [facility] Right: Hip [employer] 09/16/2029 [id number] / / [id number] Standard Femoral Stem Full Proximal Profile Porous Plasma Uncemented 14 Implanted:Qty: 1 on 03/01/2020 by Brian Lopez MD at [facility] Right: Hip [employer] 01/19/2028 [id number] / / [id number] Component Modular Head 36mm Biomet - [id number] Implanted:Qty: 1 on 03/01/2020 by Brian Lopez MD at [facility] Right: Hip [employer] 09/06/2028 [id number] / / [id number] Explanted Type Area Wildlife Policy Professional Device Identifier Shelf Expiration Date Model / Serial / Lot Drill Tip - [id number] Explanted:Qty: 1 on 03/01/2020 at [facility] Right: Hip [employer] [id number] / / Procedures Procedure Name Priority Date/Time Associated Diagnosis Comments COMPREHENSIVE METABOLIC PANEL Routine 12/11/2024 9:37 AM INTERMODAL OWNER OPERATOR TRUCK DRIVER Age-related osteoporosis without current pathological fracture ECG 12-LEAD Routine 11/07/2024 9:51 AM INTERMODAL OWNER OPERATOR TRUCK DRIVER Hypomagnesemia USE ECHOCARDIOGRAM Routine 10/31/2024 1: 57 PM INTERMODAL OWNER OPERATOR TRUCK DRIVER Paroxysmal atrial fibrillation (CMS/HCC HHS/HCC) Other cardiomyopathy (CMS/HCC HHS/HCC) from Last 3 Months Results * (ABNORMAL) COMPREHENSIVE METABOLIC PANEL (12/11/2024 9:37 AM [facility]) SODIUM S/P/B 135(L) 136 - 145 MMOL/L 12/11/2024 10:01 AM [facility] POTASSIUM S/P/B 4.3 3.5 - 5.1 MMOL/L 12/11/2024 10:01 AM [facility] CHLORIDE S/P/B 99 98 - 107 MMOL/L 12/11/2024 10:01 AM [facility] CO2 30.3 21.0 - 32.0 MMOL/L 12/11/2024 10:01 AM [facility] GLUCOSE 79 70 - 99 MG/DL 12/11/2024 10:01 AM [facility] Comment: FASTING GLUCOSE 100 TO 125 MG/DL IS CONSISTENT WITH IMPAIRED FASTING GLUCOSE. FASTING GLUCOSE >125 MG/DL IS CONSISTENT WITH DIABETES. RANDOM GLUCOSE >200 MG/DL WITH HYPERGLYCEMIC SYMPTOMS IS CONSISTENT WITH DIABETES. PER ADA GUIDELINES BUN 24 6 - 24 MG/DL 12/11/2024 10:01 AM [facility] CREATININE S/P/B 1.15(H) 0.55 - 1.02 MG/DL 12/11/2024 10:01 AM [facility] CALCIUM S/P/B 8.8 8.4 - 10.5 MG/DL 12/11/2024 10:01 AM [facility] BILIRUBIN TOTAL S/P/B 0.3 0.2 - 1.0 MG/DL 12/11/2024 10:01 AM [facility] Comment: THIS ASSAY IS NOT RECOMMENDED FOR PATIENTS UNDERGOING TREATMENT WITH ELTROMBOPAG DUE TO THE POTENTIAL FOR FALSELY ELEVATED RESULTS. ALKALINE PHOSPHATASE S/P/B 78 55 - 142 U/L 12/11/2024 10:01 AM [facility] AST 44(H) 15 - 37 U/L 12/11/2024 10:01 AM [facility] ALT 57 14 - 59 U/L 12/11/2024 10:01 AM [facility] TOTAL PROTEIN S/P/B 6.4 6.4 - 8.2 G/DL 12/11/2024 10:01 AM [facility] ALBUMIN S/P/B 3.3(L) 3.4 - 5.0 G/DL 12/11/2024 10:01 AM [facility] ANION GAP 5.7 5.0 - 15.0 MMOL/L 12/11/2024 10:01 AM [facility] OSMOLALITY (CALC) 283 MOSM/KG 025 10:01 AM [facility] Comment:REFERENCE RANGE NOT ESTABLISHED GFR ESTIMATE 48(L) >89 ML/MIN/1. 73 M2 12/11/2024 10:01 AM [facility] GFR NOTES GFR REFERENCE S: 12/11/2024 10:01 AM [facility] Comment: THE ESTIMATED GFR IS CALCULATED [...] FAILURE: <15 ml/min/1.73 m2 12/11/2024 9:37 AM INTERMODAL OWNER OPERATOR TRUCK DRIVER us Blas Hardin MD LABORATORY Final Resul t [facility] [address] [place] [id number], * ECG 12 lead (HOSPITAL PERFORMED ONLY) (11/07/2024 9:51 AM INTERMODAL OWNER OPERATOR TRUCK DRIVER) 11/07/2024 9:51 AM INTERMODAL OWNER OPERATOR TRUCK DRIVER Narrative [facility] - 11/07/2024 6:23 PM INTERMODAL OWNER OPERATOR TRUCK DRIVER [address] [place] [address] Test Date: 2024-11-07 Pat Name: GAIN BROOKS Department: 3 Room: Gender: Female Lacrosse Coach: : 1940 Requested By: ROLO ROBLERO Order Number: [id number] Reading MD: Rolo Roblero Measurements Intervals Louise Rate: 59 P: 78 IN: 213 QRS: 85 QRSD: 109 T: 80 QT: 474 QTc: 471 Interpretive Statements SINUS BRADYCARDIA WITH FIRST DEGREE AV BLOCK PROLONGED QT INTERVAL RMODAL OWNER OPERATOR TRUCK DRIVER Procedure Note Rolo Roblero MD - 11/07/[address] [place] [address] Test Date: 2024-11-07 Pat Name: GIAN GORDILLO Department: 3 Room: Gender: Female Lacrosse Coach: : 1940 Requested By: ROLO ROBLERO Order Number: [id number] Reading : Rolo Roblero Measurements Intervals Louise Rate: 59 P: 78 IN: 213 QRS: 85 QRSD: 109 T: 80 QT: 474 QTc: 471 Interpretive Statements SINUS BRADYCARDIA WITH FIRST DEGREE AV BLOCK PROLONGED QT INTERVAL RMODAL OWNER OPERATOR TRUCK DRIVER us Rolo Roblero MD ECG ORDERABLES Final Result [facility] * USE ECHOCARDIOGRAM (10/31/2024 1:57 PM INTERMODAL OWNER OPERATOR TRUCK DRIVER) Anatomical Region Laterality Modality Cardiac Ultrasound 10/31/2024 1:27 PM INTERMODAL OWNER OPERATOR TRUCK DRIVER Narrative 11/02/2024 10:07 AM INTERMODAL OWNER OPERATOR TRUCK DRIVER Echocardiography Report Pat.Name: Gian Gordillo.ID: [id number] .Date: 10/31/2024 Refer.MD: Adam, [facility] Exam Time: 1:27:00 PM Study Type:ADAM Height: 67 in Weight: 130 lb BSA: 1.68 m2 Age: 3 1940,83Y Sex: F Sonogrphr: Sf Pat. Stat.:Outpatient Reason for Study:Paroxysmal atrial fibrillation, Other cardiomyopathy Procedures: Study performed at [place], [place] and interpreted by [facility]. 2D, M-mode, Doppler, Color Flow [...] - 11/02/2024 Echocardiography Report Pat.Name: Gian Gordillo.ID: [id number] .Date: 10/31/2024 Refer.MD: Adam, [facility] Exam Time: 1:27:00 PM Study Type:[facility] Height: 67 in Weight: 130 lb BSA: 1.68 m2 Age: 3 1940,83Y Sex: F Sonogrphr: Pat. Stat.:Outpatient Reason for Study:Paroxysmal atrial fibrillation, Other cardiomyopathy Procedures: Study performed at [facility], [place], [place] and interpreted by [facility]. 2D, M-mode, Doppler, Color Flow [...] Result from Last 3 Months Insurance [facility] MEDIC[facility] Advance Directives * Full Code (Latest [...] 5:01 PM 03/03/2020 4:52 PM Care Teams Meter Tester Primary Relationship Specialty Start Date End Date Blas Hardin MD [address] [place] [phone] PCP - General FAMILY PRACTICE 05/06/19 Rolo Roblero MD [address] [place] [address] Consulting Physician CARDIOVASCULAR DISEASE 01/24/24
--- OUTSIDE RECORDS SUMMARY | 2025-01-20 12:38 | XMS_ITS | Encounter Summary ---
Author Organization [facility] Address [address] Cha: Epic Prelude ADT [place]ILSON AGUILAR [address] Care Team Providers Care Multiple Tube Winding Machine Operator Name Role Phone Unavailable Primary Care Provider Unavailabl e Encounter Details Date Type Department Care Team (Late st Contact Info) Description 10/12/1989 Outpatient Historical Jassi Gage Social History Tobacco Use Types Packs/Day Years Used Date Smoking Tobacco: Never Assessed Comments Unknown Sex and Gender Information Value Date Recorded Sex Assigned at Not on file Legal Sex Female 4:13 AM THIRD RAIL INSTALLER Gender Identity Not on file Sexual Orientation Not on file documented as of this encounter Plan of Treatment Not on file documented as of this encounter Visit Diagnoses Not on filedocumented in this encounter
--- OUTSIDE RECORDS SUMMARY | 2025-01-20 12:38 | XMS_ITS | Encounter Summary ---
Author Organization [facility] Address [address] Cha: Epic Prelude ADT [place] [address] Care Team Providers Care Stockroom Keeper Name Role Phone Unavailable Primary Care Provider Unavailabl e Encounter Details Date Type Department Care Team (Late st Contact Info) Description 08/09/1990 Outpatient Historical Jassi Gage Social History Tobacco Use Types Packs/Day Years Used Date Smoking Tobacco: Never Assessed Comments Unknown Sex and Gender Information Value Date Recorded Sex Assigned at Not on file Legal Sex Female 4:13 AM STOCK PREPARATION SUPERVISOR Gender Identity Not on file Sexual Orientation Not on file documented as of this encounter Plan of Treatment Not on file documented as of this encounter Visit Diagnoses Not on filedocumented in this encounter
--- OUTSIDE RECORDS SUMMARY | 2025-01-20 12:38 | XMS_ITS | Clinical Summary ---
Author Organization [facility] Address [address] Cha: Epic Prelude ADT LIZETH MEYERSADILSON GARCIA [phone] Care Team Providers Care Pipe Organ Mechanic Apprentice Name Role Phone Unavailable Primary Care Provider Unavailabl e Social History Tobacco Use Types Packs/Day Years Used Date Smoking Tobacco: Never Assessed Comments Unknown Sex and Gender Information Value Date Recorded Sex Assigned at Not on file Legal Sex Female 4:13 AM SENIOR DESIGNER/ART DIRECTOR Gender Identity Not on file Sexual [...]
--- OUTSIDE RECORDS SUMMARY | 2025-01-20 12:38 | XMS_ITS | Encounter Summary ---
Author Organization [facility] Address [address] Fernandezn: Epic Prelude ADT ADILSON AGUIL[place] [address] Care Team Providers Care Channel Executive Name Role Phone Unavailable Primary Care Provider [...] on file Legal Sex Female 4:13 AM FITTING SUPERVISOR Gender Identity Not on file Sexual Orientation Not on file documented as of this encounter Plan of Treatment Not on file documented as of this encounter Visit Diagnoses Not on filedocumented in this encounter
[2025-01-20 12:55] LABS: Occult Blood Negative (Negative)
[2025-01-20] MEDS: SODIUM CHLORIDE 0.9% IV 250 ML 30 ML IV CONT (14:15)
[2025-01-20 15:41] LABS: Ferritin 72 ng/mL (8-252); Iron 17 ug/dL (50-170); Percent Iron Saturation 4 % (12-57); Vitamin B12 814 pg/mL (193-986)
[2025-01-20 15:42] LABS: Folic Acid > 20.0 ng/mL (8.6->20)
[2025-01-20 17:21] LABS: Hematocrit 20.7 % (35.0-42.0)
[2025-01-20 17:23] LABS: Hemoglobin 6.6 g/dL (11.7-13.8)
[2025-01-20 17:40] LABS: Add Urine Microscopic? NO; Appearance Urine Clear (Clear); Bilirubin Urine Negative (Negative); Blood Urine Negative (Negative); Color Urine Yellow (Yellow); Glucose Urine UA Negative (Negative); Ketones Urine Negative (Negative); Leukocyte Esterase Ur Negative LEU/UL (Negative); Nitrate Urine Negative (Negative); Protein Urine Negative (Negative); Urobilinogen Urine 0.2 mg/dL (0.2-1.0); pH Urine 6.5 (5.0-8.0)
== END 2025-01-20 17:40 | disposition short-term general hospital (02) ==
PROVIDERS: Emergency Provider Emergency Medicine; PCP Internal Medicine
DX: R53.1 Weakness (principal); E87.1 Hypo-osmolality and hyponatremia; R55 Syncope and collapse; D64.9 Anemia, unspecified; I48.91 Unspecified atrial fibrillation; I10 Essential (primary) hypertension; E03.9 Hypothyroidism, unspecified; Z79.01 Long term (current) use of anticoagulants; Z91.81 History of falling; W19.XXXA Unspecified fall, initial encounter
CPT/HCPCS: 36415; 36430; 70450; 72125; 73521; 74176; 80053; 81003; 82607; 82728; 82746; 83540; 83550; 83605; 83735; 83880; 84484; 85014; 85018; 85025; 86850; 86900; 86901; 86920; 93005; 96360; 96361; 99285; J7050; P9016

== ENCOUNTER 2025-02-04 08:57 | Outpatient (CLI) | payer MEDICARE, SELFPAY ==
[2025-02-04 09:13] LABS: Hematocrit 27.5 % (35.0-42.0); Hemoglobin 8.2 g/dL (11.7-13.8); Mean Corpuscular HGB Conc 29.8 g/dL (32-36); Mean Corpuscular Volume 93.9 fL (78.0-102.0); Mean Platelet Volume 9.6 fl (9.2-11.8); Platelet Count Result 330 K/mm3 (150-420); Red Blood Count 2.93 M/mm3 (4.20-5.40); Red Cell Distribution Width 16.6 % (11.6-14.4); White Blood Count 7.4 K/mm3 (4.8-10.8)
[2025-02-04 09:37] LABS: Alanine Aminotransferase 68 U/L (14-59); Albumin Level 2.7 g/dL (3.4-5.0); Alkaline Phosphatase 88 U/L (46-116); Anion Gap 6 mmol/L (4-12); Aspartate Amino Transferase 34 U/L (15-37); Bilirubin,Total 0.4 mg/dL (0.00-1.00); Blood Urea Nitrogen 28 mg/dL (7-18); Calcium 7.3 mg/dL (8.5-10.1); Carbon Dioxide 28 mmol/L (21-32); Chloride 105 mmol/L (98-108); Estimated Glomerular Filt Rate 39; Ferritin 70 ng/mL (8-252); Glucose 110 mg/dL (70-99); Iron 85 ug/dL (50-170); Osmolality Calculated 294 mOsm/kg (285-295); Sodium 139 mmol/L (136-145); Total Protein 6.3 g/dL (6.4-8.2)
--- OUTSIDE RECORDS SUMMARY | 2025-02-04 09:39 | XMS_ITS | Clinical Summary ---
Author Organization [facility] Address [address] [place] [address] Phone Care Team Providers Care Overhead Line Worker Name Role Phone Blas Hardin MD Primary Care Provider [phone] Social History Tobacco Use Types Packs/Day Years [...] age to complete this topic Insurance MEDICARE [facility] INSURANCE Care Teams Overhead Line Worker Relationship Specialty Start Date End Date Blas Hardin MD [address] [place] [address] PCP - General Family Medicine 01/24/16
--- OUTSIDE RECORDS SUMMARY | 2025-02-04 09:39 | XMS_ITS ---
Author Organization [facility] Address [address] [place], [place] [id number] Care Team Providers Care Nc Machinist Name Role Phone LISA LÓPEZ Unavailable [phone] Blas Hardin Unavailable Unavailable KENDALL BESS Unavailable [phone] REASON FOR VISIT *General care Medications Medication [...] Active Encounters Encounter Location Date Provider Diagnosis [address] [id number] 08/14/2024 KENDALL BESS Other hammer toe(s) (acquired), right foot M20.41 ; Tinea unguium B35.1 ; Other hammer toe(s) (acquired), left foot M20.42 ; Pain in right toe(s) M79.674 ; Pain in left toe(s) M79.675 ; Unspecified atherosclerosis of [place] arteries of extremities, bilateral legs I70.203 and [...] (ICD-10 - M79.675) 08/14/2024 Unspecified atherosclerosis of [place] arteries of extremities, bilateral legs (ICD-10 - [...] OTC and prescription treatments. Unspecified atherosclerosis of [place] arteries of extremities, bilateral legs Patient educated [...] Appt Details Follow Up: 3 Months, Reason: Progress Notes * Yan GORDILLO: [birth year] (83 yo F)Acc No.[id number]:08/14/2024 Patient: Wanda GARCIA Provider: Marizol BESS :1940 A ge:83 Y S ex:Female Date:08/14/2024 Address:[address] [id number] Subjective: * Chief Complaints: * 1 . [...] seen by Dr. Hardin was 07/2024., Initials [facility]. * ROS: G eneral / Constitutional: Patient denies w eakness. R espiratory: Patient denies c hronic cough, shortness of breath, sputum production. C ardiovascular: Patient denies c hest pain, history of NM, irregular heartbeat. M usculoskeletal: Patient complains of f lat feet/ planus, hammertoes. ? P eripheral Vascular: Patient denies b lanching of skin, cold extremities, decreased sensation in extremities. S kin: Patient complains of f ungal nails, nail changes. ? N eurologic: Patient denies d izziness, gait abnormality, headache. * Medical History: * Medications: T aking Vitamin D2 50 MCG (2000 UT) Tablet 1 tablet Orally Once a [...] M79.675 6 . U nspecified atherosclerosis of [place] arteries of extremities, bilateral legs - I70.203 [...] were emphasized. 3. U nspecified atherosclerosis of [place] arteries of extremities, bilateral legs Notes: Patient [...] LESIONS, 2 TO 4, Modifiers: Q8 , 40954 DEBRIDE NAIL, 6 OR MORE, Modifiers: 59 , Q8 * Follow Up: 3 Months * Billing Information: * Visit Code: * Procedure Codes: 12959 TRIM SKIN LESIONS, 2 TO 4. Modifiers: Q8 57695 DEBRIDE NAIL, 6 OR MORE. Modifiers: 59, Q8 * ETING AREA MANAGER Sign off status: Completed true * Provider: Marizol BESS Date: Generated for Deandre schneider/Kaylah/Reji on: 0 02/04/2025 09:39 AM CDT History and Physical Notes * HPI [...]
--- OUTSIDE RECORDS SUMMARY | 2025-02-04 09:39 | XMS_ITS | Encounter Summary ---
Author Organization [facility] Address [address] [place] [address] Care Team Providers Care Senior Accounts Payable Specialist Name Role Phone Blas Hardin MD Primary Care Provider [phone] Josie Becerra MD Unavailable Pradip Tracy MD Primary Care Provider [phone] Encounter Details Date Type Department Care Team (Late st Contact Info) Description 03/22/2019 Abstract [facility]FL CONVERSION [address] [place] [address] , Generic Conversion, Social History Tobacco Use Types Packs/Day Years Used Date Smoking Tobacco: Never Assessed Comments Unknown Sex and Gender Information Value Date Recorded Sex Assigned at Female 10/31/2024 1:15 PM NET FINISHER Legal Sex Female 5:44 PM NET FINISHER Gender Identity Not on file Sexual Orientation Not on file documented as of this encounter Plan of Treatment Upcoming Encounters Date Type Department Care Team (Late st Contact Info) Description 10/16/2025 9:00 AM NET FINISHER Appointment [facility] [address] [place] [address] Josie Becerra MD [address] [place] [phone] 10/21/2025 9:15 AM NET FINISHER Office Visit [facility] [address] [place] [id number] Josie Becerra MD [address] [place] [phone] documented as of this encounter Visit Diagnoses Not on filedocumented in this encounter Additional Health Concerns Infection Onset Date Last Indicated Resolved Time COVID-19 Rule Out 02/27/2020 02/27/2020 02/28/2020 4:14 PM CDT COVID-19 Rule Out 03/09/2020 03/09/2020 03/09/2020 4:38 PM CDT COVID-19 Rule Out 02/03/2024 02/03/2024 02/03/2024 2:55 PM CDT documented as of this encounter Care Teams Senior Accounts Payable Specialist Relationship Specialty Start Date End Date Blas Hardin MD [address] [place] [phone] PCP - General FAMILY PRACTICE 05/06/19 01/20/25 Pradip Tracy MD [address] [place] [address] PCP - General INTERNAL MEDICINE 01/21/25 Josie Becerra MD [address] [place] [address] Consulting Physician CARDIOVASCULAR DISEASE 01/24/24 documented as of this encounter
--- OUTSIDE RECORDS SUMMARY | 2025-02-04 09:39 | XMS_ITS | Referral Summary ---
Author Organization [facility] Address [address] [place] [address] Care Team Providers Care Continuous Improvement Facilitator Name Role Phone Blas Hardin MD Primary [...] mcg tablet Take 100 mcg by mouth bilingual account manager before breakfast Active Active Problems Problem [...] on file Legal Sex Female 1:53 PM SUPERVISOR [employer] Gender Identity Not on file Sexual Orientation Not on file Last Filed Vital Signs Vital Sign Reading Time Taken Comments Blood Pressure 198/89 10/03/2019 11:17 AM SUPERVISOR [employer]ORE Pulse 58 10/03/2019 11:17 AM SUPERVISOR [employer] Temperature 35.9 C (96.7 F) 08/11/2019 9:07 AM CDT Respiratory Rate 16 10/03/2019 11:17 AM SUPERVISOR [employer] STORE Oxygen Saturation 98% 10/03/2019 11:17 AM SUPERVISOR [employer]ORE Inhaled Oxygen Concentration - - Weight 71.7 [...] Final Result from Last 3 Months Insurance [facility] MEDICARE Care Teams Continuous Improvement Facilitator Relationship Specialty Start Date End Date Blas Hardin MD PCP - General 01/12/17
--- OUTSIDE RECORDS SUMMARY | 2025-02-04 09:39 | XMS_ITS | Clinical Summary ---
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 Indications: Drying and Inflammation of Cornea and Conjunctiva of Eyes 01/24/20 16 Active denosumab 60 MG/ML injectionIndi cations:Osteo porosis Inject 1 mL (60 mg total) into the skin. Indications: Osteoporosis Two times a year (due in September 2023) 03/14/20 20 Active Levothyroxine Sodium 75 MCG capsuleIndica tions:Hypothy roidism Take 1 capsule by mouth daily. Indications: Underactive Thyroid 06/14/20 17 Active latanoprost (XALATAN) 0.005 % ophthalmic solution Place 1 drop into both eyes nightly at bedtime. 08/09/20 22 Active MYRBETRIQ 50 MG 24 hr tablet Take 1 tablet (50 mg total) by mouth daily. 05/25/20 22 Active Ergocalcifero l (VITAMIN D2 OR) Take 5,000 Units by mouth Every M/W/F at 5pm. Active aspirin 81 MG chewable tablet Chew 1 tablet (81 mg total) by mouth daily. Active traZODone (DESYREL) 100 MG tablet Take 1 tablet (100 mg total) by mouth nightly as needed for Sleep. Active metoprolol succinate ER (TOPROL-XL) 100 MG 24 hr tablet Take 1 tablet (100 mg total) by mouth daily. 30 tablet 11 01/29/20 24 Active hydrALAZINE (APRESOLINE) 25 MG tablet Take 1 tablet (25 mg total) by mouth 2 (two) times daily. Active losartan (COZAAR) 50 MG tablet Take 1 tablet (50 mg total) by mouth daily. Active ferrous sulfate, 65 mg elemental, (FEROSUL) 325 (65 FE) MG tablet Take 1 tablet (325 mg total) by mouth daily with breakfast. Active pantoprazole EC (PROTONIX) 40 MG tablet Take 1 tablet (40 mg total) by mouth daily. 30 tablet 01/28/20 25 Active zolpidem (AMBIEN) 10 MG tabletIndicat ions:Primary insomnia Take 1 tablet (10 mg total) by mouth nightly as needed for Sleep. 30 tablet 01/27/20 25 Active aspirin EC (ECOTRIN) 81 MG tablet Take 1 tablet (81 mg total) by mouth daily. 30 tablet 01/27/20 25 Active ELIQUIS 2.5 MG tablet Take 1 tablet (2.5 mg total) by mouth 2 (two) times daily. 12/17/19 24 025 Discontinued(S top Taking at Discharge) amiodarone (PACERONE) 200 MG tablet Take 1 tablet (200 mg total) by mouth daily. 30 tablet 04/09/20 24 025 Discontinued(S top Taking at Discharge) zolpidem (AMBIEN) 10 MG tablet Take 1 tablet (10 mg total) by mouth nightly as needed for Sleep. 025 Discontinued atorvastatin (LIPITOR) 10 MG tablet Take 1 tablet (10 mg total) by mouth daily. 025 Discontinued(S top Taking at Discharge) Active Problems Problem Noted Date Diagnosed Date Anemia 01/20/2025 Hyponatremia 07/30/2023 Lumbar radiculopathy 09/15/2022 Overview (09/15/2022): Added automatically from request for surgery [id number] Blood loss anemia 03/07/2020 Postoperative anemia 03/07/2020 [...] Encounters Date Type Department Care Team Description 01/26/2025 Travel 01/24/2025 9:00 AM CDT - 01/24/2025 10:04 AM CDT [facility] [address] [place] [address] Shelley Simental MBBS COLONOSCOPY WITH BIOPSY 01/24/2025 8:06 AM CDT Anest[facility] [address] [place] [address] Braden Sandoval MD Coonrod, Sheila A, RN 01/23/2025 10:09 AM CDT Anest[facility] [address] [place] [address] Austen Castro MD Coonrod, Sheila A, RN 01/23/2025 9:56 AM CDT - 01/23/2025 10:43 AM CDT [facility] [address] [place] [address] Shelley Simental MBBS EGD WITH BIOPSY 01/20/2025 7:19 PM CDT - 01/26/2025 4:34 PM CDT Hospital Encounter [facility] [address] [place] [address] Kenny Massey MD Sohail, Atif, MD Sonani, Bhavin V., MD Discharge Disposition: [facility] Facility 12/11/2024 9:11 AM COAL HAULER OPERATOR - 12/11/2024 11:59 PM COAL HAULER OPERATOR Hospital Encounter [facility] [address] [place] [address] [place] [address] Blas Hardin MD Injection Discharge Disposition: Home or Self Care (Routine Discharge) 12/11/2024 9:10 AM COAL HAULER OPERATOR Hospital Encounter [facility] [address] [place] [address] [place] [address] Blas Hardin MD Discharge Disposition: Home or Self Care (Routine Discharge) 12/11/2024 Travel 11/07/2024 9:30 AM COAL HAULER OPERATOR Office Visit [facility] [place] [address] Rolo Roblero MD Heart Problem 11/07/2024 9:15 AM COAL HAULER OPERATOR - 11/07/2024 11:59 PM COAL HAULER OPERATOR Hospital Encounter [facility] [address] [place] [address] [place] [address] Rolo Roblero MD Discharge Disposition: Home or Self Care (Routine Discharge) 11/07/2024 Telephone [facility] [address] [place] [address] Rolo Roblero MD Schedule Test 11/07/2024 Travel 11/06/2024 Telephone [facility] [address] [place] [address] Rolo Roblero MD Appointment Reminder 11/06/2024 Orders Only [address] [place] [address] Blas Hardin MD from Last 3 Months Family History Medical History Relation Comments Cancer Father Heart Attack Father Hypertension Father Hypertension Mother Relation Status Comments Father Mother Social History Tobacco Use Types Packs/Day Years Used Date Smoking Tobacco: Never Smokeless Tobacco: Never Tobacco Cessation:Counseling Given: Not Answered Alcohol Use Standard Drinks/Week Comments No 0 (1 standard drink = 0.6 oz pur e alcohol) [facility] Utilities Answer Date Recorded In the past 12 months has th e [employer] gas, oil, or water [employer] threatened to shut off services in your home? No 01/26/2025 Humiliation, Afraid, Rape, and Kick questionnair e Answer Date Recorded Within the last year, have y ou been afraid of your partner or ex-partner? No 01/26/2025 Within the last year, have y ou been humiliated or emotionally abused in other ways by your partner or ex-partner? No Within the last year, have y ou been kicked, hit, slapped, or otherwise physically hurt by your partner or ex-partner? No 01/26/2025 Within the last year, have y ou been raped or forced to have any kind of sexual activity by your partner or ex-partner? No 01/26/2025 AUDIT-C Answer Date Recorded Frequency of Alcohol Consumption Never 09/23/2019 Average Number of Drinks Not on file 019 Frequency of Binge Drinking Not on file 09/14 Overall Financial Resource Strain (CARDIA) Answe r Date Recorded How hard is it for you to pa y for the very basics like food, housing, medical care, and heating? Hard 01/26/2025 Hunger Vital Sign Answer Date Recorded Within the past 12 months, y ou worried that your food would run out before you got the money to buy more. Never true 01/27/20 25 Within the past 12 months, t he food you bought just didn't last and you didn't have money to get more. Never true 01/26/2025 PRAPARE - Transportation Answer Date Re corded In the past 12 months, has l ack of transportation kept you from medical appointments or from getting medications? No 01/13 In the past 12 months, has l ack of transportation kept you from meetings, work, or from getting things needed for daily living? No 01/26/2025 Housing Stability Vital Sign Answer Erwin e [...] place to sleep or slept in a jail (including now)? No 07/30/2023 Housing Stability Vital Sign Answer Erwin e Recorded In the last 12 months, was t here a time when you were not able to pay the mortgage or rent on time? No 01/26/2025 In the past 12 months, how m any times have you moved where you were living? 0 01/26/2025 At any time in the past 12 m [facility], were you homeless or living in a jail (including now)? No 01/26/2025 Comments No Sex and Gender Information Value Date Recorded Sex Assigned at Female 10/31/2024 1:15 PM COAL HAULER OPERATOR Legal Sex Female 5:44 PM COAL HAULER OPERATOR Gender Identity Not on file Sexual Orientation Not on file Last Filed Vital Signs Vital Sign Reading Time Taken Comments Blood Pressure 137/51 01/26/2025 11:45 AM CDT Pulse 52 01/26/2025 11:45 AM CDT Temperature 36.3 C (97.3 F) 01/26/2025 11:45 AM CDT Respiratory Rate 16 01/26/2025 11:45 AM CDT Oxygen Saturation 100% 01/26/2025 11:45 AM CDT Inhaled Oxygen Concentration - - Weight 63.5 kg (140 lb) 01/26/2025 9:25 AM CDT Height 170.2 cm (5' 7 ) 01/26/2025 9:25 AM CDT Body Mass Index 21.93 01/26/2025 9:25 AM CDT Plan of Treatment Upcoming Encounters Date Type Department Care Team (Late st Contact Info) Description 10/16/2025 9:00 AM COAL HAULER OPERATOR Appointment [facility] [address] [place] [address] Rolo Roblero MD [address] [place] [address] 10/21/2025 9:15 AM COAL HAULER OPERATOR Office Visit [facility] [address] [place] [address] Rolo Roblero MD [address] [place] [address] Health Maintenance Due Date Last Done Comments DTaP, Tdap and Td Vaccines ( 1 - Tdap) 1959 Annual Medicare Wellness Visit 2006 Dexa Scan (General) 2006 RSV Immunization or 60+ Years (1 - 1-dose 75+ series) 2016 Zoster Vaccines (2 of 2) 08/09/2020 06/14/2020 COVID-19 Vaccine (3 - 2023-2 5 season) 2024 12/08/2020, 11/17/2020 Pneumococcal Vaccine: 50+ Years Completed 09/25/2018, 10/04/2012 Meningococcal B Vaccine Aged Out No l onger eligible based on patient's age to complete this topic Meningococcal Vaccine Aged Out No deirdre marcus eligible based on patient's age to complete this topic RSV Immunizations Under 20 Months Aged Out No longer eligible b ased on patient's age to complete this topic Medical Devices Implanted Type Area Transmission And Protection Engineer Device Identifier Shelf Expiration Date Model / Serial / Lot Knee Components Knee Components Lens Lens G7 Morris Ti Acetabular Shell 4 Hole, Cementless Implanted:Qty: 1 on 03/01/2020 by Brian Lopez MD at [facility] Right: Hip [employer] 09/16/2029 [id number] / / [id number] Acetabular System Liner Neutral 36 Mm Size F Implanted:Qty: 1 on 03/01/2020 by Brian Lopez MD at [facility] Right: Hip [employer] 05/14/2024 [id number] / / [id number] Screw Eliz Bone 25mm - [id number] Implanted:Qty: 1 on 03/01/2020 by Brian Lopez MD at [facility] Right: Hip [employer] 08/14/2029 [id number] / / [id number] Screw Eliz Bone 30mm - [id number] Implanted:Qty: 1 on 03/01/2020 by Brian Lopez MD at [facility] Right: Hip [employer] 09/16/2029 [id number] / / [id number] Standard Femoral Stem Full Proximal Profile Porous Plasma Uncemented 14 Implanted:Qty: 1 on 03/01/2020 by Brian Lopez MD at [facility] Right: Hip [employer] 01/19/2028 [id number] / / [id number] Component Modular Head 36mm Biomet - [id number] Implanted:Qty: 1 on 03/01/2020 by Brian Lopez MD at [facility] Right: Hip [employer] 09/06/2028 [id number] / / [id number] Explanted Type Area Transmission And Protection Engineer Device Identifier Shelf Expiration Date Model / Serial / Lot Drill Tip - [id number] Explanted:Qty: 1 on 03/01/2020 at [facility] Right: Hip [employer] [id number] / / Procedures Procedure Name Priority Date/Time Associated Diagnosis Comments COMPREHENSIVE METABOLIC PANEL Routine 01/26/2025 10:10 AM CDT CBC W/DIFF AUTOMATED Routine 01/26/2025 10:10 AM CDT BASIC METABOLIC PANEL Routine 01/25/2025 5:00 AM CDT CBC W/DIFF AUTOMATED Routine 01/25/2025 5:00 AM CDT COLONOSCOPY WITH BIOPSY 01/24/2025 7:50 AM CDT Iron deficiency anemia due to chronic blood loss Case Notes OC#3 WANTS TF OTHER CASE COMPREHENSIVE METABOLIC PANEL Routine 01/24/2025 4:14 AM CDT CBC W/DIFF AUTOMATED Routine 01/24/2025 4:14 AM CDT PATHOLOGY Routine 01/24/2025 12:00 AM CDT COLONOSCOPY Routine 01/23/2025 1:46 PM CDT POCT GLUCOSE - DOMINGO DOCKED DEVICE Routine 01/23/2025 12:21 PM CDT UPPER GI ENDOSCOPY,BIOPSY 01/23/2025 9:55 AM CDT Iron deficiency anemia due to chronic blood loss ENDOSCOPY (SCAN ORDER) 01/23/2025 7:23 AM CDT POCT GLUCOSE - DOMINGO DOCKED DEVICE Routine 01/23/2025 6:26 AM CDT BASIC METABOLIC PANEL Routine 01/23/2025 3:34 AM CDT CBC W/DIFF AUTOMATED Routine 01/23/2025 3:34 AM CDT PATHOLOGY Routine 01/23/2025 12:00 AM CDT PROTHROMBIN TIME, VENOUS Routine 01/22/2025 5:34 PM CDT COLONOSCOPY Routine 01/22/2025 4:38 PM CDT COMPREHENSIVE METABOLIC PANEL Routine 01/22/2025 3:52 AM CDT CBC W/DIFF AUTOMATED Routine 01/22/2025 3:52 AM CDT HEMOGLOBIN AND HEMATOCRIT Routine 01/21/2025 4:08 PM CDT HEMOGLOBIN AND HEMATOCRIT TIMED 01/21/2025 7:37 AM CDT URINE BACTERIA CULTURE Nurse Collected Priority 01/21/2025 4:09 AM CDT HC URINALYSIS AUTO W/MICRO Nurse Collected Priority 01/21/2025 4:09 AM CDT TRANSFUSE RED BLOOD CELLS Routine 01/21/2025 3:16 AM CDT CBC W/DIFF AUTOMATED Routine 01/21/2025 2:[address] HEAD WO CON SAUL 01/20/2025 11:29 PM CDT TYPE & SCREEN Routine 01/20/2025 8:27 PM CDT TSH W/REFLEX Routine 01/20/2025 8:27 PM CDT MAGNESIUM Routine 01/20/2025 8:27 PM CDT PRO-BRAIN NATRIURETIC PEPTIDE Routine 01/20/2025 8:27 PM CDT PROTHROMBIN TIME, VENOUS Routine 01/20/2025 8:27 PM CDT HEPATIC FUNCTION PANEL Routine 01/20/2025 8:27 PM CDT BMP WITHOUT GLUCOSE Routine 01/20/2025 8 :27 PM CDT CBC, AUTO, NO DIFF Routine 01/20/2025 8: 27 PM CDT COMPREHENSIVE METABOLIC PANEL Routine 12/11/2024 9:37 AM COAL HAULER OPERATOR Age-related osteoporosis without current pathological fracture ECG 12-LEAD Routine 11/07/2024 9:51 AM COAL HAULER OPERATOR Hypomagnesemia from Last 3 Months Results * (ABNORMAL) COMPREHENSIVE METABOLIC PANEL (01/26/2025 10:10 AM CDT) Only the most recent of4 resultswithin the time period is included. SODIUM S/P/B 135(L) 136 - 145 MMOL/L 01/26/2025 11:21 AM CDT [facility] POTASSIUM S/P/B 4.6 3.5 - 5.1 MMOL/L 01/26/2025 11:21 AM CDT [facility] Comment:SLIGHT HEMOLYSIS, RE SULT MAY BE AFFECTED. CHLORIDE S/P/B 104 97 - 115 MMOL/L 01/26/2025 11:21 AM CDT [facility] CO2 21.3 21.0 - 32.0 MMOL/L 01/26/2025 11:21 AM CDT [facility] GLUCOSE 110(H) 74 - 106 MG/DL 01/26/2025 11:21 AM CDT [facility] BUN 18 7 - 18 MG/DL 01/26/2025 11:21 AM CDT [facility] CREATININE S/P/B 1.09(H) 0.55 - 1.02 MG/DL 01/26/2025 11:21 AM [facility] CALCIUM S/P/B 7.5(L) 8.5 - 10.1 MG/DL 01/26/2025 11:21 AM [facility] BILIRUBIN TOTAL S/P/B 0.5 0.2 - 1.0 MG/DL 01/26/2025 11:21 AM [facility] ALKALINE PHOSPHATASE S/P/B 90 55 - 142 U/L 01/26/2025 11:21 AM [facility] AST 175(H) 15 - 37 U/L 01/26/2025 11:21 AM [facility] ALT 237(H) 13 - 56 U/L 01/26/2025 11:21 AM [facility] TOTAL PROTEIN S/P/B 6.2(L) 6.4 - 8.2 G/DL 01/26/2025 11:21 AM [facility] ALBUMIN S/P/B 2.8(L) 3.4 - 5.0 G/DL 01/26/2025 11:21 AM [facility] ANION GAP 9.7 2.0 - 10.0 MMOL/L 01/26/2025 11:21 AM [facility] OSMOLALITY (CALC) 283 MOSM/KG 025 11:21 AM [facility] Comment:REFERENCE RANGE NOT ESTABLISHED GFR ESTIMATE 50(L) >90 ML/MIN/1. 73 M2 01/26/2025 11:21 AM [facility] GFR NOTES GFR REFERENCE S: 01/26/2025 11:21 AM [facility] Comment: THE ESTIMATED GFR [...] ml/min/1.73 m2 G5,KIDNEY FAILURE: <15 ml/min/1.73 m2 01/26/2025 10:1 0 AM CDT Demetrius Ortiz MD LABORATORY Final Result [facility] [address] [place] [address], [id number] * (ABNORMAL) CBC W/DIFF AUTOMATED (01/26/2025 10:10 AM CDT) Only the most recent of6 resultswithin the time period is included. WBC 8.23 4.00 - 10.80 x10'3/uL 01/26/2025 10:46 AM CDT [facility] RBC 2.79(L) 4.10 - 5.40 x10'6/uL 01/26/2025 10:46 AM CDT [facility] HGB 8.1(L) 12.0 - 16.0 G/DL 01/26/2025 10:46 AM CDT [facility] HCT 24.6(L) 36.0 - 47.0 % 01/26/2025 10:46 AM CDT [facility] MCV 88.2 78.0 - 100.0 FL 01/26/2025 10:46 AM CDT [facility] MCH 29.0 27.0 - 31.0 PG 01/26/2025 10:46 AM CDT [facility] MCHC 32.9(L) 33.0 - 36.0 G/DL 01/26/2025 10:46 AM CDT [facility] RDW 16.0(H) 11.5 - 14.5 % 01/26/2025 10:46 AM CDT [facility] PLT SEE NOTE 150 - 350 x10'3/uL 01/26/2025 10:58 AM CDT [facility] Comment: Platelet clumps present. Estimate from slide appears to be between 350,000 to 500,000. Reorder Platelet Count if actual value is clinically significant. DIFFERENTIAL TYPE AUTOMATED DIFFERENTIAL 01/26/2025 10:58 AM CDT [facility] SEG NEUTROPHILS 83.3 % 10:58 AM CDT [facility] LYMPHOCYTES 4.7 % 01/26/2025 10:58 AM CDT [facility] MONOCYTES 7.2 % 01/26/2025 10:58 AM CDT [facility] EOSINOPHILS 2.1 % 01/26/2025 10:58 AM T [facility] BASOPHILS 0.6 % 01/26/2025 10:58 AM CDT [facility] IMMATURE GRANS % 2.1 % 01/27/20 10:58 AM CDT [facility] ABS. NEUTROPHILS 6.86 1.60 - 8.30 x10'3/uL 01/26/2025 10:58 AM CDT [facility] ABS. LYMPHOCYTES 0.39(L) 0.80 - 4.70 x10'3/uL 01/26/2025 10:58 AM CDT [facility] ABS. MONOCYTES 0.59 0.00 - 1.50 x10'3/uL 01/26/2025 10:58 AM CDT [facility] ABS. EOSINOPHILS 0.17 0.00 - 0.40 x10'3/uL 01/26/2025 10:58 AM CDT [facility] ABS. BASOPHILS 0.05 0.00 - 0.20 x10'3/uL 01/26/2025 10:58 AM T [facility] ABS. IMMATURE GRANULOCYTES 0.17(H) 0.00 - 0.03 x10'3/uL 01/26/2025 10:58 AM CDT [facility] ABS. NUCLEATED RBC'S 0.00 0.00 - 0.01 x10'3/uL 01/26/2025 10:58 AM CDT [facility] NRBC % 0.0 % 01/26/2025 10:58 AM CDT [facility] 01/26/2025 10:1 0 AM CDT Demetrius Ortiz MD LABORATORY Final Result [facility] [address] [place] [address], [id number] * (ABNORMAL) BASIC METABOLIC PANEL (01/25/2025 5:00 AM CDT) Only the most recent of2 resultswithin the time period is included. SODIUM S/P/B 133(L) 136 - 145 MMOL/L 01/25/2025 5:36 AM CDT [facility] POTASSIUM S/P/B 3.3(L) 3.5 - 5.1 MMOL/L 01/25/2025 5:36 AM CDT [facility] CHLORIDE S/P/B 99 97 - 115 MMOL/L 01/25/2025 5:36 AM CDT [facility] CO2 24.4 21.0 - 32.0 MMOL/L 01/25/2025 5:36 AM CDT [facility] GLUCOSE 106 74 - 106 MG/DL 01/25/2025 5:36 AM CDT [facility] BUN 20(H) 7 - 18 MG/DL 01/25/2025 5:36 AM CDT [facility] CREATININE S/P/B 1.10(H) 0.55 - 1.02 MG/DL 01/25/2025 5:36 AM CDT [facility] CALCIUM S/P/B 7.1(L) 8.5 - 10.1 MG/DL 01/25/2025 5:36 AM CDT [facility] ANION GAP 9.6 2.0 - 10.0 MMOL/L 01/25/2025 5:36 AM CDT [facility] OSMOLALITY (CALC) 279 MOSM/KG 025 5:36 AM CDT [facility] Comment:REFERENCE RANGE NOT ESTABLISHED GFR ESTIMATE 50(L) >90 ML/MIN/1. 73 M2 01/25/2025 5:36 AM CDT [facility] GFR NOTES GFR REFERENCE S: 01/25/2025 5:36 AM CDT [facility] Comment: THE ESTIMATED GFR [...] ml/min/1.73 m2 G5,KIDNEY FAILURE: <15 ml/min/1.73 m2 01/25/2025 5:00 AM CDT Demetrius Ortiz MD LABORATORY Final Result [facility] [address] [place] [address], [id number] * Pathology (01/24/2025 12:00 AM CDT) Only the most recent of2 resultswithin the time period is included. PATHOLOGY [facility] Department of Laboratory Medicine [address] [place] [address] , extension [phone] Pathology Report Surgical Pathology Report Name: GIAN GORDILLO Specimen #: [id number] Age: 3 1940 (Age: 84) Location: [facility] Sex: F Procedure Date: 01/24/2025 Hospital #: [id number] Date Received: 01/26/2025 Date Reported: 01/27/2025 Provider: SHELLEY HERNANDEZ Source: Colon, sigmoid, polyp Clinical History: Iron deficiency anemia due to chronic blood loss. Normal EGD. FINAL DIAGNOSIS: Colon, sigmoid polyp, polypectomy: -Fragments of hyperplastic polyp. Gross Description: Received in formalin, labeled with a patient label and as sigmoid colon polyp are 2 pieces of mccoy tissue each 0.2 cm. The specimen is entirely submitted in cassette 1. Gross examination (when applicable), interpretation, and sign out were performed at [facility], [address] [place] [address]. Electronically Signed Out NEHEMIAH ARAIZA MD [facility] TISSUE COLON STRUCTURE / Unknown 01/24/2025 8:41 AM CDT Shelley HERNANDEZ PATHOLOGY/CYTOLOGY O RDERABLES Final Result Performing Organization Address [facility] Co de Phone Number [facility] [address] [place] [address], [id number] * POCT glucose (01/23/2025 12:21 PM CDT) Only the most recent of2 resultswithin the time period is included. GLUCOSE POC 88 70 - 109 01/23/2025 12:26 PM CDT [facility] 01/23/2025 12:2 1 PM CDT Demetrius Ortiz MD POCT ORDERABLES - DEVICE Fin al Result Performing Organization Address [facility] Co de Phone Number [facility] [address] [place] [address], [id number] * ENDOSCOPY (SCAN ORDER) (01/23/2025 7:23 AM CDT) Shelley HACKETT SCANNING Mica l Result * PROTHROMBIN TIME, VENOUS (01/22/2025 5:34 PM CDT) Only the most recent of2 resultswithin the time period is included. PROTIME 11.6 9.4 - 12.5 SEC 01/22/2025 6:15 PM CDT [facility] INR 1.0 0.8 - 1.1 01/22/2025 6:15 PM CDT [facility] 01/22/2025 5:34 PM CDT Shelley Simetnal [facility] Mica l Result Performing Organization Address [facility] Co de Phone Number [facility] [address] [place] [address], [id number] * (ABNORMAL) HEMOGLOBIN AND HEMATOCRIT (01/21/2025 4:08 PM CDT) Only the most recent of2 resultswithin the time period is included. HGB 8.0(L) 12.0 - 16.0 G/DL 01/21/2025 4:23 PM CDT [facility] HCT 24.0(L) 36.0 - 47.0 % 01/21/2025 4:23 PM CDT [facility] 01/21/2025 4:08 PM CDT Demetrius Ortiz MD LABORATORY Final Result Performing Organization Address [facility]/ZIP Co de Phone Number [facility] [address] [place] [address], [phone] * TRANSFUSE RED BLOOD CELLS (01/21/2025 6:12 AM CDT) Oscar Del Angel MD NURSING TREATMENT ORDERABLES - B LOOD ADMIN Final Result * URINALYSIS (01/21/2025 4:09 AM CDT) COLOR (U) LIGHT YELLOW 01/21/2025 4:57 AM CDT [facility] TRANSPARENCY CLEAR 01/21/2025 4:57 AM CDT [facility] SPECIFIC GRAVITY (U) 1.013 1.002 - 1.035 01/21/2025 4:57 AM CDT [facility] U PH 6.5 5 - 8 01/21/2025 4:57 AM CDT [facility] PROTEIN RANDOM (U) NEGATIVE NEGATIVE 01/21/2025 4:57 AM CDT [facility] GLUCOSE (U) NEGATIVE NEGATIVE MG/DL 01/21/2025 4:57 AM CDT [facility] KETONES MG/DL (U) NEGATIVE NEGATIVE 01/21/2025 4:57 AM CDT [facility] BILIRUBIN (U) NEGATIVE NEGATIVE 01/21/2025 4:57 AM CDT [facility] BLOOD (U) NEGATIVE NEGATIVE 01/21/2025 4:57 AM CDT [facility] NITRITES NEGATIVE NEGATIVE 01/21/2025 4:57 AM CDT [facility] UROBILINOGEN NORMAL 0 - 1 EU/DL 01/21/2025 4:57 AM CDT [facility] LEUKOCYTES (U) NEGATIVE NEGATIVE 01/21/2025 4:57 AM CDT [facility] RBC/HPF 1 0 - 3 /HPF 01/21/2025 4:57 AM CDT [facility] WBC/HPF <1 0 - 6 /HPF 01/21/2025 4:57 AM CDT [facility] BACTERIA (U) NONE /HPF 01/21/2025 4:57 AM CDT [facility] SQUAMOUS EPITHELIALS <1 01/21/2025 4:57 AM CDT [facility] URINE, STRAIGHT CATH 01/21/2025 4:09 AM CDT us Oscar Del Angel MD URINE ORDERABLES Final Result Performing Organization Address [facility] and [facility] Services de Phone Number [facility] [address] [place] [address], [place] [phone] * CULTURE, URINE (01/21/2025 4:09 AM CDT) SPEC DESCRIPTION URINE STRAIGHT CATH 01/21/2025 4:10 AM CDT [facility] SPECIAL REQUESTS NO SPECIAL REQUEST 01/21/2025 4:10 AM CDT [facility] CULTURE RESULT NO GROWTH (< OR = 1,000 CFU/ML) 01/22/2025 9:58 AM CDT [facility] URINE SPECIMEN OBTAINED BY SINGLE CATHETERIZATION OF URINARY BLADDER / Unknown 01/21/2025 4:09 AM CDT 01/21/2025 4:41 AM CDT us Oscar Del Angel MD MICROBIOLOGY - GENERAL ORDERABLE S Final Result Performing Organization Address [facility] de Phone Number [facility] [address] [place] [address], [place] [phone] * CT HEAD WO CON (01/20/2025 11:29 PM CDT) Anatomical Region Laterality Modality Head Computed Tomogra phy 01/21/2025 12:3 8 AM CDT Impressions 01/21/2025 12:40 AM CDT IMPRESSION: 1. No definite CT evidence of acute intracranial abnormality, as above. 2. Small vessel disease and volume loss. Referred By: CHARITY JOSHUA Interpreted By: Desmond Sood MD, 01/21/2025 12:38 AM Narrative 01/21/2025 12:40 AM CDT [facility] [address] [place], [place] [address] EXAMINATION: CT of the head CLINICAL HISTORY: Fall. Headache. COMPARISON: Outside head CT 12/31/2024 TECHNIQUE: CT examination of the head without contrast was performed with axial and multiplanar reformatted images obtained. A dose lowering technique was used for this procedure, which may include, but is not limited to, dose reduction technique, automated exposure control, the use of iterative reconstruction, and ALARA (As Low As Reasonably Achievable) / Image Gently techniques. FINDINGS: No acute intracranial hemorrhage, extra-axial collections, intracranial mass effect, or midline shift. Patchy foci of hypodensity noted in the hemispheric white matter, likely due to small vessel disease. Intracranial vascular calcifications. No definite CT evidence of acute territorial infarction, though MRI would be more sensitive. Mild volume loss with enlargement of the ventricles and extra-axial/subarachnoid spaces. No depressed calvarial fractures. Mastoid air cells and paranasal sinuses clear. Bilateral lens replacements. Procedure Note Desmond Sood MD - 01/21/2025 [facility] [address] [place], [place] [address] EXAMINATION: CT of the head CLINICAL HISTORY: Fall. Headache. COMPARISON: Outside head CT 12/31/2024 TECHNIQUE: CT examination of the head without contrast was performed withaxial and multiplanar reformatted images obtained. A dose lowering technique was used for this procedure, which may include,but is not limited to, dose reduction technique, automated exposurecontrol, the use of iterative reconstruction, and ALARA (As Low AsReasonably Achievable) / Image Gently techniques. FINDINGS: No acute intracranial hemorrhage, extra-axial collections, intracranialmass effect, or midline shift. Patchy foci of hypodensity noted in thehemispheric white matter, likely due to small vessel disease. Intracranialvascular calcifications. No definite CT evidence of acute territorialinfarction, though MRI would be more sensitive. Mild volume loss withenlargement of the ventricles and extra-axial/subarachnoid spaces. Nodepressed calvarial fractures. Mastoid air cells and paranasal sinusesclear. Bilateral lens replacements. IMPRESSION: 1. No definite CT evidence of acute intracranial abnormality, as above. 2. Small vessel disease and volume loss. Referred By: CHARITY JOSHUA Interpreted By: Desmond Sood MD, 01/21/2025 12:38 AM us Oscar Del Angel MD CT Final Result * (ABNORMAL) BMP WITHOUT GLUCOSE (01/20/2025 8:27 PM CDT) SODIUM S/P/B 127(L) 136 - 145 MMOL/L 01/20/2025 9:25 PM CDT [facility] POTASSIUM S/P/B 4.3 3.5 - 5.1 MMOL/L 01/20/2025 9:25 PM CDT [facility] CHLORIDE S/P/B 96(L) 97 - 115 MMOL/L 01/20/2025 9:25 PM CDT [facility] CO2 22.5 21.0 - 32.0 MMOL/L 01/20/2025 9:25 PM CDT [facility] BUN 25(H) 7 - 18 MG/DL 01/20/2025 9:25 PM CDT [facility] CREATININE S/P/B 0.89 0.55 - 1.02 MG/DL 01/20/2025 9:25 PM CDT [facility] CALCIUM S/P/B 8.3(L) 8.5 - 10.1 MG/DL 01/20/2025 9:25 PM CDT [facility] ANION GAP 8.5 2.0 - 10.0 MMOL/L 01/20/2025 9:25 PM CDT [facility] GFR ESTIMATE 64(L) >90 ML/MIN/1. 73 M2 01/20/2025 9:25 PM CDT [facility] GFR NOTES GFR REFERENCE S: 01/20/2025 9:25 PM CDT [facility] Comment: THE ESTIMATED GFR [...] ml/min/1.73 m2 G5,KIDNEY FAILURE: <15 ml/min/1.73 m2 01/20/2025 8:27 PM CDT Oscar Del Angel MD LABORATORY Final Result Performing Organization Address [facility] de Phone Number [facility] [address] [place] [address], [place] [phone] * TSH W/REFLEX (01/20/2025 8:27 PM CDT) TSH 2.230 0.358 - 3.740 uIU/ML 01/20/2025 9:25 PM CDT [facility] Comment: ASSAY PERFORMED BY CHEMILUMINESCENCE METHODOLOGY USING SIEMENS DIMENSION VISTA REAGENT. PATIENT RESULTS DETERMINED BY ASSAYS USING DIFFERENT MANUFACTURERS FOR METHODS MAY NOT BE COMPARABLE. 01/20/2025 8:27 PM CDT Oscar Del Angel MD LABORATORY Final Result Performing Organization Address [facility] de Phone Number [facility] [address] [place] [address], [place] [phone] * (ABNORMAL) PRO-BRAIN NATRIURETIC PEPTIDE (PRO BNP) (01/20/2025 8:27 PM CDT) PRO-B TYPE NATRIURETIC PEPTIDE 689(H) <450 PG/ML 01/20/2025 9:25 PM CDT [facility] Comment: AGE INDEPENDENT: <300 PG/ML HAS A 99% NEGATIVE PREDICTIVE VALUE FOR EXCLUDING ACUTE CHF <50 YEARS: >450 PG/ML IS CONSISTENT WITH ACUTE CHF 50-75 YEARS: >900 PG/ML IS CONSISTENT WITH ACUTE CHF >75 YEARS: >1800 PG/ML IS CONSISTENT WITH ACUTE CHF IN PATIENTS WITH RENAL INSUFFICIENCY (GFR <60), >1200 PG/ML YIELDS A DIAGNOSTIC SENSITIVITY AND SPECIFICITY OF 89% AND 72% FOR ACUTE CHF. 01/20/2025 8:27 PM CDT Oscar Del Angel MD LABORATORY Final Result [facility] [address] [place] [address], [place] [phone] * TYPE & SCREEN (01/20/2025 8:27 PM CDT) UNITS ORDERED 2 01/21/2025 3:52 AM CDT [facility] ABO/RH A POSITIVE 01/20/2025 9:24 PM CDT [facility] ANTIBODY SCREEN NEGATIVE 9:24 PM CDT [facility] SAMPLE EXPIRATION 01/23/2025,2359 01/20/2025 8:42 PM CDT [facility] BLOOD UNIT NUMBER [id number] 01/21/2025 3:06 AM CDT [facility] PRODUCT: PC LEUKO PHERE BAG1 01/21/2025 3:06 AM CDT [facility] UNIT DIVISION 00 01/21/2025 3:06 AM CDT [facility] BLOOD UNIT STATUS TRANSFUSED,FINAL 01/22/2025 6:43 AM CDT [facility] ISSUE DATE/TIME [id number] 025 6:43 AM CDT [facility] PRODUCT CODE [id number] 01/22/2025 6:43 AM CDT [facility] ABO/RH Unit A POS 01/22/2025 6:43 AM CDT [facility] ABO/RH UNIT ISBT CODE 6200 01/22/2025 6:43 AM CDT [facility] BLOOD UNIT EXPIRATION DATE [id number] 01/22/2025 6:43 AM CDT [facility] TRANSFUSION STATUS OK TO TRANSFUSE 01/21/2025 3:06 AM CDT [facility] CROSSMATCH COMPATIBLE-EXM 01/21/2025 3:06 AM CDT [facility] 01/20/2025 8:27 PM CDT us Oscar Del Angel MD BLOOD BANK TEST ORDERABLES Final Result [facility] [address] [place] [address], [id number] * (ABNORMAL) HEPATIC FUNCTION PANEL (01/20/2025 8:27 PM CDT) BILIRUBIN TOTAL S/P/B 0.9 0.2 - 1.0 MG/DL 01/20/2025 9:25 PM CDT [facility] BILIRUBIN DIRECT S/P/B 0.3(H) 0.0 - 0.2 MG/DL 01/20/2025 9:25 PM CDT [facility] ALKALINE PHOSPHATASE S/P/B 83 55 - 142 U/L 01/20/2025 9:25 PM CDT [facility] AST 78(H) 15 - 37 U/L 01/20/2025 9:25 PM CDT [facility] ALT 80(H) 13 - 56 U/L 01/20/2025 9:25 PM CDT [facility] TOTAL PROTEIN S/P/B 6.3(L) 6.4 - 8.2 G/DL 01/20/2025 9:25 PM CDT [facility] ALBUMIN S/P/B 3.0(L) 3.4 - 5.0 G/DL 01/20/2025 9:25 PM CDT [facility] 01/20/2025 8:27 PM CDT us Oscar Del Angel MD LABORATORY Final Result [facility] [address] [place] [address], [phone] * (ABNORMAL) CBC, AUTO, NO DIFF (01/20/2025 8:27 PM CDT) WBC 6.93 4.00 - 10.80 x10'3/uL 01/20/2025 8:44 PM CDT [facility] RBC 2.50(L) 4.10 - 5.40 x10'6/uL 01/20/2025 8:44 PM CDT [facility] HGB 7.0(L) 12.0 - 16.0 G/DL 01/20/2025 8:44 PM CDT [facility] HCT 20.9(L) 36.0 - 47.0 % 01/20/2025 8:44 PM CDT [facility] MCV 83.6 78.0 - 100.0 FL 01/20/2025 8:44 PM CDT [facility] MCH 28.0 27.0 - 31.0 PG 01/20/2025 8:44 PM CDT [facility] MCHC 33.5 33.0 - 36.0 G/DL 01/20/2025 8:44 PM CDT [facility] RDW 17.2(H) 11.5 - 14.5 % 01/20/2025 8:44 PM CDT [facility] PLT 387(H) 150 - 350 x10'3/uL 01/20/2025 8:44 PM CDT [facility] MPV 9.1 7.4 - 10.4 FL 01/20/2025 8:44 PM CDT [facility] 01/20/2025 8:27 PM CDT Oscar Del Angel MD LABORATORY Final Result Performing Organization Address [facility] de Phone Number [facility] [address] [place] [address], [phone] * MAGNESIUM (01/20/2025 8:27 PM CDT) MAGNESIUM 2.4 1.6 - 2.6 MG/DL 01/20/2025 9:25 PM CDT [facility] 01/20/2025 8:27 PM CDT Oscar Del Angel MD LABORATORY Final Result Performing Organization Address [facility] de Phone Number [facility] [address] [place] [address], [phone] * ECG 12 lead (HOSPITAL PERFORMED ONLY) (11/07/2024 9:51 AM COAL HAULER OPERATOR) 11/07/2024 9:51 AM COAL HAULER OPERATOR Narrative [facility] - 11/07/2024 6:23 PM COAL HAULER OPERATOR [address] [place] [address] Test Date: 2024-11-07 Pat Name: GIAN GORDILLO Department: 3 Room: Gender: Female Microsoft Architect: : 1940 Requested By: ROLO ROBLERO Order Number: [id number] [place] MD: Rolo Roblero Measurements Intervals [place] Rate: 59 P: 78 CA: 213 QRS: 85 QRSD: 109 T: 80 QT: 474 QTc: 471 Interpretive Statements SINUS BRADYCARDIA WITH FIRST DEGREE AV BLOCK PROLONGED QT INTERVAL HAULER OPERATOR Procedure Note Rolo Roblero MD - 11/07/[address] [place] [address] Test Date: 2024-11-07 Pat Name: GIAN GORDILLO Department: 3 Room: Gender: Female Microsoft Architect: : 1940 Requested By: ROLO ROBLERO Order Number: [id number] [place] MD: Rolo Roblero Measurements Intervals [place] Rate: 59 P: 78 CA: 213 QRS: 85 QRSD: 109 T: 80 QT: 474 QTc: 471 Interpretive Statements SINUS BRADYCARDIA WITH FIRST DEGREE AV BLOCK PROLONGED QT INTERVAL HAULER OPERATOR us Rolo Roblero MD ECG ORDERABLES Final Result [facility] from Last 3 Months Insurance [facility] MEDICARE Advance Directives Documents on File Type Date Recorded 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 DNR (Do Not Resuscitate) Documentation 01/28/2025 1:47 PM 12/16/2023 POLST Advance Directives and Living Will 01/28/2025 1:47 PM 01/21/2025 POA FOR HEALTH CARE DNR (Do Not Resuscitate) Documentation 01/28/2025 1:44 PM 01/21/2025 POLST * DNR (Latest Code Status on File) Date Activated Date Inactivated Comments 01/20/2025 7:54 PM 01/26/2025 6:36 PM * Full Code Date Activated Date Inactivated Comments 07/30/2023 1:13 PM 08/01/2023 3:50 PM * Full Code Date Activated Date Inactivated Comments 03/14/2020 3:25 PM 08/11/2022 11:57 AM * Full Code Date Activated Date Inactivated Comments 03/14/2020 12:12 PM 03/14/2020 3:27 PM * Full Code Date Activated Date Inactivated Comments 03/07/2020 11:38 AM 03/12/2020 4:02 PM Care Teams Air Valve Mechanic Relationship Specialty Start Date End Date Pradip Tracy MD [address] [place] [address] PCP - General INTERNAL MEDICINE 01/21/25 Rolo Roblero MD [address] [place] [address] Consulting Physician CARDIOVASCULAR DISEASE 01/24/24
--- OUTSIDE RECORDS SUMMARY | 2025-02-04 09:39 | XMS_ITS | Patient Health Record ---
Author Organization [facility] Address [address] [place], [place] [id number] Care Team Providers Care [place] Seamer Name Role Phone LÓPEZLISA ALVARADO Unavailable [phone] Blas Hardin Unavailable Unavailable EYAL CASTELLON Unavailable [phone] KENDALL BESS Unavailable [phone] Allergies No Known Allergies Reason For Referral [...] Active Encounters Encounter Location Date Provider Diagnosis [facility] [address] [place], [place] [id number] 06/12/2024 KENDALL BESS Other hammer toe(s) (acquired), right foot M20.41 ; Tinea unguium B35.1 ; Other hammer toe(s) (acquired), left foot M20.42 ; Pain in right toe(s) M79.674 ; Pain in left toe(s) M79.675 and Unspecified atherosclerosis of [place] arteries of extremities, bilateral legs I70.203 [facility] [address] [place], [place] [id number] 08/14/2024 KENDALL BESS Other hammer toe(s) (acquired), right foot M20.41 ; Tinea unguium B35.1 ; Other hammer toe(s) (acquired), left foot M20.42 ; Pain in right toe(s) M79.674 ; Pain in left toe(s) M79.675 ; Unspecified atherosclerosis of [place] arteries of extremities, bilateral legs I70.203 and Acquired keratosis [keratoderma] palmaris et plantaris L85.1 [facility] [address] [place], [place] [id number] 10/30/2024 EYAL CASTELLON Tinea unguium B35.1 ; Pain in right toe(s) M79.674 ; Pain in left toe(s) M79.675 and Atherosclerosis of [place]e arteries of extremities with intermittent claudication, bilateral [...] toe(s) (ICD-10 - M79.674) 10/30/2024 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 Plan Of Treatment No Information Insurance Providers Payer Name Payer Address Payer Phone Subscriber Number Group Number Insured Name Patient Relationship to Insured Coverage Start Date Coverage End Date Medicare Part B [place] [address] [place] [phone] [id number] Wanda Gordillo Self - patient is the insured [employer] [address] [address] [place] [address] [phone] [id number] Wanda Gordillo Self - patient is the insured 5 Medical (General) History Medical History History ICD Code artificial joint Arthritis Bladder infections Back Trouble Heart Disease high blood pressure
--- OUTSIDE RECORDS SUMMARY | 2025-02-04 09:39 | XMS_ITS | Clinical Summary ---
Author Organization [facility] Address [address] [place] [address] Care Team Providers Care Director Global Strategic Publisher Sales Name Role Phone Blas Hardin MD Primary [...] mcg tablet Take 100 mcg by mouth corporate sales manager before breakfast Active Active Problems Problem [...] on file Legal Sex Female 1:53 PM LICENSED CERTIFIED ORTHOTIST Gender Identity Not on file Sexual Orientation Not on file Obstetrics History Last Filed Vital Signs Vital Sign Reading Time Taken Comments Blood Pressure 198/89 10/03/2019 11:17 AM LICENSED CERTIFIED ORTHOTIST Pulse 58 10/03/2019 11:17 AM LICENSED CERTIFIED ORTHOTIST Temperature 35.9 C (96.7 F) 08/11/2019 9:07 AM CDT Respiratory Rate 16 10/03/2019 11:17 AM LICENSED CERTIFIED ORTHOTIST Oxygen Saturation 98% 10/03/2019 11:17 AM LICENSED CERTIFIED ORTHOTIST Inhaled Oxygen Concentration - - Weight 71.7 [...] Result from Last 3 Months Insurance MEDICARE [facility] [place] [address] Care Teams Director Global Strategic Publisher Sales Relationship Specialty Start Date End Date Blas Hardin MD PCP - General 01/12/17
--- OUTSIDE RECORDS SUMMARY | 2025-02-04 09:40 | XMS_ITS | Encounter Summary ---
Author Organization [facility] Address [address] [place] [address] Care Team Providers Care Tractor Mechanic Name Role Phone Blas Hardin MD Primary Care Provider Josie Becerra MD Unavailable Pradip Tracy MD Primary Care Provider [phone] Encounter Details Date Type Department Care Team (Late st Contact Info) Description 09/17/2019 Hospital Orders Only [facility] [address] [place] [address] Blas Hardin MD [address] [place] [phone] Social History Tobacco Use Types Packs/Day Years Used Date Smoking Tobacco: Never Assessed Comments Unknown Sex and Gender Information Value Date Recorded Sex Assigned at Female 10/31/2024 1:15 PM SHREDDING MACHINE OPERATOR Legal Sex Female 5:44 PM SHREDDING MACHINE OPERATOR Gender Identity Not on file Sexual Orientation Not on file documented as of this encounter Plan of Treatment Upcoming Encounters Date Type Department Care Team (Late st Contact Info) Description 10/16/2025 9:00 AM SHREDDING MACHINE OPERATOR Appointment [facility] [address] [place] [address] Josie Becerra MD [address] [place] [address] 10/21/2025 9:15 AM SHREDDING MACHINE OPERATOR Office Visit [facility] [address] [place] [phone] Josie Becerra MD [address] [place] [address] documented as of this encounter Visit Diagnoses Not on filedocumented in this encounter Additional Health Concerns Infection Onset Date Last Indicated Resolved Time COVID-19 Rule Out 02/27/2020 02/27/2020 02/28/2020 4:14 PM CDT COVID-19 Rule Out 03/09/2020 03/09/2020 03/09/2020 4:38 PM CDT COVID-19 Rule Out 02/03/2024 02/03/2024 02/03/2024 2:55 PM CDT documented as of this encounter Care Teams Tractor Mechanic Relationship Specialty Start Date End Date Blas Hardin MD [address] [place] [phone] PCP - General FAMILY PRACTICE 05/06/19 01/20/25 Pradip Tracy MD [address] [place] [phone] PCP - General INTERNAL MEDICINE 01/21/25 Josie Becerra MD [address] [place] [address] Consulting Physician CARDIOVASCULAR DISEASE 01/24/24 documented as of this encounter
--- OUTSIDE RECORDS SUMMARY | 2025-02-04 09:40 | XMS_ITS | Encounter Summary ---
Author Organization [facility] Address [address] 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
--- OUTSIDE RECORDS SUMMARY | 2025-02-04 09:40 | XMS_ITS | Encounter Summary ---
Author Organization [facility] Address [address] Cha: Epic Prelude ADT [place] [address] Care Team Providers Care Surgical Physician Assistant Name Role Phone Unavailable Primary Care Provider Unavailabl e Encounter Details Date Type Department Care Team (Late st Contact Info) Description 08/09/1990 Outpatient Historical Jassi Gage Social History Tobacco Use Types Packs/Day Years Used Date Smoking Tobacco: Never Assessed Comments Unknown Sex and Gender Information Value Date Recorded Sex Assigned at Not on file Legal Sex Female 4:13 AM PATIENT SERVICES REPRESENTATIVE Gender Identity Not on file Sexual Orientation Not on file documented as of this encounter Plan of Treatment Not on file documented as of this encounter Visit Diagnoses Not on filedocumented in this encounter
--- OUTSIDE RECORDS SUMMARY | 2025-02-04 09:40 | XMS_ITS | Clinical Summary ---
Author Organization [facility] Address [address] Cha: Epic Prelude ADT LIZETH MEYERSADILSON GARCIA [address] Care Team Providers Care Desulfurizer Operator Name Role Phone Unavailable Primary Care Provider Unavailabl e Social History Tobacco Use Types Packs/Day Years Used Date Smoking Tobacco: Never Assessed Comments Unknown Sex and Gender Information Value Date Recorded Sex Assigned at Not on file Legal Sex Female 4:13 AM BOLT LABELER Gender Identity Not on file Sexual Orientation [...]
--- OUTSIDE RECORDS SUMMARY | 2025-02-04 09:40 | XMS_ITS ---
Author Organization [facility] Address [address] [place], [place] [address] Care Team Providers Care Press Clippings Cutter And Paster Name Role Phone LISA LÓPEZ Unavailable [phone] Blas Hardin Unavailable Unavailable KENDALL BESS Unavailable [phone] REASON FOR VISIT *General care Encounters Encounter Location Date Provider Diagnosis [address] [id number] 10/23/2024 KENDALL BESS Plan Of Treatment No Information Progress Notes * Wanda GORDILLODOB: [birth year] (84 yo F)Acc No.[id number]:10/23/2024 Patient: Wanda GARCIA Provider: Marizol BESS :1940 A ge:83 Y S ex:Female Date:10/23/2024 Address:[address] [place], [place] [phone] Subjective: * Chief Complaints: * 1 . *General care. * Medical History: Objective: * Vitals: Assessment: Plan: * Treatment: * Billing Information: * Visit Code: * Procedure Codes: * Electronic signature of MANNIE BESS DPM on 02/04/2025 at 09:40 AM CDT Sign off status: Pending * Provider: Marizol BESS Date: 0 10/23/2024 Generated for Deandre schneider/Kaylah/eTdannyitting on: 0 02/04/2025 09:40 AM CDT
--- OUTSIDE RECORDS SUMMARY | 2025-02-04 09:40 | XMS_ITS ---
Author Organization [facility] Address [address] [place], [place] [id number] Care Team Providers Care Qa Manager Name Role Phone LISA LÓPEZ Unavailable [phone] Blas Hardin Unavailable Unavailable EYAL GARZA Unavailable [phone] Allergies No Known Allergies REASON FOR VISIT [...] Active Encounters Encounter Location Date Provider Diagnosis [facility] [address], [place] [id number] 10/30/2024 EYAL GARZA Tinea unguium B35.1 ; Pain in right toe(s) M79.674 ; Pain in left toe(s) M79.675 and Atherosclerosis of nome arteries of extremities with intermittent claudication, bilateral [...] toe(s) (ICD-10 - M79.675) 10/30/2024 Atherosclerosis of nome arteries of extremities with intermittent claudication, bilateral [...] Risk Foot care, sooner if problems arise Progress Notes * Wanda GORDILLODOB: [birth year] (83 yo F)Acc No.[id number]:10/30/2024 Patient: Wanda GARCIA Provider: Britany Garaz DPM :1940 A ge:83 Y S ex:Female Date:10/30/2024 [id number] Subjective: * Chief Complaints: * Freddie chapin presents for at-risk foot care . The patient has painful toenails that cause difficulty with ambulation and shoegear. The onset is gradual * HPI: H PI: General care Freddie chapin presents to the office for at risk [...] with the patientTaking Vitamin D2 50 MCG (1999) Tablet 1 [...] - M79.675 4 . A therosclerosis of nome arteries of extremities with intermittent claudication, bilateral legs - I70.213 Plan: * Treatment: * Procedure Codes: 1 1721 DEBRIDE NAIL, 6 OR MORE, Modifiers: Q8 * Follow Up: 1 0-12 Weeks (Reason: At Risk Foot care, sooner if problems arise) * Billing Information: * Visit Code: * Procedure Codes: 13849 DEBRIDE NAIL, 6 OR MORE. Modifiers: Q8 * EDGE PAINTER Sign off status: Completed true * Provider: Britany Garza DPM Date: 0 10/30/2024 Generated for Deandre schneider/Kaylah/Reji on: 0 02/04/2025 [...]
--- OUTSIDE RECORDS SUMMARY | 2025-02-04 09:40 | XMS_ITS | Encounter Summary ---
[facility] Address [address] Cha: Epic Prelude ADT [place] [address] Care Team Providers Care Double End Sewer Name Role Phone Unavailable Primary Care Provider Unavailabl e Encounter Details Date Type Department Care Team (Late st Contact Info) Description 10/12/1989 Outpatient Historical Jassi Gage Social History Tobacco Use Types Packs/Day Years Used Date Smoking Tobacco: Never Assessed Comments Unknown Sex and Gender Information Value Date Recorded Sex Assigned at Not on file Legal Sex Female 4:13 AM RESHIPPING CLERK Gender Identity Not on file Sexual Orientation Not on file documented as of this encounter Plan of Treatment Not on file documented as of this encounter Visit Diagnoses Not on filedocumented in this encounter
== END 2025-02-04 08:58 | disposition home or self-care (01) ==
PROVIDERS: PCP Internal Medicine; Visit Provider Internal Medicine
DX: D50.9 Iron deficiency anemia, unspecified (principal); E86.0 Dehydration
CPT/HCPCS: 36415; 80053; 82728; 83540; 85027

== ENCOUNTER 2025-02-07 10:26 | Outpatient (NON) | payer MEDICARE, SELFPAY ==
--- OUTSIDE RECORDS SUMMARY | 2025-02-07 10:30 | XMS_ITS | Clinical Summary ---
Author Organization [facility] Address [address] [place] [address] Care Team Providers Care Projector Booth Operator Name Role Phone Josie Becerra MD Unavailable Pradip Tracy MD Primary Care Provider [phone] Allergies Active Allergy Reactions Criticality Noted Date [...] (09/15/2022): Added automatically from request for surgery [id number] Blood loss anemia 03/07/2020 Postoperative anemia 03/07/2020 [...] CDT - 01/24/2025 10:04 AM CDT [facility] [place] [address] [place] [address] Shelley Simental MBBS COLONOSCOPY WITH BIOPSY 01/24/2025 8:06 AM CDT Anesthesia [facility] [address] [place] [address] Braden Sandoval MD Coonrod, Sheila A, RN 01/23/2025 10:09 AM CDT Anesthesia [facility] [address] [place] [address] Austen Csatro MD Coonrod, Sheila A, RN 01/23/2025 9:56 AM CDT - 01/23/2025 10:43 AM CDT [facility] [address] [place] [address] Shelley Simental MBBS EGD WITH BIOPSY 01/20/2025 7:19 PM CDT - 01/26/2025 4:34 PM CDT Hospital Encounter [facility] [address] [place] [address] Kenny Massey MD Sohail, Atif, MD Sonani, Bhavin V., MD Discharge Disposition: Snf Facility 12/11/2024 9:11 AM FINANCIAL INTERN - 12/11/2024 11:59 PM [facility] Hospital Encounter [facility] [address] [address] Blas Hardin MD Injection Discharge Disposition: Home or Self Care (Routine Discharge) 12/11/2024 9:10 AM [facility] Hospital Encounter [facility] [address] [address] Blas Hardin MD Discharge Disposition: Home or Self Care (Routine Discharge) 12/11/2024 Travel from Last 3 Months Family History Medical History Relation Comments Cancer Father Heart Attack Father Hypertension Father Hypertension Mother Relation Status Comments Father Mother Social History Tobacco Use Types Packs/Day Years Used Date Smoking Tobacco: Never Smokeless Tobacco: Never Tobacco Cessation:Counseling Given: Not Answered Alcohol Use Standard Drinks/Week Comments No 0 (1 standard drink = 0.6 oz pur e alcohol) [facility] Utilities Answer Date Recorded In the past 12 months has e [employer], gas, oil, or water [employer] threatened to shut off services in your [...] place to sleep or slept in a mcfp (including now)? No 07/30/2023 Housing Stability Vital Sign Answer Erwin e Recorded In the last 12 months, was t here a time when you were not able to pay the mortgage or rent on time? No 01/26/2025 In the past 12 months, how m any times have you moved where you were living? 0 01/26/2025 At any time in the past 12 m [facility], were you homeless or living in a mcfp (including now)? No 01/26/2025 Comments No Sex and Gender Information Value Date Recorded Sex Assigned at Female 10/31/2024 1:15 PM FINANCIAL INTERN Legal Sex Female 5:44 PM FINANCIAL INTERN Gender Identity Not on file Sexual [...] st Contact Info) Description 10/16/2025 9:00 AM FINANCIAL INTERN Appointment [facility] [address] Josie Becerra MD [address] [place], [place] [phone] 10/21/2025 9:15 AM FINANCIAL INTERN Office Visit [facility] [address] [place] [phone] Josie Becerra MD [address], [place] [address] Health Maintenance Due Date Last Done Comments [...] this topic Medical Devices Implanted Type Area Top Precipitator Operator Helper Device Identifier Shelf Expiration Date Model / Serial / Lot Knee Components Knee Components Lens Lens G7 [place] Ti Acetabular Shell 4 Hole, Cementless Implanted:Qty: 1 on 03/01/2020 by Brian Lopez MD at [facility] Right: Hip [employer] 09/16/2029 [id number] / / [id number] Acetabular System Liner Neutral 36 Mm Size F Implanted:Qty: 1 on 03/01/2020 by Brian Lopez MD at [facility] Right: Hip [employer] 05/14/2024 [id number] / / [id number] Screw Eliz Bone 25mm - [id number] Implanted:Qty: 1 on 03/01/2020 by Brian Lopez MD at [facility] Right: Hip [employer] 08/14/2029 [id number] / / [id number] Screw Eliz Bone 30mm - [id number] Implanted:Qty: 1 on 03/01/2020 by Brian Lopez MD at [facility] Right: Hip [employer] 09/16/2029 [id number] / / [id number] Standard Femoral Stem Full Proximal Profile Porous Plasma Uncemented 14 Implanted:Qty: 1 on 03/01/2020 by Brian Lopez MD at [facility] Right: Hip [employer] 01/19/2028 [id number] / / [id number] Component Modular Head 36mm Biomet - [id number] Implanted:Qty: 1 on 03/01/2020 by Brian Lopez MD at [facility] Right: Hip [employer] 09/06/2028 [id number] / / [id number] Explanted Type Area Top Precipitator Operator Helper Device Identifier Shelf Expiration Date Model / Serial / Lot Drill Tip - [id number] Explanted:Qty: 1 on 03/01/2020 at [facility] Right: Hip [employer] [id number] / / Procedures Procedure Name Priority Date/Time [...] COMPREHENSIVE METABOLIC PANEL Routine 12/11/2024 9:37 AM FINANCIAL INTERN Age-related osteoporosis without current pathological fracture from Last 3 Months Results * (ABNORMAL) COMPREHENSIVE METABOLIC PANEL (01/26/2025 10:10 AM CDT) Only the most recent of4 resultswithin the time period is included. SODIUM S/P/B 135(L) 136 - 145 MMOL/L 01/26/2025 11:21 AM CDT [facility] POTASSIUM S/P/B 4.6 3.5 - 5.1 MMOL/L 01/26/2025 11:21 AM T [facility] Comment:SLIGHT HEMOLYSIS, RE SULT MAY BE AFFECTED. CHLORIDE S/P/B 104 97 - 115 MMOL/L 01/26/2025 11:21 AM T [facility] CO2 21.3 21.0 - 32.0 MMOL/L 01/26/2025 11:21 AM T [facility] GLUCOSE 110(H) 74 - 106 MG/DL 01/26/2025 11:21 AM [facility] BUN 18 7 - 18 MG/DL 01/26/2025 11:21 AM [facility] CREATININE S/P/B 1.09(H) 0.55 - 1.02 MG/DL 01/26/2025 11:21 AM T [facility] CALCIUM S/P/B 7.5(L) 8.5 - 10.1 MG/DL 01/26/2025 11:21 AM T [facility] BILIRUBIN TOTAL S/P/B 0.5 0.2 - 1.0 MG/DL 01/26/2025 11:21 AM T [facility] ALKALINE PHOSPHATASE S/P/B 90 55 - 142 U/L 01/26/2025 11:21 AM [facility] AST 175(H) 15 - 37 U/L 01/26/2025 11:21 AM T [facility] ALT 237(H) 13 - 56 U/L 01/26/2025 11:21 AM [facility] TOTAL PROTEIN S/P/B 6.2(L) 6.4 - 8.2 G/DL 01/26/2025 11:21 AM T [facility] ALBUMIN S/P/B 2.8(L) 3.4 - 5.0 G/DL 01/26/2025 11:21 AM T [facility] ANION GAP 9.7 2.0 - 10.0 MMOL/L 01/26/2025 11:21 AM CDT [facility] OSMOLALITY (CALC) 283 MOSM/KG 025 11:21 AM CDT [facility] Comment:REFERENCE RANGE NOT ESTABLISHED GFR ESTIMATE 50(L) >90 ML/MIN/1. 73 M2 01/26/2025 11:21 AM CDT [facility] GFR NOTES GFR REFERENCE S: 01/26/2025 11:21 AM CDT [facility] Comment: THE ESTIMATED GFR IS CALCULATED [...] CDT Demetrius Ortiz MD LABORATORY Final Result [facility] [address] [place] [phone], [id number] * (ABNORMAL) CBC W/DIFF AUTOMATED (01/26/2025 10:10 AM CDT) Only the most recent of6 resultswithin the time period is included. WBC 8.23 4.00 - 10.80 x10'3/uL 01/26/2025 10:46 AM CDT [facility] RBC 2.79(L) 4.10 - 5.40 x10'6/uL 01/26/2025 10:46 AM CDT [facility] HGB 8.1(L) 12.0 - 16.0 G/DL 01/26/2025 10:46 AM CDT [facility] HCT 24.6(L) 36.0 - 47.0 % 01/26/2025 10:46 AM CDT [facility] MCV 88.2 78.0 - 100.0 FL 01/26/2025 10:46 AM CDT [facility] MCH 29.0 27.0 - 31.0 PG 01/26/2025 10:46 AM CDT [facility] MCHC 32.9(L) 33.0 - 36.0 G/DL 01/26/2025 10:46 AM CDT [facility] RDW 16.0(H) 11.5 - 14.5 % 01/26/2025 10:46 AM CDT [facility] PLT SEE NOTE 150 - 350 x10'3/uL 01/26/2025 10:58 AM CDT [facility] Comment: Platelet clumps present. Estimate from slide appears to be between 350,000 to 500,000. Reorder Platelet Count if actual value is clinically significant. DIFFERENTIAL TYPE AUTOMATED DIFFERENTIAL 01/26/2025 10:58 AM CDT [facility] SEG NEUTROPHILS 83.3 % 10:58 AM CDT [facility] LYMPHOCYTES 4.7 % 01/26/2025 10:58 AM CDT [facility] MONOCYTES 7.2 % 01/26/2025 10:58 AM CDT [facility] EOSINOPHILS 2.1 % 01/26/2025 10:58 AM CDT [facility] BASOPHILS 0.6 % 01/26/2025 10:58 AM CDT [facility] IMMATURE GRANS % 2.1 % 01/27/20 10:58 AM CDT [facility] ABS. NEUTROPHILS 6.86 1.60 - 8.30 x10'3/uL 01/26/2025 10:58 AM CDT [facility] ABS. LYMPHOCYTES 0.39(L) 0.80 - 4.70 x10'3/uL 01/26/2025 10:58 AM CDT [facility] ABS. MONOCYTES 0.59 0.00 - 1.50 x10'3/uL 01/26/2025 10:58 AM CDT [facility] ABS. EOSINOPHILS 0.17 0.00 - 0.40 x10'3/uL 01/26/2025 10:58 AM CDT [facility] ABS. BASOPHILS 0.05 0.00 - 0.20 x10'3/uL 01/26/2025 10:58 AM CDT [facility] ABS. IMMATURE GRANULOCYTES 0.17(H) 0.00 - 0.03 x10'3/uL 01/26/2025 10:58 AM CDT [facility] ABS. NUCLEATED RBC'S 0.00 0.00 - 0.01 x10'3/uL 01/26/2025 10:58 AM CDT [facility] NRBC % 0.0 % 01/26/2025 10:58 AM CDT [facility] 01/26/2025 10:1 0 AM CDT Demetrius Ortiz MD LABORATORY Final Result [facility] [address] [place] [phone], [id number] * (ABNORMAL) BASIC METABOLIC PANEL (01/25/2025 5:00 AM CDT) Only the most recent of2 resultswithin the time period is included. SODIUM S/P/B 133(L) 136 - 145 MMOL/L 01/25/2025 5:36 AM CDT [facility] POTASSIUM S/P/B 3.3(L) 3.5 - 5.1 MMOL/L 01/25/2025 5:36 AM CDT [facility] CHLORIDE S/P/B 99 97 - 115 MMOL/L 01/25/2025 5:36 AM T [facility] CO2 24.4 21.0 - 32.0 MMOL/L 01/25/2025 5:36 AM [facility] GLUCOSE 106 74 - 106 MG/DL 01/25/2025 5:36 AM T [facility] BUN 20(H) 7 - 18 MG/DL 01/25/2025 5:36 AM [facility] CREATININE S/P/B 1.10(H) 0.55 - 1.02 MG/DL 01/25/2025 5:36 AM [facility] CALCIUM S/P/B 7.1(L) 8.5 - 10.1 MG/DL 01/25/2025 5:36 AM [facility] ANION GAP 9.6 2.0 - 10.0 MMOL/L 01/25/2025 5:36 AM [facility] OSMOLALITY (CALC) 279 MOSM/KG 025 5:36 AM [facility] Comment:REFERENCE RANGE NOT ESTABLISHED GFR ESTIMATE 50(L) >90 ML/MIN/1. 73 M2 01/25/2025 5:36 AM [facility] GFR NOTES GFR REFERENCE S: 01/25/2025 5:36 AM [facility] Comment: THE ESTIMATED GFR IS CALCULATED [...] MD LABORATORY Final Result Performing Organization Address [facility]/ZIP Co de Phone Number [facility] [address] [place] [address], [id number] * Pathology (01/24/2025 12:00 AM CDT) Only the most recent of2 resultswithin the time period is included. PATHOLOGY [facility] Department of Laboratory Medicine [address] [place] [address] , extension [phone] Pathology Report Surgical Pathology Report Name: GIAN GORDILLO Specimen #: [id number] Age: 3 1940 (Age: 84) Location: [facility] Sex: F Procedure Date: 01/24/2025 Hospital #: [id number] Date Received: 01/26/2025 Date Reported: 01/27/2025 Provider: [...] interpretation, and sign out were performed at [facility], [address] [place] [address]. Electronically Signed Out NEHEMIAH ARAIZA MD [facility] TISSUE COLON STRUCTURE / Unknown 01/24/2025 8:41 AM CDT Shelley HERNANDEZ PATHOLOGY/CYTOLOGY O RDERABLES Final Result Performing Organization Address [facility]/ZIP Co de Phone Number [facility] [address] [place] [address], [place] [phone] [id number] * POCT glucose (01/23/2025 12:21 PM CDT) Only the most recent of2 resultswithin the time period is included. [facility] GLUCOSE POC 88 70 - 109 01/23/2025 12:26 PM CDT [facility] 01/23/2025 12:2 1 PM CDT Demetrius Ortiz MD POCT ORDERABLES - DEVICE Fin al Result Performing Organization Address City/[facility]/ZIP Co de Phone Number [facility] [address] [place] [address], [id number] * ENDOSCOPY (SCAN ORDER) (01/23/2025 7:23 AM CDT) Shelley HERNANDEZ SCANNING Mica l Result * PROTHROMBIN TIME, VENOUS (01/22/2025 5:34 PM CDT) Only the most recent of2 resultswithin the time period is included. [facility] PROTIME 11.6 9.4 - 12.5 SEC 01/22/2025 6:15 PM CDT [facility] INR 1.0 0.8 - 1.1 01/22/2025 6:15 PM CDT [facility] 01/22/2025 5:34 PM CDT Shelley HACKETT LABORATORY Mica l Result [facility] [address] [place] [address], [place] [phone] [id number] * (ABNORMAL) HEMOGLOBIN AND HEMATOCRIT (01/21/2025 4:08 PM CDT) Only the most recent of2 resultswithin the time period is included. HGB 8.0(L) 12.0 - 16.0 G/DL 01/21/2025 4:23 PM CDT [facility] HCT 24.0(L) 36.0 - 47.0 % 01/21/2025 4:23 PM CDT [facility] 01/21/2025 4:08 PM CDT Demetrius Ortiz MD LABORATORY Final Result [facility] [address] [place] [address], [id number] * TRANSFUSE RED BLOOD CELLS (01/21/2025 6:12 AM CDT) Oscar Del Angel MD NURSING TREATMENT ORDERABLES - B LOOD ADMIN Final Result * URINALYSIS (01/21/2025 4:09 AM CDT) COLOR (U) LIGHT YELLOW 01/21/2025 4:57 AM CDT [facility] TRANSPARENCY CLEAR 01/21/2025 4:57 AM CDT [facility] SPECIFIC GRAVITY (U) 1.013 1.002 - 1.035 01/21/2025 4:57 AM CDT [facility] U PH 6.5 5 - 8 01/21/2025 4:57 AM CDT [facility] PROTEIN RANDOM (U) NEGATIVE NEGATIVE 01/21/2025 4:57 AM CDT [facility] GLUCOSE (U) NEGATIVE NEGATIVE MG/DL 01/21/2025 4:57 AM CDT [facility] KETONES MG/DL (U) NEGATIVE NEGATIVE 01/21/2025 4:57 AM CDT [facility] BILIRUBIN (U) NEGATIVE NEGATIVE 01/21/2025 4:57 AM CDT [facility] BLOOD (U) NEGATIVE NEGATIVE 01/21/2025 4:57 AM CDT [facility] NITRITES NEGATIVE NEGATIVE 01/21/2025 4:57 AM CDT [facility] UROBILINOGEN NORMAL 0 - 1 EU/DL 01/21/2025 4:57 AM CDT [facility] LEUKOCYTES (U) NEGATIVE NEGATIVE 01/21/2025 4:57 AM CDT [facility] RBC/HPF 1 0 - 3 /HPF 01/21/2025 4:57 AM CDT [facility] WBC/HPF <1 0 - 6 /HPF 01/21/2025 4:57 AM CDT [facility] BACTERIA (U) NONE /HPF 01/21/2025 4:57 AM CDT [facility] SQUAMOUS EPITHELIALS <1 01/21/2025 4:57 AM CDT [facility] URINE, STRAIGHT CATH 01/21/2025 4:09 AM CDT Oscar Del Angel MD URINE ORDERABLES Final Result [facility] [address] [place] [address], [id number] * CULTURE, URINE (01/21/2025 4:09 AM CDT) SPEC DESCRIPTION URINE STRAIGHT CATH 01/21/2025 4:10 AM CDT [facility] SPECIAL REQUESTS NO SPECIAL REQUEST 01/21/2025 4:10 AM CDT [facility] CULTURE RESULT NO GROWTH (< OR = 1,000 CFU/ML) 01/22/2025 9:58 AM CDT [facility] URINE SPECIMEN OBTAINED BY SINGLE CATHETERIZATION OF URINARY BLADDER / Unknown 01/21/2025 4:09 AM CDT 01/21/2025 4:41 AM CDT us Oscar Del Angel MD MICROBIOLOGY - GENERAL ORDERABLE S Final Result [facility] [address] [place] [address], [id number] * CT HEAD WO CON (01/20/2025 11:29 PM CDT) Anatomical Region Laterality Modality Head Computed Tomogra phy 01/21/2025 12:3 8 AM CDT Impressions 01/21/2025 12:40 AM CDT IMPRESSION: 1. No definite CT evidence of acute intracranial abnormality, as above. 2. Small vessel disease and volume loss. Referred By: CHARITY JOSHUA Interpreted By: Desmond Sood MD, 01/21/2025 12:38 AM Narrative 01/21/2025 12:40 AM CDT [address] [address] EXAMINATION: CT of the head CLINICAL HISTORY: [...] Procedure Note Desmond Sood MD - 01/21/[address] [address] EXAMINATION: CT of the head CLINICAL HISTORY: [...] By: Desmond Sood MD, 01/21/2025 12:[address] Final Result * (ABNORMAL) BMP WITHOUT GLUCOSE (01/20/2025 8:27 PM CDT) SODIUM S/P/B 127(L) 136 - 145 MMOL/L 01/20/2025 9:25 PM CDT [facility] POTASSIUM S/P/B 4.3 3.5 - 5.1 MMOL/L 01/20/2025 9:25 PM CDT [facility] CHLORIDE S/P/B 96(L) 97 - 115 MMOL/L 01/20/2025 9:25 PM CDT [facility] CO2 22.5 21.0 - 32.0 MMOL/L 01/20/2025 9:25 PM CDT [facility] BUN 25(H) 7 - 18 MG/DL 01/20/2025 9:25 PM CDT [facility] CREATININE S/P/B 0.89 0.55 - 1.02 MG/DL 01/20/2025 9:25 PM CDT [facility] CALCIUM S/P/B 8.3(L) 8.5 - 10.1 MG/DL 01/20/2025 9:25 PM CDT [facility] ANION GAP 8.5 2.0 - 10.0 MMOL/L 01/20/2025 9:25 PM CDT [facility] GFR ESTIMATE 64(L) >90 ML/MIN/1. 73 M2 01/20/2025 9:25 PM CDT [facility] GFR NOTES GFR REFERENCE S: 01/20/2025 9:25 PM CDT [facility] Comment: THE ESTIMATED GFR IS CALCULATED [...] <15 ml/min/1.73 m2 01/20/2025 8:27 PM CDT us Oscar Del Angel MD LABORATORY Final Result [facility] [address] [place] [address], [id number] * TSH W/REFLEX (01/20/2025 8:27 PM CDT) TSH 2.230 0.358 - 3.740 uIU/ML 01/20/2025 9:25 PM CDT [facility] Comment: ASSAY PERFORMED BY CHEMILUMINESCENCE METHODOLOGY USING [employer]. PATIENT RESULTS DETERMINED BY ASSAYS USING DIFFERENT MANUFACTURERS FOR METHODS MAY NOT BE COMPARABLE. 01/20/2025 8:27 PM CDT Oscar Del Angel MD LABORATORY Final Result Performing Organization Address [facility] de Phone Number [facility] [address] [place] [address], [place] [phone] * (ABNORMAL) PRO-BRAIN NATRIURETIC PEPTIDE (PRO BNP) (01/20/2025 8:27 PM CDT) PRO-B TYPE NATRIURETIC PEPTIDE 689(H) <450 PG/ML 01/20/2025 9:25 PM CDT [facility] Comment: AGE INDEPENDENT: <300 PG/ML HAS [...] MD LABORATORY Final Result Performing Organization Address [facility] de Phone Number [facility] [address] [place] [address], [place] [phone] * TYPE & SCREEN (01/20/2025 8:27 PM CDT) UNITS ORDERED 2 01/21/2025 3:52 AM CDT [facility] ABO/RH A POSITIVE 01/20/2025 9:24 PM CDT [facility] ANTIBODY SCREEN NEGATIVE 9:24 PM CDT [facility] SAMPLE EXPIRATION 01/23/2025,2359 01/20/2025 8:42 PM CDT [facility] BLOOD UNIT NUMBER [id number] 01/21/2025 3:06 AM CDT [facility] PRODUCT: PC LEUKO PHERE BAG1 01/21/2025 3:06 AM CDT [facility] UNIT DIVISION 00 01/21/2025 3:06 AM CDT [facility] BLOOD UNIT STATUS TRANSFUSED,FINAL 01/22/2025 6:43 AM CDT [facility] ISSUE DATE/TIME [id number] 025 6:43 AM CDT [facility] PRODUCT CODE [id number] 01/22/2025 6:43 AM CDT [facility] ABO/RH Unit A POS 01/22/2025 6:43 AM CDT [facility] ABO/RH UNIT ISBT CODE 6200 01/22/2025 6:43 AM CDT [facility] BLOOD UNIT EXPIRATION DATE [id number] 01/22/2025 6:43 AM CDT [facility] TRANSFUSION STATUS OK TO TRANSFUSE 01/21/2025 3:06 AM CDT [facility] CROSSMATCH COMPATIBLE-EXM 01/21/2025 3:06 AM CDT [facility] 01/20/2025 8:27 PM CDT Oscar Del Angel MD BLOOD BANK TEST ORDERABLES Final Result [facility] [address] [place] [address], [id number] * (ABNORMAL) HEPATIC FUNCTION PANEL (01/20/2025 8:27 PM CDT) BILIRUBIN TOTAL S/P/B 0.9 0.2 - 1.0 MG/DL 01/20/2025 9:25 PM CDT [facility] BILIRUBIN DIRECT S/P/B 0.3(H) 0.0 - 0.2 MG/DL 01/20/2025 9:25 PM CDT [facility] ALKALINE PHOSPHATASE S/P/B 83 55 - 142 U/L 01/20/2025 9:25 PM CDT [facility] AST 78(H) 15 - 37 U/L 01/20/2025 9:25 PM CDT [facility] ALT 80(H) 13 - 56 U/L 01/20/2025 9:25 PM CDT [facility] TOTAL PROTEIN S/P/B 6.3(L) 6.4 - 8.2 G/DL 01/20/2025 9:25 PM CDT [facility] ALBUMIN S/P/B 3.0(L) 3.4 - 5.0 G/DL 01/20/2025 9:25 PM CDT [facility] 01/20/2025 8:27 PM CDT us Oscar Del Angel MD LABORATORY Final Result [facility] [address] [place] [address], [id number] * (ABNORMAL) CBC, AUTO, NO DIFF (01/20/2025 8:27 PM CDT) WBC 6.93 4.00 - 10.80 x10'3/uL 01/20/2025 8:44 PM CDT [facility] RBC 2.50(L) 4.10 - 5.40 x10'6/uL 01/20/2025 8:44 PM CDT [facility] HGB 7.0(L) 12.0 - 16.0 G/DL 01/20/2025 8:44 PM CDT [facility] HCT 20.9(L) 36.0 - 47.0 % 01/20/2025 8:44 PM CDT [facility] MCV 83.6 78.0 - 100.0 FL 01/20/2025 8:44 PM CDT [facility] MCH 28.0 27.0 - 31.0 PG 01/20/2025 8:44 PM CDT [facility] MCHC 33.5 33.0 - 36.0 G/DL 01/20/2025 8:44 PM CDT [facility] RDW 17.2(H) 11.5 - 14.5 % 01/20/2025 8:44 PM CDT [facility] PLT 387(H) 150 - 350 x10'3/uL 01/20/2025 8:44 PM CDT [facility] MPV 9.1 7.4 - 10.4 FL 01/20/2025 8:44 PM CDT [facility] 01/20/2025 8:27 PM CDT Oscar Del Angel MD LABORATORY Final Result Performing Organization Address City/[facility]/ZIP Co de Phone Number [facility] [address] [place] [address], [id number] * MAGNESIUM (01/20/2025 8:27 PM CDT) MAGNESIUM 2.4 1.6 - 2.6 MG/DL 01/20/2025 9:25 PM CDT [facility] 01/20/2025 8:27 PM CDT us Oscar Del Angel MD LABORATORY Final Result Performing Organization Address [facility]/ZIP Co de Phone Number [facility] [address] [address], [place] [phone] [id number] from Last 3 Months Insurance [employer] Advance Directives Documents on File Type Date Recorded Patient Probation And Parole Officer Expl anation DNR (Do Not Resuscitate) Documentation [...] 11:38 AM 03/12/2020 4:02 PM Care Teams Projector Booth Operator Relationship Specialty Start Date End Date Pradip Tracy MD [address] [place] [id number] PCP - General INTERNAL MEDICINE 01/21/25 Josie Becerra MD [address] [place] [address] Consulting Physician CARDIOVASCULAR DISEASE 01/24/24
--- OUTSIDE RECORDS SUMMARY | 2025-02-07 10:30 | XMS_ITS | Referral Summary ---
Author Organization [facility] Address [address] [place] [address] Care Team Providers Care Power Nut Runner Operator Name Role Phone Blas Hardin MD [...] mcg tablet Take 100 mcg by mouth caramel maker before breakfast Active Active Problems Problem Noted [...] on file Legal Sex Female 1:53 PM MAINTENANCE AND CUSTODIAN SUPERVISOR Gender Identity Not on file Sexual Orientation Not on file Last Filed Vital Signs Vital Sign Reading Time Taken Comments Blood Pressure 198/89 10/03/2019 11:17 AM MAINTENANCE AND CUSTODIAN SUPERVISOR Pulse 58 10/03/2019 11:17 AM MAINTENANCE AND CUSTODIAN SUPERVISOR Temperature 35.9 C (96.7 F) 08/11/2019 9:07 AM CDT Respiratory Rate 16 10/03/2019 11:17 AM MAINTENANCE AND CUSTODIAN SUPERVISOR Oxygen Saturation 98% 10/03/2019 11:17 AM MAINTENANCE AND CUSTODIAN SUPERVISOR Inhaled Oxygen Concentration - - Weight [...] Insurance [facility] MEDICARE Care Teams Power Nut Runner Operator Relationship Specialty Start Date End Date Blas Hardin MD PCP - General 01/12/17
--- OUTSIDE RECORDS SUMMARY | 2025-02-07 10:30 | XMS_ITS | Data Portability ---
Author Organization [facility], [address] [place] [address] [place]rology ([place]) Address [address] [place] [address] Care Team Providers Care Ironer Machine Name Role Phone EDGARDO GODFREY Primary Care Provider MIRA REYES Garment Form Assembler KAREN NICOLE Garment Form Assembler Assessment Encounter Date Assessment Date Assessment LastModified [...] plan and intent to comply with it. geochristonatalia Not available 06/23/2024 15:09:00 08/21/2024 08/21/2024 Ms. [...] on this date of service including both rwsv-si-ljna and eyj-sqcn-nh-face time excluding any separately reportable services. abel [...] Not Available [facility] [address] [place] [address], 15676, 09/03/2024 10:48:06 09/02/20 24 09/03/2024 CBC WBC 5.5 K/uL 3.8-11 .2 Not Available [facility] [address] [place] [address], 35771, 09/03/2024 10:48:06 09/02/20 24 09/03/2024 CBC RBC 3.11 M/uL 3.92-5 .10 low Not Available [facility] [address] [place] [address], 76282, 09/03/2024 10:48:06 09/02/20 24 09/03/2024 CBC HGB 9.9 g/dL 11.8-1 5.3 low Not Available [facility] [address] [place] [address], 72633, 09/03/2024 10:48:06 09/02/20 24 09/03/2024 CBC HCT 30.4 % 36.5-4 4.8 low Not Available [facility] [address] [place] [address], 66138, 09/03/2024 10:48:06 09/02/20 24 09/03/2024 CBC MCV 97.7 fL 80.0-9 9.0 Not Available [facility] [address] [place] [address], 74096, 09/03/2024 10:48:06 09/02/20 24 09/03/2024 CBC MCH 31.8 pg 25.5-3 3.6 Not Available [facility] [address] [place] [address], 52523, 09/03/2024 10:48:06 09/02/20 24 09/03/2024 CBC MCHC 32.6 g/dL 32.0-3 6.0 Not Available [facility] [address] [place] [address], 43662, 09/03/2024 10:48:06 09/02/20 24 09/03/2024 CBC RDW-SD 45.3 fL 35.1 - 46.3 Not Available [facility] [address] [place] [address], 13290, 09/03/2024 10:48:06 09/02/20 24 09/03/2024 CBC plt 313 K/uL 130-40 0 Not Available [facility] [address] [place] [address], 64116, 09/03/2024 10:48:06 09/02/20 24 09/03/2024 CBC MPV 10.2 fL 9.3-12 .8 Not Available [facility] [address] [place] [address], 15228, 09/03/2024 10:48:06 09/02/20 24 09/03/2024 CMP, serum or plasm a comp. met. panel Not Available [facility] [address] [place] [address], 08055, 09/03/2024 11:05:53 09/02/20 24 09/03/2024 CMP, serum or plasm a sodium 141 mmol/ L 136-14 6 Not Available [facility] [address] [place] [address], 35157, 09/03/2024 11:05:53 09/02/20 24 09/03/2024 CMP, serum or plasm a potassium 4.5 mmol/ L 3.5-5. 1 Not Available [facility] [address] [place] [address], 51668, 09/03/2024 11:05:53 09/02/20 24 09/03/2024 CMP, serum or plasm a chloride 107 mmol/ L 98-110 Not Available [facility] [address] [place] [address], 84655, 09/03/2024 11:05:53 09/02/20 24 09/03/2024 CMP, serum or plasm a CO2 29 mEq/L 20-32 Not Available [facility] [address] [place] [address], 21516, 09/03/2024 11:05:53 09/02/20 24 09/03/2024 CMP, serum or plasm a anion gap 10 mmol/ L 10-22 Not Available [facility] [address] [place] [address], 00968, 09/03/2024 11:05:53 09/02/20 24 09/03/2024 CMP, serum or plasm a glucose 101 mg/dL 70-100 high Not Available [facility] [address] [place] [address], 89121, 09/03/2024 11:05:53 09/02/20 24 09/03/2024 CMP, serum or plasm a calcium 9.6 mg/dL 8.4-10 .4 Not Available [facility] [address] [place] [address], 39505, 09/03/2024 11:05:53 09/02/20 24 09/03/2024 CMP, serum or plasm a total protein 6.8 g/dL 6.4-8. 3 Not Available [facility] [address] [place] [address], 08050, 09/03/2024 11:05:53 09/02/20 24 09/03/2024 CMP, serum or plasm a albumin 4.3 g/dL 3.5-5. 3 Not Available [facility] [address] [place] [address], 56688, 09/03/2024 11:05:53 09/02/20 24 09/03/2024 CMP, serum or plasm a ALP 43 U/L 44 - 127 low Not Available [facility] [address] [place] [address], 08102, 09/03/2024 11:05:53 09/02/20 24 09/03/2024 CMP, serum or plasm a AST (SGOT) 29 U/L 10-40 Not Available [facility] [address] [place] [address], 35166, 09/03/2024 11:05:53 09/02/20 24 09/03/2024 CMP, serum or plasm a total bilirubin 0.4 mg/dL 0.2-1. 0 Not Available [facility] [address] [place] [address], 71464, 09/03/2024 11:05:53 09/02/20 24 09/03/2024 CMP, serum or plasm a ALT (SGPT) 26 U/L 8-35 Not Available [facility] [address] [place] [address], 44347, 09/03/2024 11:05:53 09/02/20 24 09/03/2024 CMP, serum or plasm a BUN 28 mg/dL 7-21 high Not Available [facility] [address] [place] [address], 80024, 09/03/2024 11:05:53 09/02/20 24 09/03/2024 CMP, serum or plasm a creatinine 1.5 mg/dL 0.7-1. 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 ) Not Available [facility] [address] [place] [address], 93299, 09/03/2024 11:05:53 09/02/20 24 09/03/2024 CK (crea ángel kinas e), total , serum CPK- Not Available [facility] [address] [place] [address], 29450, 09/03/2024 11:05:55 09/02/20 24 09/03/2024 CK (crea ángel kinas e), total , serum CPK 59 U/L 30-200 Not Available [facility] [address] [place] [address], 57234, 09/03/2024 11:05:55 09/02/20 24 09/03/2024 C-janet ctive prote in, quant itati ve, serum or plasm a CRP Not Available [facility] [address] [place] [address], 85753, 09/03/2024 11:28:53 09/02/20 24 09/03/2024 C-janet ctive prote in, quant itati ve, serum or plasm a CRP <0.4 mg/dL <0.4-0 .5 Not Available [facility] [address] [place] [address], 22067, 09/03/2024 11:28:53 09/02/20 24 09/03/2024 arthr itis panel uric acid 4.3 mg/dL 2.3-6. 6 Not Available [facility] [address] [place] [address], 93104, 09/04/2024 13:42:33 09/02/20 24 09/03/2024 arthr itis panel sed rate 4 mm/HR 0 - 30 Not Available [facility] [address] [place] [address], 74220, 09/04/2024 13:42:33 09/02/20 24 09/03/2024 arthr itis panel rf 14 IU/mL <3.5-1 4 Not Available [facility] [address] [place] [address], 61825, 09/04/2024 13:42:33 09/02/20 24 09/03/2024 arthr itis panel ccp antibody, IgG <0.54 U/mL <=4.9 Not Available [facility] [address] [place] [address], 32332, 09/04/2024 13:42:33 09/02/2009/04/2024 arthr itis panel arthritis panel Not Available [facility] [address] [place] [address], 17995, 09/04/2024 13:42:33 09/02/20 24 09/04/2024 arthr itis panel MOSES screen NEGATI VE negati ve Perfo rmed by Bio-R ad enzym e immun oassa y Not Available [facility] [address] [place] [address], 34985, 09/04/2024 13:42:33 09/02/20 24 09/03/2024 arthr itis panel arthritis panel Not Available [facility] [address] [place] [address], 33657, 09/03/2024 11:28:54 09/02/20 24 09/03/2024 arthr itis panel uric acid 4.3 mg/dL 2.3-6. 6 Not Available [facility] [address] [place] [address], 85452, 09/03/2024 11:28:54 09/02/20 24 09/03/2024 arthr itis panel sed rate 4 mm/HR 0 - 30 Not Available [facility] [address] [place] [address], 64948, 09/03/2024 11:28:54 09/02/20 24 09/03/2024 arthr itis panel MOSES screen PENDIN G Not Available [facility] [address] [place] [address], 26267, 09/03/2024 11:28:54 09/02/20 24 09/03/2024 arthr itis panel rf 14 IU/mL <3.5-1 4 Not Available [facility] [address] [place] [address], 17524, 09/03/2024 11:28:54 09/02/20 24 09/03/2024 arthr itis panel ccp antibody, IgG <0.54 U/mL <=4.9 Not Available [facility] [address] [place] [address], 47997, 09/03/2024 11:28:54 09/02/20 24 09/03/2024 arthr itis panel arthritis panel Not Available [facility] [address] [place] [address], 67852, 09/03/2024 11:23:25 09/02/20 24 09/03/2024 arthr itis panel uric acid 4.3 mg/dL 2.3-6. 6 Not Available [facility] [address] [place] [address], 76889, 09/03/2024 11:23:25 09/02/20 24 09/03/2024 arthr itis panel sed rate 4 mm/HR 0 - 30 Not Available [facility] [address] [place] [address], 72975, 09/03/2024 11:23:25 09/02/20 24 09/03/2024 arthr itis panel MOSES screen PENDIN G Not Available [facility] [address] [place] [address], 03199, 09/03/2024 11:23:25 09/02/20 24 09/03/2024 arthr itis panel rf 14 IU/mL <3.5-1 4 Not Available [facility] [address] [place] [address], 00443, 09/03/2024 11:23:25 09/02/20 24 09/03/2024 arthr itis panel ccp antibody, IgG PENDIN G Not Available [facility] [address] [place] [address], 69659, 09/03/2024 11:23:25 09/02/20 24 09/03/2024 arthr itis panel arthritis panel Not Available [facility] [address] [place] [address], 70193, 09/03/2024 11:05:57 09/02/20 24 09/03/2024 arthr itis panel uric acid 4.3 mg/dL 2.3-6. 6 Not Available [facility] [address] [place] [address], 64287, 09/03/2024 11:05:57 09/02/20 24 09/03/2024 arthr itis panel sed rate PENDIN G Not Available [facility] [address] [place] [address], 12722, 09/03/2024 11:05:57 09/02/20 24 09/03/2024 arthr itis panel MOSES screen PENDIN G Not Available [facility] [address] [place] [address], 82101, 09/03/2024 11:05:57 09/02/20 24 09/03/2024 arthr itis panel rf 14 IU/mL <3.5-1 4 Not Available [facility] [address] [place] [address], 77667, 09/03/2024 11:05:57 09/02/20 24 09/03/2024 arthr itis panel ccp antibody, IgG PENDIN G Not Available [facility] [address] [place] [address], 32301, 09/03/2024 11:05:57 05/30/20 24 03/29/2023 imagi ng/di corryos tic resul t No observ ation record ed. Not Available 05/30/2024 02:13:59 Result Notes None recorded. Problems Name Problem SNOMED Code Status Onset Date Resolution Date Notes Provider Name and Address Organization Details Recorded Time Renal insufficiency 221485242 Active 2023 [facility] 17:13:34 Chronic kidney disease stage 3 716681132 Active 2023 [facility] A[facility] 4 15:32:41 Pain of multiple joints 23319838 Active 2023 Bala Conley MD [address] [place] [address], [address], [facility] 4 22:02:20 Muscle pain 18090008 Active 2023 Bala Conley MD [address] [place] [address], 80905[address], [facility] 4 22:02:34 Gastroesophage al reflux disease 185281293 Active 2023 Bala Conley MD [address] [place] [address], [address], [facility] 4 22:03:10 Chronic kidney disease stage 3A 698309763 Active 2023 Bala Conley MD [address] [place] [address], 16045-[address] 3, [facility] 4 22:03:32 Mechanical low back pain 031241239 Active 2023 Bala Conley MD [address] [place] [address], 13331-079 3, [facility] 4 22:03:43 Benign essential hypertension 0417198 Active 2023 Mira Reyes PA-C [address] [place] [address], 18902-090 3, [facility] 14:51:27 Problem Notes None recorded. Procedures [...] Name and Address Organization Details Recorded Time 0247156 Bactrim medicatio n other Not available Not available 11/14/20232020 43224 9 RxNorm React ion: GI Upset ; [...] /min 142 mm[Hg] 82 mm[Hg] Thang Aly [facility] 05/01/2024 14:52:23 Date Recorded Body weight Heart rate Systolic blood pressure Diastolic blood pressure Provider Name and Address Organization Details Last Updated DateTime 06/19/2024 67072.42 g 46 /min 188 mm[Hg] 98 mm[Hg] Edie Luna [facility] 06/19/2024 14:42:37 Date Recorded Body weight Heart rate Systolic blood pressure Diastolic blood pressure Provider Name and Address Organization Details Last Updated DateTime 08/21/2024 34133.6 g 50 /min 160 mm[Hg] 74 mm[Hg] [facility] 08/21/2024 12:27:31 Date Recorded Body weight Heart rate Oxygen saturation Oxygen saturation in Arterial blood by Pulse oximetry Pain severity - 0-10 verbal numeric rating [Score] - Reported Systolic blood pressure Diastolic blood pressure Provider Name and Address Organization Details Last Updated DateTime 69898.0 7 g 54 /min 98 % 98 % 9 148 mm[Hg] 68 mm[Hg] Farrah Funk [facility] 17:10:30 Date Recorded Heart rate Systolic blood pressure Diastolic blood pressure Provider Name and Address Organization Details Last Updated DateTime 12/18/2024 54 /min 118 mm[Hg] 60 mm[Hg] [facility] 12/18/2024 12:14:20 Social History None recorded. Functional Status None recorded. Mental Status None recorded. Family History Nothing Reported. Medical History No medical history recorded. Gynecological HistoryNo gynecological history recorded. Obstetrics History GPAL:G 0 P 0 0 0 0 Past Encounters Encounter ID Performer Location Encounter Start Date Encounter Closed Date Diagnosis/Indication Diagnosis SNOMED-CT Code Diagnosis ICD10 Code Diagnosis Note [id number] Karen Nicole MD [facility] ([place]) [address] [facility] [place] [address] 01/10/2024 15:22:54 01/10/2024 16:37:50 Renal insufficiency 596695279 N28.9 [id number] Mira Reyes PA-C [facility] ([place]) [address] [facility] [place] [address] 05/01/2024 14:26:22 05/01/2024 15:15:46 Chronic kidney disease stage 3 625692023 N18.30 Benign ess ential hypertension 3444123 I10 [id number] Karen Nicole MD [facility] ([place]) [address] [place] [address] 06/19/2024 14:08:10 06/19/2024 15:08:49 Chronic kidney disease stage 3 444833997 N18.30 Benign ess ential hypertension 5108504 I10 [id number] Mira Reyes PA-C [facility] ([place]) [address] [place] [address] 08/21/2024 11:50:48 08/21/2024 12:57:31 Chronic kidney disease stage 3 474250490 N18.30 Benign ess ential hypertension 3705372 I10 [id number] Bala Conley MD [address] [place] [address] Rheumatol [place]gy ([place]) [address] [place] [address],[address] [place] [address] 09/02/2024 15:51:47 09/02/2024 18:42:34 Pain of multiple joints 61978518 M25.50 Gastroesop hageal reflux disease 446532363 K21.9 Chronic ki dney disease stage 3A 287849784 N18.31 Mechanical low back pain 743469513 M54.59 [id number] Mira Reyes PA-C [facility] [place]) [address] [place] [address] 12/18/2024 11:35:56 12/18/2024 12:31:59 Chronic kidney disease stage 3 530019512 N18.30 Benign ess ential hypertension 2062543 I10 Health Concerns Section Related Observation LastModified by Organization Detai ls LastModified Time None Recorded Concern Status LastModified by Organization Details LastModified Time None Recorded Advance Directives Directive None Recorded Payers Encounter Date Sequence Insurance Name Policy Number Policy Curiel Covered Member ID Curiel Member ID Guarantor Name 05/01/2024 1 [place] Wanda Gordillo [id number] Wanda Gordillo 05/01/2024 2 [employer] [place] [employer] (MEDICARE SUPPLEMENT) Wanda Gordillo [id number] Wanda Gordillo 06/19/2024 1 [place] Wanda Gordillo [id number] Wanda Gordillo 06/19/2024 2 [employer] [place] [employer] (MEDICARE SUPPLEMENT) Wanda Drummondi [id number] Wanda Gordillo 08/21/2024 1 [place] Wanda Gordillo [id number] Wanda Gordillo 08/21/2024 2 [employer] [place] [employer] (MEDICARE [place]PPLEMENT) Wanda Drummondi [id number] Wanda Gordillo 09/02/2024 1 [place] Wanda Gordillo [id number] Wanda Gordillo 09/02/2024 2 [employer] [place] [employer] (MEDICARE [place]PPLEMENT) Wanda Drummondi [id number] Wanda Gordillo 12/18/2024 1 [place] Wanda Gordillo [id number] Wanda Gordillo 12/18/2024 2 [employer] [place] [employer] (MEDICARE SUPPLEMENT) Wanda Gordillo [id number] Wanda Gordillo Notes Date Note Type Note [...] atrial fibrillation. Mira Reyes PA-C [address] [place] [address], [address], [facility] 05/01/2024 16:49:08 06/19/2024 text/html Ms. Gordillo [...] of UTI Karen Nicole MD [address] [place] [address], [address], [facility] 06/23/2024 15:10:26 08/21/2024 text/html Ms. Gordillo [...] be worsening. Mira Reyes PA-C [address] [place] [address], [address], [facility] 08/21/2024 14:16:08 09/02/2024 text/html The patient [...] Instead, she takes Advil on her own zhzh-gqz-pypdnfj alternating this occasionally with some Tylenol. The [...] her eyes. She takes Restasis from her senior digital designer and she does brush twice daily. She [...] the patient s past medical history and [employer] intake form.abel Conley MD [address] [place] [address], [address], [facility] 09/04/2024 21:36:32 12/18/2024 text/html Ms. Gordillo [...] be worsening. Mira Reyes PA-C [address] [facility], [place], [address], [facility] 12/18/2024 14:00:58 OBGyn Episode No OBEpisode recorded.
--- OUTSIDE RECORDS SUMMARY | 2025-02-07 10:30 | XMS_ITS ---
Author Organization [facility] Address [address] [place], [place] [id number] Care Team Providers Care Family Practice Medical Doctor Name Role Phone LISA LÓPEZ Unavailable [phone] Blas Hardin Unavailable Unavailable KENDALL BESS Unavailable [phone] REASON FOR VISIT *General care Medications Medication [...] Active Encounters Encounter Location Date Provider Diagnosis [address] [id number] 08/14/2024 KENDALL BESS Other hammer toe(s) (acquired), right foot M20.41 ; Tinea unguium B35.1 ; Other hammer toe(s) (acquired), left foot M20.42 ; Pain in right toe(s) M79.674 ; Pain in left toe(s) M79.675 ; 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 [...] seen by Dr. Hardin was 07/2024., Initials [facility]. * ROS: G eneral / Constitutional: Patient denies w eakness. R espiratory: Patient denies c hronic cough, shortness of breath, sputum production. C ardiovascular: Patient denies c hest pain, history of CO, irregular heartbeat. M usculoskeletal: Patient complains of [...] M79.675 6 . 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 3. U nspecified atherosclerosis of washoe arteries of extremities, bilateral legs Notes: Patient [...] LESIONS, 2 TO 4, Modifiers: Q8 , 55942 DEBRIDE NAIL, 6 OR MORE, Modifiers: 59 , Q8 * Follow Up: 3 Months * Billing Information: * Visit Code: * Procedure Codes: 01902 TRIM SKIN LESIONS, 2 TO 4. Modifiers: Q8 91471 DEBRIDE NAIL, 6 OR MORE. 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
--- OUTSIDE RECORDS SUMMARY | 2025-02-07 10:30 | XMS_ITS | Patient Health Record ---
Author Organization [facility] Address [address] [place], [place] [id number] Care Team Providers Care Diamond Cleaver Name Role Phone LISA LÓPEZ Unavailable [phone] Blas Hardin Unavailable Unavailable EYAL CASTELLON Unavailable [phone] KENDALL BESS Unavailable [phone] Allergies No Known Allergies Reason For Referral [...] Encounters Encounter Location Date Provider Diagnosis [facility] [place], [place] [address] [place], [place] [id number] 06/12/2024 KENDALL BESS Other hammer toe(s) (acquired), right foot M20.41 ; Tinea unguium B35.1 ; Other hammer toe(s) (acquired), left foot M20.42 ; Pain in right toe(s) M79.674 ; Pain in left toe(s) M79.675 and 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, bilateral legs I70.203 [facility] [address] [place], [place] [id number] 08/14/2024 KENDALL BESS Other hammer toe(s) (acquired), right foot M20.41 ; Tinea unguium B35.1 ; Other hammer toe(s) (acquired), left foot M20.42 ; Pain in right toe(s) M79.674 ; Pain in left toe(s) M79.675 ; 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, bilateral legs I70.203 and Acquired keratosis [keratoderma] palmaris et plantaris L85.1 [facility] [place], [place] [address] [place], [place] [id number] 10/30/2024 EYAL CASTELLON Tinea unguium B35.1 ; Pain in right toe(s) M79.674 ; Pain in left toe(s) M79.675 and 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, bilateral [...] toe(s) (ICD-10 - M79.674) 10/30/2024 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, 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) 08/14/2024 Pain in left toe(s) (ICD-10 - M79.675) 06/12/2024 Pain in left toe(s) (ICD-10 - M79.675) 08/14/2024 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, 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) Patient educated on risks and aggravating factors of PVD, including conservative treatment options such as a diet and exercise regimen to aid in slowing progression of vascular disease 06/12/2024 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
--- OUTSIDE RECORDS SUMMARY | 2025-02-07 10:30 | XMS_ITS | Clinical Summary ---
Author Organization [facility] Address [address] [place] [address] Care Team Providers Care Tube Skiver Name Role Phone Blas Hardin MD Primary [...] mcg tablet Take 100 mcg by mouth branch associate before breakfast Active Active Problems Problem Noted [...] on file Legal Sex Female 1:53 PM VISITOR SERVICE ASSISTANT Gender Identity Not on file Sexual Orientation Not on file Obstetrics History Last Filed Vital Signs Vital Sign Reading Time Taken Comments Blood Pressure 198/89 10/03/2019 11:17 AM VISITOR SERVICE ASSISTANT Pulse 58 10/03/2019 11:17 AM VISITOR SERVICE ASSISTANT Temperature 35.9 C (96.7 F) 08/11/2019 9:07 AM CDT Respiratory Rate 16 10/03/2019 11:17 AM VISITOR SERVICE ASSISTANT Oxygen Saturation 98% 10/03/2019 11:17 AM VISITOR SERVICE ASSISTANT Inhaled Oxygen Concentration - - Weight 71.7 [...] [place] MED[place] Care Teams Tube Skiver Relationship Specialty Start Date End Date Blas Hardin MD PCP - General 01/12/17
--- OUTSIDE RECORDS SUMMARY | 2025-02-07 10:31 | XMS_ITS | Encounter Summary ---
Author Organization [facility] Address [address] [place] [address] Care Team Providers Care Computer Numerical Control Grinder Name Role Phone Blas Hardin MD Primary Care Provider [phone] Josie Becerra MD Unavailable Pradip Tracy MD Primary Care Provider [phone] Encounter Details Date Type Department Care Team (Late st Contact Info) Description 09/17/2019 Hospital Orders Only [facility] [address] [place] [address] Blas Hardin MD [address] [place] [phone] Social History Tobacco Use Types Packs/Day Years Used Date Smoking Tobacco: Never Assessed Comments Unknown Sex and Gender Information Value Date Recorded Sex Assigned at Female 10/31/2024 1:15 PM FEEDER TENDER Legal Sex Female 5:44 PM FEEDER TENDER Gender Identity Not on file Sexual Orientation Not on file documented as of this encounter Plan of Treatment Upcoming Encounters Date Type Department Care Team (Late st Contact Info) Description 10/16/2025 9:00 AM FEEDER TENDER Appointment [facility] [address] [place] [address] Josie Becerra MD [address] [place] [address] 10/21/2025 9:15 AM FEEDER TENDER Office Visit [facility] [address] [place] [phone] Josie Becerra MD [address] [place] [address] documented as of this encounter Visit Diagnoses Not on filedocumented in this encounter Additional Health Concerns Infection Onset Date Last Indicated Resolved Time COVID-19 Rule Out 02/27/2020 02/27/2020 02/28/2020 4:14 PM CDT COVID-19 Rule Out 03/09/2020 03/09/2020 03/09/2020 4:38 PM CDT COVID-19 Rule Out 02/03/2024 02/03/2024 02/03/2024 2:55 PM CDT documented as of this encounter Care Teams Computer Numerical Control Grinder Relationship Specialty Start Date End Date Blas Hardin MD [address] [place] [phone] PCP - General FAMILY PRACTICE 05/06/19 01/20/25 Pradip Tracy MD [address] [place] [phone] PCP - General INTERNAL MEDICINE 01/21/25 Josie Becerra MD [address] [place] [address] Consulting Physician CARDIOVASCULAR DISEASE 01/24/24 documented as of this encounter
--- OUTSIDE RECORDS SUMMARY | 2025-02-07 10:31 | XMS_ITS | Encounter Summary ---
Author Organization [facility] Address [address] 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
--- OUTSIDE RECORDS SUMMARY | 2025-02-07 10:31 | XMS_ITS | Encounter Summary ---
Author Organization [facility] Address [address] 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
--- OUTSIDE RECORDS SUMMARY | 2025-02-07 10:31 | XMS_ITS | Encounter Summary ---
Author Organization [facility] Address [address] [place] [address] Care Team Providers Care Manager Production Name Role Phone Blas Hardin MD Primary Care Provider [phone] Josie Becerra MD Unavailable Pradip Tracy MD Primary Care Provider [phone] Encounter Details Date Type Department Care Team (Late st Contact Info) Description 03/22/2019 Abstract [facility] [address] [place] [address] , Generic Conversion, Social History Tobacco Use Types Packs/Day Years Used Date Smoking Tobacco: Never Assessed Comments Unknown Sex and Gender Information Value Date Recorded Sex Assigned at Female 10/31/2024 1:15 PM FLORAL ASSOCIATE Legal Sex Female 5:44 PM FLORAL ASSOCIATE Gender Identity Not on file Sexual Orientation Not on file documented as of this encounter Plan of Treatment Upcoming Encounters Date Type Department Care Team (Late st Contact Info) Description 10/16/2025 9:00 AM FLORAL ASSOCIATE Appointment [facility] [address] [place] [address] Josie Becerra MD [address] [place] [address] 10/21/2025 9:15 AM FLORAL ASSOCIATE Office Visit [facility] [address] [place] [phone] Josie Becerra MD [address] [place] [address] documented as of this encounter Visit Diagnoses Not on filedocumented in this encounter Additional Health Concerns Infection Onset Date Last Indicated Resolved Time COVID-19 Rule Out 02/27/2020 02/27/2020 02/28/2020 4:14 PM CDT COVID-19 Rule Out 03/09/2020 03/09/2020 03/09/2020 4:38 PM CDT COVID-19 Rule Out 02/03/2024 02/03/2024 02/03/2024 2:55 PM CDT documented as of this encounter Care Teams Manager Production Relationship Specialty Start Date End Date Blas Hardin MD [address] [place] [phone] PCP - General FAMILY PRACTICE 05/06/19 01/20/25 Pradip Tracy MD [address] [place] [address] PCP - General INTERNAL MEDICINE 01/21/25 Josie Becerra MD [address] [place] [address] Consulting Physician CARDIOVASCULAR DISEASE 01/24/24 documented as of this encounter
--- OUTSIDE RECORDS SUMMARY | 2025-02-07 10:31 | XMS_ITS ---
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 Modifiers: Q8 * S AND SUPPORT CENTER AGENT Sign off status: Completed true * Provider: Britany Garza DPM Date: 0 10/30/2024 Generated for Deandre schneider/Kaylah/Reji on: 0 02/07/2025 10:30 AM CDT History [...]
--- OUTSIDE RECORDS SUMMARY | 2025-02-07 10:31 | XMS_ITS | Clinical Summary ---
Author Organization [facility] Address [address] [place] [address] Phone Care Team Providers Care Pizza Delivery Driver Name Role Phone Blas Hardin MD Primary Care Provider [phone] Social History Tobacco Use Types Packs/Day Years [...] age to complete this topic Insurance MEDICARE [facility] INSURANCE Care Teams Pizza Delivery Driver Relationship Specialty Start Date End Date Blas Hardin MD [address] [place] [address] PCP - General Family Medicine 01/24/16
--- OUTSIDE RECORDS SUMMARY | 2025-02-07 10:31 | XMS_ITS | Encounter Summary ---
Author Organization [facility] Address [address] 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
--- OUTSIDE RECORDS SUMMARY | 2025-02-07 10:31 | XMS_ITS | Clinical Summary ---
Author Organization [facility] Address [address] 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
--- OUTSIDE RECORDS SUMMARY | 2025-02-07 10:31 | XMS_ITS ---
Author Organization [facility] Address [address] [place], [place] [phone] Care Team Providers Care Band Attacher Name Role Phone LISA LÓPEZ Unavailable [phone] Blas Hardin Unavailable Unavailable KENDALL BESS Unavailable [phone] REASON FOR VISIT *General care Encounters Encounter Location Date Provider Diagnosis [address] [id number] 10/23/2024 KENDALL BESS Plan Of Treatment No Information Progress Notes * Wanda GORDILLODOB: [birth year] (84 yo F)Acc No.[id number]:10/23/2024 Patient: Wanda GARCIA Provider: Marizol BESS :1940 A ge:83 Y S ex:Female Date:10/23/2024 Address:[address] [place], [place] [phone] Subjective: * Chief Complaints: * 1 . *General care. * Medical History: Objective: * Vitals: Assessment: Plan: * Treatment: * Billing Information: * Visit Code: * Procedure Codes: * Electronic signature of MANNIE BESS DPM on 02/07/2025 at 10:31 AM CDT Sign off status: Pending * Provider: Marizol BESS Date: 0 10/23/2024 Generated for Deandre schneider/Kaylah/eTdannyitting on: 0 02/07/2025 10:31 AM CDT
[2025-02-07 10:38] LABS: Add Urine Microscopic? YES; Bilirubin Urine Negative (Negative); Blood Urine Negative (Negative); Color Urine Light Yellow (Yellow); Glucose Urine UA Negative (Negative); Ketones Urine Negative (Negative); Leukocyte Esterase Ur Trace (Negative); Nitrate Urine Negative (Negative); Protein Urine Negative (Negative); Specific Grav Ur 1.015 (1.010-1.020); Urobilinogen Urine 0.2 mg/dL (0.2-1.0); pH Urine 6.5 (5.0-8.0)
[2025-02-07 10:45] LABS: Appearance Urine Sl Cloudy (Clear); RBC Urine None seen /hpf (0-2); Squamous Epithelial Cell Urine Many /hpf (Few); WBC Urine 0-3 /hpf (0-3)
[2025-02-07 10:46] LABS: Bacteria Urine 4+ /hpf
== END 2025-02-07 10:27 | disposition home or self-care (01) ==
LOC: CHSLAB 10:28
PROVIDERS: PCP Internal Medicine; Visit Provider Internal Medicine
DX: N32.81 Overactive bladder (principal); E87.1 Hypo-osmolality and hyponatremia; R82.90 Unspecified abnormal findings in urine
CPT/HCPCS: 81001; 87077; 87086; 87088; 87186

== ENCOUNTER 2025-02-27 09:45 | Outpatient (CLI) | payer MEDICARE, SELFPAY ==
--- OUTSIDE RECORDS SUMMARY | 2025-02-27 09:51 | XMS_ITS | Data Portability ---
Author Organization [facility], [address] [place] [address] [place]rology ([place]) Address [address] [address] Care Team Providers Care Launch Manager Name Role Phone EDGARDO GODFREY Primary Care Provider [phone] MIRA REYES Review Analyst MARY ZAMARRIPA Review Analyst Assessment Encounter Date Assessment Date Assessment LastModified [...] on this date of service including both urdd-pa-etif and ykq-braz-pi-face time excluding any separately reportable services. abel [...] Not Available [facility] [address] [place] [address], [id number], 09/03/2024 10:48:06 09/02/20 24 09/03/2024 CBC WBC 5.5 K/uL 3.8-11 .2 Not Available [facility] [address] [place] [address], [id number], 09/03/2024 10:48:06 09/02/20 24 09/03/2024 CBC RBC 3.11 M/uL 3.92-5 .10 low Not Available [facility] [address] [place] [address], [address], 09/03/2024 10:48:06 09/02/20 24 09/03/2024 CBC HGB 9.9 g/dL 11.8-1 5.3 low Not Available [facility] [address] [place] [address], 17232, 09/03/2024 10:48:06 09/02/20 24 09/03/2024 CBC HCT 30.4 % 36.5-4 4.8 low Not Available [facility] [address] [place] [address], [id number], 09/03/2024 10:48:06 09/02/20 24 09/03/2024 CBC MCV 97.7 fL 80.0-9 9.0 Not Available [facility] [address] [place] [address], [id number], 09/03/2024 10:48:06 09/02/20 24 09/03/2024 CBC MCH 31.8 pg 25.5-3 3.6 Not Available [facility] [address] [place] [address], [id number], 09/03/2024 10:48:06 09/02/20 24 09/03/2024 CBC MCHC 32.6 g/dL 32.0-3 6.0 Not Available [facility] [address] [place] [address], [id number], 09/03/2024 10:48:06 09/02/20 24 09/03/2024 CBC RDW-SD 45.3 fL 35.1 - 46.3 Not Available [facility] - [facility] [address] [place] [address], [id number], 09/03/2024 10:48:06 09/02/20 24 09/03/2024 CBC plt 313 K/uL 130-40 0 Not Available [facility] [address] [place] [address], [id number], 09/03/2024 10:48:06 09/02/20 24 09/03/2024 CBC MPV 10.2 fL 9.3-12 .8 Not Available [facility] [address] [place] [address], [id number], 09/03/2024 10:48:06 09/02/20 24 09/03/2024 CMP, serum or plasm a comp. met. panel Not Available [facility] [address] [place] [address], [id number], 09/03/2024 11:05:53 09/02/20 24 09/03/2024 CMP, serum or plasm a sodium 141 mmol/ L 136-14 6 Not Available [facility] [address] [place] [address], [id number], 09/03/2024 11:05:53 09/02/20 24 09/03/2024 CMP, serum or plasm a potassium 4.5 mmol/ L 3.5-5. 1 Not Available [facility] [address] [place] [address], 139[address], 09/03/2024 11:05:53 09/02/20 24 09/03/2024 CMP, serum or plasm a chloride 107 mmol/ L 98-110 Not Available [facility] [address] [place] [address], [id number], 09/03/2024 11:05:53 09/02/20 24 09/03/2024 CMP, serum or plasm a CO2 29 mEq/L 20-32 Not Available [facility] [address] [place] [address], [id number], 09/03/2024 11:05:53 09/02/20 24 09/03/2024 CMP, serum or plasm a anion gap 10 mmol/ L 10-22 Not Available [facility] - [facility] [address] [place] [address], [id number], 09/03/2024 11:05:53 09/02/20 24 09/03/2024 CMP, serum or plasm a glucose 101 mg/dL 70-100 high Not Available [facility] [address] [place] [address], [id number], 09/03/2024 11:05:53 09/02/20 24 09/03/2024 CMP, serum or plasm a calcium 9.6 mg/dL 8.4-10 .4 Not Available [facility] [address] [place] [address], [id number], 09/03/2024 11:05:53 09/02/20 24 09/03/2024 CMP, serum or plasm a total protein 6.8 g/dL 6.4-8. 3 Not Available [facility] - [facility] [address] [place] [address], [id number], 09/03/2024 11:05:53 09/02/20 24 09/03/2024 CMP, serum or plasm a albumin 4.3 g/dL 3.5-5. 3 Not Available [facility] [address] [place] [address], 13645, 09/03/2024 11:05:53 09/02/20 24 09/03/2024 CMP, serum or plasm a ALP 43 U/L 44 - 127 low Not Available [facility] - [facility] [address] [place] [address], 11432, 09/03/2024 11:05:53 09/02/20 24 09/03/2024 CMP, serum or plasm a AST (SGOT) 29 U/L 10-40 Not Available [facility] - [facility] [address] [place] [address], 88692, 09/03/2024 11:05:53 09/02/20 24 09/03/2024 CMP, serum or plasm a total bilirubin 0.4 mg/dL 0.2-1. 0 Not Available [facility] [address] [place] [address], [id number], 09/03/2024 11:05:53 09/02/20 24 09/03/2024 CMP, serum or plasm a ALT (SGPT) 26 U/L 8-35 Not Available [facility] [address] [place] [address], [id number], 09/03/2024 11:05:53 09/02/20 24 09/03/2024 CMP, serum or plasm a BUN 28 mg/dL 7-21 high Not Available [facility] [address] [place] [address], 43787, 09/03/2024 11:05:53 09/02/20 24 09/03/2024 CMP, serum or plasm a creatinine 1.5 mg/dL 0.7-1. 3 high Not Available [facility] [address] [place] [address], [id number], 09/03/2024 11:05:53 09/02/20 24 09/03/2024 CMP, serum or plasm a GFR(non-afri can ghanaian) 35 Not Available [facility] - [facility] [address] [place] [address], [id number], 09/03/2024 11:05:53 09/02/20 24 09/03/2024 CMP, serum or plasm a GFR() 43 (YOGA INSTRUCTOR MARIA TERESA KIDNE Y DISEA SE HAS A GFR LESS THAN 60 ML/CO N/1.7 3 MM FOR A PERIO D OF THREE MONTH S OR MORE. ) Not Available [facility] [address] [place] [address], [id number], 09/03/2024 11:05:53 09/02/20 24 09/03/2024 CK (crea ángel kinas e), total , serum CPK- Not Available [facility] - [facility] [address] [place] [address], 66515, 09/03/2024 11:05:55 09/02/20 24 09/03/2024 CK (crea ángel kinas e), total , serum CPK 59 U/L 30-200 Not Available [facility] [address] [place] [address], 62377, 09/03/2024 11:05:55 09/02/20 24 09/03/2024 C-janet ctive prote in, quant itati ve, serum or plasm a CRP Not Available [facility] [address] [place] [address], 64635, 09/03/2024 11:28:53 09/02/20 24 09/03/2024 C-janet ctive prote in, quant itati ve, serum or plasm a CRP <0.4 mg/dL <0.4-0 .5 Not Available [facility] [address] [place] [address], 56454, 09/03/2024 11:28:53 09/02/20 24 09/03/2024 arthr itis panel uric acid 4.3 mg/dL 2.3-6. 6 Not Available [facility] [address] [place] [address], 60113, 09/04/2024 13:42:33 09/02/20 24 09/03/2024 arthr itis panel sed rate 4 mm/HR 0 - 30 Not Available [facility] [address] [place] [address], [id number], 09/04/2024 13:42:33 09/02/20 24 09/03/2024 arthr itis panel rf 14 IU/mL <3.5-1 4 Not Available [facility] [address] [place] [address], 48706, 09/04/2024 13:42:33 09/02/20 24 09/03/2024 arthr itis panel ccp antibody, IgG <0.54 U/mL <=4.9 Not Available [facility] - [facility] [address] [place] [address], 77419, 09/04/2024 13:42:33 09/02/20 24 09/04/2024 arthr itis panel arthritis panel Not Available [facility] [address] [place] [address], [id number], 09/04/2024 13:42:33 09/02/20 24 09/04/2024 arthr itis panel MOSES screen NEGATI VE negati ve Perfo rmed by Bio-R ad enzym e immun oassa y Not Available [facility] - [facility] [address] [place] [address], [id number], 09/04/2024 13:42:33 09/02/20 24 09/03/2024 arthr itis panel arthritis panel Not Available [facility] - [facility] [address] [place] [address], 42605, 09/03/2024 11:28:54 09/02/20 24 09/03/2024 arthr itis panel uric acid 4.3 mg/dL 2.3-6. 6 Not Available [facility] - [facility] [address] [place] [address], [id number], 09/03/2024 11:28:54 09/02/20 24 09/03/2024 arthr itis panel sed rate 4 mm/HR 0 - 30 Not Available [facility] - [facility] [address] [place] [address], 95437, 09/03/2024 11:28:54 09/02/20 24 09/03/2024 arthr itis panel MOSES screen PENDIN G Not Available Ms Only - S [facility] [address] [place] [address], 66729, 09/03/2024 11:28:54 09/02/20 24 09/03/2024 arthr itis panel rf 14 IU/mL <3.5-1 4 Not Available [facility] - [facility] [address] [place] [address], 43993, 09/03/2024 11:28:54 09/02/20 24 09/03/2024 arthr itis panel ccp antibody, IgG <0.54 U/mL <=4.9 Not Available [facility] - [facility] [address] [place] [address], 65424, 09/03/2024 11:28:54 09/02/20 24 09/03/2024 arthr itis panel arthritis panel Not Available [facility] [address] [place] [address], [id number], 09/03/2024 11:23:25 09/02/20 24 09/03/2024 arthr itis panel uric acid 4.3 mg/dL 2.3-6. 6 Not Available [facility] [address] [place] [address], [id number], 09/03/2024 11:23:25 09/02/20 24 09/03/2024 arthr itis panel sed rate 4 mm/HR 0 - 30 Not Available [facility] - [facility] [address] [place] [address], 69402, 09/03/2024 11:23:25 09/02/20 24 09/03/2024 arthr itis panel MOSES screen PENDIN G Not Available Ms Only - [facility] [address] [place] [address], 97026, 09/03/2024 11:23:25 11/19/09/03/2024 arthr itis panel rf 14 IU/mL <3.5-1 4 Not Available [facility] - [facility] [address] [place] [address], 63056, 09/03/2024 11:23:25 09/02/20 24 09/03/2024 arthr itis panel ccp antibody, IgG PENDIN G Not Available [facility] Only - [facility] [address] [place] [address], 55183, 09/03/2024 11:23:25 09/02/20 24 09/03/2024 arthr itis panel arthritis panel Not Available [facility] [address] [place] [address], 74030, 09/03/2024 11:05:57 09/02/20 24 09/03/2024 arthr itis panel uric acid 4.3 mg/dL 2.3-6. 6 Not Available [facility] - [facility] [address] [place] [address], 12050, 09/03/2024 11:05:57 09/02/20 24 09/03/2024 arthr itis panel sed rate PENDIN G Not Available [facility] Only - [facility] [address] [place] [address], 78889, 09/03/2024 11:05:57 09/02/20 24 09/03/2024 arthr itis panel MOSES screen PENDIN G Not Available [facility] Only - [facility] [address] [place] [address], 95515, 09/03/2024 11:05:57 09/02/20 24 09/03/2024 arthr itis panel rf 14 IU/mL <3.5-1 4 Not Available [facility] - [facility] [address] [place] [address], 86910, 09/03/2024 11:05:57 09/02/20 24 09/03/2024 arthr itis panel ccp antibody, IgG PENDIN G Not Available [facility] Only - [facility] [address], [address], 09/03/2024 11:05:57 01/24/20 25 01/26/2025 SJS SURGI BRIANA PATHO LOGY path report [facility] Dep[facility] tment of Labor ator Medic ine [address] [facility] [place] [address] Telep aren: , exten radha 07 Patho logy Repor t Surgi briana Patho logy Repor t Name: YARA CHERRY Speci men #: [id number] Age: [id number] (Age: 84) Locat ion: SJSME D Sex: F Proce dure Date: 2024 [facility] #: [id number] Date Recei enrique: 2024 Date Repor son: 2024 Provi bala: JAIR Y Y PETROS RICHMOND MBBS Sourc e: Gastr ic biops ies Clini briana Histo ry: 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 GI bleed . 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 -Immu nohis toche mical stain for Helic obact er pylor i is negat jeanna. Gross Descr iptio n: Recei enrique in forma abdiaziz, label ed with a patie nt label and as howie ramin biops ies are 4 piece s of pink- mccoy tissu e rangi ng from 0.2 to 0.3 cm. The speci men is entir marck submi tted in casse tte 1. Gross exami natio n (when appli cable ), inter preta tion, and sign out were perfo rmed at [facility], [address] [place] [address], [place] [address] . All immun ohist ochem ical and histo chemi briana tests were devel oped by and perfo rmed at [facility] , [address] [place] [address] . All tests repor son here have not been clear ed or appro enrique by the U.S. Food and Drug Admin istra tion (FDA) . This labor atory is regul ated under CLIA as quali fied to perfo rm high- compl exity testi ng. These tests are used for clini briana purpo ses. They shoul d not be regar ded as inves tigat ional or for resea rch. Posit jeanna and negat jeanna contr ols show appro priat e react ivity . Riddhi ctron icall y Sena d Out MACKENZIE ARAIZA MD Not Available Ms Only - [place] [address] [place], [address], 01/26/2025 18:04:41 01/25/20 25 01/27/2025 SJS SURGI BRIANA PATHO LOGY path report [facility] Depar tment of Labor atory Medic ine [address] 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 Jayla l EGD. FINAL DIAGN OSIS: Colon , sigmo id polyp , polyp ectom y: -Frag ments of hyper plast ic polyp . Gross Descr iptio n: Recei enrique in forma abdiaziz, label ed with a patie nt label and as sigm oid colon polyp are 2 piece s of mccoy tissu e each 0.2 cm. The speci men is entir marck submi tted in casse tte 1. Gross exami natio n (when appli cable ), inter preta tion, and sign out were perfo rmed at [facility], [address] [facility], [place] [address] . Riddhi ctron icall y Sena d Out MACKENZIE ARAIZA MD Not Available Ms Only - [facility] [address] [place], [address], 01/27/2025 19:06:41 05/30/20 24 03/29/2023 imagi ng/di agnos tic resul t No observ ation record ed. Not Available 05/30/2024 02:13:59 02/11/20 25 11/16/2020 imagi ng/di agnos tic resul t No observ ation record ed. [email or web address] Not Available 04:23:56 Result Notes None recorded. Problems Name Problem SNOMED Code Status Onset Date Resolution Date Notes Provider Name and Address Organization Details Recorded Time Renal insufficiency 141379723 [facility] 17[facility]13[facility]34 Chronic kidney disease stage 3 501526629 [facility] 15:32:41 Pain of multiple joints 36334831 Active 2023 Bala Conley MD [address] [place] [address], [address], [facility] 4 22:02:20 Muscle pain 97886853 Active 2023 Bala Conley MD [address] [place] [address], [address], [facility] 4 22:02:34 Gastroesophage al reflux disease 553291803 Active 2023 Bala Conley MD [address] [place] [address], 07730[address] 3, [facility] 4 22:03:10 Chronic kidney disease stage 3A 812681559 Active 2023 Bala Conley MD [address] [place] [address], [address]76[address] 3, [facility] 4 22:03:32 Mechanical low back pain 350307429 Active 2023 Bala Conley MD [address] [place] [address], [address] 3, [facility] 4 22:03:43 Benign essential hypertension 3816583 Active 2023 Mira Reyes PA-C [address] [place] [address], [address] 3, [facility] 4 14:51:27 Problem Notes None recorded. Procedures Surgical History None recorded. Imaging Results Imaging Date Name Status LastModified by Organiz ation Details LastModified Time 03/29/2023 imaging/diag nostic result completed Information not available 05/30/2024 02:13:59 11/16/2020 imaging/diag nostic result completed [email or web address] Information not available 02/10/2025 04:23:56 Procedure Notes None recorded. Medical Equipment None Reported. Allergies Allergen ID Allergen Name Allergen Category Reaction Reaction Severity Criticality Documentation Date Start Date Code Code System Note Provider Name and Address Organization Details Recorded Time 5249607 Bactrim medicatio n other Not available Not available 11/14/20232020 96028 9 RxNorm React ion: GI Upset ; Not Available [facility] 04:41:56 Medications Name Sig Start Date Stop Date [...] 61 /min 142 mm[Hg] 82 mm[Hg] Thang [facility] 05/01/2024 14:52:23 Date Recorded Body weight Heart rate 953477|[id number]|2025-02-27 11:31:19|2025-02-27 11:31:19|PC.NURSE||||"1130 No s/sx of blood transfusion reaction noted or reported. Up infusion rate to 100 ml/hr."
--- OUTSIDE RECORDS SUMMARY | 2025-02-27 09:51 | XMS_ITS | Referral Summary ---
Author Organization [facility] Address [address] [place] [address] Care Team Providers Care Hospice Home Care Coordinator Name Role Phone Blas Hardin MD [...] mcg tablet Take 100 mcg by mouth patent lawyer before breakfast Active Active Problems Problem Noted [...] on file Legal Sex Female 1:53 PM FAMILY MEMBER CARETAKER Gender Identity Not on file Sexual Orientation Not on file Last Filed Vital Signs Vital Sign Reading Time Taken Comments Blood Pressure 198/89 10/03/2019 11:17 AM FAMILY MEMBER CARETAKER Pulse 58 10/03/2019 11:17 AM FAMILY MEMBER CARETAKER Temperature 35.9 C (96.7 F) 08/11/2019 9:07 AM CDT Respiratory Rate 16 10/03/2019 11:17 AM FAMILY MEMBER CARETAKER Oxygen Saturation 98% 10/03/2019 11:17 AM FAMILY MEMBER CARETAKER Inhaled Oxygen Concentration - - Weight 71.7 [...] an acceptable quality of life. Insurance MEDICARE [facility] MEDICARE Care Teams Hospice Home Care Coordinator Relationship Specialty Start Date End Date Blas Hardin MD PCP - General 01/12/17
--- OUTSIDE RECORDS SUMMARY | 2025-02-27 09:51 | XMS_ITS | Encounter Summary ---
Author Organization [facility] Address [address] [place] [address] Care Team Providers Care Investigator Cash Shortage Name Role Phone Blas Hardin MD Primary Care Provider Josie Becerra MD Unavailable Pradip Tracy MD Primary Care Provider [phone] Encounter Details Date Type Department Care Team (Late st Contact Info) Description 09/17/2019 Hospital Orders Only [facility] [address] [place] [address] Blas Hardin MD [address] [place] [phone] Social History Tobacco Use Types Packs/Day Years Used Date Smoking Tobacco: Never Assessed Comments Unknown Sex and Gender Information Value Date Recorded Sex Assigned at Female 10/31/2024 1:15 PM CORE MANAGER Legal Sex Female 5:44 PM CORE MANAGER Gender Identity Not on file Sexual Orientation Not on file documented as of this encounter Plan of Treatment Upcoming Encounters Date Type Department Care Team (Late st Contact Info) Description 10/16/2025 9:00 AM CORE MANAGER Appointment [facility] [address] [place] [address] Josie Becerra MD [address] [place] [address] 10/21/2025 9:15 AM CORE MANAGER Office Visit [facility] [address] [place] [phone] Josie Becerra MD [address] [place] [address] documented as of this encounter Visit Diagnoses Not on filedocumented in this encounter Additional Health Concerns Infection Onset Date Last Indicated Resolved Time COVID-19 Rule Out 02/27/2020 02/27/2020 02/28/2020 4:14 PM CDT COVID-19 Rule Out 03/09/2020 03/09/2020 03/09/2020 4:38 PM CDT COVID-19 Rule Out 02/03/2024 02/03/2024 02/03/2024 2:55 PM CDT documented as of this encounter Care Teams Investigator Cash Shortage Relationship Specialty Start Date End Date Blas Hardin MD [address] [place] [phone] PCP - General FAMILY PRACTICE 05/06/19 01/20/25 Pradip Tracy MD [address] [place] [phone] PCP - General INTERNAL MEDICINE 01/21/25 Josie Becerra MD [address] [place] [address] Consulting Physician CARDIOVASCULAR DISEASE 01/24/24 documented as of this encounter
--- OUTSIDE RECORDS SUMMARY | 2025-02-27 09:51 | XMS_ITS | Clinical Summary ---
Author Organization [facility] Address [address] Cha: Epic Prelude ADT LIZETH VELAZCOADILSON [address] Care Team Providers Care Ground Source Heat Pump Technician Name Role Phone Unavailable Primary Care Provider Unavailabl e Social History Tobacco Use Types Packs/Day Years Used Date Smoking Tobacco: Never Assessed Comments Unknown Sex and Gender Information Value Date Recorded Sex Assigned at Not on file Legal Sex Female 4:13 AM PARTS ASSEMBLER Gender Identity Not on file Sexual Orientation [...]
--- OUTSIDE RECORDS SUMMARY | 2025-02-27 09:51 | XMS_ITS | Encounter Summary ---
Author Organization [facility] Address [address] Cha: Epic Prelude ADT ADILSON AGUILAR [phone] Care Team Providers Care Director Power Name Role Phone Unavailable Primary Care Provider Unavailabl e Encounter Details Date Type Department Care Team (Late st Contact Info) Description 08/09/1990 Outpatient Historical Jassi Gage Social History Tobacco Use Types Packs/Day Years Used Date Smoking Tobacco: Never Assessed Comments Unknown Sex and Gender Information Value Date Recorded Sex Assigned at Not on file Legal Sex Female 4:13 AM SCHOOL COMMISSIONER Gender Identity Not on file Sexual Orientation Not on file documented as of this encounter Plan of Treatment Not on file documented as of this encounter Visit Diagnoses Not on filedocumented in this encounter
--- OUTSIDE RECORDS SUMMARY | 2025-02-27 09:51 | XMS_ITS | Patient Health Record ---
Author Organization [facility] Address [address] [place], [place] [address] Care Team Providers Care System Configuration Specialist Name Role Phone LIAS LÓPEZ Unavailable [phone] Blas Hardin Unavailable Unavailable EYAL CASTELLON Unavailable [phone] KENDALL BESS Unavailable [phone] Allergies No Known Allergies Reason For Referral [...] Date Provider Diagnosis [facility] [address], [place] [id number] 06/12/2024 KENDALL BESS Other hammer toe(s) (acquired), right foot M20.41 ; Tinea unguium B35.1 ; Other hammer toe(s) (acquired), left foot M20.42 ; Pain in right toe(s) M79.674 ; Pain in left toe(s) M79.675 and 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, bilateral legs I70.203 [facility] [address] [place], [place] [id number] 08/14/2024 KENDALL BESS Other hammer toe(s) (acquired), right foot M20.41 ; Tinea unguium B35.1 ; Other hammer toe(s) (acquired), left foot M20.42 ; Pain in right toe(s) M79.674 ; Pain in left toe(s) M79.675 ; 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, bilateral legs I70.203 and Acquired keratosis [keratoderma] palmaris et plantaris L85.1 [facility] [address] [place], [place] [id number] 10/30/2024 EYAL CASTELLON Tinea unguium B35.1 ; Pain in right toe(s) M79.674 ; Pain in left toe(s) M79.675 and 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, bilateral [...] toe(s) (ICD-10 - M79.674) 10/30/2024 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, 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) 08/14/2024 Pain in left toe(s) (ICD-10 - M79.675) 06/12/2024 Pain in left toe(s) (ICD-10 - M79.675) 08/14/2024 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, 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) Patient educated on risks and aggravating factors of PVD, including conservative treatment options such as a diet and exercise regimen to aid in slowing progression of vascular disease 06/12/2024 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, bilateral legs (ICD-10 - [...] Date Coverage End Date Medicare Part B [place] [address] [place] [address] [id number] Wanda Gordillo Self - patient is the insured [facility] [address] [address] [place] [address] [phone] [id number] Wanda Gordillo Self - patient is the insured 5 Medical (General) History Medical History History ICD Code artificial joint Arthritis Bladder infections Back Trouble Heart Disease high blood pressure
--- OUTSIDE RECORDS SUMMARY | 2025-02-27 09:51 | XMS_ITS | Clinical Summary ---
Author Organization [facility] Address [address] [place] [address] Care Team Providers Care Votator Machine Operator Name Role Phone Josie Becerra MD Unavailable Pradip Tracy MD Primary Care Provider Allergies Active Allergy Reactions Criticality Noted Date [...] mouth daily. 30 tablet 11 4 Active hydrALAZINE (APRESOLINE) 25 MG tablet Take [...] mg total) by mouth daily. 30 tablet 5 Active zolpidem (AMBIEN) 10 MG tabletIndicatio ns:Primary insomnia Take 1 tablet (10 mg total) by mouth nightly as needed for Sleep. 30 tablet 5 Active aspirin EC (ECOTRIN) 81 MG tablet Take 1 tablet (81 mg total) by mouth daily. 30 tablet 5 Active Active Problems Problem Noted Date Diagnosed Date Anemia 01/20/2025 Hyponatremia 07/30/2023 Lumbar radiculopathy 09/15/2022 Overview (09/15/2022): Added automatically from request for surgery [id number] Blood loss anemia 03/07/2020 Postoperative anemia 03/07/2020 [...] CDT - 01/24/2025 10:04 AM CDT Surgery [facility] OR [address] [place] [address] Shelley Simental MBBS COLONOSCOPY WITH BIOPSY 01/24/2025 8:06 AM CDT Anesthesia Event [facility] OR [address] [place] [address] Braden Sandoval MD Coonrod, Sheila A, RN 01/23/2025 10:09 AM CDT Anesthesia Event [facility] Endo/GI [address] [place] [address] Austen Castro MD Coonrod, Sheila A, RN 01/23/2025 9:56 AM CDT - 01/23/2025 10:43 AM CDT Surgery [facility] Endo/GI [address] [place] [address] Shelley Simental MBBS EGD WITH BIOPSY 01/20/2025 7:19 PM CDT - 01/26/2025 4:34 PM CDT Hospital Encounter [facility] [address] [place] [address] Kenny Massey MD Sohail, Atif, MD Sonani, Bhavin V., MD Discharge Disposition: Group Home Facility 12/11/2024 9:11 AM WELL DRILL OPERATOR CABLE TOOL - 12/11/2024 11:59 PM [facility] Hospital Encounter [facility] [address] [place] [address] Blas Hardin MD Injection Discharge Disposition: Home or Self Care (Routine Discharge) 12/11/2024 9:10 AM [facility] Hospital Encounter [facility] [address] [place] [address] Blas Hardin MD Discharge Disposition: Home or [...] drink = 0.6 oz pur e alcohol) [facility] Utilities Answer Date Recorded In the past 12 months has th e electric, gas, oil, or water company threatened to shut off services in your [...] place to sleep or slept in a half-way (including now)? No 07/30/2023 Housing Stability Vital Sign Answer Erwin e Recorded In the last 12 months, was t here a time when you were not able to pay the mortgage or rent on time? No 01/26/2025 In the past 12 months, how m any times have you moved where you were living? 0 01/26/2025 At any time in the past 12 m [facility], were you homeless or living in a half-way (including now)? No 01/26/2025 Comments No Sex and Gender Information Value Date Recorded Sex Assigned at Female 10/31/2024 1:15 PM WELL DRILL OPERATOR CABLE TOOL Legal Sex Female 5:44 PM WELL DRILL OPERATOR CABLE TOOL Gender Identity Not on file Sexual Orientation [...] st Contact Info) Description 10/16/2025 9:00 AM WELL DRILL OPERATOR CABLE TOOL [facility]ointment [facility] [address] [place] [address] Josie Becerra MD [address] [place] [address] 10/21/2025 9:15 AM WELL DRILL OPERATOR CABLE TOOL Office Visit [facility] [place] [address] Josie Becerra MD [address] [place] [address] Health Maintenance Due Date Last Done Comments [...] this topic Medical Devices Implanted Type Area Shoulder Joiner Device Identifier Shelf Expiration Date Model / Serial / Lot Knee Components Knee Components Lens Lens G7 Mountainair Ti Acetabular Shell 4 Hole, Cementless Implanted:Qty: 1 on 03/01/2020 by Brian Lopez MD at [facility] Right: Hip [employer] 09/16/2029 [id number] / / [id number] Acetabular System Liner Neutral 36 Mm Size F Implanted:Qty: 1 on 03/01/2020 by Brian Lopez MD at [facility] Right: Hip [employer] 05/14/2024 [id number] / / [id number] Screw Eliz Bone 25mm - [id number] Implanted:Qty: 1 on 03/01/2020 by Brian Lopez MD at [facility] Right: Hip [employer] 08/14/2029 [id number] / / [id number] Screw Eliz Bone 30mm - [id number] Implanted:Qty: 1 on 03/01/2020 by Brian Lopez MD at [facility] Right: Hip [employer] 09/16/2029 [id number] / / [id number] Standard Femoral Stem Full Proximal Profile Porous Plasma Uncemented 14 Implanted:Qty: 1 on 03/01/2020 by Brian Lopez MD at [facility] Right: Hip [employer] 01/19/2028 [id number] / / [id number] Component Modular Head 36mm Biomet - [id number] Implanted:Qty: 1 on 03/01/2020 by Brian Lopez MD at [facility] Right: Hip [employer] 09/06/2028 [id number] / / [id number] Explanted Type Area Shoulder Joiner Device Identifier Shelf Expiration Date Model / Serial / Lot Drill Tip - [id number] Explanted:Qty: 1 on 03/01/2020 at [facility] Right: Hip [employer] [id number] / / Procedures Procedure Name Priority Date/Time [...] COMPREHENSIVE METABOLIC PANEL Routine 12/11/2024 9:37 AM WELL DRILL OPERATOR CABLE TOOL Age-related osteoporosis without current pathological fracture from Last 3 Months Results * (ABNORMAL) COMPREHENSIVE METABOLIC PANEL (01/26/2025 10:10 AM CDT) Only the most recent of4 resultswithin the time period is included. SODIUM S/P/B 135(L) 136 - 145 MMOL/L 01/26/2025 11:[address] [facility] POTASSIUM S/P/B 4.6 3.5 - 5.1 MMOL/L 01/26/2025 11:[address] [facility] Comment:SLIGHT HEMOLYSIS, RE SULT MAY BE AFFECTED. CHLORIDE S/P/B 104 97 - 115 MMOL/L 01/26/2025 11:[address] [facility] CO2 21.3 21.0 - 32.0 MMOL/L 01/26/2025 11:[address] [facility] GLUCOSE 110(H) 74 - 106 MG/DL 01/26/2025 11:[address] [facility] BUN 18 7 - 18 MG/DL 01/26/2025 11:21 AM [facility] CREATININE S/P/B 1.09(H) 0.55 - 1.02 MG/DL 01/26/2025 11:21 AM [facility] CALCIUM S/P/B 7.5(L) 8.5 - 10.1 MG/DL 01/26/2025 11:21 AM [facility] BILIRUBIN TOTAL S/P/B 0.5 0.2 - 1.0 MG/DL 01/26/2025 11:21 AM [facility] ALKALINE PHOSPHATASE S/P/B 90 55 - 142 U/L 01/26/2025 11:21 AM [facility] AST 175(H) 15 - 37 U/L 01/26/2025 11:21 AM [facility] ALT 237(H) 13 - 56 U/L 01/26/2025 11:21 AM [facility] TOTAL PROTEIN S/P/B 6.2(L) 6.4 - 8.2 G/DL 01/26/2025 11:21 AM [facility] ALBUMIN S/P/B 2.8(L) 3.4 - 5.0 G/DL 01/26/2025 11:21 AM [facility] ANION GAP 9.7 2.0 - 10.0 MMOL/L 01/26/2025 11:21 AM [facility] OSMOLALITY (CALC) 283 MOSM/KG 025 11:21 AM [facility] Comment:REFERENCE RANGE NOT ESTABLISHED GFR ESTIMATE 50(L) >90 ML/MIN/1. 73 M2 01/26/2025 11:21 AM [facility] GFR NOTES GFR REFERENCE S: 01/26/2025 11:21 AM [facility] Comment: THE ESTIMATED GFR IS CALCULATED [...] ml/min/1.73 m2 01/26/2025 10:1 0 AM CDT us Demetrius Ortiz MD LABORATORY Final Result [facility] [address] [place] [address], [place] [phone] * (ABNORMAL) CBC W/DIFF AUTOMATED (01/26/2025 10:10 AM CDT) Only the most recent of6 resultswithin the time period is included. WBC 8.23 4.00 - 10.80 x10'3/uL 01/26/2025 10:[address] [facility] RBC 2.79(L) 4.10 - 5.40 x10'6/uL 01/26/2025 10:[address] [facility] HGB 8.1(L) 12.0 - 16.0 G/DL 01/26/2025 10:[address] [facility] HCT 24.6(L) 36.0 - 47.0 % 01/26/2025 10:[address] [facility] MCV 88.2 78.0 - 100.0 FL 01/26/2025 10:[address] [facility] MCH 29.0 27.0 - 31.0 PG 01/26/2025 10:[address] [facility] MCHC 32.9(L) 33.0 - 36.0 G/DL 01/26/2025 10:[address] [facility] RDW 16.0(H) 11.5 - 14.5 % 01/26/2025 10:[address] [facility] PLT SEE NOTE 150 - 350 x10'3/uL 01/26/2025 10:[address] [facility] Comment: Platelet clumps present. Estimate from slide appears to be between 350,000 to 500,000. Reorder Platelet Count if actual value is clinically significant. DIFFERENTIAL TYPE AUTOMATED DIFFERENTIAL 01/26/2025 10:[address] [facility] SEG NEUTROPHILS 83.3 % 10:[address] [facility] LYMPHOCYTES 4.7 % 01/26/2025 10:[address] [facility] MONOCYTES 7.2 % 01/26/2025 10:[address] [facility] EOSINOPHILS 2.1 % 01/26/2025 10:[address] [facility] BASOPHILS 0.6 % 01/26/2025 10:[address] [facility] IMMATURE GRANS % 2.1 % 01/27/20 10:[address] [facility] ABS. NEUTROPHILS 6.86 1.60 - 8.30 x10'3/uL 01/26/2025 10:[address] [facility] ABS. LYMPHOCYTES 0.39(L) 0.80 - 4.70 x10'3/uL 01/26/2025 10:[address] [facility] ABS. MONOCYTES 0.59 0.00 - 1.50 x10'3/uL 01/26/2025 10:[address] [facility] ABS. EOSINOPHILS 0.17 0.00 - 0.40 x10'3/uL 01/26/2025 10:[address] [facility] ABS. BASOPHILS 0.05 0.00 - 0.20 x10'3/uL 01/26/2025 10:[address] [facility] ABS. IMMATURE GRANULOCYTES 0.17(H) 0.00 - 0.03 x10'3/uL 01/26/2025 10:[address] [facility] ABS. NUCLEATED RBC'S 0.00 0.00 - 0.01 x10'3/uL 01/26/2025 10:[address] [facility] NRBC % 0.0 % 01/26/2025 10:[address] [facility] 01/26/2025 10:1 0 AM CDT Demetrius Ortiz MD LABORATORY Final Result [facility] [address] [place] [address], [phone] * (ABNORMAL) BASIC METABOLIC PANEL (01/25/2025 5:00 AM CDT) Only the most recent of2 resultswithin the time period is included. SODIUM S/P/B 133(L) 136 - 145 MMOL/L 01/25/2025 5:[address] [facility] POTASSIUM S/P/B 3.3(L) 3.5 - 5.1 MMOL/L 01/25/2025 5:[address] [facility] CHLORIDE S/P/B 99 97 - 115 MMOL/L 01/25/2025 5:[address] [facility] CO2 24.4 21.0 - 32.0 MMOL/L 01/25/2025 5:[address] [facility] GLUCOSE 106 74 - 106 MG/DL 01/25/2025 5:[address] [facility] BUN 20(H) 7 - 18 MG/DL 01/25/2025 5:[address] [facility] CREATININE S/P/B 1.10(H) 0.55 - 1.02 MG/DL 01/25/2025 5:[address] [facility] CALCIUM S/P/B 7.1(L) 8.5 - 10.1 MG/DL 01/25/2025 5:[address] [facility] ANION GAP 9.6 2.0 - 10.0 MMOL/L 01/25/2025 5:[address] [facility] OSMOLALITY (CALC) 279 MOSM/KG 025 5:[address] [facility] Comment:REFERENCE RANGE NOT ESTABLISHED GFR ESTIMATE 50(L) >90 ML/MIN/1. 73 M2 01/25/2025 5:[address] [facility] GFR NOTES GFR REFERENCE S: 01/25/2025 5:[address] [facility] Comment: THE ESTIMATED GFR [...] CDT Demetrius Ortiz MD LABORATORY Final Result [facility] [address] [place] [phone], [id number] * Pathology (01/24/2025 12:00 AM CDT) Only the most recent of2 resultswithin the time period is included. PATHOLOGY [facility] Department of Laboratory Medicine [address] [place] [phone] , extension [phone] Pathology Report Surgical Pathology Report Name: GIAN GORDILLO Specimen #: [id number] Age: 3 1940 (Age: 84) Location: [facility] Sex: F Procedure Date: 01/24/2025 [facility] #: [id number] Date Received: 01/26/2025 Date Reported: 01/27/2025 Provider: [...] interpretation, and sign out were performed at [facility], [address] [place] [address]. Electronically Signed Out NEHEMIAH ARAIZA MD [facility] TISSUE COLON STRUCTURE / Unknown 01/24/2025 8:41 AM CDT Shelley HERNANDEZ PATHOLOGY/CYTOLOGY O RDERABLES Final Result Performing Organization Address [facility] [place] [address], [phone] * POCT glucose (01/23/2025 12:21 PM CDT) Only the most recent of2 resultswithin the time period is included. GLUCOSE POC 88 70 - 109 01/23/2025 12:[address] [facility] 01/23/2025 12:2 1 PM CDT Demetrius Ortiz MD POCT ORDERABLES - DEVICE Fin al Result Performing Organization Address City/[facility]/ZIP Co de Phone Number [facility] [address] [place] [address], [phone] * ENDOSCOPY (SCAN ORDER) (01/23/2025 7:23 AM CDT) Shelley Simental MBBS SCANNING Mica l Result * PROTHROMBIN TIME, VENOUS (01/22/2025 5:34 PM CDT) Only the most recent of2 resultswithin the time period is included. PROTIME 11.6 9.4 - 12.5 SEC 01/22/2025 6:[address] [facility] INR 1.0 0.8 - 1.1 01/22/2025 6:[address] [facility] 01/22/2025 5:34 PM CDT Narrative [id number]|2025-02-27 11:24:42|2025-02-27 11:24:42|PC.NURSE||||"1115 Blood consent signed. 1 unit PRBC's started at 60 ml/hr. "
--- OUTSIDE RECORDS SUMMARY | 2025-02-27 09:51 | XMS_ITS ---
Author Organization [facility] Address [address] [place], [place] [address] Care Team Providers Care Seed Yeast Operator Name Role Phone LISA LÓPEZ Unavailable [phone] Blas Hardin Unavailable Unavailable REASON FOR VISIT *General care, in hospital Encounters Encounter Location Date Provider Diagnosis [address] [id number] 02/12/2025 LISA LÓPEZ Plan Of Treatment No Information Progress Notes * Wanda GORDILLODOB: [birth year] (84 yo F)Acc No.[id number]:02/12/2025 Patient: Wanda GARCIA Provider: Brian LÓPEZ :1940 A ge:84 Y S ex:Female Date:02/12/2025 Address:[address] [place] [address] [phone] Subjective: * Chief Complaints: * 1 . *General care, in hospital. * Medical History: Objective: * Vitals: Assessment: Plan: * Treatment: * Billing Information: * Visit Code: * Procedure Codes: * Electronic signature of LANG LÓPEZ DPM on 02/27/2025 at 09:51 AM CDT Sign off status: Pending * Provider: Brian LÓPEZ Date: 02/12/2025 Generated for [place] ng/Fafabian/eTransmitting on: 02/27/2025 09:51 AM CDT
--- OUTSIDE RECORDS SUMMARY | 2025-02-27 09:51 | XMS_ITS | Encounter Summary ---
Author Organization [facility] Address [address] Fernandezn: Epic Prelude ADT [place] [address] Care Team Providers Care Field Engineer Name Role Phone Unavailable Primary Care Provider [...] on file Legal Sex Female 4:13 AM RESTAURANT MANAGEMENT INTERNSHIP Gender Identity Not on file Sexual Orientation Not on file documented as of this encounter Plan of Treatment Not on file documented as of this encounter Visit Diagnoses Not on filedocumented in this encounter
--- OUTSIDE RECORDS SUMMARY | 2025-02-27 09:51 | XMS_ITS | Clinical Summary ---
Author Organization [facility] Address [address] [place] [address] Care Team Providers Care Maintenance Of Way Clerk Name Role Phone Blas Hardin MD Primary [...] mcg tablet Take 100 mcg by mouth car wash manager before breakfast Active Active Problems Problem [...] on file Legal Sex Female 1:53 PM BUDGET ACCOUNTANT Gender Identity Not on file Sexual Orientation Not on file Obstetrics History Last Filed Vital Signs Vital Sign Reading Time Taken Comments Blood Pressure 198/89 10/03/2019 11:17 AM BUDGET ACCOUNTANT Pulse 58 10/03/2019 11:17 AM BUDGET ACCOUNTANT Temperature 35.9 C (96.7 F) 08/11/2019 9:07 AM CDT Respiratory Rate 16 10/03/2019 11:17 AM BUDGET ACCOUNTANT Oxygen Saturation 98% 10/03/2019 11:17 AM BUDGET ACCOUNTANT Inhaled Oxygen Concentration - - Weight 71.7 [...] an acceptable quality of life. Insurance MEDICARE [facility] MEDICARE Care Teams Maintenance Of Way Clerk Relationship Specialty Start Date End Date Blas Hardin MD PCP - General 01/12/17
--- OUTSIDE RECORDS SUMMARY | 2025-02-27 09:51 | XMS_ITS | Encounter Summary ---
Author Organization [facility] Address [address] [place] [address] Care Team Providers Care Handle Lathe Operator Name Role Phone Blas Hardin MD Primary Care Provider Josie Becerra MD Unavailable Pradip Tracy MD Primary Care Provider [phone] Encounter Details Date Type Department Care Team (Late st Contact Info) Description 03/22/2019 Abstract [facility] [address] [place] [address] , Generic Conversion, Social History Tobacco Use Types Packs/Day Years Used Date Smoking Tobacco: Never Assessed Comments Unknown Sex and Gender Information Value Date Recorded Sex Assigned at Female 10/31/2024 1:15 PM SENIOR BUSINESS DEVELOPMENT ANALYST Legal Sex Female 5:44 PM SENIOR BUSINESS DEVELOPMENT ANALYST Gender Identity Not on file Sexual Orientation Not on file documented as of this encounter Plan of Treatment Upcoming Encounters Date Type Department Care Team (Late st Contact Info) Description 10/16/2025 9:00 AM SENIOR BUSINESS DEVELOPMENT ANALYST Appointment [facility] [address] [place] [address] Josie Becerra MD [address] [place] [address] 10/21/2025 9:15 AM SENIOR BUSINESS DEVELOPMENT ANALYST Office Visit [facility] [address] [place] [phone] Josie Becerra MD [address] [place] [address] documented as of this encounter Visit Diagnoses Not on filedocumented in this encounter Additional Health Concerns Infection Onset Date Last Indicated Resolved Time COVID-19 Rule Out 02/27/2020 02/27/2020 02/28/2020 4:14 PM CDT COVID-19 Rule Out 03/09/2020 03/09/2020 03/09/2020 4:38 PM CDT COVID-19 Rule Out 02/03/2024 02/03/2024 02/03/2024 2:55 PM CDT documented as of this encounter Care Teams Handle Lathe Operator Relationship Specialty Start Date End Date Blas Hardin MD [address] [place] [phone] PCP - General FAMILY PRACTICE 05/06/19 01/20/25 Pradip Tracy MD [address] [place] [address] PCP - General INTERNAL MEDICINE 01/21/25 Josie Becerra MD [address] [place] [address] Consulting Physician CARDIOVASCULAR DISEASE 01/24/24 documented as of this encounter
--- OUTSIDE RECORDS SUMMARY | 2025-02-27 09:51 | XMS_ITS ---
Author Organization [facility] Address [address] [place], [place] [phone] Care Team Providers Care Microfilming Document Preparer Name Role Phone LISA LÓPEZ Unavailable [phone] Blas Hardin Unavailable Unavailable KENDALL BESS Unavailable [phone] REASON FOR VISIT *General care Encounters Encounter Location Date Provider Diagnosis [address] [id number] 10/23/2024 KENDALL BESS Plan Of Treatment No Information Progress Notes * Wanda GORDILLODOB: [birth year] (84 yo F)Acc No.[id number]:10/23/2024 Patient: Wanda GARCIA Provider: Marizol BESS :1940 A ge:83 Y S ex:Female Date:10/23/2024 Address:[address] [place], [place] [phone] Subjective: * Chief Complaints: * 1 . *General care. * Medical History: Objective: * Vitals: Assessment: Plan: * Treatment: * Billing Information: * Visit Code: * Procedure Codes: * Electronic signature of MANNIE BESS DPM on 02/27/2025 at 09:50 AM CDT Sign off status: Pending * Provider: Marizol BESS Date: 0 10/23/2024 Generated for Deandre schneider/Kaylah/eTdannyitting on: 0 02/27/2025 09:50 AM CDT
--- OUTSIDE RECORDS SUMMARY | 2025-02-27 09:51 | XMS_ITS | Clinical Summary ---
Author Organization [facility] Address [address] [place] [address] Phone Care Team Providers Care Kitchenhand Name Role Phone Blas Hardin MD Primary Care Provider [phone] Social History Tobacco Use Types Packs/Day Years [...] age to complete this topic Insurance MEDICARE [facility] INSURANCE Care Teams Kitchenhand Relationship Specialty Start Date End Date Blas Hardin MD [address] [place] [address] PCP - General Family Medicine 01/24/16
--- OUTSIDE RECORDS SUMMARY | 2025-02-27 09:51 | XMS_ITS | Encounter Summary ---
Author Organization [facility] Address [address] 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
[2025-02-27 10:00] VITALS: BMI 23.8
[2025-02-27 10:23] LABS: Hematocrit 26.3 % (35.0-42.0); Hemoglobin 7.9 g/dL (11.7-13.8)
[2025-02-27] MEDS: SODIUM CHLORIDE 0.9% IV 250 ML 10 ML IVPB (10:45)
[2025-02-27 11:15] VITALS: BP 132/64; PULSE 72; RESP 14; TEMP 36.6; O2SAT 97
[2025-02-27 11:30] VITALS: BP 136/75; PULSE 72; RESP 14; TEMP 36.5; O2SAT 97
[2025-02-27 12:30] VITALS: BP 134/69; PULSE 68; RESP 14; TEMP 36.5; O2SAT 96
--- NOTE | 2025-02-27 12:50 | PC.NURSE ---
1230 Eating lunch. No concerns voiced. 1 unit of PRBC's infusion without difficulty. Up rate to 125 ml/hr.
[2025-02-27 13:30] VITALS: BP 135/70; PULSE 72; RESP 14; TEMP 36.4; O2SAT 97
[2025-02-27 14:00] VITALS: BP 129/61; PULSE 64; RESP 16; TEMP 36.5; O2SAT 96
--- NOTE | 2025-02-27 14:13 | PC.NURSE ---
1400 Unit of PRBC's completed. Normal saline infusing. Tolerated well.
[2025-02-27 14:30] VITALS: BP 130/64; PULSE 64; RESP 14; TEMP 36.5; O2SAT 96
--- NOTE | 2025-02-27 14:37 | PC.NURSE ---
1430 Post H/H drawn. Tolerated blood transfusion well. see Patient care notes.
[2025-02-27 14:45] LABS: Hematocrit 28.4 % (35.0-42.0); Hemoglobin 8.7 g/dL (11.7-13.8)
== END 2025-02-27 09:46 | disposition home or self-care (01) ==
PROVIDERS: PCP Internal Medicine; Visit Provider Internal Medicine
DX: N18.9 Chronic kidney disease, unspecified (principal); D63.1 Anemia in chronic kidney disease; I50.9 Heart failure, unspecified; R68.89 Other general symptoms and signs
CPT/HCPCS: 36415; 36430; 85014; 85018; 86850; 86900; 86901; 86920; J7050; P9016

== ENCOUNTER 2025-04-03 11:05 | Outpatient (CLI) | payer MEDICARE, SELFPAY ==
[2025-04-03 11:21] LABS: Hemoglobin 10.9 g/dL (11.7-13.8); Mean Corpuscular HGB Conc 31.1 g/dL (32-36); Mean Corpuscular Hemoglobin 29.8 pg (27.0-31.0); Mean Corpuscular Volume 95.6 fL (78.0-102.0); Platelet Count Result 226 K/mm3 (150-420); Red Blood Count 3.66 M/mm3 (4.20-5.40); Red Cell Distribution Width 15.5 % (11.6-14.4); White Blood Count 5.6 K/mm3 (4.8-10.8)
[2025-04-03 11:29] LABS: Creatinine Urine 56.8 mg/dL
[2025-04-03 11:34] LABS: Microalbumin Urine Random 64.2 mg/L (0-16.7)
[2025-04-03 12:20] LABS: Albumin Level 3.8 g/dL (3.5-5.1); Anion Gap 4 mmol/L (4-12); Blood Urea Nitrogen 21 mg/dL (7-17); Calcium 8.6 mg/dL (8.4-10.2); Carbon Dioxide 29 mmol/L (22-30); Chloride 107 mmol/L (98-107); Estimated Glomerular Filt Rate 53; Glucose 85 mg/dL (65-110); Osmolality Calculated 292 mOsm/kg (285-295); Phosphorus 4.3 mg/dL (2.5-4.5); Potassium 4.4 mmol/L (3.4-5.0); Sodium 140 mmol/L (137-145)
== END 2025-04-03 11:06 | disposition home or self-care (01) ==
LOC: CHSLAB 11:08
PROVIDERS: PCP Internal Medicine
DX: N18.30 Chronic kidney disease, stage 3 unspecified (principal)
CPT/HCPCS: 36415; 80069; 82043; 85027

== ENCOUNTER 2025-08-14 14:39 | Outpatient (CLI) | payer MEDICARE, SELFPAY ==
--- OUTSIDE RECORDS SUMMARY | 2024-10-23 09:20 | XMS_ITS ---
Author Organization [facility] Address [address] [place], [place] [id number] Care Team Providers Care Shoe Dyer Name Role Phone MARIBEL LISA Unavailable [phone] Blas Hardin Unavailable Unavailable KENDALL BESS Unavailable [phone] REASON FOR VISIT *General care Encounters Encounter Location Date Provider Diagnosis [address] [id number] 10/23/2024 KENDALL BESS Plan Of Treatment Next Appt Details Provider Name:LISA BELLAMY, 08/20/2025 12:50:00 PM, [address] [place] [address], [id number], Progress Notes * Wanda GORDILLODOB: [birth year] (84 yo F)Acc No.[id number]:10/23/2024 Patient: Wanda Carlos Provider: Marizol BESS :1940 A ge:83 Y S ex:Female Date:10/23/2024 [id number] Subjective: * Chief Complaints: * * General care * Electronic signature of MANNIE BESS DPM on 08/14/2025 at 02:46 PM CDT Sign off status: Pending * Provider: Marizol BESS Date: 0 10/23/2024 Generated for Deandre schneider/Kaylah/Jeramyitting on: 1 02:46 PM CDT
--- OUTSIDE RECORDS SUMMARY | 2025-06-18 08:10 | XMS_ITS ---
Author Organization [facility] Address [address] [place], [place] [id number] Care Team Providers Care Carburizer Name Role Phone MARIBEL LISA Unavailable [phone] Blas Hardin Unavailable Unavailable Allergies No Known [...] Active Encounters Encounter Location Date Provider Diagnosis [address] [id number] 06/18/2025 LISA LÓPEZ Tinea unguium B35.1 ; Pain in right toe(s) M79.674 ; Pain in left toe(s) M79.675 and Atherosclerosis of [place] arteries of extremities with intermittent claudication, bilateral [...] toe(s) (ICD-10 - M79.675) 06/18/2025 Atherosclerosis of [place] arteries of extremities with intermittent claudication, bilateral [...] sooner if problems arise Provider Name:LISA BELLAMY, 08/20/2025 12:50:00 PM, [address] [place] [address], [id number], History and Physical Notes * HPI (History [...] * Wanda GORDILLODOB: [birth year] (84 yo F)Acc No.[id number]:06/18/2025 Patient: Wadna Carlos Provider: Brian LÓPEZ :1940 A ge:84 Y S ex:Female Date:06/18/2025 Address:[address] [place], [place] [id number] Subjective: * Chief Complaints: * * General [...] Patient denies c hest pain, history of [place], irregular heartbeat. M usculoskeletal: Patient complains of [...] - M79.675 4 . A therosclerosis of [place] arteries of extremities with intermittent claudication, bilateral [...] problems arise) Billing Information: * Procedure Codes: 21177 DEBRIDE NAIL, 6 OR MORE. Modifiers: Q8 * Electronic signature of LANG LÓPEZ DPM on 08/14/2025 at 02:46 PM CDT Sign off status: Pending * Provider: Brian LÓPEZ Date: 0 06/18/2025 Generated for Deandre schneider/Kaylah/Reji on: 1 02:46 PM CDT
--- OUTSIDE RECORDS SUMMARY | 2025-08-14 14:46 | XMS_ITS | Clinical Summary ---
Author Organization [facility] Address [address] [place] [address] Phone Care Team Providers Care Fabrication Lead Name Role Phone Blas Hardin MD Primary Care Provider [phone] Social History Tobacco Use Types Packs/Day Years Used Date Smoking Tobacco: Never Assessed Comments Unknown Sex and Gender Information Value Date Recorded Sex Assigned at Not on file Legal Sex Female 2:55 PM CDT Gender Identity Not on file Sexual Orientation Not on file Plan of Treatment Health Maintenance Due Date Last Done Comments Hepatitis C Virus (HCV) Screening 1940 TdaP Immunization 1940 Pneumococcal Immunization (5 0+ years) (1 of 1 - PCV) 12/24/1991 Zoster Immunization (1 of 2) 12/24/1991 Medicare Initial AWV G0438 12/14/2007 Respiratory Syncytial Virus (RSV) Immunization (Adult) (1 - 1-dose 75+ series) 2016 Influenza Immunization (#1) 2025 SARS-COV-2 Immunization ( season) 2025 Hepatitis B Immunization Aged Out No longer eligible based on patient's age to complete this topic Human Papillomavirus (HPV) Immunization Aged Out No longer eligible b ased on patient's age to complete this topic Meningococcal Immunization (ACWY) Aged Out No longer eligible based on patient's age to complete this topic Rotavirus Immunization Aged Out No lo nger eligible based on patient's age to complete this topic Insurance MEDICARE [facility] Care Teams Fabrication Lead Relationship Specialty Start Date End Date Blas Hardin MD [address] [place] [address] PCP - General Family Medicine 01/24/16
--- OUTSIDE RECORDS SUMMARY | 2025-08-14 14:46 | XMS_ITS | Clinical Summary ---
Author Organization [facility] Address [address] [place] [address] Care Team Providers Care Travel Counselor Name Role Phone Blas Hardin MD Primary [...] mcg tablet Take 100 mcg by mouth gaming worker before breakfast Active Active Problems Problem Noted [...] on file Legal Sex Female 1:53 PM DIRECTOR REGULATORY AFFAIRS Gender Identity Not on file Sexual Orientation Not on file Obstetrics History Last Filed Vital Signs Vital Sign Reading Time Taken Comments Blood Pressure 198/89 10/03/2019 11:17 AM DIRECTOR REGULATORY AFFAIRS Pulse 58 10/03/2019 11:17 AM DIRECTOR REGULATORY AFFAIRS Temperature 35.9 C (96.7 F) 08/11/2019 9:07 AM CDT Respiratory Rate 16 10/03/2019 11:17 AM DIRECTOR REGULATORY AFFAIRS Oxygen Saturation 98% 10/03/2019 11:17 AM DIRECTOR REGULATORY AFFAIRS Inhaled Oxygen Concentration - - Weight 71.7 kg (158 lb) 06/26/2019 10:51 AM CDT Height 172.7 cm (5' 8) 06/26/2019 10:51 AM CDT Body Mass Index [...] an acceptable quality of life. Insurance MEDICARE [facility] MEDICARE Care Teams Travel Counselor Relationship Specialty Start Date End Date Blas Hardin MD PCP - General 01/12/17
--- OUTSIDE RECORDS SUMMARY | 2025-08-14 14:46 | XMS_ITS | Patient Health Record ---
Author Organization [facility] Address [address] [place], [place] [address] Care Team Providers Care Supervisor Vendor Quality Name Role Phone LISA LÓPEZ Unavailable [phone] Blas Hardin Unavailable Unavailable EYAL CASTELLON Unavailable [phone] KENDALL BESS Unavailable [phone] Allergies No Known Allergies Reason For Referral [...] at bedtime Orally Once a day Active Latanoprost 0.005 % Solution 1 drop into affected eye in the evening Ophthalmic Once a day Active Eliquis 2.5 MG Tablet as directed Orally Active Denosumab 60 MG/ML Solution Prefilled Syringe as directed Subcutaneous Active cycloSPORINE 0.05 % Emulsion 1 drop into affected eye Ophthalmic Twice a day Active Myrbetriq 50 MG Tablet Extended Release 24 Hour 1 tablet Orally Once a day Active Metoprolol Succinate ER 100 MG Tablet Extended Release 24 Hour 1 tablet Orally Once a day Active Levothyroxine Sodium 75 MCG Tablet 1 tablet in the morning on an empty stomach Orally Once a day Active Encounters Encounter Location Date Provider Diagnosis [address] [id number] 06/18/2025 LISA LÓPEZ Tinea unguium B35.1 ; Pain in right toe(s) M79.674 ; Pain in left toe(s) M79.675 and Atherosclerosis of [place] arteries of extremities with intermittent claudication, bilateral legs I70.213 [facility] [address] [place], [place] [id number] 08/14/2024 KENDALL STILLRADHA Other hammer toe(s) (acquired), right foot M20.41 ; Tinea unguium B35.1 ; Other hammer toe(s) (acquired), left foot M20.42 ; Pain in right toe(s) M79.674 ; Pain in left toe(s) M79.675 ; Unspecified atherosclerosis of [place] arteries of extremities, bilateral legs I70.203 and Acquired keratosis [keratoderma] palmaris et plantaris L85.1 [facility] [address] [place], [place] [id number] 10/30/2024 EYAL CASTELLON Tinea unguium B35.1 ; Pain in right toe(s) M79.674 ; Pain in left toe(s) M79.675 and Atherosclerosis of [place] arteries of extremities with intermittent claudication, bilateral legs I70.213 Assessments Encounter Date Diagnosis (ICD Code) Assessment Notes Treatment Notes Treatment Clinical Notes Section Notes 08/14/2024 Tinea unguium (ICD-10 - B35.1) Aseptic [...] in right toe(s) (ICD-10 - M79.674) 06/18/2025 Tinea unguium (ICD-10 - B35.1) FUNGAL [...] in left toe(s) (ICD-10 - M79.675) 10/30/2024 Pain in left toe(s) (ICD-10 - M79.675) 08/14/2024 Other hammer toe(s) (acquired), left foot (ICD-10 - M20.42) 08/14/2024 Pain in right toe(s) (ICD-10 - M79.674) 10/30/2024 Atherosclerosis of [place] arteries of extremities with intermittent claudication, 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) 06/18/2025 Atherosclerosis of [place] arteries of extremities with intermittent claudication, 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) 08/14/2024 Pain in left toe(s) (ICD-10 - M79.675) 08/14/2024 Unspecified atherosclerosis of [place] arteries of extremities, bilateral legs (ICD-10 - [...] Details Provider Name:LISA BELLAMY, 08/20/2025 12:50:00 PM, [address] [place] [address], [id number], Insurance Providers Payer Name Payer Address Payer Phone Subscriber Number Group Number Insured Name Patient Relationship to Insured Coverage Start Date Coverage End Date Medicare Part B [place] [address] [place] [address] [id number] Wanda Gordillo Self - patient is the insured [employer] [address] [address] [place] [address] [id number] Wanda Gordillo Self - patient is the insured 5 Medical (General) History Medical History History ICD Code artificial joint Arthritis Bladder infections Back Trouble Heart Disease high blood pressure
--- OUTSIDE RECORDS SUMMARY | 2025-08-14 14:46 | XMS_ITS | Encounter Summary ---
Author Organization [facility] Address [address] [place] [address] Care Team Providers Care Client Delivery Manager Name Role Phone Blas Hardin MD Primary Care Provider [phone] Josie Becerra MD Unavailable Pradip Tracy MD Primary Care Provider [phone] Encounter Details Date Type Department Care Team (Late st Contact Info) Description 03/22/2019 Abstract [facility]FL CONVERSION [address] [place] [address] , Generic Conversion, Social History Tobacco Use Types Packs/Day Years Used Date Smoking Tobacco: Never Assessed Comments Unknown Sex and Gender Information Value Date Recorded Sex Assigned at Female 10/31/2024 1:15 PM NETWORK DIRECTOR Legal Sex Female 5:44 PM NETWORK DIRECTOR Gender Identity Not on file Sexual Orientation Not on file documented as of this encounter Plan of Treatment Upcoming Encounters Date Type Department Care Team (Late st Contact Info) Description 10/16/2025 9:[address] [facility] [address] [place] [address] Josie Becerra MD [address] [place] [address] 10/21/2025 9:15 AM NETWORK DIRECTOR Office Visit [facility] [address] [place] [phone] Josie Becerra MD [address] [place] [address] documented as of this encounter Visit Diagnoses Not on filedocumented in this encounter Additional Health Concerns Infection Onset Date Last Indicated Resolved Time COVID-19 Rule Out 02/27/2020 02/27/2020 02/28/2020 4:14 PM CDT COVID-19 Rule Out 03/09/2020 03/09/2020 03/09/2020 4:38 PM CDT COVID-19 Rule Out 02/03/2024 02/03/2024 02/03/2024 2:55 PM CDT documented as of this encounter Care Teams Client Delivery Manager Relationship Specialty Start Date End Date Blas Hardin MD [address] [place] [phone] PCP - General FAMILY PRACTICE 05/06/19 01/20/25 Pradip Tracy MD [address] [place] [address] PCP - General INTERNAL MEDICINE 01/21/25 Josie Becerra MD [address] [place] [address] Consulting Physician CARDIOVASCULAR DISEASE 01/24/24 documented as of this encounter
--- OUTSIDE RECORDS SUMMARY | 2025-08-14 14:46 | XMS_ITS | Clinical Summary ---
Author Organization [facility] Address [address] [place] [address] Care Team Providers Care Histology Aide Name Role Phone Josie Becerra MD Unavailable Pradip Tracy MD Primary Care Provider [phone] Allergies Active Allergy Reactions Criticality Noted Date [...] (09/15/2022): Added automatically from request for surgery [id number] Blood loss anemia 03/07/2020 Postoperative anemia 03/07/2020 [...] Hypertension Osteoporosis 01/24/2016 Overview (09/23/2019): Overview: Osteoporosis Family History Medical History Relation Comments Cancer Father Heart Attack Father Hypertension Father Hypertension Mother Relation Status Comments Father Mother Social History Tobacco Use Types Packs/Day Years Used Date Smoking Tobacco: Never Smokeless Tobacco: Never Tobacco Cessation:Counseling Given: Not Answered Alcohol Use Standard Drinks/Week Comments No 0 (1 standard drink = 0.6 oz pur e alcohol) [facility] Utilities Answer Date Recorded In the past 12 months has e [employer], digitalbox, oil, or water [employer] threatened to shut off services in your [...] on file 09/14 Overall Financial Resource Strain (CARDI) Answe r Date Recorded How hard is [...] place to sleep or slept in a fpc (including now)? No 07/30/2023 Housing Stability Vital Sign Answer Erwin e Recorded In the last 12 months, was t here a time when you were not able to pay the mortgage or rent on time? No 01/26/2025 In the past 12 months, how m any times have you moved where you were living? 0 01/26/2025 At any time in the past 12 m [facility], were you homeless or living in a fpc (including now)? No 01/26/2025 Comments No Sex and Gender Information Value Date Recorded Sex Assigned at Female 10/31/2024 1:15 PM CONTENT CREATION MANAGER Legal Sex Female 5:44 PM CONTENT CREATION MANAGER Gender Identity Not on file Sexual [...] 9:25 AM CDT Height 170.2 cm (5' 7) 01/26/2025 9:25 AM CDT Body Mass Index 21.93 01/26/2025 9:25 AM CDT Plan of Treatment Upcoming Encounters Date Type Department Care Team (Late st Contact Info) Description 10/16/2025 9:00 AM CONTENT CREATION MANAGER Appointment [facility] [address] [place] [address] Josie Becerra MD [address] [place] [address] 10/21/2025 9:15 AM CONTENT CREATION MANAGER Office Visit [facility] [place] [address] Josie Becerra MD [address] [place], [place] [phone] Health Maintenance Due Date Last Done Comments DTaP, Tdap and Td Vaccines (1 - Tdap) 1959 Annual Medicare Wellness Visit 2006 Dexa Scan (General) 2006 RSV Immunization or 60+ Years (1 - 1-dose 75+ series) 2016 Zoster Vaccines (2 of 2) 08/09/2020 06/14/2020 COVID-19 Vaccine (3 - season) 2025 12/08/2020, 11/17/2020 Influenza Adult (#1) 2025 07/18/2021, 07/15/2021, 07/24/2020, Additional history exists Pneumococcal Vaccine: 50+ Years Completed 09/25/2018, 10/04/2012 Hepatitis A Vaccines Aged Out No long er eligible based on patient's age to complete this topic Meningococcal B Vaccine Aged Out No l onger eligible based on patient's age to complete this topic Meningococcal Vaccine Aged Out No deirdre marcus eligible based on patient's age to complete this topic RSV Immunizations Under 20 Months Aged Out No longer eligible based on patient's age to complete this topic Medical Devices Implanted Type Area Fermenter Device Identifier Shelf Expiration Date Model / Serial / Lot Knee Components Knee Components Lens Lens G7 [place] Ti Acetabular Shell 4 Hole, Cementless Implanted:Qty: 1 on 03/01/2020 by Brian Lopez MD at [facility] Right: Hip [employer] 09/16/2029 [id number] / / [id number] Acetabular System Liner Neutral 36 Mm Size F Implanted:Qty: 1 on 03/01/2020 by Brian Lopez MD at [facility] Right: Hip [employer] 05/14/2024 [id number] / / [id number] Screw Eliz Bone 25mm - [id number] Implanted:Qty: 1 on 03/01/2020 by Brian Lopez MD at [facility] Right: Hip [employer] 08/14/2029 [id number] / / [id number] Screw Eliz Bone 30mm - [id number] Implanted:Qty: 1 on 03/01/2020 by Brian Lopez MD at [facility] Right: Hip [employer] 09/16/2029 [id number] / / [id number] Standard Femoral Stem Full Proximal Profile Porous Plasma Uncemented 14 Implanted:Qty: 1 on 03/01/2020 by Brian Lopez MD at [facility] Right: Hip [employer] 01/19/2028 [id number] / / [id number] Component Modular Head 36mm Biomet - [id number] Implanted:Qty: 1 on 03/01/2020 by Brian Lopez MD at [facility] Right: Hip [employer] 09/06/2028 [id number] / / [id number] Explanted Type Area Fermenter Device Identifier Shelf Expiration Date Model / Serial / Lot Drill Tip - [id number] Explanted:Qty: 1 on 03/01/2020 at [facility] Right: Hip [employer] [id number] / / Insurance [facility] MEDICARE Advance Directives Documents on File Type Date Recorded Patient Guest Services Representative Expl anation DNR (Do Not Resuscitate) Documentation [...] 11:38 AM 03/12/2020 4:02 PM Care Teams Histology Aide Relationship Specialty Start Date End Date Pradip Tracy MD [address] [place] [address] PCP - General INTERNAL MEDICINE 01/21/25 Josie Becerra MD [address] [place] [address] Consulting Physician CARDIOVASCULAR DISEASE 01/24/24
--- OUTSIDE RECORDS SUMMARY | 2025-08-14 14:47 | XMS_ITS | Encounter Summary ---
Author Organization [facility] Address [address] Cha: Epic Prelude ADT [place] [address] Care Team Providers Care Wafer Mounter Name Role Phone Unavailable Primary Care Provider Unavailabl e Encounter Details Date Type Department Care Team (Late st Contact Info) Description 10/12/1989 Outpatient Historical Jassi Gage Social History Tobacco Use Types Packs/Day Years Used Date Smoking Tobacco: Never Assessed Comments Unknown Sex and Gender Information Value Date Recorded Sex Assigned at Not on file Legal Sex Female 4:13 AM AUTOMATIC FANCY MACHINE OPERATOR Gender Identity Not on file Sexual Orientation Not on file documented as of this encounter Plan of Treatment Not on file documented as of this encounter Visit Diagnoses Not on filedocumented in this encounter
--- OUTSIDE RECORDS SUMMARY | 2025-08-14 14:47 | XMS_ITS | Encounter Summary ---
Author Organization [facility] Address [address] Cha: Epic Prelude ADT [place] [address] Care Team Providers Care Home Restoration Service Supervisor Name Role Phone Unavailable Primary Care Provider Unavailabl e Encounter Details Date Type Department Care Team (Late st Contact Info) Description 08/09/1990 Outpatient Historical Jassi Gage Social History Tobacco Use Types Packs/Day Years Used Date Smoking Tobacco: Never Assessed Comments Unknown Sex and Gender Information Value Date Recorded Sex Assigned at Not on file Legal Sex Female 4:13 AM CARDROOM WORKER Gender Identity Not on file Sexual Orientation Not on file documented as of this encounter Plan of Treatment Not on file documented as of this encounter Visit Diagnoses Not on filedocumented in this encounter
--- OUTSIDE RECORDS SUMMARY | 2025-08-14 14:47 | XMS_ITS | Encounter Summary ---
Author Organization [facility] Address [address] [place] [address] Care Team Providers Care Computer Programmer Analyst Name Role Phone Blas Hardin MD Primary Care Provider Josie Becerra MD Unavailable Pradip Tracy MD Primary Care Provider [phone] Encounter Details Date Type Department Care Team (Late st Contact Info) Description 09/17/2019 Hospital Orders Only [facility] [address] [place] [address] Blas Hardin MD [address] [place] [phone] Social History Tobacco Use Types Packs/Day Years Used Date Smoking Tobacco: Never Assessed Comments Unknown Sex and Gender Information Value Date Recorded Sex Assigned at Female 10/31/2024 1:15 PM CITY SECRETARY Legal Sex Female 5:44 PM CITY SECRETARY Gender Identity Not on file Sexual Orientation Not on file documented as of this encounter Plan of Treatment Upcoming Encounters Date Type Department Care Team (Late st Contact Info) Description 10/16/2025 9:00 AM CITY SECRETARY Appointment [facility] [address] [place] [address] Josie Becerra MD [address] [place] [address] 10/21/2025 9:15 AM CITY SECRETARY Office Visit [facility] [address] [place] [place] [phone] Josie Becerra MD [address] [place], [place] [address] documented as of this encounter Visit Diagnoses Not on filedocumented in this encounter Additional Health Concerns Infection Onset Date Last Indicated Resolved Time COVID-19 Rule Out 02/27/2020 02/27/2020 02/28/2020 4:14 PM CDT COVID-19 Rule Out 03/09/2020 03/09/2020 03/09/2020 4:38 PM CDT COVID-19 Rule Out 02/03/2024 02/03/2024 02/03/2024 2:55 PM CDT documented as of this encounter Care Teams Computer Programmer Analyst Relationship Specialty Start Date End Date Blas Hardin MD [address] [place] [phone] PCP - General FAMILY PRACTICE 05/06/19 01/20/25 Pradip Tracy MD [address] [place] [phone] PCP - General INTERNAL MEDICINE 01/21/25 Josie Becerra MD [address] [place] [address] Consulting Physician CARDIOVASCULAR DISEASE 01/24/24 documented as of this encounter
--- OUTSIDE RECORDS SUMMARY | 2025-08-14 14:47 | XMS_ITS | Clinical Summary ---
Author Organization [facility] Address [address] 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
--- OUTSIDE RECORDS SUMMARY | 2025-08-14 14:47 | XMS_ITS | Encounter Summary ---
Author Organization [facility] Address [address] 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
[2025-08-14 15:03] LABS: Hematocrit 34.1 % (35.0-42.0); Hemoglobin 11.1 g/dL (11.7-13.8); Mean Corpuscular HGB Conc 32.6 g/dL (32-36); Mean Corpuscular Hemoglobin 31.3 pg (27.0-31.0); Mean Corpuscular Volume 96.1 fL (78.0-102.0); Platelet Count Result 251 K/mm3 (150-420); Red Blood Count 3.55 M/mm3 (4.20-5.40); White Blood Count 6.0 K/mm3 (4.8-10.8)
[2025-08-14 15:19] LABS: MALB Creatinine Ratio 11.5 mg/g (0-30)
[2025-08-14 15:20] LABS: Albumin Level 4.3 g/dL (3.5-5.1); Anion Gap 3 mmol/L (4-12); Blood Urea Nitrogen 21 mg/dL (7-17); Calcium 9.7 mg/dL (8.4-10.2); Carbon Dioxide 33 mmol/L (22-30); Chloride 107 mmol/L (98-107); Estimated Glomerular Filt Rate 36; Glucose 111 mg/dL (65-110); Osmolality Calculated 300 mOsm/kg (285-295); Potassium 4.3 mmol/L (3.4-5.0); Sodium 143 mmol/L (137-145)
== END 2025-08-14 14:40 | disposition home or self-care (01) ==
PROVIDERS: PCP Internal Medicine
DX: N18.30 Chronic kidney disease, stage 3 unspecified (principal)
CPT/HCPCS: 36415; 80069; 82043; 85027

== ENCOUNTER 2025-08-20 13:36 | Outpatient (CLI) | payer MEDICARE, SELFPAY ==
--- OUTSIDE RECORDS SUMMARY | 2024-10-23 08:20 | XMS_ITS ---
Author Organization [facility] Address [address] [place], [place] [id number] Care Team Providers Care Manager Of Planning Name Role Phone MARIBEL LISA Unavailable [phone] Blas Hardin Unavailable Unavailable KENDALL BESS Unavailable [phone] REASON FOR VISIT *General care Encounters Encounter Location Date Provider Diagnosis [address] [id number] 10/23/2024 KENDALL BESS Plan Of Treatment Next Appt Details Provider Name:LISA BELLAMY, 10/29/2025 02:00:00 PM, [address] [place] [address], [id number], Progress Notes * Wanda GORDILLODOB: [birth year] (84 yo F)Acc No.[id number]:10/23/2024 Patient: Wanda Carlos Provider: Marizol BESS :1940 A ge:83 Y S ex:Female Date:10/23/2024 Address[id number] Subjective: * Chief Complaints: * * General care * Electronic signature of MANNIE BESS DPM on 08/20/2025 at 08:12 PM FORGE HELPER Sign off status: Pending * Provider: Marizol BESS Date: 0 10/23/2024 Generated for Deandre schneider/Kaylah/Reji on: 10/20/2024 08:12 PM FORGE HELPER
--- OUTSIDE RECORDS SUMMARY | 2025-06-18 07:10 | XMS_ITS ---
Author Organization [facility] Address [address] [place], [place] [address] Care Team Providers Care Filler Leaf Cutter Long Name Role Phone MARIBEL LISA Unavailable [phone] Blas Hardin Unavailable Unavailable Allergies No Known Allergies REASON FOR VISIT *General care Medications Medication SIG (Take, Route, Frequency, Duration) Notes Start Date End Date Status Aspirin 81 MG Tablet Chewable 1 tablet Orally Once a day Active Amiodarone HCl 200 MG Tablet 1 tablet Orally Once a day Active Vitamin D2 50 MCG (1999) Tablet 1 tablet Orally Once a day Active traZODone HCl 100 MG Tablet 1 tablet at bedtime Orally Once a day Active Myrbetriq 50 MG Tablet Extended Release 24 Hour 1 tablet Orally Once a day Active Latanoprost 0.005 % Solution 1 drop into affected eye in the evening Ophthalmic Once a day Active Eliquis 2.5 MG Tablet as directed Orally Active Denosumab 60 MG/ML Solution Prefilled Syringe as directed Subcutaneous Active cycloSPORINE 0.05 % Emulsion 1 drop into affected eye Ophthalmic Twice a day Active Levothyroxine Sodium 75 MCG Tablet 1 tablet in the morning on an empty stomach Orally Once a day Active Metoprolol Succinate ER 100 MG Tablet Extended Release 24 Hour 1 tablet Orally Once a day Active Encounters Encounter Location Date Provider Diagnosis [address] [id number] 06/18/2025 LISA LÓPEZ Tinea unguium B35.1 ; Pain in right toe(s) M79.674 ; Pain in left toe(s) M79.675 and Atherosclerosis of [place] arteries of extremities with intermittent claudication, bilateral legs I70.213 Assessments Encounter Date Diagnosis (ICD Code) Assessment Notes Treatment Notes Treatment Clinical Notes Section Notes 06/18/2025 Tinea unguium (ICD-10 - B35.1) FUNGAL TOENAILS: Discussed various treatment options for fungal toenails including debridement, topical antifungals, oral antifungals, toenail avulsion, or toenail matrixectomy. NAIL DEBRIDEMENT: Nails 1-5 Bilateral were debrided extensively with nail nippers and emery board, reducing length and girth to pink healthy tissue with any subungual debris and necrotic tissue removed 06/18/2025 Pain in right toe(s) (ICD-10 - M79.674) 06/18/2025 Pain in left toe(s) (ICD-10 - M79.675) 06/18/2025 Atherosclerosis of [place] arteries of extremities with intermittent claudication, bilateral [...] sooner if problems arise Provider Name:LISA BELLAMY, 10/29/2025 02:00:00 PM, [address] [place] [address], [id number], History and Physical Notes * HPI (History [...] Date last seen by Dr. Hardin was 05/2025., Initials nd Examination Category Sub-Category Detail Notes Category Not [...] well developed, well groomed and well nourished Progress Notes * Wanda GORDILLODOB: [birth year] (84 yo F)Acc No.[id number]:06/18/2025 Patient: Wanda Carlos Provider: Brian LÓPEZ :1940 A ge:84 Y S ex:Female Date:06/18/2025 Address:[address] [place], [place] [id number] Subjective: * Chief Complaints: * * General care * HPI: H PI: General care P atient presents to the office for at risk foot care. Patient states that their nails are thickened, elongated and painful. Patient states that it is aggravated by shoe gear. Onset is gradual. Patient denies being diabetic., Patient denies taking prescription blood thinners but does take a daily aspirin., Date last seen by Dr. Hardin was 05/2025., Initials nd. * ROS: G eneral / Constitutional: Patient denies w eakness. R espiratory: Patient denies c hronic cough, shortness of breath, sputum production. C ardiovascular: Patient denies c hest pain, history of [place], irregular heartbeat. M usculoskeletal: Patient complains of f lat feet/ planus, hammertoes. ? P eripheral Vascular: Patient denies b lanching of skin, cold extremities, decreased sensation in extremities. S kin: Patient complains of f ungal nails, nail changes. ? N eurologic: Patient denies d izziness, gait abnormality, headache. * Medical History: Artificial joint Arthritis Bladder infections Back Trouble Heart Disease High blood pressure Medical History Verified * Surgical History: Denies Past Surgical History. Surgical History verified. * Hospitalization/Major Diagno stic Procedure: Denies Past Hospitalization. Hospitalization Verified. * Family History: N o Family History documented.. F amily History Verified.. * Social History: Social History Verified. No Social History documented. * Medications: T akingVitamin D2 50 MCG (2000 UT) Tablet 1 [...] with the patientTaking Vitamin D2 50 MCG (2000 UT) Tablet [...] reconciled with the patient * Allergies: N .K.D.A.yesAllergies Verified. Objective: * Examination: C onstitutional: Constitutional T he [...] - M79.675 4 . A therosclerosis of [place] arteries of extremities with intermittent claudication, bilateral legs - I70.213 Plan: * Treatment: * Procedure Codes: 1 1721 DEBRIDE NAIL, 6 OR MORE, Modifiers: Q8 * Preventive Medicine: Screenings: F all risk screening F all Risk Assessment: T wo or more falls with injury in the past year, P justice of Care: D ocumented, T ype of fall plan of care: Balance, strength and gait training or instruction provided, H ave you had two or more falls in the past year? Y es, H ave you had any falls with injury in the past year? Y es. * Follow Up: 1 0-12 Weeks (Reason: At Risk Foot care, sooner if problems arise) Billing Information: * Procedure Codes: 86714 DEBRIDE NAIL, 6 OR MORE. Modifiers: Q8 * Electronic signature of LANG LÓPEZ DPM on 08/20/2025 at 08:12 PM MEDICAL IMAGING DIRECTOR Sign off status: Pending * Provider: Brian LÓPEZ Date: 0 06/18/2025 Generated for Deandre schneider/Kaylah/Jeramyitting on: 1 10/20/2024 08:12 PM MEDICAL IMAGING DIRECTOR
[2025-08-20 13:43] VITALS: BMI 23.8
[2025-08-20] MEDS: DENOSUMAB 60 MG/ML SYRINGE SUB-Q (13:50)
[2025-08-20 13:54] VITALS: BP 152/74; PULSE 76; RESP 14; TEMP 36.6; O2SAT 97
[2025-08-20 14:01] VITALS: BP 143/74
--- OUTSIDE RECORDS SUMMARY | 2025-08-20 20:12 | XMS_ITS | Encounter Summary ---
Author Organization [facility] Address [address] Fernandezn: Epic Prelude ADT [place] AGU[place] [address] Care Team Providers Care Silk Screen Printing Racker Name Role Phone Unavailable Primary Care Provider Unavailabl e Encounter Details Date Type Department Care Team (Late st Contact Info) Description 05/22/1994 Outpatient Historical Austni Beckett MD NO ADDRESS ON FILE Social History Tobacco Use Types Packs/Day Years Used Date Smoking Tobacco: Never Assessed Comments Unknown Sex and Gender Information Value Date Recorded Sex Assigned at Not on file Legal Sex Female 4:13 AM NON DESTRUCTIVE EVALUATION MANAGER Gender Identity Not on file Sexual Orientation Not on file documented as of this encounter Plan of Treatment Not on file documented as of this encounter Visit Diagnoses Not on filedocumented in this encounter
--- OUTSIDE RECORDS SUMMARY | 2025-08-20 20:12 | XMS_ITS | Clinical Summary ---
Author Organization [facility] Address [address] [place] [address] Care Team Providers Care Open End Spinning Operator Name Role Phone Blas Hardin MD [...] mcg tablet Take 100 mcg by mouth ammonium sulfate operator before breakfast Active Active Problems Problem Noted [...] on file Legal Sex Female 1:53 PM TELEPHONE INFORMATION CLERK Gender Identity Not on file Sexual Orientation Not on file Last Filed Vital Signs Vital Sign Reading Time Taken Comments Blood Pressure 198/89 10/03/2019 11:17 AM TELEPHONE INFORMATION CLERK Pulse 58 10/03/2019 11:17 AM TELEPHONE INFORMATION CLERK Temperature 35.9 C (96.7 F) 08/11/2019 9:07 AM CDT Respiratory Rate 16 10/03/2019 11:17 AM TELEPHONE INFORMATION CLERK Oxygen Saturation 98% 10/03/2019 11:17 AM TELEPHONE INFORMATION CLERK Inhaled Oxygen Concentration - - Weight [...] an acceptable quality of life. Insurance MEDICARE [facility] MEDICARE Care Teams Open End Spinning Operator Relationship Specialty Start Date End Date Blas Hardin MD PCP - General 01/12/17
--- OUTSIDE RECORDS SUMMARY | 2025-08-20 20:12 | XMS_ITS | Clinical Summary ---
Author Organization [facility] Address [address] Cha: Epic Prelude ADT LIZETH VELAZCOADILSON [address] Care Team Providers Care Golf Club Head Inspector Name Role Phone Unavailable Primary Care Provider Unavailabl e Social History Tobacco Use Types Packs/Day Years Used Date Smoking Tobacco: Never Assessed Comments Unknown Sex and Gender Information Value Date Recorded Sex Assigned at Not on file Legal Sex Female 4:13 AM MANAGER RESIDENTIAL Gender Identity Not on file Sexual Orientation [...]
--- OUTSIDE RECORDS SUMMARY | 2025-08-20 20:12 | XMS_ITS | Clinical Summary ---
Author Organization [facility] Address [address] [place] [address] Phone Care Team Providers Care Adjunct Faculty Mathematics Department Name Role Phone Blas Hardin MD Primary Care Provider [phone] Social History Tobacco Use Types Packs/Day Years [...] age to complete this topic Insurance MEDICARE [facility] INSURANCE Care Teams Adjunct Faculty Mathematics Department Relationship Specialty Start Date End Date Blas Hardin MD [address] [place] [address] PCP - General Family Medicine 01/24/16
--- OUTSIDE RECORDS SUMMARY | 2025-08-20 20:12 | XMS_ITS | Encounter Summary ---
Author Organization [facility] Address [address] Cha: Epic Prelude ADT [place] AGUILAR [address] Care Team Providers Care Security Operations Engineer Name Role Phone Unavailable Primary Care Provider Unavailabl e Encounter Details Date Type Department Care Team (Late st Contact Info) Description 08/09/1990 Outpatient Historical Jassi Gage Social History Tobacco Use Types Packs/Day Years Used Date Smoking Tobacco: Never Assessed Comments Unknown Sex and Gender Information Value Date Recorded Sex Assigned at Not on file Legal Sex Female 4:13 AM OUTREACH COUNSELOR Gender Identity Not on file Sexual Orientation Not on file documented as of this encounter Plan of Treatment Not on file documented as of this encounter Visit Diagnoses Not on filedocumented in this encounter
--- OUTSIDE RECORDS SUMMARY | 2025-08-20 20:12 | XMS_ITS | Patient Health Record ---
Author Organization [facility] Address [address] [place], [place] [id number] Care Team Providers Care Tank Operator Name Role Phone LISA LÓPEZ Unavailable [phone] Blas Hardin Unavailable Unavailable EYAL CASTELLON Unavailable [phone] KENDALL BESS Unavailable [phone] Allergies No Known Allergies Reason For Referral No Information Medications Medication SIG (Take, Route, Frequency, Duration) Notes Start Date End Date Status Levothyroxine Sodium 75 MCG Tablet 1 tablet in the morning on an empty stomach Orally Once a day Active Latanoprost 0.005 % Solution 1 drop into affected eye in the evening Ophthalmic Once a day Active Myrbetriq 50 MG Tablet Extended Release 24 Hour 1 tablet Orally Once a day Active Metoprolol Succinate ER 100 MG Tablet Extended Release 24 Hour 1 tablet Orally Once a day Active Vitamin D2 50 MCG (1999) Tablet 1 tablet Orally Once a day Active traZODone HCl 100 MG Tablet 1 tablet at bedtime Orally Once a day Active Aspirin 81 MG Tablet Chewable 1 tablet Orally Once a day Active Amiodarone HCl 200 MG Tablet 1 tablet Orally Once a day Active Denosumab 60 MG/ML Solution Prefilled Syringe as directed Subcutaneous Active cycloSPORINE 0.05 % Emulsion 1 drop into affected eye Ophthalmic Twice a day Active Eliquis 2.5 MG Tablet as directed Orally Active Encounters Encounter Location Date Provider Diagnosis [address] [id number] 06/18/2025 LISA LÓPEZ Tinea unguium B35.1 ; Pain in right toe(s) M79.674 ; Pain in left toe(s) M79.675 and Atherosclerosis of [place] arteries of extremities with intermittent claudication, bilateral legs I70.213 [facility] [address] [place], [place] [id number] 08/20/2025 LISA LÓPEZ Tinea unguium B35.1 ; Pain in right toe(s) M79.674 ; Pain in left toe(s) M79.675 and Atherosclerosis of [place] arteries of extremities with intermittent claudication, bilateral legs I70.213 [facility] [address] [place] [id number] 10/30/2024 EYAL CASTELLON Tinea unguium B35.1 ; Pain in right toe(s) M79.674 ; Pain in left toe(s) M79.675 and Atherosclerosis of [place] arteries of extremities with intermittent claudication, bilateral [...] Pain in right toe(s) (ICD-10 - M79.674) 08/20/2025 Tinea unguium (ICD-10 - B35.1) FUNGAL TOENAILS: Discussed various treatment options for fungal toenails including debridement, topical antifungals, oral antifungals, toenail avulsion, or toenail matrixectomy. NAIL DEBRIDEMENT: Nails 1-5 Bilateral were debrided extensively with nail nippers and emery board, reducing length and girth to pink healthy tissue with any subungual debris and necrotic tissue removed 08/20/2025 Pain in right toe(s) (ICD-10 - M79.674) 08/20/2025 Pain in left toe(s) (ICD-10 - M79.675) 06/18/2025 Pain in left toe(s) (ICD-10 - M79.675) 10/30/2024 Pain in left toe(s) (ICD-10 - M79.675) 10/30/2024 Atherosclerosis of [place] arteries of extremities with intermittent claudication, 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) 06/18/2025 Atherosclerosis of [place] arteries of extremities with intermittent claudication, 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) 08/20/2025 Atherosclerosis of [place] arteries of extremities with intermittent claudication, 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) Patient educated on risks and aggravating factors of PVD, including conservative treatment options such as a diet and exercise regimen to aid in slowing progression of vascular disease. Check and protect LE bilateral daily. Call if any changes or concerns. Plan Of Treatment Next Appt Details Provider Name:LISA BELLAMY, 10/29/2025 02:00:00 PM, [address] [place] [address], [phone], Insurance Providers Payer Name Payer Address Payer Phone Subscriber Number Group Number Insured Name Patient Relationship to Insured Coverage Start Date Coverage End Date Medicare Part B [place] [address] [place] [phone] [id number] [facility] Wanda Self - patient is the insured [facility] [address] [address] [place] [address] [phone] [id number] Bhanu Wanda Self - patient is the insured 5 Medical (General) History Medical History History ICD Code artificial joint Arthritis Bladder infections Back Trouble Heart Disease high blood pressure
--- OUTSIDE RECORDS SUMMARY | 2025-08-20 20:12 | XMS_ITS | Encounter Summary ---
Author Organization [facility] Address [address] Cha: Epic Prelude ADT ADILSON AGUILAR [address] Care Team Providers Care Director Of Accreditation Name Role Phone Unavailable Primary Care Provider Unavailabl e Encounter Details Date Type Department Care Team (Late st Contact Info) Description 10/12/1989 Outpatient Historical Jassi Gage Social History Tobacco Use Types Packs/Day Years Used Date Smoking Tobacco: Never Assessed Comments Unknown Sex and Gender Information Value Date Recorded Sex Assigned at Not on file Legal Sex Female 4:13 AM PRESSURE TESTING TECHNICIAN Gender Identity Not on file Sexual Orientation Not on file documented as of this encounter Plan of Treatment Not on file documented as of this encounter Visit Diagnoses Not on filedocumented in this encounter
== END 2025-08-20 13:37 | disposition home or self-care (01) ==
PROVIDERS: PCP Internal Medicine; Visit Provider Internal Medicine
DX: M81.0 Age-related osteoporosis without current pathological fracture (principal)
CPT/HCPCS: 96372; J0897